=== PATIENT | male | born 1945 | race Caucasian/White ===

== ENCOUNTER → 2024-02-25 11:29 | Outpatient (REF) | payer OTHER, SELFPAY | LOC: DHCBC/DCA 11:29 | PROVIDERS: ATTENDING PHYSICIAN Internal Medicine Cardiovascular Disease; FAMILY PHYSICIAN Family Medicine | DX: I48.0 Paroxysmal atrial fibrillation (principal) | CPT/HCPCS: 78452; 93017; A9500; J2785 ==

== ENCOUNTER → 2024-03-04 09:07 | Outpatient (REF) | payer OTHER, SELFPAY | LOC: RCS 09:07 | PROVIDERS: ATTENDING PHYSICIAN Internal Medicine Cardiovascular Disease; FAMILY PHYSICIAN Family Medicine | DX: I35.0 Nonrheumatic aortic (valve) stenosis (principal) | CPT/HCPCS: 93306 ==

== ENCOUNTER 2024-07-23 23:31 | Inpatient (IN) | payer OTHER, SELFPAY ==
[2024-07-23 21:43] VITALS: BMI 28.4
[2024-07-23 21:45] VITALS: BP 172/121
[2024-07-23 21:48] VITALS: BP 156/108
[2024-07-23 21:57] LABS: % Basophils 1.1 % (0-2); % Eosinophils 2.9 % (0-6); % Immature Granulocytes 0.5 % (0-0.5); % Lymphocytes 21.9 % (20.5-51.1); % Monocytes 8.1 % (1.7-9.3); % Neutrophils 65.5 % (42.2-75.2); Absolute Basophils 0.1 10^3/uL (0-0.2); Absolute Eosinophils 0.2 10^3/uL (0-0.7); Absolute Lymphocytes 1.2 10^3/uL (1.2-3.4); Absolute Monocytes 0.5 10^3/uL (0.1-0.6); Absolute Neutrophils 3.7 10^3/uL (1.4-6.5); Hematocrit 41.9 % (39.0-52.0); Hemoglobin 14.7 g/dL (13.0-18.0); Mean Corp Hgb Conc. 35.1 g/dL (33.0-37.0); Mean Corpuscular Volume 94.2 fL (80.0-94.0); Mean Platelet Volume 10.4 fL (7.4-10.4); Nucleated Red Blood Cells % 0 % (-); Platelet Count 170 10^3/uL (130-400); Red Blood Cell Count 4.45 10^6/uL (4.70-6.10); Red Cell Dist. Width 13.6 % (11.5-14.5); White Blood Cell Count 5.6 10^3/uL (4.8-10.8)
[2024-07-23 22:09] LABS: APTT 28.8 Sec (23.4-35.0)
--- NOTE | 2024-07-23 22:13 | ED.GENMED ---
History of Present Illness
General
Chief Complaint: Chest Problem
Source: patient and ambulance crew
Exam Limitations: none
Time Seen by Provider: 07/23/24 21:54
Nursing documentation reviewed up to this point in time: agreed with
History of Present Illness
History of Present Illness:
Late entry seen immediately upon presentation I was in verbal contact with EMS and interventional cardiology prior to the patient's arrival, despite the patient being a dose and previously had no knowledge of his history and specific allergies as I
did not have his name/date of , and when asked if he had any allergies he was not sure of the names
79-year-old male history of CAD status post stenting followed by Dr. Kat had 1 visit after a stent placed a few years ago been compliant with Eliquis and aspirin, last night was a little short of breath and feels great just prior to calling EMS
he had pain in his chest into his arm reminiscent of his prior [place], EMS transmitted his EKG which showed tachycardic rhythm with ST elevation inferiorly with concordant ST depressions laterally interventional cardiology was notified, they received a
call from EMS, confirming his history STEMI alert was called admitted here upon presentation by myself and interventional cardiology had received aspirin by EMS
Past History
Past History
ED Past Medical History: Arrthythmia and CAD
ED Past Surgical History: Cardiac
PSI?: No
Social History
Tobacco: Non-smoker
Alcohol: Occasional
Drug: None
Personal:
Living: with family
Employment: Employed
Family History
Family History: CAD
Review of Systems
Review of Systems
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
All Other Systems: Not applicable
Constitutional: Denies fever or fatigue
Respiratory: Reports trouble breathing
Cardiac: Reports chest pain and palpitations; Denies syncope
: Reports no symptoms
Musculoskeletal: Reports no symptoms
Phy Exam
Physical Exam
Physical Exam:
Physical Exam
General: no apparent distress, not acutely ill
Neck: No jaundice
Heart: Tachycardic
Lungs: Bibasilar crackles
Abdomen: Nontender
Neuro: alert and oriented. no focal neurological deficits
Skin: no rash
Psychiatric: well kept. interactive and cooperative
Extremities: no edema. no calf tenderness.
Course
Orders/Labs/Results
Orders:
Orders
07/23/24 21:43
Electrocardiogram (*1) Urgent
Reason for Study: Chest Pain
Cardiac Monitoring- Treatment ONCE
EKG- Treatment ONCE
IV Insert/Care/Rem.- Treatment PRN
O2 Therapy [RESP] Urgent
Titrate/Wean O2 to maintain O2 sat greater than (%): 90
Special Instructions: Maintain sats >/=90%
Pulse Ox/spot Check [RESP] Urgent
Quantity: 1
Special Instructions: ON ROOM AIR
07/23/24 21:51
BNP [NT-proBNP] Urgent
Complete Blood Count/With Diff Urgent
Comprehensive Metabolic Panel Urgent
PTT Urgent
Troponin I Urgent
07/23/24 22:06
Metoprolol [Lopressor] 5 mg .ROUTE .STK-MED ONE
Ticagrelor [Brilinta] 180 mg .ROUTE .STK-MED ONE
Abnormal Lab Results
07/23/24
21:51
RBC 4.45 L 10^6/uL
(4.70-6.10)
MCV 94.2 H fL
(80.0-94.0)
MCH 33.0 H pg
(27.0-31.0)
07/23/24 21:51
Vital Signs
Initial and Last Documented VS:
Initial Vital Signs
Pulse Resp BP Pulse Ox
145 25 172/121 91
07/23/24 21:45 07/23/24 21:45 07/23/24 21:45 07/23/24 21:45
Last Documented Vital Signs
Pulse Resp BP Pulse Ox
153 18 156/108 91
07/23/24 21:48 07/23/24 21:48 07/23/24 21:48 07/23/24 21:45
MDM/Problems Addressed
Differential Diagnosis Includes:
STEMI, ACS stent occlusion, arrhythmia, dissection, less likely PE
MDM/Problems Addressed:
Chest pain tachycardia
Chronic conditions affecting care: CAD and Arrhythmia
Acute Exacerbation and/or Progression of Chronic Illness: CAD
*Pulse Oximetry
Patient hypoxic: yes
*EKG
Interpreted by ED Provider?: Yes
Comparison EKG: no comparison EKG present
Heart Rate: 145
Rate: bradycardiac
Rhythm: sinus
Ischemia: ST elevation
*Canvas Cutter Hand Interpretation
Rate: tachycardiac
Interpretation: abnormal
Heart Rate: 140
Rhythm: sinus
*Critical Care Note
Total Time (30-74mins, 75-104mins- exclusive of procedures): 30
comment:
CRITICAL CARE STATEMENT: A total of 30 minutes of critical care time was provided for this patient. This includes management of unstable vital signs, evaluation of the patient at bedside, reviewing the patient's pertinent medical records discussion
with EMS providers and patient's family in addition to discussion with consultants, review of old EKGs and review of pertinent medical records. This time with separate from time utilized to perform the aforementioned documented procedures
Patient treated with nitroglycerin Brilinta Lopressor, patient initially stated he did not have any drug allergies, upon review of the medical record states he gets short of breath from Brilinta, this was not apparent on his presentation
ED Attending Note
-
Portions of this chart may have been created with voice recognition software.� Occasional wrong word or��sound alike� substitutions may have occurred due to the inherent limitations of voice recognition software.
Discharge Plan
Departure
Patient Disposition: Admit
Date of Disposition: 07/23/24
Time of Disposition: 22:12
Admit to: brine room laborer
Presentation/result/management discussed w/ accepting MD/DO: Abby cardiology for CBC
Patient with high blood pressure during this ER visit?: Yes
Condition: Serious
Covid-19: Not Applicable
Discharge Problem:
ST elevation (STEMI) myocardial infarction
Interventions
Interventions:
*Risk Screen - Suicide Last Done: 07/23/24 22:10
*General Assessment Last Done: 07/23/24 22:10
*Neglect/Abuse Screening Last Done: 07/23/24 22:10
ED- Fall Risk Assessment Last Done: 07/23/24 22:12
*ED COVID-19 Vaccine History Last Done: 07/23/24 22:10
*Nursing Disposition Last Done: 07/23/24 22:12
ED- Cardiac Assessment Last Done: 07/23/24 22:07
ED- Pulmonary Assessment Last Done: 07/23/24 22:07
[2024-07-23 22:18] LABS: ALT (SGPT) 27 U/L (0-50); AST (SGOT) 33 U/L (17-59); Albumin 4.3 g/dl (3.5-5.0); Alkaline Phosphatase 53 U/L (38-126); Blood Urea Nitrogen 15 mg/dl (9-20); Calcium 9.1 mg/dl (8.4-10.2); Carbon Dioxide 24 mmol/L (22-30); Chloride 106 mmol/L (98-107); Estimated Creatinine Clearance 41 ml/min; Glucose 132 mg/dl (70-99); Potassium 4.4 mmol/L (3.5-5.1); Sodium 139 mmol/L (135-145); Total Bilirubin 0.7 mg/dl (0.2-1.3); Total Protein 6.8 g/dl (6.3-8.2); eGFR 50.49
[2024-07-23 22:23] LABS: NT-proBNP 1580 pg/ml
[2024-07-23 22:29] LABS: ACT-LR - POC 221 Seconds (116-155)
[2024-07-23 22:29] LABS: ACT-LR - POC 137 Seconds (116-155)
[2024-07-23 22:34] LABS: ACT-LR - POC 316 Seconds (116-155)
[2024-07-23 22:57] LABS: ACT-LR - POC 236 Seconds (116-155)
--- NOTE | 2024-07-23 23:11 | ITS.CL.CATH ---
Chief Ultrasound Technologist - Catheterization
Cardiac Catheterization
Procedure Report:
LEFT HEART CATHETERIZATION AND CORONARY INTERVENTION
Date of Procedure: July 23, 2024
Referring: [facility] emergency department
PROCEDURES:
1. Left heart catheterization, coronary angiogram.
2. Ultrasound-guided access.
3. Successful percutaneous coronary artery intervention of a hazy 90% proximal RCA in-stent restenosis, treated with one 3.0 x 18 mm Medtronic [place] frontier drug-eluting stent, postdilated with a 3.5 x 8 mm NC balloon at 20 erasto with an excellent
angiographic result
4. Intravascular ultrasound (IVUS)
INDICATION: Roverto is a 79-year-old gentleman with past medical history of hypertension, hyperlipidemia, coronary artery disease status post STEMI in 2018 with ostial to proximal 3.0 x 38 mm Xience drug-eluting stent, paroxysmal atrial fibrillation
status post prior cardioversions and ablation on chronic Eliquis chronic Eliquis and sotalol therapy along with diltiazem, who presents with acute onset of substernal chest discomfort starting this evening after dinnertime radiating to bilateral
arms found to have a barrier ST elevation NE for which heart catheterization lab was activated emergently and patient was brought to the heart catheterization lab after informed consent discussing risk and benefits in detail. Patient received 225
mg of aspirin by EMS, 4000 units of heparin IV in the emergency department along with Brilinta 180 mg loading dose. He noted afterwards that he has potential allergies to Plavix which caused a rash previously and Brilinta which caused shortness of
breath previously.
ACCESS: Right radial artery, 6 Latvian sheath, under ultrasound guidance
HEMODYNAMICS : (mmHg)
AO (s/d) : 135/104
LV (s/d) : 133/13
LVEDP : 21
CORONARY FINDINGS
DOMINANCE: Right
LEFT MAIN: The left main artery is a large-caliber vessel which gives rise to the left anterior descending artery and the left circumflex artery. There is mild diffuse atherosclerotic plaque.
LEFT ANTERIOR DESCENDING: The left coronary artery is a medium to large caliber vessel which gives rise to 2 small to medium caliber diagonal branches as it courses to the anterior interventricular groove and wraps around the apex. There is diffuse
up to 70% stenosis in the proximal LAD which is moderately calcified.
CIRCUMFLEX: The left circumflex artery is a medium caliber vessel which gives rise to 2 major obtuse marginal branch and a small to medium caliber left posterolateral branch. OM1 has 40% proximal stenosis which is tubular and smooth in appearance.
OM 2 has diffuse proximal 20 to 30% stenosis. Otherwise there is mild diffuse atherosclerotic plaque.
RIGHT CORONARY ARTERY: The right coronary artery is a medium caliber, dominant vessel which gives rise to the right posterior descending artery and the right posterolateral system. There is a hazy 90% proximal RCA in-stent restenosis which is the
culprit for presenting ACS and was treated with details below.
CORONARY INTERVENTION:
SEDATION: 54 minutes of procedural sedation was utilized. An independent certified medical asst was present to assist with and help manage the patient's level of consciousness and physiologic status.
RADIATION SUMMARY: Fluoro Time (min): 11.8, Dose (mGy): 1042.9, DAP (Gy.cm2) : 75.8
Closure Device: Vascular band over right radial artery, 15 cc of air
CONCLUSIONS
1. Successful IVUS guided percutaneous coronary artery intervention of a hazy 90% proximal RCA in-stent restenosis, treated with one 3.0 x 18 mm Medtronic [place] frontier drug-eluting stent, postdilated with a 3.5 x 8 mm NC balloon at 20 erasto with an
excellent angiographic result.
2. There is diffuse up to 70% stenosis in the proximal LAD which is moderately calcified.
3. OM1 has 40% proximal stenosis which is tubular and smooth in appearance. OM 2 has diffuse proximal 20 to 30% stenosis.
4. Elevated LVEDP at 21 mmHg
RECOMMENDATIONS
1. Plan for daily baby aspirin along with Brilinta for now. Clarify allergies to antiplatelet agents as noted in records given patient does not recall them. As long as right radial site is stable can resume Eliquis tomorrow. Would recommend
triple therapy for 1 week then Eliquis along with 1 antiplatelet agent subsequently. High intensity statin and beta-thomas as tolerated.
2. Aggressive management of cardiovascular risk factors.
3. Wean radial band per protocol.
4. Echocardiogram to assess biventricular function and rule out any significant valvular abnormalities.
5. Eventual referral for outpatient cardiac rehab.
6. Consider IFR guided intervention to proximal LAD for complete revascularization in the near future.
Copy to: Demario Ramírez MD
Enedelia Thomas MD, FAC, [facility]
[2024-07-23 23:19] VITALS: BP 121/82
--- NOTE | 2024-07-23 23:20 | HPS.HSE ---
Family Physician
-
Family Physician: Wolfgang Juan
Chief Complaint
-
Chest pain
History of Present Illness
Roverto is a 79-year-old gentleman with past medical history of hypertension, hyperlipidemia, coronary artery disease status post STEMI in 2018 with ostial to proximal 3.0 x 38 mm Xience drug-eluting stent, paroxysmal atrial fibrillation status
post prior cardioversions and ablation on chronic Eliquis chronic Eliquis and sotalol therapy along with diltiazem, who presents with acute onset of substernal chest discomfort starting this evening after dinnertime radiating to bilateral arms found
to have a barrier ST elevation TN for which heart catheterization lab was activated emergently and patient was brought to the heart catheterization lab after informed consent discussing risk and benefits in detail. Patient received 225 mg of
aspirin by EMS, 4000 units of heparin IV in the emergency department along with Brilinta 180 mg loading dose. He noted afterwards that he has potential allergies to Plavix which caused a rash previously and Brilinta which caused shortness of breath
previously, however this was based on documentation and patient himself could not truly recall his reactions in which medications. Family also tells us later on after the heart catheterization that patient has been missing doses of his medications,
unsure of which medication exactly as he has been playing around trying to find if any of his medications were causing a rash that he recently saw dermatology for however biopsy per family showed that the rash may have been autoimmune in nature. He
tells me his last dose of Eliquis was at 5 PM evening of presentation. He also notes that he has been having dyspnea on exertion for the last few months with any degree of activity however he has not seen anyone for this. He quit smoking more than
30 years ago. He otherwise reports compliance with his medications and did not tell us about missing doses recently.
Medical History
Past Medical History
Past Medical History: Reports Arrhythmia, CAD, HTN, Hypercholesterolemia and Renal Failure
Additional Past Medical History:
Atrial fibrillation/flutter status post ablation previously
Past Surgical History: Reports Cardiac
Additional Past Surgical History:
Stent in ostial to proximal RCA
Social History
Tobacco: Former Smoker
Alcohol: Occasional
Drug: None
Personal: Partner
Living: With Family
Employment: Employed
Family History
Family History: CAD
Allergies / Home Medications
Allergies reflects when Allergies were last updated in [employer].
Home Medications with original date entered in [employer]
Patient is unclear of his current medications and family will provide the most active list. Of note patient has been recently missing doses of his medications.
Allergy/Medication List:
No known drug allergy
Review of Systems
-
A 12 point ROS was completed and negative except as noted: Yes
Physical Exam
Vital Signs
Vital Signs
Pulse Resp BP Pulse Ox
153 18 156/108 91
07/23/24 21:48 07/23/24 21:48 07/23/24 21:48 07/23/24 21:45
Physical Exam
General: Well Developed, Well Nourished and No Apparent Distress
HEENT: Moist mucous membranes and PERRLA
Respiratory: Rales and Non Labored Respirations; No Wheezes or Rhonchi
Cardiac: S1/S2, Tachycardia, JVD and Carotid Pulses; No Rub, Peripheral Edema or Carotid Bruits
GI: Soft, Non Tender and Normal Bowel Sounds
Genito-urinary: Deferred by me
Musculoskeletal: No Clubbing, No Cyanosis and No Edema
Skin: Warm and Dry
Neuro: Awake, Oriented and AO x 3
Psych: Calm
Laboratory Results
-
07/23/24 21:51
07/23/24 21:51
Laboratory Results
APTT 28.8 Sec (23.4-35.0) 07/23/24 21:51
Total Bilirubin 0.7 mg/dl (0.2-1.3) 07/23/24 21:51
AST 33 U/L (17-59) 07/23/24 21:51
ALT 27 U/L (0-50) 07/23/24 21:51
Alkaline Phosphatase 53 U/L (38-126) 07/23/24 21:51
Troponin I 0.180 ng/ml H* 07/23/24 21:51
Data Reviewed
-
Diagnostic Radiology: Report Reviewed by me
Medical Tests (Nuc Med, Echo, EKG etc): Image Personally Visualized and interpreted
Lab Data: Labs Reviewed by me
Old Records: Reviewed
Impression/Plan
-
IMPRESSION: Roverto is a 79-year-old gentleman with past medical history of hypertension, hyperlipidemia, coronary artery disease status post STEMI in 2018 with ostial to proximal 3.0 x 38 mm Xience drug-eluting stent, paroxysmal atrial
fibrillation status post prior cardioversions and ablation on chronic Eliquis chronic Eliquis and sotalol therapy along with diltiazem, who presents with acute onset of substernal chest discomfort starting this evening after dinnertime radiating to
bilateral arms found to have a barrier ST elevation TN for which heart catheterization lab was activated emergently and patient was brought to the heart catheterization lab after informed consent discussing risk and benefits in detail. Patient
received 225 mg of aspirin by EMS, 4000 units of heparin IV in the emergency department along with Brilinta 180 mg loading dose. He noted afterwards that he has potential allergies to Plavix which caused a rash previously and Brilinta which caused
shortness of breath previously, however this was based on documentation and patient himself could not truly recall his reactions in which medications. Family also tells us later on after the heart catheterization that patient has been missing doses
of his medications, unsure of which medication exactly as he has been playing around trying to find if any of his medications were causing a rash that he recently saw dermatology for however biopsy per family showed that the rash may have been
autoimmune in nature. He tells me his last dose of Eliquis was at 5 PM evening of presentation. He also notes that he has been having dyspnea on exertion for the last few months with any degree of activity however he has not seen anyone for this.
He quit smoking more than 30 years ago. He otherwise reports compliance with his medications and did not tell us about missing doses recently.
PLAN:
1. Plan for urgent heart catheterization after discussion of risk and benefits and informed consent.
2. ACS management with daily aspirin, hold Eliquis for now, IV heparin drip, high intensity statin and beta-thomas as tolerated.
3. Echocardiogram to assess biventricular function and rule out any significant valvular issues.
4. Further details based on the heart catheterization report.
5. Family to bring in list of active medications and clarify what he has been missing recently.
6. Eventual referral for outpatient cardiac rehab.
Enedelia Thomas MD, FACC, [facility]
[2024-07-23 23:53] VITALS: BP 132/94
[2024-07-24] VITALS (19 sets, daily range): BP systolic 110–180; BP diastolic 66–117; BMI 28.4; BMI 25.5
[2024-07-24 00:13] LABS: Troponin I 0.295 ng/ml
[2024-07-24] MEDS: LIPITOR 80 MG PO ×2 (00:14→17:35)
[2024-07-24] MEDS: LOPRESSOR 25 MG PO (00:14)
[2024-07-24] MEDS: LOPRESSOR 5 MG IV (00:55)
--- NOTE | 2024-07-24 02:29 | PTCARENOTE ---
Received pt from mobile home laborer into 2244. TR band in place c/d/i palpable radial pulse continuous pulse ox on right index finger 95% A flutter on the monitor 130's. BP stable denies chest pain. EKG done on arrival. Call house within reach. Pt aware of arm
restriction and bed rest.
--- NOTE | 2024-07-24 02:41 | PTCARENOTE ---
0100 Pt HR 130-140 Lionel Motley notified and ordered 5 mg Lopressor IVP.
[2024-07-24 05:32] LABS: Hemoglobin 13.5 g/dL (13.0-18.0); Mean Corp Hgb Conc. 35.5 g/dL (33.0-37.0); Mean Corpuscular Hgb 33.4 pg (27.0-31.0); Mean Corpuscular Volume 94.1 fL (80.0-94.0); Mean Platelet Volume 10.5 fL (7.4-10.4); Platelet Count 154 10^3/uL (130-400); Red Blood Cell Count 4.04 10^6/uL (4.70-6.10); Red Cell Dist. Width 13.7 % (11.5-14.5); White Blood Cell Count 5.4 10^3/uL (4.8-10.8)
[2024-07-24 05:55] LABS: Blood Urea Nitrogen 15 mg/dl (9-20); Calcium 8.8 mg/dl (8.4-10.2); Carbon Dioxide 23 mmol/L (22-30); Chloride 106 mmol/L (98-107); Estimated Creatinine Clearance 64 ml/min; Glucose 102 mg/dl (70-99); HDL Cholesterol 43 mg/dl; LDL Cholesterol, Calculated 54 mg/dl; Potassium 3.8 mmol/L (3.5-5.1); Sodium 139 mmol/L (135-145); Total Cholesterol 145 mg/dl (50-199); Triglyceride 241 mg/dl (10-149); Very Low Density Lipoprotein 48 mg/dl (0-30); eGFR > 60.00
[2024-07-24 05:57] LABS: Troponin I 0.961 ng/ml
[2024-07-24] MEDS: BRILINTA 90 MG PO ×2 (08:27→19:55)
[2024-07-24] MEDS: LASIX 40 MG IV ×2 (08:28→16:20)
[2024-07-24] MEDS: BETAPACE 80 MG PO ×2 (08:28→19:55)
[2024-07-24] MEDS: CARDIZEM 30 MG PO (08:28)
[2024-07-24] MEDS: PROTONIX 40 MG PO (08:28)
[2024-07-24] MEDS: LOW STRENGTH ASPIRIN 81 MG PO (08:28)
[2024-07-24] MEDS: LOPRESSOR PO (08:29)
--- NOTE | 2024-07-24 09:00 | PTCARENOTE ---
On pt handoff w/ nightshift RN, pt complained of abdominal pain described as cramping and feeling 'gassy.' Pt noted to be pursed lip breathing. Pt states 'i feel like i can not get enough air.' POX 93% RA. 2L O2 NC applied for comfort. BP 180/109.
Chivo SAVAGE notified. EKG obtained. Pt noted to be in afib 130s. Chivo at bedside. IV lasix ordered and administered. AM meds administered as ordered. See MAR. Repeat BP 150/102. Pt states some relief. Call harsh w/in reach.
[2024-07-24] MEDS: ELIQUIS 5 MG PO ×2 (09:20→19:54)
--- NOTE | 2024-07-24 09:30 | PTCARENOTE ---
Repeat EKG obtained and reads junctional rhythm w/ long QT. HR 50-80s. Chivo notified and magnesium ordered and drawn.
--- NOTE | 2024-07-24 10:00 | PTCARENOTE ---
On pt handoff w/ nightshift RN, pt complained of abdominal pain described as cramping and feeling 'gassy.' Pt noted to be pursed lip breathing. Pt states 'i feel like i can not get enough air.' POX 93% RA. 2L O2 NC applied for comfort. BP 180/109.
Chivo SAVAGE notified. EKG obtained. Pt noted to be in afib 130s. Chivo at bedside. IV lasix ordered and administered. AM meds administered as ordered. See MAR. Repeat troponin and mag ordered and drawn. Repeat BP 150/102. Pt states some relief.
Call house w/in reach.
[2024-07-24 11:30] LABS: Magnesium 1.8 mg/dl (1.6-2.3)
--- NOTE | 2024-07-24 11:33 | W.PN.CD ---
Today's Communication / Plan
-
IV lasix bid today
PRN lasix starting tomorrow
Aspirin Ticag and Eliquis for 1 week, then ticagrelor and ELiquis for at least 1 year
Echo pending
Impression / Plan
-
S: 79-year-old with past medical history of paroxysmal AF on sotalol and Eliquis, PVI in 2022, CAD, mild to moderate aortic valve stenosis, hypertension, GERD, who is here for STEMI now s/p RCA stenosis.
STEMI status post RCA stenting for ISR causing STEMI
-Triple therapy for 1 week and then ticagrelor Eliquis for at least 1 year
-Continue statin
-LAD stenosis to be evaluated as outpatient
-Echocardiogram pending
Acute HF unknown EF LVEDP 21 mmHg on cath
- Echo pending
- IV lasix BID today
- resume PRN lasix tomorrow
Paroxysmal A-fib
-Continue sotalol and diltiazem
-Continue Eliquis
Hypertension
-Continue meds
Dyslipidemia
-Continue statin
AV stensosi
-mild to moderate on previous echo
Subjective: Feels better today no new complaints
Physical Exam
Vital Signs/Labs
Vital Signs
Temp Pulse Resp BP Pulse Ox
97.8 F 73 20 149/116 97
07/24/24 11:19 07/24/24 10:30 07/24/24 11:19 07/24/24 08:10 07/24/24 11:19
07/23/24 07/24/24 07/25/24
06:59 06:59 06:59
Actual Weight 192 lb 0.362 oz 177 lb 11.081 oz
07/24/24 05:13
07/24/24 05:13
APTT 28.8 Sec (23.4-35.0) 07/23/24 21:51
Magnesium 1.8 mg/dl (1.6-2.3) 07/24/24 10:11
Triglycerides 241 mg/dl (10-149) H 07/24/24 05:13
LDL Cholesterol, Calc 54 mg/dl 07/24/24 05:13
VLDL Cholesterol, Calc 48 mg/dl (0-30) H 07/24/24 05:13
HDL Cholesterol 43 mg/dl 07/24/24 05:13
07/23/24
21:51
Nki-C-Kjjykdsidbr Pept 1580
LAB Results
07/23/24 07/23/24 07/24/24
21:51 23:38 05:13
Troponin I 0.180 H* 0.295 H* D 0.961 H* D
07/24/24
10:11
Troponin I 1.140 H*
Physical Exam
Constitutional: No acute distress
EENT: Anicteric
Cardiovascular: Rhythm & rate is regular and Pedal edema is absent
Respiratory: Respiratory effort normal, Lungs clear to auscul. and Other (poor air movement)
GI: Soft
Neuro/Psych: AO x 3
Data Reviewed
-
Date of Service: July 24, 2024
Medical Decision Making: Reviewed Test Results
EKG: Tracing Personally Visualized and interpreted (sr)
Echo: Report Reviewed by me
Labs: Labs Reviewed by me
--- NOTE | 2024-07-24 11:43 | CM ---
Chart reviewed. Patient is independent of ADLS, lives with his girlfriend in a [address], 1 [address], 0 DME. Plan is for the patient to return home. CM to follow
[2024-07-24] MEDS: MAGNESIUM SULFATE 100 IV (12:11)
--- NOTE | 2024-07-24 12:17 | PTCARENOTE ---
mag 1.8. Chivo notifed and mag gtt ordered and administered. Pt currently has no complaints. Call harsh w/in reach.
[2024-07-24] MEDS: KCL 40 MEQ PO (12:45)
[2024-07-24] MEDS: KCL PO (12:46)
[2024-07-24] MEDS: CARDIZEM PO (15:42)
--- NOTE | 2024-07-24 15:44 | PTCARENOTE ---
Tele- SR w/ PVCs. HR 50-60s. PO cardizem 30mg casper. Crispin Velarde SO[employer]ER notified and ordered to hold dose.
--- NOTE | 2024-07-24 16:01 | CM ---
Pricing on Brilinta is $112 through the patient's prescription plan. Patient is agreeable to cost. Patient does not have the Brilinta in stock at his pharmacy. It is in stock at the [facility] on [address]. Patient is agreeable to go there.
RAFAEL Sheppard, to send Brilinta script over. Patient has a free 30 day coupon in his red discharge folder.
[2024-07-24 17:05] LABS: Troponin I 0.852 ng/ml
--- NOTE | 2024-07-24 21:29 | PTCARENOTE ---
Pt rec'd at shift change awake,alert family at bedside. Pt mildly dyspneic with talking denies distress. Lungs diminished throughout. o2 at 2 lit n/c maintained. Right radial site with DDI. HR 60's irregular with pvc's noted
[2024-07-25] VITALS (7 sets, daily range): BP systolic 105–136; BP diastolic 69–86; BMI 24.8
--- NOTE | 2024-07-25 05:33 | PTCARENOTE ---
Pt reports having no complaints this am. ecg showed junctional with pac's and pvc's in 70's. right radial site remains intact.
--- NOTE | 2024-07-25 08:01 | PTCARENOTE ---
Received patient this morning resting in bed, dressing right wrist is dry and intact. Patient denies any complaints other than needing to sleep.
[2024-07-25] MEDS: ELIQUIS 5 MG PO ×2 (09:07→20:39)
[2024-07-25] MEDS: BRILINTA 90 MG PO ×2 (09:07→20:39)
[2024-07-25] MEDS: LASIX 40 MG IV (09:07)
[2024-07-25] MEDS: LOW STRENGTH ASPIRIN 81 MG PO (09:07)
[2024-07-25] MEDS: BETAPACE 80 MG PO (09:07)
[2024-07-25] MEDS: PROTONIX 40 MG PO (09:08)
[2024-07-25] MEDS: FLUSH (NSS) 1 FLUSH IV (09:08)
[2024-07-25] MEDS: TYLENOL 650 MG PO (09:23)
--- NOTE | 2024-07-25 11:58 | W.PN.CD ---
Addendum entered and electronically signed by Willian Junior MD 07/25/24 12:31:
Patient seen and examined in collaboration with MONOTYPER; agree with below.
-Echocardiogram yesterday revealed an LVEF of 40-45% with basal to mid inferior akinesis.
-Will need to optimize medications for GDMT.
-Will discontinue sotalol and Cardizem.
-Will start Toprol-XL 25 mg twice daily for now.
-Will start Farxiga 10 mg daily.
-Will decrease Lasix to 40 mg IV twice daily to once daily.
-Continue triple therapy for 1 week.
-Continue clinical research monitor over the weekend as Toprol-XL will likely need to be uptitrated as patient was both on sotalol and Cardizem.
-Likely discharge to home on Saturday.
Original Note:
Today's Communication / Plan
-
continue IV lasix once daily- requires intensive monitoring
stop sotalol and follow telemetry
stop diltiazem and start metoprolol
AP and AC plan as noted in detail
Add SGLT2 and consult CM for pricing
Impression / Plan
-
S: 79-year-old with past medical history of paroxysmal AF on sotalol and Eliquis, PVI in 2022, CAD, mild to moderate aortic valve stenosis, hypertension, GERD, who is here for STEMI now s/p RCA stenosis.
STEMI status post RCA stenting for ISR causing STEMI:
-Triple therapy for 1 week and then ticagrelor Eliquis for at least 1 year
-Continue statin
-LAD stenosis to be evaluated as outpatient
-echo 07/24/23: LV ejection fraction is approximately 40-45%. Basal to mid inferior akinesis. Moderately dilated atria. Mild mitral stenosis; peak/mean gradients 6/3 mmHg. Mild to moderate aortic stenosis; peak/mean gradients are 26/12 mmHg,
calculated BRIGITTE 1.4 cm2 via planimetry. Mild aortic regurgitation. Mild tricuspid regurgitation. Estimated pulmonary artery pressure of 35-40 mmHg. Dilated aortic root. Sinus of Valsalva measures 4.1 cm.
Acute HFmEF:
-IV Lasix once daily- likely PO transition Saturday
-stop diltiazem for ICM, add BB and SGLT2 to start- other GDMT as tolerated in future
Paroxysmal A-fib
-stop sotalol with ICM and prolonged QTC, and follow telemetry- add BB
-Continue Eliquis
Hypertension
-monitor with med adjustments
Dyslipidemia
-Continue statin
AV stenosis
-echo as above
Subjective:
-has TODD and abdominal bloating
Physical Exam
Vital Signs/Labs
Vital Signs
Temp Pulse Resp BP Pulse Ox
97.7 F 58 18 105/69 93
07/25/24 04:19 07/25/24 11:45 07/25/24 04:19 07/25/24 11:21 07/25/24 09:20
07/24/24 07/25/24 07/26/24
06:59 06:59 06:59
Actual Weight 87.1 kg 78.4 kg
07/24/24 05:13
07/24/24 05:13
APTT 28.8 Sec (23.4-35.0) 07/23/24 21:51
Magnesium 1.8 mg/dl (1.6-2.3) 07/24/24 10:11
Triglycerides 241 mg/dl (10-149) H 07/24/24 05:13
LDL Cholesterol, Calc 54 mg/dl 07/24/24 05:13
VLDL Cholesterol, Calc 48 mg/dl (0-30) H 07/24/24 05:13
HDL Cholesterol 43 mg/dl 07/24/24 05:13
07/23/24
21:51
Ddm-H-Qmsojeaiwnz Pept 1580
LAB Results
07/23/24 07/23/24 07/24/24
21:51 23:38 05:13
Troponin I 0.180 H* 0.295 H* D 0.961 H* D
07/24/24 07/24/24
10:11 16:30
Troponin I 1.140 H* 0.852 H* D
Physical Exam
Constitutional: No acute distress
EENT: Anicteric
Cardiovascular: Rhythm & rate is regular and Pedal edema is absent
Respiratory: Respiratory effort normal and Lungs clear to auscul.
Neuro/Psych: AO x 3
Other: Cath Site (right radial cath site stable)
Data Reviewed
-
Date of Service: July 25, 2024
EKG: Tracing Personally Visualized and interpreted (ectopic atrial rhythm)
Medical Tests (PFT, Pathology etc): Report Reviewed by me (ecoh as noted)
Labs: Labs Reviewed by me
[2024-07-25] MEDS: LIPITOR 80 MG PO (17:13)
[2024-07-25] MEDS: TOPROL XL 25 MG PO (20:40)
[2024-07-26] VITALS (12 sets, daily range): BP systolic 101–144; BP diastolic 66–115; BMI 24.8
[2024-07-26 04:38] LABS: Blood Urea Nitrogen 18 mg/dl (9-20); Carbon Dioxide 24 mmol/L (22-30); Chloride 102 mmol/L (98-107); Estimated Creatinine Clearance 85 ml/min; Glucose 107 mg/dl (70-99); Potassium 3.9 mmol/L (3.5-5.1); Sodium 137 mmol/L (135-145); eGFR > 60.00
--- NOTE | 2024-07-26 06:17 | PTCARENOTE ---
Assumed care of pt at change of shift. NSR with PACs and PVCs on tele with HR 60s-70s. 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 Pt denies CP. Plan of care discussed and pt verbalizes understanding. Ambulating independently without difficulty. Call
house within reach.
[2024-07-26] MEDS: ELIQUIS 5 MG PO ×2 (09:18→20:12)
[2024-07-26] MEDS: FARXIGA 10 MG PO (09:19)
[2024-07-26] MEDS: TOPROL XL 25 MG PO (09:20)
[2024-07-26] MEDS: LASIX 40 MG IV (09:20)
[2024-07-26] MEDS: PROTONIX 40 MG PO (09:20)
[2024-07-26] MEDS: LOW STRENGTH ASPIRIN 81 MG PO (09:20)
[2024-07-26] MEDS: BRILINTA 90 MG PO ×2 (09:21→20:12)
[2024-07-26] MEDS: FLUSH (NSS) 1 FLUSH IV (09:21)
--- NOTE | 2024-07-26 10:00 | W.PN.CD ---
Today's Communication / Plan
-
-Triple therapy for 1 week, and then ticagrelor and Eliquis for at least 1 year.
-Occasional PVCs on telemetry.
-Continue Toprol-XL 25 mg twice daily and Farxiga for GDMT.
-Will start low-dose lisinopril 2.5 mg daily for GDMT.
-Discharge to home tomorrow morning.
Impression / Plan
-
S: 79-year-old with past medical history of paroxysmal AF on sotalol and Eliquis, PVI in 2022, CAD, mild to moderate aortic valve stenosis, hypertension, GERD, who is here for STEMI now s/p RCA stenosis.
STEMI status post RCA stenting for ISR causing STEMI:
-Triple therapy for 1 week, and then ticagrelor and Eliquis for at least 1 year.
-Continue statin
-LAD stenosis to be evaluated as outpatient
-echo 07/24/23: LV ejection fraction is approximately 40-45%. Basal to mid inferior akinesis. Moderately dilated atria. Mild mitral stenosis; peak/mean gradients 6/3 mmHg. Mild to moderate aortic stenosis; peak/mean gradients are 26/12 mmHg,
calculated BRIGITTE 1.4 cm2 via planimetry. Mild aortic regurgitation. Mild tricuspid regurgitation. Estimated pulmonary artery pressure of 35-40 mmHg. Dilated aortic root. Sinus of Valsalva measures 4.1 cm.
-Occasional PVCs on telemetry.
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
-Will transition to Lasix 20 mg PO daily starting tomorrow.
-Diltiazem discontinued.
-Continue Toprol-XL 25 mg twice daily and Farxiga for GDMT.
-Will start low-dose lisinopril 2.5 mg daily for GDMT.
Paroxysmal A-fib
-Sotalol discontinued with ICM and prolonged QTC; changed to Toprol-XL.
-Continue Eliquis.
Hypertension
-Stable/controlled; adding lisinopril as above.
Dyslipidemia
-Continue atorvastatin 80 mg daily.
AV stenosis
-Stable.
Subjective:
No major events overnight. Dyspnea improved.
Physical Exam
Vital Signs/Labs
Vital Signs
Temp Pulse Resp BP Pulse Ox
97.8 F 85 20 136/86 94
07/26/24 06:53 07/26/24 08:00 07/26/24 06:53 07/26/24 06:55 07/26/24 06:53
07/25/24 07/26/24 07/27/24
06:59 06:59 06:59
Actual Weight 78.4 kg 78.5 kg
07/24/24 05:13
07/26/24 04:04
APTT 28.8 Sec (23.4-35.0) 07/23/24 21:51
Magnesium 1.8 mg/dl (1.6-2.3) 07/24/24 10:11
Triglycerides 241 mg/dl (10-149) H 07/24/24 05:13
LDL Cholesterol, Calc 54 mg/dl 07/24/24 05:13
VLDL Cholesterol, Calc 48 mg/dl (0-30) H 07/24/24 05:13
HDL Cholesterol 43 mg/dl 07/24/24 05:13
07/23/24
21:51
Nnw-B-Cicxmtkhcsg Pept 1580
LAB Results
07/23/24 07/23/24 07/24/24
21:51 23:38 05:13
Troponin I 0.180 H* 0.295 H* D 0.961 H* D
07/24/24 07/24/24
10:11 16:30
Troponin I 1.140 H* 0.852 H* D
Physical Exam
Constitutional: No acute distress and Comfortable
EENT: Anicteric
Cardiovascular: Rhythm & rate is regular, Pedal edema is absent, Systolic murmur present (1/6) and S1S2 is normal
Respiratory: Respiratory effort normal and Lungs clear to auscul.
GI: Soft and Non tender
Neuro/Psych: AO x 3
Other: Skin (Warm, dry, intact)
Data Reviewed
-
Date of Service: July 26, 2024
EKG: Report Reviewed by me (Telemetry: Sinus rhythm, occasional PVCs)
Echo: Tracing Personally Visualized and interpreted (EF 40-45%, inferior akinesis)
Medical Tests (PFT, Pathology etc): Discussed with Nurse, Discussed with Patient and Discussed with Family (Son at bedside)
Labs: Labs Reviewed by me
[2024-07-26] MEDS: ZESTRIL 2.5 MG PO (12:24)
--- NOTE | 2024-07-26 12:39 | PTCARENOTE ---
Patient seen by cardiology this morning, given IV lasix, will switch to PO tomorrow. Patient given HF education, reviewed with the patient and his S.O. Patient asking if he can shower later this afternoon, ok with Dr. Junior.
--- NOTE | 2024-07-26 13:59 | PTCARENOTE ---
Telemetry alarmed with narrow complex tachycardia with rate of 170. Patient lying in bed, S.O. at the bedside. Patient reports having a flushed sensation from his upper abdomen to his head which subsided when rate broke to the low 100's, BP 128/72.
EKG done which confirmed AF. Notified Dr. Junior via tt, no changes at this time. Patient informed that he should hold off on showering today.
[2024-07-26] MEDS: LOPRESSOR 2.5 MG IV ×2 (16:10→18:37)
--- NOTE | 2024-07-26 16:15 | PTCARENOTE ---
Patient oob in the bathroom, telemetry alarming with HR 180's. Patient was urinating, feeling flushed. Returned to bed, BP 144/115. Dr. Junior notified of patient's HR, patient trying to cough/bear down, HR slightly improved but still in the
150's, BP now 122/92. Patient given lopressor 2.5mg IV as ordered.
[2024-07-26] MEDS: TYLENOL 650 MG PO (16:19)
[2024-07-26] MEDS: LIPITOR 80 MG PO (17:41)
--- NOTE | 2024-07-26 18:23 | PTCARENOTE ---
Patient is resting in bed, remains in AF with HR 130-140's, BP 110/78, patient asymptomatic. Notified Dr. Junior of patient's HR, will give additional dose of IV lopressor as ordered and PM dose of increased toprol XL now.
[2024-07-26] MEDS: TOPROL XL 50 MG PO (18:40)
--- NOTE | 2024-07-26 21:15 | PTCARENOTE ---
Pt rec'd at change of shift awake,alert afib with ht rates in low 100's. b/p 115/86. Mild dyspnea with exertion, lungs diminished but clear.
family at bedside.
--- NOTE | 2024-07-26 23:21 | PTCARENOTE ---
Pt resting in bed. afib on telemetry with rates 118-140's. b/p 101/66
[2024-07-27] VITALS (43 sets, daily range): BP systolic 90–135; BP diastolic 62–106; BMI 24.4
--- NOTE | 2024-07-27 06:14 | PTCARENOTE ---
Pt's ht rate low 100-140's afib. b/p this am
[2024-07-27 06:35] LABS: Blood Urea Nitrogen 20 mg/dl (9-20); Calcium 8.8 mg/dl (8.4-10.2); Carbon Dioxide 27 mmol/L (22-30); Chloride 101 mmol/L (98-107); Estimated Creatinine Clearance 66 ml/min; Glucose 116 mg/dl (70-99); Potassium 3.7 mmol/L (3.5-5.1); Sodium 139 mmol/L (135-145); eGFR > 60.00
--- NOTE | 2024-07-27 08:39 | W.PN.CD ---
Today's Communication / Plan
-
IV amio bolus and drip, followed by oral load; possible DCCV if doesn't convert
cont. current GDMT
triple therapy while inpatient then narrow to ticag/Eliquis
Impression / Plan
-
S: 79-year-old with past medical history of paroxysmal AF on sotalol and Eliquis, PVI in 2022, CAD, mild to moderate aortic valve stenosis, hypertension, GERD, who is here for STEMI now s/p RCA stenosis. Course complicated by atrial tachycardia in
setting of discontinuation of sotolol and dilt after diagnosis of HFrEF.
STEMI status post RCA stenting for ISR causing STEMI:
-Triple therapy until discharge, and then ticagrelor and Eliquis for 1 year.
-Continue statin, eventual goal LDL<55
-LAD stenosis to be evaluated as outpatient
-echo 07/24/23: LV ejection fraction is approximately 40-45%. Basal to mid inferior akinesis. Moderately dilated atria. Mild mitral stenosis; peak/mean gradients 6/3 mmHg. Mild to moderate aortic stenosis; peak/mean gradients are 26/12 mmHg,
calculated BRIGITTE 1.4 cm2 via planimetry. Mild aortic regurgitation. Mild tricuspid regurgitation. Estimated pulmonary artery pressure of 35-40 mmHg. Dilated aortic root. Sinus of Valsalva measures 4.1 cm.
-Occasional PVCs on telemetry.
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
-examines euvolemic
-cont. Lasix 20 mg PO daily starting tomorrow.
-Diltiazem/sotolol discontinued in setting of reduced EF
-Continue Toprol-XL 50 mg twice daily and Farxiga for GDMT.
-cont. lisinopril 2.5 mg daily for GDMT.
-further GDMT titration pending resolution of atrial tachycardia
Paroxysmal A-fib
Atrial tachycardia
-went into persistent atrial tachycardia yesterday 07/26 with rate about 140, appears regular, getting EKG now
-Sotalol discontinued with ICM and prolonged QTC; changed to Toprol-XL.
-Continue Eliquis.
-ECG this AM with regular atrial tachycardia at 140 bpm, consistent with AT/Aflutter, will give amio bolus and drip followed by conversion to oral amio for additional load up to 5g total, plan for DCCV if does not convert pharmacologically
Hypertension
-Stable/controlled; adding lisinopril as above.
Dyslipidemia
-Continue atorvastatin 80 mg daily.
-eventual goal <55
AV stenosis
-Stable.
Subjective:
atrial tachycardia through night
hasn't been up but feels mild dyspnea
Physical Exam
Vital Signs/Labs
Vital Signs
Temp Pulse Resp BP Pulse Ox
36.3 C 139 16 123/84 94
07/27/24 07:14 07/27/24 07:09 07/27/24 07:14 07/27/24 07:09 07/27/24 07:14
07/26/24 07/27/24 07/28/24
06:59 06:59 06:59
Actual Weight 78.5 kg 77 kg
07/24/24 05:13
07/27/24 05:58
APTT 28.8 Sec (23.4-35.0) 07/23/24 21:51
Magnesium 1.8 mg/dl (1.6-2.3) 07/24/24 10:11
Triglycerides 241 mg/dl (10-149) H 07/24/24 05:13
LDL Cholesterol, Calc 54 mg/dl 07/24/24 05:13
VLDL Cholesterol, Calc 48 mg/dl (0-30) H 07/24/24 05:13
HDL Cholesterol 43 mg/dl 07/24/24 05:13
07/23/24
21:51
Eey-D-Qeczbxarlen Pept 1580
LAB Results
07/24/24 07/24/24
10:11 16:30
Troponin I 1.140 H* 0.852 H* D
Physical Exam
Constitutional: No acute distress
Cardiovascular: Rhythm & rate is regular
Respiratory: Respiratory effort normal
Neuro/Psych: AO x 3
Data Reviewed
-
Date of Service: July 27, 2024
Medical Decision Making: Reviewed Test Results
EKG: Tracing Personally Visualized and interpreted and Report Reviewed by me
Echo: Tracing Personally Visualized and interpreted and Report Reviewed by me
Labs: Labs Reviewed by me
[2024-07-27] MEDS: BRILINTA 90 MG PO ×2 (09:40→20:03)
[2024-07-27] MEDS: FARXIGA 10 MG PO (09:41)
[2024-07-27] MEDS: ELIQUIS 5 MG PO ×2 (09:41→20:03)
[2024-07-27] MEDS: LASIX 20 MG PO (09:41)
[2024-07-27] MEDS: PROTONIX 40 MG PO (09:41)
[2024-07-27] MEDS: ZESTRIL 2.5 MG PO (09:41)
[2024-07-27] MEDS: LOW STRENGTH ASPIRIN 81 MG PO (09:41)
[2024-07-27] MEDS: TOPROL XL 50 MG PO ×2 (09:41→20:03)
[2024-07-27] MEDS: FLUSH (NSS) 1 FLUSH IV (09:42)
[2024-07-27] MEDS: CORDARONE 103 MG IV (09:56)
[2024-07-27] MEDS: CORDARONE 518 MG IV (10:07)
--- NOTE | 2024-07-27 10:18 | PTCARENOTE ---
Patient remains in [facility], patient seen by Dr. Schultz, EKG done and patient ordered IV amio bolus and drip. S.O. at the bedside, #22 inserted RFA and patient given bolus and gtt started as ordered. Monitoring VS, 107/92-HR in the 120-130's at rest.
Call house in reach.
--- NOTE | 2024-07-27 16:27 | CM ---
priced meds with pts perscript plan/[facility]
farxiga is $144/month, jardiance is $151/month
--- NOTE | 2024-07-27 16:57 | PTCARENOTE ---
IV amio decreased to 0.5mg/hr, will start PO dose tonight. NPO after midnight for CV. Patient remains in AF with rates in the 120's, BP stable. Patient resting most of the day.
[2024-07-27] MEDS: LIPITOR 80 MG PO (18:17)
[2024-07-27] MEDS: PACERONE 400 MG PO (20:02)
--- NOTE | 2024-07-27 23:49 | PTCARENOTE ---
Pt rec'd at beginning of shift in bed with family at bedside. Afib with rates 102-140 on Amio gtt at 16.7 ml/hr. iv site checked freq with no redness or swelling noted. Pt aware to call nursing should iv site become uncomfortable. Pt aware of npo
status after mn for CV in am
[2024-07-28] VITALS (7 sets, daily range): BP systolic 118–134; BP diastolic 69–94; BMI 24.4
[2024-07-28 06:37] LABS: Blood Urea Nitrogen 22 mg/dl (9-20); Calcium 8.7 mg/dl (8.4-10.2); Carbon Dioxide 25 mmol/L (22-30); Chloride 101 mmol/L (98-107); Estimated Creatinine Clearance 66 ml/min; Glucose 114 mg/dl (70-99); Potassium 3.7 mmol/L (3.5-5.1); Sodium 138 mmol/L (135-145); eGFR > 60.00
[2024-07-28] MEDS: ELIQUIS 5 MG PO ×2 (08:55→20:18)
[2024-07-28] MEDS: BRILINTA 90 MG PO ×2 (08:55→20:18)
[2024-07-28] MEDS: LOW STRENGTH ASPIRIN 81 MG PO (08:55)
[2024-07-28] MEDS: PROTONIX 40 MG PO (08:56)
[2024-07-28] MEDS: ZESTRIL 2.5 MG PO (08:56)
[2024-07-28] MEDS: TOPROL XL PO (08:57)
[2024-07-28] MEDS: PACERONE PO (08:58)
[2024-07-28] MEDS: LASIX PO (08:58)
[2024-07-28] MEDS: FARXIGA PO (08:59)
--- NOTE | 2024-07-28 09:28 | W.PN.CD ---
Today's Communication / Plan
-
Cardioversion today
- May need to adjust dose of BB/Amio based on sinus rates
Likely plan to STOP AMIO in 6-24 weeks and if AF/AFL recur then later repeat ablation or consider dofetilide vs exterminator helper termite AMIO
Stop ASA at discharge.
Plan is Eliquis with Ticagrelor (ISR with STEMI)
- Continue PPI
- Dr. Schultz might later consider moving to Plavix
Advance GDTMT over time
Elective return for additional PCI at future date (likely at least 28 days from cardioversion)
Cardiac Rehab
Total time my time caring for patient exceeded 50 min, time including discussing with Dr Schultz (interventional plans), Dr. Ramirez (who will be performing cardioversion), pt's nurse on med timing/dosing, Pt and his , time reviewing tele and
labs/cath reports
Impression / Plan
-
79-year-old with past medical history of paroxysmal AF on sotalol and Eliquis, PVI in 2022, CAD, mild to moderate aortic valve stenosis, hypertension, GERD, who is here for STEMI now s/p RCA stenosis. Course complicated by AF, AT, AFlutter in
setting of discontinuation of sotolol and dilt after diagnosis of HFrEF.
STEMI status post RCA stenting for ISR causing STEMI:
-Triple therapy until discharge, and then ticagrelor and Eliquis for 1 yr
-Continue statin, goal LDL<55
-LAD stenosis to be evaluated as outpatient
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
-examines euvolemic
-Diltiazem/sotalol discontinued in setting of reduced EF
-Continue Toprol-XL 50 mg twice daily, lisinopril, and Farxiga for GDMT.
-Later add MRA and up-titrate GDMT
PAT/PAF/PAFL (typical flutte)
-Now on IV AMIO (off dilt/sotalol). Likely plan to STOP AMIO in 6-24 weeks and if AF/AFL recur then later repeat ablation or consider dofetilide vs long-term AMIO
-Plan cardioversion today 07/28/2023
Hypertension
Dyslipidemia, LDL at goal of < 55
Valve disease: mild-mod , mild MT/MS/TR
Subjective:
No CP, breathing better.
Data:
Echo 07/24/23: LVEF 40-45%. Basal to mid inf apz, mod JEROME, mild/mod (mean 12 mmHg, BRIGITTE 1.4 cm2), mild MT/MS/TR, est [id number] mmHg. SOV 4.1 cm
Cath/PCI 07/23/2023:
1. Successful IVUS guided percutaneous coronary artery intervention of a hazy 90% proximal RCA in-stent restenosis, treated with one 3.0 x 18 mm Medtronic [place] frontier drug-eluting stent, postdilated with a 3.5 x 8 mm NC balloon at 20 erasto with an
excellent angiographic result.
2. There is diffuse up to 70% stenosis in the proximal LAD which is moderately calcified.
3. OM1 has 40% proximal stenosis which is tubular and smooth in appearance. OM 2 has diffuse proximal 20 to 30% stenosis.
4. Elevated LVEDP at 21 mmHg
Physical Exam
Vital Signs/Labs
Vital Signs
Temp Pulse Resp BP Pulse Ox
97.4 F 109 16 132/74 96
07/28/24 07:02 07/27/24 23:00 07/28/24 07:02 07/28/24 08:56 07/28/24 07:02
07/27/24 07/28/24 07/29/24
06:59 06:59 06:59
Actual Weight 77.2 kg
07/24/24 05:13
07/28/24 05:57
APTT 28.8 Sec (23.4-35.0) 07/23/24 21:51
Magnesium 1.8 mg/dl (1.6-2.3) 07/24/24 10:11
Triglycerides 241 mg/dl (10-149) H 07/24/24 05:13
LDL Cholesterol, Calc 54 mg/dl 07/24/24 05:13
VLDL Cholesterol, Calc 48 mg/dl (0-30) H 07/24/24 05:13
HDL Cholesterol 43 mg/dl 07/24/24 05:13
07/23/24
21:51
Qpu-L-Waxeiixxncx Pept 1580
Physical Exam
Constitutional: No acute distress
EENT: Anicteric
Cardiovascular: Rhythm & rate is regular and Pedal edema is absent
Respiratory: Respiratory effort normal and Lungs clear to auscul.
GI: Soft and Distention absent
Neuro/Psych: AO x 3
Data Reviewed
-
Date of Service: July 28, 2024
EKG: Other (Tele shows Flutter cycle length is Long (rate slow) and mostly 2:1 but can go 1:1 in 130s)
[2024-07-28] MEDS: PACERONE 200 MG PO (17:08)
[2024-07-28] MEDS: LIPITOR 80 MG PO (17:08)
--- NOTE | 2024-07-29 01:04 | PTCARENOTE ---
Rec'd pt at change of shift. Pt AAO*3, VSS, and on tele monitor in Afib with HR in the 80's. Pt denies any pain or discomfort. Pt updated and agreeable to plan of care. Pt resting with call house in reach. Plan of care ongoing.
[2024-07-29 05:24] VITALS: BP 134/79
[2024-07-29 05:57] VITALS: BMI 24.4
[2024-07-29 06:02] LABS: Blood Urea Nitrogen 18 mg/dl (9-20); Carbon Dioxide 23 mmol/L (22-30); Chloride 103 mmol/L (98-107); Estimated Creatinine Clearance 85 ml/min; Glucose 112 mg/dl (70-99); Magnesium 2.1 mg/dl (1.6-2.3); Potassium 3.5 mmol/L (3.5-5.1); Sodium 137 mmol/L (135-145); eGFR > 60.00
[2024-07-29] MEDS: KCL 40 MEQ PO (06:28)
[2024-07-29 07:07] VITALS: BP 135/98
[2024-07-29] MEDS: FARXIGA 10 MG PO (07:58)
[2024-07-29] MEDS: PROTONIX 40 MG PO (07:58)
[2024-07-29] MEDS: LOW STRENGTH ASPIRIN 81 MG PO (07:59)
[2024-07-29] MEDS: LASIX 20 MG PO (07:59)
[2024-07-29] MEDS: PACERONE 200 MG PO (07:59)
[2024-07-29] MEDS: ZESTRIL 2.5 MG PO (07:59)
[2024-07-29] MEDS: BRILINTA 90 MG PO (09:15)
[2024-07-29] MEDS: ELIQUIS 5 MG PO (09:15)
--- NOTE | 2024-07-29 09:38 | PTCARENOTE ---
Assumed care of pt from night RN. Pt received awake and alert, Ox3. VSs, CM shows AF with PVC's, POX 97% on RA. Right wrist HIWOT, with normal CMS. He denies any pain or discomfort.
--- NOTE | 2024-07-29 11:47 | CM ---
CM following for DC planning needs.
Reviewed initial assessment. Pt. resides w/ sig. other in a private 1 story home w/ 1 MICHEL.
Pt. is functionally indep. at baseline w/ ADLs, mobility without the use of any assisted device.
Antic. DC to home without needs once medically stsable.
Of note, CM priced Farxiga + Brilinta. Farxiga estimated to be $144/ mo; Brilinta estimated to be $112/ mo.
Can provide free 30 d coupon but patient would not qualify for further monthly coupons.
Will follow.
[2024-07-29 12:17] VITALS: BP 136/75
[2024-07-29 15:05] VITALS: BP 150/80
--- NOTE | 2024-07-29 15:16 | W.PN.CD ---
Addendum entered and electronically signed by Tian Rodriguez MD 07/29/24 15:39:
I saw and examined the patient.
The STERILE SUPPLY TECHNICIAN's note was reviewed and I agree with the note.
Comment: Tele OK for discharge, full Amio effect will take time. He has plans with Dr. Schultz with date to return for elective PCI. Later add MRA and up-titrate GDMT. 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
strategy more appropriate. Reviewed reasonable fluid/Na+/activity restrictions as he recovers from PR and the importance of taking his OAT and antiplatelet therapy.
Original Note:
Today's Communication / Plan
-
Continue Brilinta and Eliquis at d/c, without aspirin
I refilled nitro, but we reviewed not to use it within 48 hours of cialis
metoprolol 25 mg daily at d/c
amiodarone 200 mg PO BID x 1 month, then decrease to once daily
BMP one week- send electronically
staged PCI October 02, 2024 (originally was sooner, but now s/p CV)
Impression / Plan
-
79-year-old with past medical history of paroxysmal AF on sotalol and Eliquis, PVI in 2022, CAD, mild to moderate aortic valve stenosis, hypertension, GERD, who is here for STEMI now s/p RCA stenosis. Course complicated by AF, AT, AFlutter in
setting of discontinuation of sotolol and dilt after diagnosis of HFrEF.
STEMI status post RCA stenting for ISR causing STEMI:
-Triple therapy until discharge, and then ticagrelor and Eliquis for 1 yr- ASA stopped
-Continue statin, goal LDL<55
-LAD stenosis to be addressed October 02, 2024
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
-examines euvolemic
-Diltiazem/sotalol discontinued in setting of reduced EF
-Continue metoprolol XL 25 mg daily, lisinopril, and Farxiga for GDMT.
-Later add MRA and up-titrate GDMT
PAT/PAF/PAFL (typical flutte)
-now off sotalol and on amiodarone. Plan for amiodarone 200 mg PO BID x 1 month, then once daily. 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
-s/p cardioversion 07/28/23
Hypertension
Dyslipidemia, LDL at goal of < 55
Valve disease: mild-mod , mild MT/MS/TR
Data:
Echo 07/24/23: LVEF 40-45%. Basal to mid inf paz, mod JEROME, mild/mod (mean 12 mmHg, BRIGITTE 1.4 cm2), mild MT/MS/TR, est [id number] mmHg. SOV 4.1 cm
Cath/PCI 07/23/2023:
1. Successful IVUS guided percutaneous coronary artery intervention of a hazy 90% proximal RCA in-stent restenosis, treated with one 3.0 x 18 mm Medtronic [place] frontier drug-eluting stent, postdilated with a 3.5 x 8 mm NC balloon at 20 erasto with an
excellent angiographic result.
2. There is diffuse up to 70% stenosis in the proximal LAD which is moderately calcified.
3. OM1 has 40% proximal stenosis which is tubular and smooth in appearance. OM 2 has diffuse proximal 20 to 30% stenosis.
4. Elevated LVEDP at 21 mmHg
Physical Exam
Vital Signs/Labs
Vital Signs
Temp Pulse Resp BP Pulse Ox
97.6 F 93 20 150/80 94
07/29/24 15:03 07/29/24 15:05 07/29/24 15:03 07/29/24 15:05 07/29/24 15:03
07/28/24 07/29/24 07/30/24
06:59 06:59 06:59
Actual Weight 77.2 kg 77.1 kg
07/24/24 05:13
07/29/24 05:31
APTT 28.8 Sec (23.4-35.0) 07/23/24 21:51
Magnesium 2.1 mg/dl (1.6-2.3) 07/29/24 05:31
Triglycerides 241 mg/dl (10-149) H 07/24/24 05:13
LDL Cholesterol, Calc 54 mg/dl 07/24/24 05:13
VLDL Cholesterol, Calc 48 mg/dl (0-30) H 07/24/24 05:13
HDL Cholesterol 43 mg/dl 07/24/24 05:13
07/23/24
21:51
Iqt-E-Zevtphejtji Pept 1580
Physical Exam
Constitutional: No acute distress
EENT: Anicteric
Cardiovascular: Rhythm & rate is regular
Respiratory: Respiratory effort normal and Lungs clear to auscul.
Neuro/Psych: AO x 3
Other: Cath Site (right wrist stable)
Data Reviewed
-
Date of Service: July 29, 2024
--- NOTE | 2024-07-29 17:00 | PTCARENOTE ---
All D/C inforeviewed with pt and spouse, all questions answered. Pt d/C'd home with spouse.
--- NOTE | 2024-07-30 09:45 | W.DS.TRANS ---
DC Summary - Front Desk Specialist
-
Discharge Instructions:
Sleep Apnea Risk Intermediate
Discharge Diagnosis/Procedures STEMI
Procedure 07/23/2024: IVUS guided percutaneous
coronary artery intervention of 90% pRCA in-
stent restenosis
Congestive Heart Failure
Atrial fibrillation
Cardioversion
Diet 2 Gram Sodium,Low Cholesterol,Restrict fluids to
48 oz
Activity No strenuous activity,As tolerated
Additional Activity See attached instructions. Okay to be active as
discussed, but avoid very strenuous activity.
Driving Restrictions As prior to admission
Bathing Restrictions OK to Shower
Blood Work BMP in one week- sent electronically
Other Services Cardiac Rehab
Specialty Instructions Weigh Daily
Instructions:
Stand-Alone Forms: DC Instructions- Cath/EP Lab
Changes to Home Medications: Yes
Discharge Medications:
DC Medications w/original date entered in [employer]
apixaban 5 mg tablet (Eliquis) 5 mg PO BID #60 tabs 02/17/20
ticagrelor 90 mg tablet (Brilinta) 90 mg PO BID #60 tabs 07/24/24
atorvastatin 80 mg tablet 80 mg PO QPM #90 tabs 07/27/24
dapagliflozin propanediol 10 mg tablet 10 mg PO DAILY #30 tabs 07/27/24
furosemide 20 mg tablet 20 mg PO DAILY #30 tabs 07/27/24
lisinopril 2.5 mg tablet 2.5 mg PO DAILY #30 tabs 07/27/24
pantoprazole 40 mg tablet,delayed release 40 mg PO DAILY #30 tabs 07/27/24
amiodarone 200 mg tablet 200 mg PO BID #60 tabs 07/29/24
metoprolol succinate 25 mg tablet,extended release 24 hr (Toprol XL) 25 mg PO DAILY #30 tabs 07/29/24
nitroglycerin 0.4 mg sublingual tablet 0.4 mg sublingual [id number] PRN chest pain #25 tabs 07/29/24
tadalafil 5 mg tablet 5 mg PO DAILY Erectile dysfunction #0 tabs 07/29/24 PRN
Home Medication Changes
Brilinta, atorvastatin, dapagliflozin, furosemide, lisinopril, pantoprazole, amiodarone, metoprolol new
Sotalol, diltiazem, omeprazole stopped
Pending Results: No
== END 2024-07-29 17:01 | disposition home or self-care (01) | DRG 321 ==
LOC: IVU 23:31
PROVIDERS: Internal Medicine Cardiovascular Disease; Internal Medicine Interventional Cardiology; Nurse Practitioner; ADMITTING PHYSICIAN Internal Medicine Cardiovascular Disease; ATTENDING PHYSICIAN Internal Medicine; EMERGENCY PHYSICIAN Emergency Medicine; FAMILY PHYSICIAN Family Medicine
PROC: 4A023N7 Measurement of Cardiac Sampling and Pressure, Left Heart, Percutaneous Approach (ICD-10-PCS; 2024-07-23)
PROC: 027034Z Dilation of Coronary Artery, One Artery with Drug-eluting Intraluminal Device, Percutaneous Approach (ICD-10-PCS; 2024-07-23)
PROC: B211YZZ Fluoroscopy of Multiple Coronary Arteries using Other Contrast (ICD-10-PCS; 2024-07-23)
PROC: B240ZZ3 Ultrasonography of Single Coronary Artery, Intravascular (ICD-10-PCS; 2024-07-23)
PROC: 5A2204Z Restoration of Cardiac Rhythm, Single (ICD-10-PCS; 2024-07-28)
DX: T82.855A Stenosis of coronary artery stent, initial encounter (principal); I21.11 ST elevation (STEMI) myocardial infarction involving right coronary artery; I50.21 Acute systolic (congestive) heart failure; I42.9 Cardiomyopathy, unspecified; I48.3 Typical atrial flutter; I47.19 Other supraventricular tachycardia; I11.0 Hypertensive heart disease with heart failure; I25.10 Atherosclerotic heart disease of native coronary artery without angina pectoris; I48.0 Paroxysmal atrial fibrillation; I35.0 Nonrheumatic aortic (valve) stenosis; E78.00 Pure hypercholesterolemia, unspecified; I25.2 Old myocardial infarction; Z79.01 Long term (current) use of anticoagulants; Z87.891 Personal history of nicotine dependence; Z88.8 Allergy status to other drugs, medicaments and biological substances; Z79.82 Long term (current) use of aspirin; Y83.1 Surgical operation with implant of artificial internal device as the cause of abnormal reaction of the patient, or of later complication, without mention of misadventure at the time of the procedure; Y71.2 Prosthetic and other implants, materials and accessory cardiovascular devices associated with adverse incidents
CPT/HCPCS: 80048; 80053; 80061; 83036; 83735; 83880; 84484; 85025; 85027; 85347; 85730; 92960; 92978; 93005; 93306; 93458; 99152; 99153; 99291; C1725; C1753; C1874; C1887; C1894; C9600; Q9967

== ENCOUNTER 2024-09-15 17:17 | Inpatient (IN) | payer OTHER, SELFPAY ==
[2024-09-15] VITALS (21 sets, daily range): BP systolic 98–143; BP diastolic 65–97; BMI 24.8
[2024-09-15 12:13] LABS: % Basophils 0.6 % (0-2); % Eosinophils 0.8 % (0-6); % Immature Granulocytes 0.6 % (0-0.5); % Lymphocytes 12.5 % (20.5-51.1); % Monocytes 6.4 % (1.7-9.3); % Neutrophils 79.1 % (42.2-75.2); Absolute Eosinophils 0.1 10^3/uL (0-0.7); Absolute Lymphocytes 0.9 10^3/uL (1.2-3.4); Absolute Monocytes 0.5 10^3/uL (0.1-0.6); Absolute Neutrophils 5.7 10^3/uL (1.4-6.5); Hematocrit 47.8 % (39.0-52.0); Hemoglobin 16.1 g/dL (13.0-18.0); Mean Corp Hgb Conc. 33.7 g/dL (33.0-37.0); Mean Corpuscular Hgb 32.6 pg (27.0-31.0); Mean Corpuscular Volume 96.8 fL (80.0-94.0); Mean Platelet Volume 10.6 fL (7.4-10.4); Nucleated Red Blood Cells % 0 % (-); Platelet Count 197 10^3/uL (130-400); Red Blood Cell Count 4.94 10^6/uL (4.70-6.10); Red Cell Dist. Width 14.1 % (11.5-14.5); White Blood Cell Count 7.2 10^3/uL (4.8-10.8)
--- NOTE | 2024-09-15 12:18 | ED.GENMED ---
History of Present Illness
<ROSEY Boone - Last Filed: 09/15/24 16:02>
General
Chief Complaint: Dizziness
Source: patient
Exam Limitations: none
Time Seen by Provider: 09/15/24 12:17
Nursing documentation reviewed up to this point in time: agreed with
History of Present Illness
History of Present Illness:
Patient is a 79-year-old male with past medical history of A-fib, on Eliquis CAD aortic valve stenosis CHF presented to the ER for evaluation. Patient was recently admitted July [address] segment elevation [place] and had a stenting of the proximal
right RCA. Patient presents to the ER for evaluation of palpitations. He felt little short of breath last night and felt like he could not get comfortable sleeping and then today had palpitations. He had no associated chest pain.
Past History
<ROSEY Boone - Last Filed: 09/15/24 16:02>
Past History
ED Past Medical History: Arrthythmia and CAD
ED Past Surgical History: Cardiac
PSI?: No
Social History
Tobacco: Non-smoker
Alcohol: Occasional
Drug: None
Personal:
Living: with family
Employment: Employed
Family History
Family History: CAD
Review of Systems
<ROSEY Boone - Last Filed: 09/15/24 16:02>
Review of Systems
Allergies reviewed?: Yes
All Other Systems: ROS reviewed and negative except as documented in HPI and ROS
Constitutional: Reports no symptoms; Denies fever, fatigue or chills
EENT: Reports no symptoms
Respiratory: Reports trouble breathing
Cardiac: Reports palpitations; Denies chest pain or syncope
ABD/GI: Reports no symptoms
: Reports no symptoms
Musculoskeletal: Reports no symptoms
Skin: Reports no symptoms
Neurological: Reports no symptoms
Psychiatric: Reports no symptoms
Phy Exam
<ROSEY Boone - Last Filed: 09/15/24 16:02>
General Physical Exam
General Presentation: no apparent distress
General age: appears stated age
General Skin: warm and dry
General Habitus: elderly
General Mental: alert
General Hydration: dry mucous membranes
Cardiovascular Exam
Cardiovascular Exam: tachycardia
Pulmonary Exam
Pulmonary Exam: lungs clear
Course
<ROSEY Boone - Last Filed: 09/15/24 16:02>
Orders/Labs/Results
Orders:
Orders
09/15/24
Electrocardiogram (*1) Stat
Comment: DONE EMR
09/15/24 11:35
Electrocardiogram (*1) Urgent
Reason for Study: Vertigo / Dizzy
EKG- Treatment ONCE
09/15/24 12:01
CMP [Comprehensive Metabolic Panel] Urgent
Complete Blood Count/With Diff Urgent
NT-proBNP Urgent
Comment: ADD ON
PT/INR [Prothrombin Time] Urgent
PTT Urgent
Troponin I Urgent
09/15/24 12:19
Adenosine [Adenocard] 18 mg .ROUTE .STK-MED ONE
09/15/24 12:28
Diltiazem 125 mg/125 ml Nss [Cardizem] 125 mg in 125 ml IV NOW
Initial dose in mg/hr, then titrate:: 5
Titrate to keep:: Heart rate 80-100 bpm
Titrate by mg/hr:: 5 mg/hr
Frequency of titrations (minutes):: 15
Maximum dose in mg/hr:: 15
Diltiazem HCl [Cardizem] 10 mg IV NOW STA
09/15/24 12:29
Diltiazem 125 mg/125 ml Nss [Cardizem] 125 mg in 125 ml .ROUTE .STK-MED
Diltiazem HCl [Cardizem] 25 mg .ROUTE .STK-MED ONE
09/15/24 13:00
0.9% Sodium Chloride 250 ml [Nss] 250 ml IV BOLUS
09/15/24 13:47
Add On- LAB Urgent
Tests Added?: cardiac BNP
Chest [CR Chest - 2 Views ] Urgent
Comment:
Reason For Exam: sob
09/15/24 13:55
EKG [Electrocardiogram (*1)] Urgent
Reason for Study: Palpitations
09/15/24 13:56
EKG- Treatment ONCE
09/15/24 14:44
Acetaminophen [Tylenol] 650 mg PO NOW STA
09/15/24 17:02
Admit/Transfer Patient As Directed
Co-Sign Provider:
Level of Care: Inpatient admission
Assign to:: IVU
Physician / Group: CBC
Diagnosis: Atrial fibrillation with RVR
Reason for Hospitalization: Atrial fibrillation with RVR needing rate control
Expected length of stay greater than two midnights?: Yes
ELOS- Estimated Length of Stay in days: 3
I certify the patient meets the requirements for IP care: Yes
09/15/24 17:03
PRN Pain Medication Management As Directed
May give lesser potent ordered pain med per pt: Yes
preference::
Protocol:: Medication orders for pain may be administered in a
manner that supports deferring to patient preference
when the pt is:
- Requesting an ordered lesser potent pain medication.
Least to most potent pain medications are defined
as: acetaminophen < NSAID < tramadol < opioids
(morphine, oxycodone, hydromorphone).
- Requesting a lesser dose of the same medication IF
ORDERED.
- Requesting a less intrusive route of administration
if both routes are prescribed by the provider (PO <
IV).
09/15/24 17:04
Code Status As Directed
Resuscitation Status: Full Code
Abnormal Lab Results
09/15/24
12:01
MCV 96.8 H fL
(80.0-94.0)
MCH 32.6 H pg
(27.0-31.0)
MPV 10.6 H fL
(7.4-10.4)
Absolute Lymphs (auto) 0.9 L 10^3/uL
(1.2-3.4)
Immature Gran % 0.6 H %
(0-0.5)
Neutrophils % 79.1 H %
(42.2-75.2)
Lymphocytes % 12.5 L %
(20.5-51.1)
PT 17.3 H Sec
(11.4-14.6)
Glucose 113 H mg/dl
(70-99)
Total Bilirubin 1.5 H mg/dl
(0.2-1.3)
09/15/24 12:01
09/15/24 12:01
Vital Signs
Initial and Last Documented VS:
Initial Vital Signs
Temp Pulse Resp BP Pulse Ox
97.7 F 140 22 143/97 96
09/15/24 11:41 09/15/24 11:41 09/15/24 11:41 09/15/24 11:41 09/15/24 11:41
Last Documented Vital Signs
Temp Pulse Resp BP Pulse Ox
97.7 F 92 22 131/90 93
09/15/24 11:41 09/15/24 16:30 09/15/24 11:41 09/15/24 16:00 09/15/24 16:30
<Ramirez Tamez Jr., PA-C - Last Filed: 09/15/24 17:32>
Orders/Labs/Results
Orders:
Orders
09/15/24
Electrocardiogram (*1) Stat
Comment: DONE EMR
09/15/24 11:35
Electrocardiogram (*1) Urgent
Reason for Study: Vertigo / Dizzy
EKG- Treatment ONCE
09/15/24 12:01
CMP [Comprehensive Metabolic Panel] Urgent
Complete Blood Count/With Diff Urgent
NT-proBNP Urgent
Comment: ADD ON
PT/INR [Prothrombin Time] Urgent
PTT Urgent
Troponin I Urgent
09/15/24 12:19
Adenosine [Adenocard] 18 mg .ROUTE .STK-MED ONE
09/15/24 12:28
Diltiazem 125 mg/125 ml Nss [Cardizem] 125 mg in 125 ml IV NOW
Initial dose in mg/hr, then titrate:: 5
Titrate to keep:: Heart rate 80-100 bpm
Titrate by mg/hr:: 5 mg/hr
Frequency of titrations (minutes):: 15
Maximum dose in mg/hr:: 15
Diltiazem HCl [Cardizem] 10 mg IV NOW STA
09/15/24 12:29
Diltiazem 125 mg/125 ml Nss [Cardizem] 125 mg in 125 ml .ROUTE .STK-MED
Diltiazem HCl [Cardizem] 25 mg .ROUTE .STK-MED ONE
09/15/24 13:00
0.9% Sodium Chloride 250 ml [Nss] 250 ml IV BOLUS
09/15/24 13:47
Add On- LAB Urgent
Tests Added?: cardiac BNP
Chest [CR Chest - 2 Views ] Urgent
Comment:
Reason For Exam: sob
09/15/24 13:55
EKG [Electrocardiogram (*1)] Urgent
Reason for Study: Palpitations
09/15/24 13:56
EKG- Treatment ONCE
09/15/24 14:44
Acetaminophen [Tylenol] 650 mg PO NOW STA
09/15/24 17:02
Admit/Transfer Patient As Directed
Co-Sign Provider:
Level of Care: Inpatient admission
Assign to:: IVU
Physician / Group: CBC
Diagnosis: Atrial fibrillation with RVR
Reason for Hospitalization: Atrial fibrillation with RVR needing rate control
Expected length of stay greater than two midnights?: Yes
ELOS- Estimated Length of Stay in days: 3
I certify the patient meets the requirements for IP care: Yes
09/15/24 17:03
PRN Pain Medication Management As Directed
May give lesser potent ordered pain med per pt: Yes
preference::
Protocol:: Medication orders for pain may be administered in a
manner that supports deferring to patient preference
when the pt is:
- Requesting an ordered lesser potent pain medication.
Least to most potent pain medications are defined
as: acetaminophen < NSAID < tramadol < opioids
(morphine, oxycodone, hydromorphone).
- Requesting a lesser dose of the same medication IF
ORDERED.
- Requesting a less intrusive route of administration
if both routes are prescribed by the provider (PO <
IV).
09/15/24 17:04
Code Status As Directed
Resuscitation Status: Full Code
Abnormal Lab Results
09/15/24
12:01
MCV 96.8 H fL
(80.0-94.0)
MCH 32.6 H pg
(27.0-31.0)
MPV 10.6 H fL
(7.4-10.4)
Absolute Lymphs (auto) 0.9 L 10^3/uL
(1.2-3.4)
Immature Gran % 0.6 H %
(0-0.5)
Neutrophils % 79.1 H %
(42.2-75.2)
Lymphocytes % 12.5 L %
(20.5-51.1)
PT 17.3 H Sec
(11.4-14.6)
Glucose 113 H mg/dl
(70-99)
Total Bilirubin 1.5 H mg/dl
(0.2-1.3)
09/15/24 12:01
09/15/24 12:01
Vital Signs
Initial and Last Documented VS:
Initial Vital Signs
Temp Pulse Resp BP Pulse Ox
97.7 F 140 22 143/97 96
09/15/24 11:41 09/15/24 11:41 09/15/24 11:41 09/15/24 11:41 09/15/24 11:41
Last Documented Vital Signs
Temp Pulse Resp BP Pulse Ox
97.7 F 92 22 131/90 93
09/15/24 11:41 09/15/24 16:30 09/15/24 11:41 09/15/24 16:00 09/15/24 16:30
<ROSEY Boone - Last Filed: 09/15/24 16:02>
MDM/Problems Addressed
MDM/Problems Addressed:
Patient is an 79-year-old male with past medical history of recent [place] in July stent history of A-fib on Eliquis and Brilinta on amiodarone presents to the ER for evaluation of palpitation shortness of breath. Patient was short of breath last
night and had palpitations today. Patient presented tachycardic with a heart rate of 140s. It was unclear if it was SVT versus a flutter. Case reviewed with ED physician IV Cardizem bolus and drip ordered. Patient now in a stable controlled
A-fib. Case discussed with cardiology. He did see Dr. Junior last week. Cardiology will evaluate patient.
He is in no acute distress afebrile with normal white count stable hemoglobin, normal chemistries and negative chest x-ray. Case reviewed with cardiology on-call Dr. Rodríguez. will see pt
Care of patient this time transferred to Ed PAC. Dashawn [address]
<Ramirez Tamez Jr., PA-C - Last Filed: 09/15/24 17:32>
*Critical Care Note
Total Time (30-74mins, 75-104mins- exclusive of procedures): Not Applicable
<Ramirez Tamez Jr., PA-C - Last Filed: 09/15/24 17:32>
Update Note
Update Note:
1730: Patient assessed by cardiology will go to cardiology service overnight stable here
ED Attending Note
<ROSEY Boone - Last Filed: 09/15/24 16:02>
-
Portions of this chart may have been created with voice recognition software.� Occasional wrong word or��sound alike� substitutions may have occurred due to the inherent limitations of voice recognition software.
Discharge Plan
Departure
Patient Disposition: Admit
Date of Disposition: 09/15/24
Time of Disposition: 17:31
Admit to: Telemetry
Admit to doctor: Anne
Presentation/result/management discussed w/ accepting MD/DO: Cardiology
Patient with high blood pressure during this ER visit?: No
Condition: Fair
Covid-19: Not Applicable
Discharge Problem:
Atrial fibrillation
Interventions
Interventions:
*Risk Screen - Suicide Last Done: 09/15/24 11:41
*General Assessment Last Done: 09/15/24 11:56
*Neglect/Abuse Screening Last Done: 09/15/24 11:41
ED- Fall Risk Assessment Last Done: 09/15/24 11:56
*ED COVID-19 Vaccine History Last Done: 09/15/24 11:41
ED- Neurological Assessment Last Done: 09/15/24 11:56
ED- Cardiac Assessment Last Done: 09/15/24 11:56
[2024-09-15 12:25] LABS: APTT 30.3 Sec (23.4-35.0); INR 1.38; PT 17.3 Sec (11.4-14.6)
[2024-09-15 12:31] LABS: ALT (SGPT) 35 U/L (0-50); AST (SGOT) 37 U/L (17-59); Albumin 4.3 g/dl (3.5-5.0); Alkaline Phosphatase 57 U/L (38-126); Blood Urea Nitrogen 20 mg/dl (9-20); Calcium 9.1 mg/dl (8.4-10.2); Carbon Dioxide 25 mmol/L (22-30); Chloride 104 mmol/L (98-107); Estimated Creatinine Clearance 66 ml/min; Glucose 113 mg/dl (70-99); Potassium 3.9 mmol/L (3.5-5.1); Sodium 140 mmol/L (135-145); Total Bilirubin 1.5 mg/dl (0.2-1.3); eGFR > 60.00
[2024-09-15] MEDS: CARDIZEM 10 MG IV (12:32)
[2024-09-15] MEDS: CARDIZEM 125 IV (12:32)
[2024-09-15 12:42] LABS: Troponin I 0.013 ng/ml
[2024-09-15] MEDS: NSS 250 IV (13:05)
[2024-09-15 14:19] LABS: NT-proBNP 1290 pg/ml
[2024-09-15] MEDS: TYLENOL 650 MG PO (14:48)
--- NOTE | 2024-09-15 15:48 | CON.CAR ---
Addendum entered and electronically signed by ROSEY Oleary 09/15/24 17:02:
THIS IS THE H&P
Addendum entered and electronically signed by Joce Rodríguez MD 09/15/24 16:56:
I saw and examined the patient.
The [employer]'s note was reviewed and I agree with the note.
Comment:
79-year-old male (known to Dr. Junior) with paroxysmal atrial fibrillation (status post PVI 2022, DCCV 07/28/2024), CAD, dyslipidemia, hypertension, CAD (STEMI 07/23/24 s/p DIAMOND�90% proximal RCA in-stent restenosis; 70% stenosis in the proximal LAD
and OM1 with 40% proximal stenosis and OM 2 with diffuse proximal 20-30% stenosis),�ICM (EF 40-45%), and former smoker who presents to the ER with elevated HR and SOB for past 36 hours. Patient is not usually symptomatic with A-fib but on Saturday
night into Saturday morning felt short of breath with elevated heart rates. Had more alcoholic drinks than normal on Saturday/Saturday. Symptoms persisted through Saturday and he finally came to the ER this morning where he was found to have heart rate
in the 140s. He was started on IV Cardizem with improvement in heart rates to 90s�100s. He reports missing a few doses of his medications including Eliquis in the past several weeks. He is currently planned to have a staged PCI to his LAD on
10/02/2024. On exam he is well-appearing, cardiovascular exam with regular rate and irregular rhythm, no murmurs, lungs are clear to auscultation bilaterally, and he has no lower extremity edema. Labs notable for hemoglobin 16.1, creatinine 0.9,
troponin 0.013, BNP 1290. Last echo on 07/24/2024 showed LVEF 40-45% with inferior akinesis, mild/mod , mild TR, PASP 35-40 mmHg. This episode of rapid A-fib may have been triggered by recent alcohol intake. We will plan to rate control his
atrial fibrillation with beta thomas (start short acting metoprolol and uptitrate) and get him to his planned PCI on 10/02/2024. He is not a good candidate for CCB given mildly reduced EF. Hold Amiodarone since he has missed doses of AC and we do
not want chemical cardioversion. Continue Eliquis and ticagrelor given recent stent. For his ischemic cardiomyopathy, he is on dapagliflozin, lisinopril and metoprolol which we will continue.
Original Note:
Consultation
Consultation Request
Date/Time Consultation Requested: 09/15/2024 15:00
Date/Time Consultation Performed: 09/15/2024 15:30
Requesting Provider: ROSEY Bhat
Performing Provider: ROSEY Young for Dr. Rodríguez
Reason for Consultation: Atrial fibrillation with RVR
Medical History
-
Chief Complaint: Elevated heart rate
History of Present Illness:
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
in-stent restenosis; 70% stenosis in the proximal LAD and OM1 with 40% proximal stenosis and OM 2 with diffuse proximal 20-30% stenosis),�ICM (EF 40-45%), and former smoker who presents to the ER with elevated HR. He presented in atrial fibrillation
with RVR. He believes this has been ongoing since early Saturday morning. He endorses shortness of breath with activity which persists until he sits and his HR improves. He has missed his medications at least twice since discharge from the hospital.
He is not having any chest pain.
After this consultation, his pulled me into the hallway to have a private discussion. She reports he had a couple beers on Saturday. He then had at least 2 bourbons cocktails on both Saturday and Saturday.
Past Medical History
Past Medical History: Arrhythmias (paroxysmal atrial fibrillation [on apixaban]), CAD, CHF, HTN and Valvular Disease (Mild/Mod , Mild MS)
Social History
Tobacco: Former Smoker
Alcohol: Occasional
Personal:
Living: With Family
Employment: Employed
Family History
Family History: Reviewed & Not Pertinent
Allergies / Home Medications
Allergy/AdvReac Type Severity Reaction Status Date / Time
clopidogrel [From Plavix] Allergy Rash Verified 07/23/24 23:32
ticagrelor [From Brilinta] Allergy Shortness Verified 07/23/24 23:32
of Breath
�Medication �Instructions �Recorded �Confirmed �Type
apixaban 5 mg tablet (Eliquis) 5 mg PO BID #60 tabs 02/17/20 07/24/24 Rx
ticagrelor 90 mg tablet (Brilinta) 90 mg PO BID #60 tabs 07/24/24 Rx
atorvastatin 80 mg tablet 80 mg PO QPM #90 tabs 07/27/24 Rx
dapagliflozin propanediol 10 mg 10 mg PO DAILY #30 tabs 07/27/24 Rx
tablet
furosemide 20 mg tablet 20 mg PO DAILY #30 tabs 07/27/24 Rx
lisinopril 2.5 mg tablet 2.5 mg PO DAILY #30 tabs 07/27/24 Rx
pantoprazole 40 mg tablet,delayed 40 mg PO DAILY #30 tabs 07/27/24 Rx
release
amiodarone 200 mg tablet 200 mg PO BID #60 tabs 07/29/24 Rx
metoprolol succinate 25 mg 25 mg PO DAILY #30 tabs 07/29/24 Rx
tablet,extended release 24 hr
(Toprol XL)
nitroglycerin 0.4 mg sublingual 0.4 mg sublingual [id number] PRN 07/29/24 Rx
tablet chest pain #25 tabs
tadalafil 5 mg tablet 5 mg PO DAILY Erectile dysfunction 07/29/24 07/24/24 Rx
#0 tabs
Review of Systems
-
History Source: Patient
All other systems: Negative unless noted
Constitutional: Fatigue
EENT: No Symptoms
Respiratory: No Symptoms
Cardiac: No Symptoms
Abdomen/GI: No Symptoms
: No Symptoms
Musculoskeletal: No Symptoms
Skin: No Symptoms
Neurological: No Symptoms
Endocrine: No Symptoms
Hematologic/Lymphatic: No Symptoms
Physical Exam
Vital Signs
Temp Pulse Resp BP Pulse Ox
97.7 F 94 22 134/70 93
09/15/24 11:41 09/15/24 15:30 09/15/24 11:41 09/15/24 15:20 09/15/24 15:30
Lab Results
09/15/24 12:01
09/15/24 12:01
Troponin I 0.013 ng/ml 09/15/24 12:01
Ilc-P-Yvgdcckkswl Pept 1290 pg/ml 09/15/24 12:01
Physical Exam
General: Well Developed, Well Nourished, No Apparent Distress and Comfortable
HEENT: Normocephalic, Anicteric and Moist Mucous Membranes
Respiratory: Clear and Non Labored Respirations
Cardiac: S1/S2 and Irregular Rhythm
Breast: Deferred by me
GI: Soft, Non Tender, Non Distended and Normal Bowel Sounds
Rectal: Deferred by Provider
Genito-urinary: No Costovertebral Tender
Musculoskeletal: No Clubbing, No Cyanosis and No Edema
Skin: Warm and Dry
Neuro: AO x 3
Hematologic/Lymphatic: No Lymphadenopathy
Psych: Calm
Impression / Plan
-
Atrial fibrillation with RVR
Paroxysmal atrial flutter (typical)
-May have been prompted by EtOH this weekend
-Rate controlled on diltiazem gtt, not ideal for ICM
-Will pursue short term rate control given upcoming PCI
-Oral Anticoagulation: Eliquis 5mg BID, he has missed at least two doses since DCCV
-[id number]: score at least 4 (Heart failure, age 75 or more, Vascular disease)
-Diltiazem and sotalol were discontinued last month due to reduced EF, continue amiodarone
CAD
-Stable without chest pain
-ISR causing STEMI last month, LAD stenosis to be addressed 10/02/2024
-Continue ticagrelor and apixaban for 1 year
ICM
-BP did not tolerate Entresto
-Continue GDMT with metoprolol succinate and Farxiga
-Continue daily weight and sodium restriction at home
Dyslipidemia, LDL goal <55
Former smoker, continued cessation recommended
Data Reviewed
-
EKG: Report Reviewed by me
Medical Tests (Nuc Med, Echo etc): Report Reviewed by me
Labs: Labs Reviewed by me
Old Records: Reviewed
[2024-09-15] MEDS: LOPRESSOR 25 MG PO (18:04)
[2024-09-15] MEDS: ELIQUIS 5 MG PO (19:59)
[2024-09-15] MEDS: BRILINTA 90 MG PO (19:59)
[2024-09-15] MEDS: LIPITOR 80 MG PO (21:18)
--- NOTE | 2024-09-15 22:43 | PTCARENOTE ---
Received patient from ED. Afib on the monitor, HR in the 50s. Alert and oriented. Pt reports no chest pain or palpitations. Oriented patient to room and discussed plan of care, pt verbalizes understanding. No complaints from pt at this time, call
house within reach.
[2024-09-15] MEDS: LOPRESSOR PO (23:26)
[2024-09-16 03:07] VITALS: BP 154/76
[2024-09-16 03:30] VITALS: BMI 24.5
[2024-09-16 04:39] LABS: Blood Urea Nitrogen 17 mg/dl (9-20); Calcium 8.8 mg/dl (8.4-10.2); Carbon Dioxide 24 mmol/L (22-30); Chloride 107 mmol/L (98-107); Estimated Creatinine Clearance 85 ml/min; Glucose 89 mg/dl (70-99); Potassium 3.8 mmol/L (3.5-5.1); Sodium 139 mmol/L (135-145); eGFR > 60.00
[2024-09-16] MEDS: LOPRESSOR PO (06:23)
[2024-09-16 06:52] VITALS: BP 132/79
--- NOTE | 2024-09-16 08:00 | PTCARENOTE ---
Assumed care of pt from prev nsg shift; pt AAOX3 w/no c/o Cp or SOB. Pt's VSS w/HR in the 50's-60's & BP 132/79 this AM. Pt is Afib on telemetry monitoring. Pt w/call house within reach & plan of care ongoing.
--- NOTE | 2024-09-16 09:36 | W.PN.CD ---
Today's Communication / Plan
-
discussed med compliance
Toprol XL now at 50mg bid
discharge planning
Impression / Plan
-
Atrial fibrillation with RVR
Paroxysmal atrial flutter (typical)
-May have been prompted by EtOH this weekend
-he is now back in sinus
-Oral Anticoagulation: Eliquis 5mg BID, he has missed at least two doses since DCCV
-[id number]: score at least 4 (Heart failure, age 75 or more, Vascular disease)
-resume amiodarone 200mg daily
-Toprol XL is now at 50mg bid
CAD
-Stable without chest pain
-ISR causing STEMI last month, LAD stenosis to be addressed 10/02/2024
-Continue ticagrelor and apixaban for 1 year
ICM EF 40-45%, chronic HFmEF
-BP did not tolerate Entresto
-Continue GDMT with metoprolol succinate and Farxiga
-continue PO lasix
-Continue daily weight and sodium restriction at home
Dyslipidemia, LDL goal <55: atorvastatin 80mg daily
Former smoker, continued cessation recommended
Physical Exam
Vital Signs/Labs
Vital Signs
Temp Pulse Resp BP Pulse Ox
98.3 F 59 18 132/79 95
09/16/24 06:54 09/16/24 07:30 09/16/24 06:54 09/16/24 06:52 09/16/24 06:54
09/15/24 09/16/24 09/17/24
06:59 06:59 06:59
Actual Weight 77.5 kg
09/15/24 12:01
09/16/24 03:24
PT 17.3 Sec (11.4-14.6) H 09/15/24 12:01
INR 1.38 09/15/24 12:01
APTT 30.3 Sec (23.4-35.0) 09/15/24 12:01
09/15/24
12:01
Cno-G-Uppxekexplg Pept 1290
LAB Results
09/15/24
12:01
Troponin I 0.013
Physical Exam
Constitutional: No acute distress and Comfortable
EENT: Moist mucous membranes
Cardiovascular: Rhythm & rate is regular, Pedal edema is absent, JVD pressure is normal and Systolic murmur absent
Respiratory: Respiratory effort normal and Lungs clear to auscul.
Neuro/Psych: AO x 3
Data Reviewed
-
Date of Service: September 16, 2024
EKG: Other (Tele: SB 50s)
Labs: Labs Reviewed by me
[2024-09-16] MEDS: LASIX 20 MG PO (09:51)
[2024-09-16] MEDS: ELIQUIS 5 MG PO (09:51)
[2024-09-16] MEDS: FARXIGA 10 MG PO (09:51)
[2024-09-16] MEDS: PROTONIX 40 MG PO (09:51)
[2024-09-16] MEDS: BRILINTA 90 MG PO (09:52)
[2024-09-16] MEDS: TOPROL XL 50 MG PO (09:52)
[2024-09-16] MEDS: PACERONE 200 MG PO (09:52)
--- NOTE | 2024-09-16 10:05 | W.DS.TRANS ---
DC Summary - Padded Box Sewer
-
Discharge Instructions:
Sleep Apnea Risk Intermediate
Discharge Diagnosis/Procedures atrial fibrillation, atrial flutter, coronary
artery disease, ischemic cardiomyopathy
Diet Low Fat,Low Cholesterol,2 Gram Sodium,Restrict
fluids to 64 oz,Restrict fluids to 48 oz
Activity No strenuous activity
Additional Activity okay to be active, but avoid very strenuous
activity as previously discussed
Driving Restrictions As prior to admission
Bathing Restrictions None
Specialty Instructions Weigh Daily
Instructions:
Stand-Alone Forms:
Changes to Home Medications: Yes
Discharge Medications:
DC Medications w/original date entered in [employer]
apixaban 5 mg tablet (Eliquis) 5 mg PO BID #60 tabs 02/17/20
ticagrelor 90 mg tablet (Brilinta) 90 mg PO BID #60 tabs 07/24/24
dapagliflozin propanediol 10 mg tablet 10 mg PO DAILY #30 tabs 07/27/24
furosemide 20 mg tablet 20 mg PO DAILY #30 tabs 07/27/24
pantoprazole 40 mg tablet,delayed release 40 mg PO DAILY #30 tabs 07/27/24
nitroglycerin 0.4 mg sublingual tablet 0.4 mg sublingual [id number] PRN chest pain #25 tabs 07/29/24
amiodarone 200 mg tablet 200 mg PO DAILY Heart Disease/Condition 09/15/24
atorvastatin 80 mg tablet 80 mg PO HS High Cholesterol 09/15/24
ergocalciferol (vitamin D2) 1,250 mcg (50,000 unit) capsule (Vitamin D2) 1,250 mcg PO MOTH Supplement 09/15/24
potassium 99 mg tablet 99 mg PO DAILY Supplement 09/15/24
tadalafil 5 mg tablet 5 mg PO DAILYPRN PRN ed 09/15/24
triamcinolone acetonide 0.1 % topical cream 1 applic topical DAILY eczema 09/15/24
metoprolol succinate 50 mg tablet,extended release 24 hr 50 mg PO BID #60 tabs 09/16/24
Home Medication Changes
Metoprolol increased
Pending Results: No
[2024-09-16 11:34] VITALS: BP 124/74
--- NOTE | 2024-09-16 12:25 | PTCARENOTE ---
Pt's IV line & cardiac monitor D/C'd. D/C instructions discussed w/pt & pt's significant other. Pt left via WC w/significant other driving pt home.
--- NOTE | 2024-09-16 12:26 | CM ---
CM following for DC planning needs.
Met w/ patient at bedside to complete initial assessment. Sig. other also present.
Pt. resides in a private, 1 story home w/ 1 MICHEL w/ sig. other. He is functionally indep. at baseline w/ ADLs, mobility without the use of any assisted device.
Pt. has RX plan.
DC plan is for home, without needs.
== END 2024-09-16 12:31 | disposition home or self-care (01) | DRG 309 ==
LOC: IVU 17:17
PROVIDERS: Nurse Practitioner Gerontology; ADMITTING PHYSICIAN Student in an Organized Health Care Education/Training Program; EMERGENCY PHYSICIAN Student in an Organized Health Care Education/Training Program; FAMILY PHYSICIAN Family Medicine
DX: I48.91 Unspecified atrial fibrillation (principal); I50.22 Chronic systolic (congestive) heart failure; I48.3 Typical atrial flutter; I25.5 Ischemic cardiomyopathy; E78.5 Hyperlipidemia, unspecified; I25.10 Atherosclerotic heart disease of native coronary artery without angina pectoris; I11.0 Hypertensive heart disease with heart failure; I08.0 Rheumatic disorders of both mitral and aortic valves; T45.516A Underdosing of anticoagulants, initial encounter; Z95.5 Presence of coronary angioplasty implant and graft; I25.2 Old myocardial infarction; Z87.891 Personal history of nicotine dependence; Z88.8 Allergy status to other drugs, medicaments and biological substances; Z79.01 Long term (current) use of anticoagulants; Z79.899 Other long term (current) drug therapy; Z91.138 Patient's unintentional underdosing of medication regimen for other reason
CPT/HCPCS: 71046; 80048; 80053; 83880; 84484; 85025; 85610; 85730; 93005; 96361; 96374; 96376; 99285; J0153

== ENCOUNTER 2024-10-02 06:09 | Day surgery (SDC) | payer OTHER, SELFPAY ==
[2024-10-02] VITALS (24 sets, daily range): BP systolic 114–206; BP diastolic 49–89; BMI 24.4
[2024-10-02] MEDS: NSS 231 ML IV (07:44)
[2024-10-02 08:30] LABS: ACT-LR - POC 345 Seconds (116-155)
[2024-10-02 08:58] LABS: ACT-LR - POC 271 Seconds (116-155)
[2024-10-02 09:29] LABS: ACT-LR - POC 321 Seconds (116-155)
[2024-10-02 09:56] LABS: ACT-LR - POC 266 Seconds (116-155)
--- NOTE | 2024-10-02 11:00 | ITS.CL.PN ---
[facility] [employer] - Procedure Note
Procedure
Procedure Note:
CARDIAC CATHETERIZATION REPORT
Date of Procedure: 10/02/2024
Referring: Dr. Willian Junior MD
Indication: Complete revascularization post STEMI
PROCEDURE(S)
1. left heart catheterization
2. coronary angiography
3. balloon angioplasty of RCA
4. shockwave lithotripsy of RCA
5. IVUS of RCA
6. PCI with DIAMOND to LAD
7. IVUS of LAD
ACCESS: 6F right radial artery (closure: radial band)
CATHETERS
1. 6F AL 0.75 guide
2. 6F EBU 3.75 guide
MODERATE SEDATION: 90 minutes of moderate sedation was utilized. An independent medical sales representative was present to assist with and help manage the patient's level of consciousness and physiologic status.
ULTRASOUND GUIDED VASCULAR ACCESS (right radial artery): Ultrasound was utilized for vascular access. The vessel was visualized under ultrasound and noted to be patent. An image of the vessel was stored permanently in the patient's medical record.
Under direct ultrasound guidance, vascular access was obtained using a modified Seldinger technique and a 6 Lebanese sheath was placed.
HEMODYNAMIC DATA
LV 213/21 (EDP 25) mmHg
AO 201/95 (mean 126) mmHg
CORONARY ANGIOGRAPHY
Dominance: right
LM: large, normal
LAD: large vessel giving rise to a small D1, small D2, and medium caliber D3. There is diffuse moderate up to 70% disease in the proximal to mid LAD spanning the diagonals. The mid to distal LAD is minimally diseased.
LCx: large vessel giving rise to two moderate to large caliber marginal branches. There is a tubular 40% stenosis in the body of OM1 and otherwise mild nonobstructive disease.
RCA: large vessel giving rise to a moderate caliber RPDA and two small RPL branches. There is focal underexpansion in the proximal RCA at the site of prior ST elevation NC. The underexpansion is due to dense calcium.
Shockwave lithotripsy and balloon angioplasty of RCA focal stent underexpansion with IVUS guidance
Given concern for stent failure in the setting of stent underexpansion with MLA 3.0 mm� at the site of prior inferior STEMI, decision was made to pursue shockwave lithotripsy and balloon angioplasty of the focal under expanded segment. Heparin was
given to achieve ACT greater than 300. The RCA was engaged with an AL 0.75 guide catheter and a Runthrough wire placed in the distal RCA. A 3.5 x 12 mm Shockwave lithotripsy balloon was delivered and inflated with a total of 120 pulses delivered.
There was improvement in balloon expansion throughout the treatment. A 3.5 x 12 mm noncompliant balloon was delivered inflated to 22 erasto for 30 seconds twice. There was improvement in expansion compared to initial angiography. IVUS was performed
and demonstrated an MLA of 5.0 mm2 (improved from 3.0 mm2 prior). We then turned our attention to the LAD.
PCI with DIAMOND to LAD with IVUS guidance
The left main was engaged with an EBU 3.75 guide catheter and a Runthrough wire placed in the distal LAD. Initial lesion preparation was performed with a 2.0x12 millimeter semicompliant balloon. There was mild underexpansion at the site of dense
calcification which eventually expanded at 16 erasto. Subsequent angiography showed mild dissection at the site just distal to this severely calcified segment. A 3.5 x 12 mm NC balloon was delivered to this area and expanded fully in orthogonal
projections, suggesting that further calcium modification was not needed. A 3.5 x 28 mm Xience Skypoint stent was deployed from the proximal/ostial LAD to a spot of minimal disease just before the D2. Angiography showed an excellent initial result
but after treatment of the proximal disease, it became apparent that the segment of moderate disease distal to the stent edge also was angiographically significant and should be treated. As this would span the moderate caliber D3, this vessel is
protected with a second Runthrough coronary wire. An overlapping 3.5 x 22 mm Gully Resolute stent was deployed at nominal pressure with full expansion. There was TIMI3 flow in the D2 so the protection wire was removed. IVUS was performed and
demonstrated no distal edge dissection and appropriate distal sizing. The remainder of the stent was mildly undersized and had mild focal underexpansion at sites of calcification. The decision was made to proceed with post dilation of the entire
stent with a 3.5x12 mm NC balloon to high-pressure. After this, final angiographic result was excellent. The wire and guide were removed and a TR band placed. The patient was maintained on ticagrelor with plan for 1 week of triple therapy.
RADIATION: dose 1943 mGy; DAP 108 Gy*cm2; fluoroscopy time 41.9 min
CONCLUSIONS
1. Successful IVUS guided and shockwave lithotripsy facilitated balloon angioplasty of the RCA (3.5 shockwave balloon, 3.5 noncompliant balloon to high-pressure)
2. Successful IVUS guided PCI with overlapping DIAMOND x 2 to the ostial to mid LAD (3.5 x 28 mm Xience Skypoint proximally, 3.5 x 22 mm Phillip Resolute distally, post dilated throughout except for the distal edge with a 3.5 mm noncompliant balloon to
high pressure)
RECOMMENDATIONS
1. aggressive secondary prevention of coronary artery disease
2. triple therapy with aspirin, ticagrelor, and Eliquis for 1 week, followed by dual therapy with ticagrelor and Eliquis through July 2025.
Copy to: Dr. Willian Junior MD (assistive technology trainer); Dr. Wolfgang Juan MD (PCP)
Signed: Vivek Schultz MD, PhD
[2024-10-02] MEDS: NITROLINGUAL SPRAY 1 BOTTLE SL (12:27)
--- NOTE | 2024-10-02 12:27 | PTCARENOTE ---
Patient c/o 7/10 chest discomfort and shortness of breath. EKG done. 1 spray nitro SL given. desulfurizer hand at bedside and aware. Chest pain relieved with repositioning in bed and spreay. @ 1240 PAIN IS COMPLETELY GONE 0/10.
--- NOTE | 2024-10-02 15:54 | W.DS.TRANS ---
DC Summary - Cab Supervisor
-
Discharge Instructions:
Sleep Apnea Risk High
Discharge Diagnosis/Procedures CAD, Lithotripsy with balloon angioplasty to RCA
, Angioplasty with stent to LAD
Diet Low Cholesterol,Low Sodium
Driving Restrictions No driving for 24 hours
Other Services Cardiac Rehab
Specialty Instructions Weigh Daily
Instructions:
Stand-Alone Forms: DC Inst - Same Day PCI
Changes to Home Medications: Yes
Discharge Medications:
DC Medications w/original date entered in [employer]
apixaban 5 mg tablet (Eliquis) 5 mg PO BID #60 tabs 02/17/20
ticagrelor 90 mg tablet (Brilinta) 90 mg PO BID #60 tabs 07/24/24
dapagliflozin propanediol 10 mg tablet 10 mg PO DAILY #30 tabs 07/27/24
furosemide 20 mg tablet 20 mg PO DAILY #30 tabs 07/27/24
pantoprazole 40 mg tablet,delayed release 40 mg PO DAILY #30 tabs 07/27/24
nitroglycerin 0.4 mg sublingual tablet 0.4 mg sublingual [id number] PRN chest pain #25 tabs 07/29/24
amiodarone 200 mg tablet 200 mg PO DAILY Heart Disease/Condition 09/15/24
atorvastatin 80 mg tablet 80 mg PO HS High Cholesterol 09/15/24
ergocalciferol (vitamin D2) 1,250 mcg (50,000 unit) capsule (Vitamin D2) 1,250 mcg PO MOTH Supplement 09/15/24
tadalafil 5 mg tablet 5 mg PO DAILYPRN PRN ed 09/15/24
triamcinolone acetonide 0.1 % topical cream 1 applic topical DAILY eczema 09/15/24
Potassium-99 1 tab PO DAILY 09/16/24
aspirin 81 mg chewable tablet 81 mg PO DAILY #1 tab 10/02/24
metoprolol succinate 25 mg tablet,extended release 24 hr 25 mg PO BID #180 tabs 10/02/24
nemolizumab-ilto 30 mg subcutaneous pen injector (Nemluvio) 30 mg SC Q4W 10/02/24
upadacitinib 15 mg tablet,extended release 24 hr (Rinvoq) 15 mg PO DAILY 10/02/24
Home Medication Changes
DOSE DECREASE: metoprolol
Pending Results: No
--- NOTE | 2024-10-02 16:12 | CM ---
CM following for DC planning needs.
Met w/ patient at bedside to complete initial assessment.
Pt. known to me from prior admits.
Pt. resides w/ sig. other in a private, st home w/ MICHEL.
Functionally, patient is indep. w/ ADLs, mobility without the use of any assisted device.
No other DME in the home.
Plan is for home once stable, without needs.
Will follow.
--- NOTE | 2024-10-02 16:59 | PTCARENOTE ---
Rec'd pt from geophysical laboratory chief. R wrist w/ hemostasis band on. Ecchymosis noted but no signs bleeding/hematoma. Activity restrictions reviewed w/ pt. Verbalizes understanding. Pt has no complaints at this time. Assessment completed as documented. See
worklist. Oriented pt to room. at bedside. Plan of care reviewed w/ pt. Verbalizes understanding. Currently in bed eating dinner; call house w/in reach.
[2024-10-02] MEDS: ELIQUIS 5 MG PO (20:28)
[2024-10-02] MEDS: BRILINTA 90 MG PO (20:29)
[2024-10-02] MEDS: LIPITOR 80 MG PO (20:29)
--- NOTE | 2024-10-02 20:36 | PTCARENOTE ---
Pt received at beginning of shift resting in bed family at bedside. VSS. Afebrile. SB/PQT on CM rate 40-50's. POX 95% RA. Right radial + pulse, ecchymotic, dressing c/d/i. Rest of assessment as documented. Turns self in bed. Call house remains
within reach. Will continue to monitor.
[2024-10-03 04:00] VITALS: BP 157/89; BMI 24.6
[2024-10-03 04:47] LABS: Hematocrit 40.1 % (39.0-52.0); Hemoglobin 13.9 g/dL (13.0-18.0); Mean Corp Hgb Conc. 34.7 g/dL (33.0-37.0); Mean Corpuscular Hgb 32.9 pg (27.0-31.0); Mean Corpuscular Volume 94.8 fL (80.0-94.0); Mean Platelet Volume 10.7 fL (7.4-10.4); Platelet Count 147 10^3/uL (130-400); Red Blood Cell Count 4.23 10^6/uL (4.70-6.10); Red Cell Dist. Width 13.5 % (11.5-14.5)
[2024-10-03 05:13] LABS: Blood Urea Nitrogen 8 mg/dl (9-20); Calcium 8.9 mg/dl (8.4-10.2); Carbon Dioxide 21 mmol/L (22-30); Chloride 107 mmol/L (98-107); Estimated Creatinine Clearance 100 ml/min; Glucose 101 mg/dl (70-99); HDL Cholesterol 55 mg/dl; LDL Cholesterol, Calculated 22 mg/dl; Potassium 3.9 mmol/L (3.5-5.1); Sodium 136 mmol/L (135-145); Total Cholesterol 98 mg/dl (50-199); Triglyceride 109 mg/dl (10-149); Very Low Density Lipoprotein 21 mg/dl (0-30); eGFR > 60.00
--- NOTE | 2024-10-03 07:16 | PTCARENOTE ---
Pt received from outgoing RN, pt aaox4, in bed, ra, vss, sb, independent assist, plan for potential dc to home later today, pending reassessment by rounding doctor.
[2024-10-03 07:20] VITALS: BP 153/71
--- NOTE | 2024-10-03 07:43 | W.PN.CD ---
Addendum entered and electronically signed by Roverto Ramirez MD 10/03/24 08:49:
I saw and examined the patient.
The STREET SUPERINTENDENT's note was reviewed and I agree with the note.
Patient feels fine. Cath site with ecchymoses but otherwise appears fine. No chest discomfort overnight. ECG appears to show sinus bradycardia versus ectopic atrial rhythm.
On telemetry difficult to tell if there is possible competing junctional and heart rate of 50. Beta-blockers were reduced as directed by Dr. Lo. Will reduce further to Toprol 25 mg. Patient received dose this morning. Will assess rates. If
remains stable then will consider discharge later today.
Addendum entered and electronically signed by ROSEY Alves 10/03/24 07:53:
Subjective:
Patient feels 'great'. No CP, SOB, dizziness. Eating and ambulating without difficulty.
Original Note:
Today's Communication / Plan
-
-likely home today on triple therapy x 1 week, then stop aspirin and continue brilinta and Eliquis
-now on reduced metoprolol
-BP's elevated here, but have been fine on daily checks at home- continue to monitor at home and bring in log to follow-up OV
-follow-up arranged
Impression / Plan
-
CAD:
-ISR causing STEMI July s/p RCA stenting
-now s/p planned PCI 10/02/24: Successful IVUS guided and shockwave lithotripsy facilitated balloon angioplasty of the RCA. Successful IVUS guided PCI with overlapping DIAMOND x 2 to the ostial to mid LAD.
-plan is aggressive secondary prevention of coronary artery disease
-triple therapy with aspirin, ticagrelor, and Eliquis for 1 week, followed by dual therapy with ticagrelor and Eliquis through July 2025
PAF:
-remains in SR. Metoprolol decreased for bradycardia. No dizziness.
-continue Eliquis
-remains on amiodarone
ICM EF 40-45%, chronic HFmEF
-BP did not tolerate Entresto in past. BP running high here, but lower at home. He will bring log to follow-up OV.
-Continue GDMT with metoprolol succinate (adjustment as above) and Farxiga
-continue lasix, does not appear volume overloaded
Dyslipidemia:
-stable
-continue statin
Physical Exam
Vital Signs/Labs
Vital Signs
Temp Pulse Resp BP Pulse Ox
98.6 F 54 20 157/89 96
10/03/24 03:57 10/03/24 04:00 10/03/24 04:00 10/03/24 04:00 10/03/24 04:00
10/02/24 10/03/24 10/04/24
06:59 06:59 06:59
Actual Weight 77.9 kg
10/03/24 04:24
10/03/24 04:24
Triglycerides 109 mg/dl (10-149) 10/03/24 04:24
LDL Cholesterol, Calc 22 mg/dl 10/03/24 04:24
VLDL Cholesterol, Calc 21 mg/dl (0-30) 10/03/24 04:24
HDL Cholesterol 55 mg/dl 10/03/24 04:24
Physical Exam
Constitutional: No acute distress
EENT: Anicteric
Cardiovascular: Rhythm & rate is regular (SB/SR)
Respiratory: Respiratory effort normal and Lungs clear to auscul.
Neuro/Psych: AO x 3
Other: Cath Site (ecchymosis, no hematoma)
Data Reviewed
-
Date of Service: October 03, 2024
EKG: Tracing Personally Visualized and interpreted (SB at 51 BPM) and Other (SB)
Labs: Labs Reviewed by me
[2024-10-03] MEDS: PACERONE 200 MG PO (08:20)
[2024-10-03] MEDS: BRILINTA 90 MG PO (08:20)
[2024-10-03] MEDS: TOPROL XL 25 MG PO (08:20)
[2024-10-03] MEDS: PROTONIX 40 MG PO (08:21)
[2024-10-03] MEDS: FARXIGA 10 MG PO (08:21)
[2024-10-03] MEDS: LASIX 20 MG PO (08:21)
[2024-10-03] MEDS: ELIQUIS 5 MG PO (08:21)
--- NOTE | 2024-10-03 11:17 | PTCARENOTE ---
Pt reassessment unchanged from previous, vss, ra, SB rates 50's, no c/o cp. plan for dc later today, pending reevaluation by cardiology this afternoon.
[2024-10-03 11:22] VITALS: BP 119/68
--- NOTE | 2024-10-03 12:20 | W.DS.TRANS ---
DC Summary - Ad Clerk
-
Discharge Instructions:
Sleep Apnea Risk High
Discharge Diagnosis/Procedures CAD, Lithotripsy with balloon angioplasty to RCA
, Angioplasty with stent to LAD
Diet Low Cholesterol,Low Sodium,Restrict fluids to 64
oz,2 Gram Sodium
Driving Restrictions No driving for 24 hours
Bathing Restrictions OK to Shower
Other Services Cardiac Rehab
Specialty Instructions Weigh Daily
Instructions:
Stand-Alone Forms: DC Inst - Same Day PCI
Changes to Home Medications: Yes
Discharge Medications:
DC Medications w/original date entered in [employer]
apixaban 5 mg tablet (Eliquis) 5 mg PO BID #60 tabs 02/17/20
ticagrelor 90 mg tablet (Brilinta) 90 mg PO BID #60 tabs 07/24/24
dapagliflozin propanediol 10 mg tablet 10 mg PO DAILY #30 tabs 07/27/24
furosemide 20 mg tablet 20 mg PO DAILY #30 tabs 07/27/24
pantoprazole 40 mg tablet,delayed release 40 mg PO DAILY #30 tabs 07/27/24
nitroglycerin 0.4 mg sublingual tablet 0.4 mg sublingual [id number] PRN chest pain #25 tabs 07/29/24
amiodarone 200 mg tablet 200 mg PO DAILY Heart Disease/Condition 09/15/24
atorvastatin 80 mg tablet 80 mg PO HS High Cholesterol 09/15/24
ergocalciferol (vitamin D2) 1,250 mcg (50,000 unit) capsule (Vitamin D2) 1,250 mcg PO MOTH Supplement 09/15/24
tadalafil 5 mg tablet 5 mg PO DAILYPRN PRN ed 09/15/24
triamcinolone acetonide 0.1 % topical cream 1 applic topical DAILY eczema 09/15/24
Potassium-99 1 tab PO DAILY 09/16/24
aspirin 81 mg chewable tablet 81 mg PO DAILY #1 tab 10/02/24
nemolizumab-ilto 30 mg subcutaneous pen injector (Nemluvio) 30 mg SC Q4W 10/02/24
upadacitinib 15 mg tablet,extended release 24 hr (Rinvoq) 15 mg PO DAILY 10/02/24
metoprolol succinate 25 mg tablet,extended release 24 hr (Toprol XL) 25 mg PO DAILY #30 tabs 10/03/24
Home Medication Changes
metoprolol decreased
aspirin x 1 week
Pending Results: No
--- NOTE | 2024-10-03 14:45 | PTCARENOTE ---
Pt discharged home. Discharged Instructions and medications reviewed with pt and spouse at the bedside. All question and concerns address at the time of discussion. Iv and tele pack removed from pt, all belongings from the room return to the pt. Pt
was escorted by RN via wheelchair.
== END 2024-10-03 14:54 | disposition home or self-care (01) ==
LOC: CATH 06:09
PROVIDERS: Nurse Practitioner Adult Health; ATTENDING PHYSICIAN Student in an Organized Health Care Education/Training Program; FAMILY PHYSICIAN Family Medicine; OTHER PHYSICIAN Internal Medicine
DX: I25.10 Atherosclerotic heart disease of native coronary artery without angina pectoris (principal); I25.2 Old myocardial infarction; I25.5 Ischemic cardiomyopathy; I11.0 Hypertensive heart disease with heart failure; I50.22 Chronic systolic (congestive) heart failure; Z95.5 Presence of coronary angioplasty implant and graft; E78.5 Hyperlipidemia, unspecified; Z79.01 Long term (current) use of anticoagulants; I48.0 Paroxysmal atrial fibrillation; K21.9 Gastro-esophageal reflux disease without esophagitis; Z79.82 Long term (current) use of aspirin; Z79.899 Other long term (current) drug therapy; Z79.02 Long term (current) use of antithrombotics/antiplatelets; J98.4 Other disorders of lung
CPT/HCPCS: 92972; 92978; 92979; 99152; 99153; C1761; 76937; 80048; 80061; 85027; 85347; 92920; 93005; 93458; C1725; C1753; C1874; C1887; C1894; C9600; Q9967

== ENCOUNTER 2024-10-04 14:48 | Inpatient (IN) | payer OTHER, SELFPAY ==
[2024-10-04] VITALS (7 sets, daily range): BP systolic 97–139; BP diastolic 69–83; BMI 24.4
[2024-10-04 13:17] LABS: % Basophils 0.6 % (0-2); % Eosinophils 1.4 % (0-6); % Immature Granulocytes 0.8 % (0-0.5); % Lymphocytes 14.3 % (20.5-51.1); % Monocytes 8.6 % (1.7-9.3); % Neutrophils 74.3 % (42.2-75.2); Absolute Eosinophils 0.1 10^3/uL (0-0.7); Absolute Immature Granulocytes 0.1 10^3/uL (0-0.05); Absolute Monocytes 0.6 10^3/uL (0.1-0.6); Hematocrit 44.6 % (39.0-52.0); Hemoglobin 15.4 g/dL (13.0-18.0); Mean Corp Hgb Conc. 34.5 g/dL (33.0-37.0); Mean Corpuscular Hgb 32.5 pg (27.0-31.0); Mean Corpuscular Volume 94.1 fL (80.0-94.0); Mean Platelet Volume 10.7 fL (7.4-10.4); Nucleated Red Blood Cells % 0 % (-); Platelet Count 184 10^3/uL (130-400); Red Blood Cell Count 4.74 10^6/uL (4.70-6.10); Red Cell Dist. Width 13.6 % (11.5-14.5); White Blood Cell Count 6.7 10^3/uL (4.8-10.8)
[2024-10-04 13:32] LABS: ALT (SGPT) 34 U/L (0-50); AST (SGOT) 34 U/L (17-59); Albumin 4.7 g/dl (3.5-5.0); Alkaline Phosphatase 57 U/L (38-126); Blood Urea Nitrogen 12 mg/dl (9-20); Calcium 8.8 mg/dl (8.4-10.2); Carbon Dioxide 26 mmol/L (22-30); Chloride 103 mmol/L (98-107); Glucose 104 mg/dl (70-99); Potassium 3.6 mmol/L (3.5-5.1); Sodium 142 mmol/L (135-145); Total Bilirubin 1.6 mg/dl (0.2-1.3); Total Protein 6.9 g/dl (6.3-8.2); eGFR > 60.00
--- NOTE | 2024-10-04 13:52 | CON.CAR ---
Consultation
Consultation Request
Date/Time Consultation Requested: 10/04/2024
Date/Time Consultation Performed: 10/04/2024
Performing Provider: Dr. Ramirez
Reason for Consultation: Atrial flutter
Medical History
-
History of Present Illness:
79-year-old male discharged from the hospital yesterday who presents today with tachycardia lightheadedness and atrial flutter
79-year-old male with ST elevation [place] and RCA stenting in July 2024. He underwent stenting of the LAD 10/02/2024 and shockwave with angioplasty of in-stent stenosis(underexpansion secondary to calcium )of the RCA.
Patient was feeling fine on the day of discharge catheterization site was fine he had been noted to have some sinus bradycardia so his metoprolol dosing was decreased to Toprol 25 mg a day he was maintained on his usual dose of amiodarone.
Patient's called because at home he had an episode of feeling flushed and lightheaded also noted variable rates of heart rates which were times in the 130s. Was directed to go back to the hospital. No complaints of chest pain.Atrial
fibrillation nonspecific ST and T wave abnormality nonspecific T wave abnormalityDr. MascoloDr. Ramirez atrial flutter. Patient states he felt fine when he went home from the hospital felt fine this morning and then while seated he felt flushed and
very dizzy he said he felt he would have been able to stand up. Symptoms lasted for about a minute and then resolved.. They recorded heart rates at home that were elevated as noted. No complaints of chest pain has been compliant with his
medications no other symptoms.
Noted plans post cath were to continue triple therapy for 1 week and then continue with Eliquis and Brilinta
Note that allergy list has Plavix rash and Brilinta shortness of breath but patient has been tolerating Brilinta since July
Past medical history
Stenting of LAD and shockwave/angioplasty of RCA in-stent stenosis 10/02/[address] [place] and RCA stenting July 2024
Ischemic cardiomyopathy with ejection fraction 40 to 45%
Hypertension
Hyperlipidemia
PAF prior pulmonary vein isolation 2022. Ablation of A-fib and atypical flutter at that time
Chronic anticoagulation with Eliquis
Chronically elevated LFTs
GERD
Cardiac catheterization 10/02/2024
CONCLUSIONS
1. Successful IVUS guided and shockwave lithotripsy facilitated balloon angioplasty of the RCA (3.5 shockwave balloon, 3.5 noncompliant balloon to high-pressure)
2. Successful IVUS guided PCI with overlapping DIAMOND x 2 to the ostial to mid LAD (3.5 x 28 mm Xience Skypoint proximally, 3.5 x 22 mm Phillip Resolute distally, post dilated throughout except for the distal edge with a 3.5 mm noncompliant balloon to
high pressure)
Echocardiogram 07/24/2024
-LV ejection fraction is approximately 40-45%. Basal to mid inferior akinesis.
-Normal right ventricular size and function.
-Moderately dilated left atrium. Moderately dilated right atrium.
-Mild mitral stenosis; peak/mean gradients 6/3 mmHg.
-Mild to moderate aortic stenosis; peak/mean gradients are 26/12 mmHg,
calculated BRIGITTE 1.4 cm2 via planimetry. Mild aortic regurgitation.
-Mild tricuspid regurgitation. Estimated pulmonary artery pressure of 35-40
mmHg.
-Dilated aortic root. Sinus of Valsalva measures 4.1 cm.
ECG 10/04/2024 atrial flutter heart rate 100
Social History
Tobacco: Former Smoker
Family History
Family History: CAD
Allergies / Home Medications
Allergy/AdvReac Type Severity Reaction Status Date / Time
clopidogrel [From Plavix] Allergy Rash Verified 10/02/24 07:10
ticagrelor [From Brilinta] Allergy Shortness Verified 10/02/24 07:10
of Breath
�Medication �Instructions �Recorded �Confirmed �Type
apixaban 5 mg tablet (Eliquis) 5 mg PO BID #60 tabs 02/17/20 10/02/24 Rx
ticagrelor 90 mg tablet (Brilinta) 90 mg PO BID #60 tabs 07/24/24 10/02/24 Rx
dapagliflozin propanediol 10 mg 10 mg PO DAILY #30 tabs 07/27/24 10/02/24 Rx
tablet
furosemide 20 mg tablet 20 mg PO DAILY #30 tabs 07/27/24 10/02/24 Rx
pantoprazole 40 mg tablet,delayed 40 mg PO DAILY #30 tabs 07/27/24 10/02/24 Rx
release
nitroglycerin 0.4 mg sublingual 0.4 mg sublingual [id number] PRN 07/29/24 10/02/24 Rx
tablet chest pain #25 tabs
amiodarone 200 mg tablet 200 mg PO DAILY Heart 09/15/24 10/02/24 History
Disease/Condition
atorvastatin 80 mg tablet 80 mg PO HS High Cholesterol 09/15/24 10/02/24 History
ergocalciferol (vitamin D2) 1,250 1,250 mcg PO MOTH Supplement 09/15/24 10/02/24 History
mcg (50,000 unit) capsule (Vitamin
D2)
tadalafil 5 mg tablet 5 mg PO DAILYPRN PRN ed 09/15/24 10/02/24 History
triamcinolone acetonide 0.1 % 1 applic topical DAILY eczema 09/15/24 10/02/24 History
topical cream
Potassium-99 1 tab PO DAILY 09/16/24 10/02/24 History
aspirin 81 mg chewable tablet 81 mg PO DAILY #1 tab 10/02/24 Rx
nemolizumab-ilto 30 mg 30 mg SC Q4W 10/02/24 10/02/24 History
subcutaneous pen injector
(Nemluvio)
upadacitinib 15 mg tablet,extended 15 mg PO DAILY 10/02/24 10/02/24 History
release 24 hr (Rinvoq)
metoprolol succinate 25 mg 25 mg PO DAILY #30 tabs 10/03/24 Rx
tablet,extended release 24 hr
(Toprol XL)
Review of Systems
-
All other systems: Negative unless noted
Physical Exam
Vital Signs
Temp Pulse Resp BP Pulse Ox
97.5 F 100 16 131/76 92
10/04/24 13:01 10/04/24 13:01 10/04/24 13:01 10/04/24 13:01 10/04/24 13:01
Lab Results
10/04/24 13:12
10/04/24 13:12
Physical Exam
General: Well Developed
HEENT: Normocephalic
Respiratory: Other (No wheezes rales or rhonchi)
Cardiac: Irregular Rhythm
GI: Soft, Non Tender, Non Distended, Normal Bowel Sounds and Other (No organomegaly)
Musculoskeletal: Other (Radial cath site with ecchymosis but otherwise fine)
Skin: Warm, Dry and Other
Neuro: Awake, Alert and Oriented
Psych: Calm
Impression / Plan
-
Dizziness. Episode of feeling flushed and dizzy today and then noted elevation in heart rates. Now in atrial flutter heart rates 90-100 at rest. Possible he could have some symptoms due to the onset of atrial flutter if he had accelerated rates.
Patient previously noted to have sinus bradycardia. Possibility of tachybradycardia, symptomatic bradycardia and potentially conversion pauses need to be considered.
-Admit for further observation and monitor on telemetry
PAF: Patient with previous history of PAF. Had A-fib and atypical flutter ablation 2022. Now presents with atypical flutter
-Maintained on Eliquis
-Maintained on amiodarone 200 mg a day and metoprolol 25 mg a day
-Additional increases in metoprolol limited by baseline heart rate
-Continue current therapy. May eventually benefit from ablation but will need to assess timing patient with recent PCI as noted and is currently on 1 week of triple therapy. EP consult in a.m.
CAD: Recent coronary intervention 10/02/2024 as noted below
-STMI July 2024 with RCA stenting
-LAD stent 10/02/2024 and lithotripsy and angioplasty of RCA stent stenosis/underexpansion 10/02/2024
-Patient to complete 7 days of triple therapy which would be completed on 10/09/2024 and then will transition to Eliquis and Brilinta
ICM EF 40-45%, chronic HFmEF
-BP did not tolerate Entresto in past. .
-Continue GDMT with metoprolol succinate (adjustment as above) and Farxiga
-continue lasix,
Dyslipidemia:
-stable
-continue statin
Data Reviewed
-
EKG: Report Reviewed by me
Medical Tests (Nuc Med, Echo etc): Report Reviewed by me
Labs: Discussed with Physician
--- NOTE | 2024-10-04 14:22 | W.PN.UPDATE ---
Update Note
Progress Note Update
Patient is being admitted. Initially note placed in consult this consult section but should be used as the admission H&P
--- NOTE | 2024-10-04 14:24 | ED.GENMED ---
History of Present Illness
General
Chief Complaint: Heart Rate Problem
Time Seen by Provider: 10/04/24 13:01
History of Present Illness
History of Present Illness:
79-year-old male presents the emergency department for evaluation of heart palpitations and lightheadedness. Patient was discharged from this hospital yesterday after a staged coronary intervention for a prior STEMI, had 3 cardiac stents placed
earlier this week. He has been compliant with his home medications. Does have a history of A-fib and is currently on triple therapy for blood thinning including Eliquis, Brilinta, and aspirin. He denies any chest pain or syncope at this time.
Past History
Past History
ED Past Medical History: Arrthythmia and CAD
ED Past Surgical History: Cardiac
PSI?: No
Social History
Tobacco: Non-smoker
Alcohol: Occasional
Drug: None
Personal:
Living: with family
Employment: Employed
Family History
Family History: CAD
Review of Systems
Review of Systems
Allergies reviewed?: Yes
All Other Systems: ROS reviewed and negative except as documented in HPI and ROS
Phy Exam
Physical Exam
Physical Exam:
GEN: Well appearing, NAD, WDWN
HEENT: Oral mucosa moist, no scleral icterus
Cardiac: Irregular but controlled, no murmur
Lung: No respiratory distress, no tachypnea, lungs clear to auscultation bilaterally
MSK: No gross deformity or injuries
Skin: Good color, no pallor or jaundice, no rashes
Neuro: AO x3, moves all extremities freely
Psych: Calm, cooperative
Course
Orders/Labs/Results
Orders:
Orders
10/04/24 13:07
Electrocardiogram (*1) Urgent
Reason for Study: Atrial Fibrillation
10/04/24 13:12
CMP [Comprehensive Metabolic Panel] Urgent
Complete Blood Count/With Diff Urgent
10/04/24 13:55
Electrocardiogram (*1) Urgent
Reason for Study: Abnormal EKG
10/04/24 14:23
Admit/Transfer Patient As Directed
Co-Sign Provider:
Level of Care: Inpatient admission
Assign to:: IVU
Physician / Group: juana
Diagnosis: arial flutter, near syncope, CAD
Reason for Hospitalization: atirial flutter , near syncope , cad
Expected length of stay greater than two midnights?: Yes
ELOS- Estimated Length of Stay in days: 2
I certify the patient meets the requirements for IP care: Yes
10/04/24 14:24
PRN Pain Medication Management As Directed
May give lesser potent ordered pain med per pt: Yes
preference::
Protocol:: Medication orders for pain may be administered in a
manner that supports deferring to patient preference
when the pt is:
-Requesting an ordered lesser potent pain medication.
Least to most potent pain medications are defined as:
acetaminophen < NSAID < tramadol < opioids (morphine,
oxycodone, hydromorphone).
- Requesting a lesser dose of the same medication IF
ORDERED.
- Requesting a less intrusive route of administration
if both routes are prescribed by the provider (PO <
IV).
10/04/24 14:32
Resume Diet As Directed
Comment: heartheathy diet
Abnormal Lab Results
10/04/24
13:12
MCV 94.1 H fL
(80.0-94.0)
MCH 32.5 H pg
(27.0-31.0)
MPV 10.7 H fL
(7.4-10.4)
Abs Immat Gran (auto) 0.1 H 10^3/uL
(0-0.05)
Absolute Lymphs (auto) 1.0 L 10^3/uL
(1.2-3.4)
Immature Gran % 0.8 H %
(0-0.5)
Lymphocytes % 14.3 L %
(20.5-51.1)
Glucose 104 H mg/dl
(70-99)
Total Bilirubin 1.6 H mg/dl
(0.2-1.3)
10/04/24 13:12
10/04/24 13:12
Vital Signs
Initial and Last Documented VS:
Initial Vital Signs
Temp Pulse Resp BP Pulse Ox
97.5 F 100 16 131/76 92
10/04/24 13:01 10/04/24 13:01 10/04/24 13:01 10/04/24 13:01 10/04/24 13:01
Last Documented Vital Signs
Temp Pulse Resp BP Pulse Ox
97.5 F 122 20 107/78 94
10/04/24 13:01 10/04/24 16:45 10/04/24 16:45 10/04/24 16:00 10/04/24 16:45
MDM/Problems Addressed
MDM/Problems Addressed:
Case was reviewed with cardiology on-call who saw the patient at bedside. Concern at this time for tachybradycardia syndrome given the near syncopal event preceded his visit. Will be admitted to the cardiology service for further monitoring and
management
*Critical Care Note
Total Time (30-74mins, 75-104mins- exclusive of procedures): Not Applicable
ED Attending Note
-
Portions of this chart may have been created with voice recognition software.� Occasional wrong word or��sound alike� substitutions may have occurred due to the inherent limitations of voice recognition software.
Discharge Plan
Departure
Patient Disposition: Admit
Date of Disposition: 10/04/24
Time of Disposition: 14:24
Admit to: IVU
Presentation/result/management discussed w/ accepting MD/DO: Cardiology-Mascolo
Discharge Problem:
Atrial flutter
Interventions
Interventions:
*Risk Screen - Suicide Last Done: 10/04/24 16:47
*General Assessment Last Done: 10/04/24 16:47
*Neglect/Abuse Screening Last Done: 10/04/24 16:47
*ED- Fall Risk Assessment Last Done: 10/04/24 16:47
*ED COVID-19 Vaccine History Last Done: 10/04/24 16:47
ED- Cardiac Assessment Last Done: 10/04/24 16:50
ED- Pulmonary Assessment Last Done: 10/04/24 16:50
--- NOTE | 2024-10-04 17:49 | PTCARENOTE ---
patient arrived for ER, placed on monitor Afib, HR 70 to 140's when up to BR. 77.1 kg and 5'10. patient doesn't feel his heart racing. right radial from previous cath is ecchymotic, good pulse. lung diego diminished, o2 sat on RA is 93%. no edema
noted in bilat. LE, patient able to void. patient is already oriented to room and surroundings, was just discharged yesterday. significant other at bedside ordering him something to eat. patient is aware that he will be NPO after MN.
[2024-10-04] MEDS: ELIQUIS 5 MG PO (20:10)
[2024-10-04] MEDS: BRILINTA 90 MG PO (20:10)
[2024-10-04] MEDS: FLUSH (NSS) 1 FLUSH IV (20:11)
--- NOTE | 2024-10-04 20:40 | PTCARENOTE ---
Rec'd pt at change of shift. Pt AAO*3, VSS, and pt afib on TELE monitor with HR in the 90's. Pt denies any pain or discomfort. Pt agreed to NPO status at midnight and verbalizes understanding of care plan. Pt resting with call house in reach and
plan of care ongoing. See MAR/flowchart for full pt care and assessment.
[2024-10-04] MEDS: LIPITOR 80 MG PO (23:10)
[2024-10-05] VITALS (8 sets, daily range): BP systolic 100–146; BP diastolic 73–104; BMI 24.4
--- NOTE | 2024-10-05 07:32 | W.PN.CD ---
Today's Communication / Plan
-
- Increase Amiodarone to 200 mg BID
- ECHO today
- Likely discharge home and EP evaluation for ablation in next month.
Impression / Plan
-
Atrial flutter
-s/p AF and roof line flutter ablation on 05/13/23
-atypical atrial flutter noted following PCI - Symptomatic with palpitations, dizziness and TODD.
-Previously on Sotalol but had recurrent atrial flutter/Fib in setting of myocardal ischemia and was switched to Amiodarone in Jul 2024.
-With Amiodarone on board, pt is not a candidate for Tikosyn loading just yet.
-QTc is falsely reported long due to flutter waves.
- Continue Amiodarone for now.
- Will increase AMio to 200 mg BID with plan for atypical atrial flutter ablation in next few weeks - Triple therapy for complex PCI on 10/02/24.
- Outpatient consult for ablation.
PAF: Patient with previous history of PerAF. Had A-fib and atypical flutter ablation 2022. Now presents with atypical flutter
-Maintained on Eliquis
-Maintained on amiodarone 200 mg a day and metoprolol 25 mg a day
-Additional increases in metoprolol limited by baseline heart rate
-Continue current therapy. May eventually benefit from ablation but will need to assess timing patient with recent PCI as noted and is currently on 1 week of triple therapy. EP consult in a.m.
CAD: Recent coronary intervention 10/02/2024 as noted below
-STMI July 2024 with RCA stenting
-LAD stent 10/02/2024 and lithotripsy and angioplasty of RCA stent stenosis/underexpansion 10/02/2024
-Patient to complete 7 days of triple therapy which would be completed on 10/09/2024 and then will transition to Eliquis and Brilinta
ICM EF 40-45%, chronic HFmEF
-BP did not tolerate Entresto in past. .
-Continue GDMT with metoprolol succinate (adjustment as above) and Farxiga
-continue lasix,
-Repeat ECHO (last ECHo was 07/24/24 - dropped EF from 60% to 40%) now s/p PCIs and sinus rhythm.
Dyslipidemia:
-stable
-continue statin
Physical Exam
Vital Signs/Labs
Vital Signs
Temp Pulse Resp BP Pulse Ox
97.7 F 94 18 143/96 93
10/05/24 03:43 10/05/24 04:00 10/05/24 03:43 10/05/24 03:41 10/05/24 03:43
10/04/24 10/05/24 10/06/24
06:59 06:59 06:59
Actual Weight 77.1 kg
10/04/24 13:12
10/04/24 13:12
Physical Exam
Constitutional: No acute distress and Comfortable
EENT: Anicteric and Moist mucous membranes
Cardiovascular: Rhythm & rate is regular, Pedal edema is absent and JVD pressure is normal
Respiratory: Respiratory effort normal, Lungs clear to auscul. and Wheeze Absent
GI: Soft, Non tender and Normal bowel sounds
Neuro/Psych: Alert, Oriented, AO x 3 and Motor deficits absent
Other: Skin
Data Reviewed
-
Date of Service: October 05, 2024
Medical Decision Making: Independent Historian Assessment, Test Interpretation and Review of Case with other Provider
EKG: Tracing Personally Visualized and interpreted (Telemetry showed frequent episodes of AF/FL. Now in sinus. )
Echo: Tracing Personally Visualized and interpreted and Report Reviewed by me
Medical Tests (PFT, Pathology etc): Image Personally Visualized and interpreted
Labs: Labs Reviewed by me
Old Records: Reviewed
[2024-10-05] MEDS: PROTONIX 40 MG PO (09:00)
[2024-10-05] MEDS: LASIX 20 MG PO (09:00)
[2024-10-05] MEDS: LOW STRENGTH ASPIRIN 81 MG PO (09:00)
[2024-10-05] MEDS: BRILINTA 90 MG PO ×2 (09:03→19:31)
[2024-10-05] MEDS: ELIQUIS 5 MG PO ×2 (09:04→19:31)
[2024-10-05] MEDS: FARXIGA 10 MG PO (09:05)
[2024-10-05] MEDS: TOPROL XL 25 MG PO ×2 (09:05→19:31)
[2024-10-05] MEDS: PACERONE 200 MG PO ×2 (09:06→19:32)
[2024-10-05] MEDS: FLUSH (NSS) 1 FLUSH IV (09:22)
[2024-10-05] MEDS: DRISDOL (VITAMIN D2) 50000 UNITS PO (09:43)
[2024-10-05] MEDS: KCL 20 MEQ PO (10:19)
--- NOTE | 2024-10-05 12:07 | CM ---
Chart reviewed. Patient is independent of ADLS, lives with his SO in a 1 STH, 2 MICHEL, 0 DME. Plan is for the patient to return home. CM to follow
[2024-10-05] MEDS: CORDARONE 103 MG IV (15:27)
[2024-10-05] MEDS: TYLENOL 650 MG PO (15:54)
[2024-10-05] MEDS: KCL 40 MEQ PO (15:54)
--- NOTE | 2024-10-05 17:40 | PTCARENOTE ---
pt continues be afib on the monitor, hr in [id number], vss. notified dr. jose jaimes bolus and potassium given as ordered, see MAR. Pt c/o of knee pain, Tylenol given as ordered. notified Valarie foster, romao patch ordered. Given as ordered, see
documentation. pt educated on plan of care and pt verbalized understanding. call house within reach.
[2024-10-05] MEDS: LIDOCAINE 4% PATCH 1 PATCH TOPICAL (18:14)
--- NOTE | 2024-10-05 20:30 | PTCARENOTE ---
Rec'd pt at change of shift. Pt AAO*3, VSS, and Afib on TELE monitor with HR in the 110's. Pt denies having any pain or discomfort and updated on plan of care. Pt resting with call house in reach. See MAR and flowchart for full pt care and
assessment.
[2024-10-05] MEDS: LIPITOR 80 MG PO (22:41)
[2024-10-06] VITALS (7 sets, daily range): BP systolic 106–140; BP diastolic 59–98; BMI 24.5
[2024-10-06] MEDS: ELIQUIS 5 MG PO ×2 (09:11→20:34)
[2024-10-06] MEDS: BRILINTA 90 MG PO ×2 (09:11→20:34)
[2024-10-06] MEDS: LASIX 20 MG PO (09:12)
[2024-10-06] MEDS: LOW STRENGTH ASPIRIN 81 MG PO (09:12)
[2024-10-06] MEDS: PROTONIX 40 MG PO (09:12)
[2024-10-06] MEDS: PACERONE 200 MG PO (09:13)
[2024-10-06] MEDS: FARXIGA 10 MG PO (09:13)
[2024-10-06] MEDS: TOPROL XL 25 MG PO (09:13)
[2024-10-06] MEDS: LIDOCAINE 4% PATCH TOPICAL (09:14)
--- NOTE | 2024-10-06 09:26 | W.PN.CD ---
Today's Communication / Plan
-
- Decrease Amiodarone
- Add Digoxin for rate control
- Observe on telemetry with addition of Digoxin with Amiodarone.
Impression / Plan
-
Atrial flutter
-s/p AF and roof line flutter ablation on 05/13/23
-atypical atrial flutter noted following PCI - Symptomatic with palpitations, dizziness and TODD.
-Previously on Sotalol but had recurrent atrial flutter/Fib in setting of myocardal ischemia and was switched to Amiodarone in Jul 2024.
-With Amiodarone on board, pt is not a candidate for Tikosyn loading just yet.
-QTc is falsely reported long due to flutter waves.
- Going in and out of AFL and did not respond to Amiodarone. Will decrease Amiodarone to 200 mg QD. Will add Digoxin for now. (BP is borderline to increase BB furtherr)
- Plan for atypical atrial flutter ablation in next few weeks - Triple therapy for complex PCI on 10/02/24.
- Outpatient consult for ablation.
PAF: Patient with previous history of PerAF. Had A-fib and atypical flutter ablation 2022. Now presents with atypical flutter
-Maintained on Eliquis
-Maintained on amiodarone 200 mg a day and metoprolol 25 mg BID and added Digoxin 125 mcg QD.
-Additional increases in metoprolol limited by baseline heart rate
-Continue current therapy. May eventually benefit from ablation but will need to assess timing patient with recent PCI as noted and is currently on 1 week of triple therapy.
CAD: Recent coronary intervention 10/02/2024 as noted below
-STMI July 2024 with RCA stenting
-LAD stent 10/02/2024 and lithotripsy and angioplasty of RCA stent stenosis/underexpansion 10/02/2024
-Patient to complete 7 days of triple therapy which would be completed on 10/09/2024 and then will transition to Eliquis and Brilinta
ICM EF 40-45%, chronic HFmEF
-BP did not tolerate Entresto in past. .
-Continue GDMT with metoprolol succinate (adjustment as above) and Farxiga
-continue lasix,
-Repeat ECHO 10/05/24 - LVEf 45% but had already gone into AFl .(last ECHo was 07/24/24 - dropped EF from 60% to 40%).
Hypokalemia
-Replace benji with start of Digoxin.
-Keep K > 4.0
Dyslipidemia:
-stable
-continue statin
Physical Exam
Vital Signs/Labs
Vital Signs
Temp Pulse Resp BP Pulse Ox
97.8 F 121 20 115/98 93
10/06/24 08:10 10/06/24 06:00 10/06/24 08:10 10/06/24 03:11 10/06/24 08:10
10/05/24 10/06/24 10/07/24
06:59 06:59 06:59
Actual Weight 77.1 kg 77.4 kg
10/04/24 13:12
10/04/24 13:12
Physical Exam
Constitutional: No acute distress and Comfortable
EENT: Anicteric and Moist mucous membranes
Cardiovascular: Rhythm & rate is regular (regular but tachycardia to 120s. ), Pedal edema is absent and JVD pressure is normal
Respiratory: Respiratory effort normal, Lungs clear to auscul. and Wheeze Absent
GI: Soft, Non tender and Normal bowel sounds
Neuro/Psych: Alert, Oriented and AO x 3
Data Reviewed
-
Date of Service: October 06, 2024
Medical Decision Making: Reviewed Test Results, Test Interpretation and Review of Case with other Provider
EKG: Tracing Personally Visualized and interpreted
Echo: Report Reviewed by me
Medical Tests (PFT, Pathology etc): Image Personally Visualized and interpreted
Labs: Labs Reviewed by me
Old Records: Reviewed
[2024-10-06] MEDS: KCL 40 MEQ PO (11:20)
--- NOTE | 2024-10-06 14:16 | PTCARENOTE ---
PT HR 120's this morning in A-fib. IV dig ordered by Dr Meade, but then not given because Pt's Hr as low as 49 but the rates were changing but no longer staying up above 100. Dr Meade aware. Noon dose of Po Digoxin then also not given because
now HR is remaining in upper 40's - 50's. Demetria Palmer aware.
--- NOTE | 2024-10-06 14:36 | CM ---
Reviewed chart. Met with and Mrs. Monterroso to review discharge plans. He states he is feeling well and maybe able to go home soon. He states prior to admission he resiides with his significant other in a one story home with two steps to enter.
He states prior to admission he was independent with ambulation and adls. He states he does not have any DME in the home. He state he has a prescription plan. Medical work-up in progress. The discharge plan is to return home with his significant
other when medically stable.
[2024-10-06] MEDS: LIPITOR 80 MG PO (20:34)
[2024-10-06] MEDS: TOPROL XL PO (21:23)
--- NOTE | 2024-10-07 04:44 | DOWNTIME ---
There was a Real Time Content Client Inter Com Installer Downtime on 10/07/2024 from 0100 to 10/08/2023 at 0420 . Downtime documentation of patient's care, including medication administrations, has been reconciled in the electronic record per guidelines. Refer to the
patient's paper chart under the miscellaneous tab to see printed paper medication records and downtime forms.
[2024-10-07 04:56] VITALS: BP 124/78
[2024-10-07 05:00] VITALS: BMI 24.5
[2024-10-07 07:07] VITALS: BP 145/85
[2024-10-07] MEDS: LIDOCAINE 4% PATCH TOPICAL (08:42)
[2024-10-07] MEDS: PROTONIX 40 MG PO (08:43)
[2024-10-07] MEDS: ELIQUIS 5 MG PO (08:43)
[2024-10-07] MEDS: PACERONE 200 MG PO (08:43)
[2024-10-07] MEDS: LOW STRENGTH ASPIRIN 81 MG PO (08:43)
[2024-10-07] MEDS: FARXIGA 10 MG PO (08:43)
[2024-10-07] MEDS: LASIX 20 MG PO (08:43)
[2024-10-07] MEDS: BRILINTA 90 MG PO (08:43)
[2024-10-07] MEDS: TOPROL XL 25 MG PO (08:44)
[2024-10-07] MEDS: KCL 40 MEQ PO (08:44)
--- NOTE | 2024-10-07 09:59 | W.PN.CD ---
Today's Communication / Plan
-
Home today
Plans as per Dr. Meade/Ashley
Impression / Plan
-
PAF/Flutter (atypical but some ekgs suggest a slow typical flutter)
- Back to sinus yesterday
- No digoxin given SB prior to dig
- Continue current BB and prior Amio
- Dr. Meade planning eval for consideration of repeat ablation
SB in 50s yesterday w/o symptoms
- Wont increase meds
CAD: Recent coronary intervention 10/02/2024 as noted below
-STMI July 2024 with RCA stenting
-LAD stent 10/02/2024 and lithotripsy and angioplasty of RCA stent stenosis/underexpansion 10/02/2024
-Patient to complete 7 days of triple therapy which would be completed on 10/09/2024 and then will transition to Eliquis and Brilinta
ICM EF 40-45%, chronic HFmEF
-BP did not tolerate Entresto in past. .
-Continue GDMT with metoprolol succinate (adjustment as above) and Farxiga
-continue lasix,
-Repeat ECHO 10/05/24 - LVEf 45% but had already gone into AFl .(last ECHo was 07/24/24 - dropped EF from 60% to 40%).
Dyslipidemia stable on statin
Subjection: No CP or dyspnea
Physical Exam
Vital Signs/Labs
Vital Signs
Temp Pulse Resp BP Pulse Ox
98.4 F 54 20 145/85 95
10/07/24 07:08 10/07/24 08:44 10/07/24 07:08 10/07/24 07:07 10/07/24 08:37
10/06/24 10/07/24 10/08/24
06:59 06:59 06:59
Actual Weight 77.4 kg 77.4 kg
10/04/24 13:12
10/04/24 13:12
Physical Exam
Constitutional: No acute distress
Cardiovascular: Rhythm & rate is regular and Pedal edema is absent
Respiratory: Respiratory effort normal and Lungs clear to auscul.
GI: Soft and Distention absent
Neuro/Psych: AO x 3
Data Reviewed
-
Date of Service: October 07, 2024
--- NOTE | 2024-10-07 11:21 | W.DS.TRANS ---
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
-
Discharge Instructions:
Sleep Apnea Risk Low
Discharge Diagnosis/Procedures Atrial flutter, coronary artery disease,
cardiomyopathy
Diet Low Cholesterol,Low Sodium,Restrict fluids to 48
oz
Activity Other activity
Additional Activity Follow post procedure instructions from prior
admission
Driving Restrictions As prior to admission
Bathing Restrictions OK to Shower
Other Services Cardiac Rehab
Specialty Instructions Weigh Daily
Instructions:
Stand-Alone Forms: DC Instructions- Cath/EP Lab
Changes to Home Medications: No
Discharge Medications:
DC Medications w/original date entered in [facility]
apixaban 5 mg tablet (Eliquis) 5 mg PO BID #60 tabs 02/17/20
ticagrelor 90 mg tablet (Brilinta) 90 mg PO BID #60 tabs 07/24/24
dapagliflozin propanediol 10 mg tablet 10 mg PO DAILY #30 tabs 07/27/24
furosemide 20 mg tablet 20 mg PO DAILY #30 tabs 07/27/24
pantoprazole 40 mg tablet,delayed release 40 mg PO DAILY #30 tabs 07/27/24
nitroglycerin 0.4 mg sublingual tablet 0.4 mg sublingual [id number] PRN chest pain #25 tabs 07/29/24
amiodarone 200 mg tablet 200 mg PO DAILY Heart Disease/Condition 09/15/24
atorvastatin 80 mg tablet 80 mg PO HS High Cholesterol 09/15/24
ergocalciferol (vitamin D2) 1,250 mcg (50,000 unit) capsule (Vitamin D2) 1,250 mcg PO MOTH Supplement 09/15/24
tadalafil 5 mg tablet 5 mg PO DAILYPRN PRN ed 09/15/24
triamcinolone acetonide 0.1 % topical cream 1 applic topical DAILYPRN PRN eczema 09/15/24
potassium 99 mg tablet 99 mg PO DAILY ##0 09/16/24
nemolizumab-ilto 30 mg subcutaneous pen injector (Nemluvio) 30 mg SC Q4W 10/02/24
upadacitinib 15 mg tablet,extended release 24 hr (Rinvoq) 15 mg PO DAILY 10/02/24
metoprolol succinate 25 mg tablet,extended release 24 hr (Toprol XL) 25 mg PO DAILY #30 tabs 10/03/24
aspirin 81 mg chewable tablet 81 mg PO DAILY #1 tab 10/07/24
Home Medication Changes
Pending Results: No
[2024-10-07 11:45] VITALS: BP 124/68
--- NOTE | 2024-10-07 12:45 | PTCARENOTE ---
Pt seen by . telemetry and IV device removed. Discharge instructions reviewed with pt and his SO regarding CHF guidelines, medications and their possible side effects, reporting cares and concerns and follow up appt's. Very good
understanding verbalized. Pt escorted out via wheelchair and discharged to home.
== END 2024-10-07 12:40 | disposition home or self-care (01) | DRG 309 ==
LOC: IVU 14:48
PROVIDERS: Physician Assistant; ADMITTING PHYSICIAN Internal Medicine Cardiovascular Disease; EMERGENCY PHYSICIAN Emergency Medicine; FAMILY PHYSICIAN Family Medicine
DX: I48.4 Atypical atrial flutter (principal); I50.22 Chronic systolic (congestive) heart failure; I25.10 Atherosclerotic heart disease of native coronary artery without angina pectoris; Z87.891 Personal history of nicotine dependence; Z79.01 Long term (current) use of anticoagulants; Z79.02 Long term (current) use of antithrombotics/antiplatelets; Z79.899 Other long term (current) drug therapy; Z79.82 Long term (current) use of aspirin; E78.00 Pure hypercholesterolemia, unspecified; K21.9 Gastro-esophageal reflux disease without esophagitis; I48.0 Paroxysmal atrial fibrillation; I11.0 Hypertensive heart disease with heart failure; I25.5 Ischemic cardiomyopathy; I25.2 Old myocardial infarction
CPT/HCPCS: 80053; 85025; 93005; 93306; 99285; Q9957

== ENCOUNTER → 2025-01-13 08:42 | Outpatient (REF) | payer OTHER, SELFPAY | LOC: RAD 08:42 | PROVIDERS: ATTENDING PHYSICIAN Internal Medicine; FAMILY PHYSICIAN Family Medicine | DX: M79.604 Pain in right leg (principal); M79.605 Pain in left leg | CPT/HCPCS: 93922; 93925 ==

== ENCOUNTER → 2025-01-27 06:51 | Outpatient (REF) | payer OTHER, SELFPAY | LOC: RAD 06:51 | PROVIDERS: ATTENDING PHYSICIAN Surgery Vascular Surgery; FAMILY PHYSICIAN Family Medicine | DX: I73.9 Peripheral vascular disease, unspecified (principal); I72.4 Aneurysm of artery of lower extremity | CPT/HCPCS: 75635; 93970; Q9967 ==

== ENCOUNTER 2025-02-08 20:45 | Inpatient (IN) | payer OTHER, SELFPAY ==
[2025-02-08 16:19] VITALS: BP 158/114
[2025-02-08 16:55] LABS: Hematocrit 45.0 % (39.0-52.0); Hemoglobin 15.3 g/dL (13.0-18.0); Mean Corp Hgb Conc. 34.0 g/dL (33.0-37.0); Mean Corpuscular Volume 92.4 fL (80.0-94.0); Nucleated Red Blood Cells % 0 % (-); Platelet Count 183 10^3/uL (130-400); Red Cell Dist. Width 14.5 % (11.5-14.5)
[2025-02-08 17:04] LABS: ALT (SGPT) 48 U/L (0-50); AST (SGOT) 38 U/L (17-59); Albumin 4.4 g/dl (3.5-5.0); Alkaline Phosphatase 59 U/L (38-126); Blood Urea Nitrogen 16 mg/dl (9-20); Calcium 9.2 mg/dl (8.4-10.2); Carbon Dioxide 28 mmol/L (22-30); Chloride 107 mmol/L (98-107); Glucose 103 mg/dl (70-99); Potassium 3.8 mmol/L (3.5-5.1); Sodium 142 mmol/L (135-145); Total Protein 7.0 g/dl (6.3-8.2); eGFR > 60.00
[2025-02-08] MEDS: ADENOCARD 6 MG IV (17:12)
--- NOTE | 2025-02-08 17:20 | ED.GENMED ---
History of Present Illness
General
Chief Complaint: Heart Rate Problem
Source: patient and records
Exam Limitations: none
Time Seen by Provider: 02/08/25 16:47
Nursing documentation reviewed up to this point in time: agreed with
History of Present Illness
History of Present Illness:
79-year-old male referred from by vascular surgery where he was undergoing evaluation in the office found to be tachycardic has a history of CAD status post stenting A-fib status post ablation apparently was back in A-fib on a recent visit failed
cardioversion meds were adjusted there is talk of a second ablation, he is a drinker not currently a smoker believes he went into A-fib yesterday, his girlfriend takes his vital signs every morning heart rate was fast yesterday
Past History
Past History
ED Past Medical History: Arrthythmia, CAD and COPD; Negative CHF
ED Past Surgical History: Cardiac
PSI?: No
Social History
Tobacco: Non-smoker
Alcohol: Occasional
Drug: None
Personal:
Living: with family
Employment: Employed
Family History
Family History: CAD
Review of Systems
Review of Systems
All Other Systems: Not applicable
Constitutional: Reports fatigue; Denies fever
Respiratory: Reports trouble breathing; Denies hemoptysis
Cardiac: Reports palpitations; Denies chest pain or diaphoresis
Phy Exam
Physical Exam
Physical Exam:
Physical Exam
General: no apparent distress, not acutely ill
Neck: No jaundice
Heart: Tachycardic
Lungs: no acute respiratory distress. clear bilaterally
Abdomen: Nontender
Neuro: alert and oriented. no focal neurological deficits
Skin: no rash
Psychiatric: well kept. interactive and cooperative
Extremities: no edema. no calf tenderness.
Course
Orders/Labs/Results
Orders:
Orders
02/08/25 16:15
EKG [Electrocardiogram (*1)] Urgent
Reason for Study: Bradycardia / Tachycardia
EKG- Treatment ONCE
02/08/25 16:36
CMP [Comprehensive Metabolic Panel] Urgent
Complete Blood Count/With Diff Urgent
Magnesium Urgent
Comment: ADD ON
02/08/25 16:55
Adenosine [Adenocard] 6 mg .ROUTE .STK-MED ONE
02/08/25 17:09
Add On- LAB Urgent
Tests Added?: magnesium
02/08/25 17:12
Adenosine [Adenocard] 6 mg IV NOW STA
02/08/25 17:16
Amiodarone [Cordarone] 150 mg Dextrose 5%/Water 100 ml [D5w] 100 ml IV NOW
02/08/25 17:30
Amiodarone [Cordarone] 900 mg DEXTROSE 5% PVC-free BAG [D5W PVC-free BAG] 500 ml IV PER PROTOCOL
Initial Dose in mg/min:: 1
Duration of initial dose (hours):: 6
Subsequent dose in mg/min:: 0.5
Duration of subsequent dose (hours):: 18
Maximum dose in mg/min:: 1
Hold and notify provider if:: Heart rate < 60 BPM or SBP < 90 mmHg or MAP < 60 mmHg
02/08/25 17:39
Add On- LAB Urgent
Tests Added?: pBNP
02/08/25 17:48
NT-proBNP Urgent
Comment: ADD ON
Troponin I Urgent
02/08/25 18:23
CR Chest - 2 Views Urgent
Comment:
Reason For Exam: sob
Abnormal Lab Results
02/08/25
16:36
MCH 31.4 H pg
(27.0-31.0)
MPV 11.2 H fL
(7.4-10.4)
Immature Gran % 0.6 H %
(0-0.5)
Lymphocytes % 18.9 L %
(20.5-51.1)
Glucose 103 H mg/dl
(70-99)
02/08/25 16:36
02/08/25 16:36
Vital Signs
Initial and Last Documented VS:
Initial Vital Signs
Temp Pulse Resp BP Pulse Ox
97.7 F 139 18 158/114 95
02/08/25 16:19 02/08/25 16:19 02/08/25 16:19 02/08/25 16:19 02/08/25 16:19
Last Documented Vital Signs
Temp Pulse Resp BP Pulse Ox
97.7 F 114 22 158/114 94
02/08/25 16:19 02/08/25 17:45 02/08/25 17:45 02/08/25 16:19 02/08/25 17:45
MDM/Problems Addressed
Differential Diagnosis Includes:
SVT A-fib a flutter atrial tach
MDM/Problems Addressed:
Tachycardia
Chronic conditions affecting care: CAD, Arrhythmia and COPD
Acute Exacerbation and/or Progression of Chronic Illness: CAD, Arrhythmia and COPD
*Pulse Oximetry
SaO2: 95
Oxygen Mode of Delivery: Room air
Patient hypoxic: no
*EKG
Interpreted by ED Provider?: Yes
Interpretation: abnormal
Comparison EKG: no comparison EKG present
Rate: tachycardiac
Rhythm: a-fib and atrial flutter
Ischemia: non-specific ST changes
*Film Masker Interpretation
Rate: tachycardiac
Interpretation: abnormal
Heart Rate: 136
Rhythm: a-fib
*Critical Care Note
Total Time (30-74mins, 75-104mins- exclusive of procedures): 32
Update Note
Update Note:
6:15 PM patient appears to have converted on amiodarone will review his labs, chest x-ray
6:45 PM troponin proBNP noted
Heart rate back up, chest x-ray noted
This point to be prudent to admit him to the hospital medically complex,
ED Attending Note
-
Portions of this chart may have been created with voice recognition software.� Occasional wrong word or��sound alike� substitutions may have occurred due to the inherent limitations of voice recognition software.
Discharge Plan
Departure
Patient Disposition: Admit
Date of Disposition: 02/08/25
Time of Disposition: 19:47
Admit to: Telemetry
Presentation/result/management discussed w/ accepting MD/DO: Hospitalist
Patient with high blood pressure during this ER visit?: Yes
Condition: Fair
Discharge Problem:
Paroxysmal A-fib, Systolic CHF, Ischemic cardiomyopathy, Atypical atrial flutter, HTN (hypertension)
Prescriptions:
No Action
Eliquis 5 MG tablet
5 mg PO BID Qty: 60 0RF
Brilinta 90 mg Tablet
90 mg PO BID Qty: 60 11RF
pantoprazole 40 mg Tablet,Delayed Release (Dr/Ec)
40 mg PO DAILY Qty: 30 0RF
furosemide 20 mg Tablet
20 mg PO DAILY Qty: 30 0RF
dapagliflozin propanediol 10 mg Tablet
10 mg PO DAILY Qty: 30 2RF
nitroglycerin 0.4 MG tablet, sublingual
0.4 mg sublingual [id number] PRN (Reason: chest pain) Qty: 25 1RF
Rx Instructions:
Do not take nitro within 48 hours of tadalafil
potassium 99 mg Tablet
99 mg PO DAILY Qty: 0
Rinvoq 15 mg Tablet Extended Release 24 Hr
15 mg PO DAILY
Nemluvio 30 mg Pen Injector
30 mg SC Q4W
metoprolol succinate [Toprol XL] 25 mg tablet extended release 24 hr
25 mg PO DAILY Qty: 30 3RF
triamcinolone acetonide 0.1 % Cream
1 applic TOPICAL DAILYPRN PRN (Reason: eczema)
ergocalciferol (vitamin D2) [Vitamin D2] 1,250 mcg (50,000 unit) Capsule
1,250 mcg PO MOTH
atorvastatin 80 mg tablet
80 mg PO HS
amiodarone 200 mg tablet
200 mg PO DAILY
tadalafil 5 mg tablet
5 mg PO DAILYPRN PRN (Reason: ed)
aspirin 81 mg tablet,chewable
81 mg PO DAILY Qty: 1 0RF
Rx Instructions:
Take through 10/09/24, then stop
Referrals:
Wolfgang Juan MD [Family Provider, Family Practice]
Interventions
Interventions:
*Risk Screen - Suicide Last Done: 02/08/25 16:19
*General Assessment Last Done: 02/08/25 16:19
*Neglect/Abuse Screening Last Done: 02/08/25 16:19
*ED COVID-19 Vaccine History Last Done: 02/08/25 16:19
ED- Cardiac Assessment Last Done: 02/08/25 16:56
ED- Pulmonary Assessment Last Done: 02/08/25 16:56
Discharge Date and Time
Print Language: [place]
[2025-02-08 17:25] LABS: Magnesium 2.2 mg/dl (1.6-2.3)
[2025-02-08] MEDS: CORDARONE 103 MG IV (17:36)
[2025-02-08] MEDS: CORDARONE 518 MG IV (17:47)
[2025-02-08 18:00] VITALS: BP 125/92
[2025-02-08 18:19] LABS: Troponin I < 0.012 ng/ml
[2025-02-08 19:00] VITALS: BP 167/121
--- NOTE | 2025-02-08 19:47 | HPS.HSE ---
Family Physician
-
Family Physician: Wolfgang Juan
Chief Complaint
-
tachycardia
History of Present Illness
79-year-old male with past medical history for coronary artery disease, COPD,atrial fib, PAD, NC referred from by vascular surgery where he was undergoing evaluation in the office for left LE emboli, found to be tachycardic. patient stated sob.
denied Palpitation. denied, MAGA[place], dizzy or syncope. denied fever, chills, chest pain,. denied abdominal pain,n,v,d. denied dysuria or hematuria.
Upon arrival he was noted in A-fib with RVR. Initiated on amiodarone drip. admitting for further management.
Medical History
Past Medical History
Past Medical History: Reports Other
Additional Past Medical History:
A-fib
NC
Rectal cancer
Pulmonary emphysema
Colon cancer
Hyperlipidemia
GERD
Hypertension
Coronary artery disease
COPD
Past Surgical History: Reports None
Social History
Tobacco: Non-smoker
Alcohol: Occasional
Drug: None
Personal: Partner
Family History
Family History: Not pertinent
Allergies / Home Medications
Allergies reflects when Allergies were last updated in [facility].
Home Medications with original date entered in [facility]
Allergy/Medication List:
Allergies
Allergy/AdvReac Type Severity Reaction Status Date / Time
clopidogrel (From Plavix) Allergy Rash Verified 10/02/24 07:10
ticagrelor (From Brilinta) Allergy Shortness Verified 10/02/24 07:10
of Breath
Home Medications
apixaban 5 mg tablet (Eliquis) 5 mg PO BID #60 tabs 02/17/20
ticagrelor 90 mg tablet (Brilinta) 90 mg PO BID #60 tabs 07/24/24
dapagliflozin propanediol 10 mg tablet 10 mg PO DAILY #30 tabs 07/27/24
furosemide 20 mg tablet 20 mg PO DAILY #30 tabs 07/27/24
pantoprazole 40 mg tablet,delayed release 40 mg PO DAILY #30 tabs 07/27/24
nitroglycerin 0.4 mg sublingual tablet 0.4 mg sublingual [id number] PRN chest pain #25 tabs 07/29/24
amiodarone 200 mg tablet 200 mg PO DAILY Heart Disease/Condition 09/15/24
atorvastatin 80 mg tablet 80 mg PO HS High Cholesterol 09/15/24
ergocalciferol (vitamin D2) 1,250 mcg (50,000 unit) capsule (Vitamin D2) 1,250 mcg PO MOTH Supplement 09/15/24
tadalafil 5 mg tablet 5 mg PO DAILYPRN PRN ed 09/15/24
triamcinolone acetonide 0.1 % topical cream 1 applic topical DAILYPRN PRN eczema 09/15/24
potassium 99 mg tablet 99 mg PO DAILY ##0 09/16/24
nemolizumab-ilto 30 mg subcutaneous pen injector (Nemluvio) 30 mg SC Q4W 10/02/24
upadacitinib 15 mg tablet,extended release 24 hr (Rinvoq) 15 mg PO DAILY 10/02/24
metoprolol succinate 25 mg tablet,extended release 24 hr (Toprol XL) 25 mg PO DAILY #30 tabs 10/03/24
aspirin 81 mg chewable tablet 81 mg PO DAILY #1 tab 10/07/24
Review of Systems
-
Constitutional: Reports No Symptoms
EENT: Reports No Symptoms
Respiratory: Reports Trouble Breathing
Cardiac: Reports No Symptoms
Abdomen/GI: Reports No Symptoms
: Reports No Symptoms
Musculoskeletal: Reports No Symptoms
Skin: Reports No Symptoms
Neurological: Reports No Symptoms
Endocrine: Reports No Symptoms
Hematologic/Lymphatic: Reports No Symptoms
Psych: Reports No Symptoms
Physical Exam
Vital Signs
Vital Signs
Temp Pulse Resp BP Pulse Ox
97.7 F 114 22 158/114 94
02/08/25 16:19 02/08/25 17:45 02/08/25 17:45 02/08/25 16:19 02/08/25 17:45
Physical Exam
General: Well Developed, Well Nourished and No Apparent Distress
HEENT: NormoCephalic, Moist mucous membranes and Atraumatic
Respiratory: Clear
Cardiac: S1/S2 and Regular Rhythm; No Murmur or Rub
GI: Soft, Non Tender, Non Distended and Normal Bowel Sounds; No Organomegaly
Rectal: Deferred by Provider
Musculoskeletal: No Clubbing, No Cyanosis and No Edema
Skin: No Rash
Neuro: AO x 3 and Nonfocal/grossly intact
Psych: Calm
Laboratory Results
-
02/08/25 16:36
02/08/25 16:36
Laboratory Results
Total Bilirubin 1.2 mg/dl (0.2-1.3) 02/08/25 16:36
AST 38 U/L (17-59) 02/08/25 16:36
ALT 48 U/L (0-50) 02/08/25 16:36
Alkaline Phosphatase 59 U/L (38-126) 02/08/25 16:36
Troponin I < 0.012 ng/ml 02/08/25 17:48
Data Reviewed
-
Lab Data: Labs Reviewed by me
Impression/Plan
-
# Atrial for with RVR
# History for cardiac ablation and failed DCCV
- EKG with sinus tachycardia. Atrial tachycardia or slow atrial flutter with 1:1conduction
-Amiodarone drip continued
-eliquis,metoprolol continued
#right eye redness
-CTm
#CAD
STMI with stents
-on asa
#LE emboli
#CHF
-farxiga, lasix continued
#HLD
-statin continued
#GERD
-PPI continued
#DVT prophylaxis
-eliquis
#CODE status
-full code
--- NOTE | 2025-02-08 20:09 | W.PN.UPDATE ---
Update Note
Progress Note Update
This note serves as an addendum to the H&P by fitness floor attendant CLAUDETTE Yris OCHOA
HPI
79M Smoker , daily ETOH use, HX HTN, HLD, CAD, HX STEMI in 2018, HX DE stent, Prx AF, prior CV and ablation, chronic Eliquis prior HX Sotalol along with diltiazem, currently Amiodarone _ Metoprolol seen at ER:
- referred from by vascular surgery where he was undergoing evaluation in the office
- found to be tachycardic apparently was back in A-fib
- on a recent visit failed cardioversion
- Meds were adjusted there is talk of a second ablation
- believes he went into A-fib yesterday, his girlfriend takes his vital signs every morning heart rate was fast yesterday
Vital Signs
Temp Pulse Resp BP Pulse Ox
97.7 F 117 12 167/121 90
02/08/25 16:19 02/08/25 19:45 02/08/25 19:45 02/08/25 19:00 02/08/25 19:45
PE
Gen: NAD
HEENT:anicteric
Neck: supple
Lungs: CTA
Cor: tachycardic
Abdomen: soft and benign
WEBSPHERE PROCESS SERVER DEVELOPER: NFND
MS: no edema
Psych:nl mood and affect
Abnormal Lab Results
02/08/25
16:36
MCH 31.4 H
MPV 11.2 H
Immature Gran % 0.6 H
Lymphocytes % 18.9 L
Glucose 103 H
Unremarkable CBC and CMP
NEG first TPNIU
proBNP 1310 in usual range
EKG
SUPRAVENTRICULAR TACHYCARDIA
ATRIAL TACHYCARDIA or a slow ATRIAL FLUTTER with 1:1 conduction
LEFT AXIS DEVIATION
INFERIOR INFARCT (CITED ON OR BEFORE 11-NOV-2017)
ABNORMAL ECG
WHEN COMPARED WITH ECG OF 04-OCT-2024 13:59,1:1 conduction HAS REPLACED ATRIAL FLUTTER WITH 2 TO 1 BLOCK
Pending final report of CXR
10/05/24 TTE
LVEF 45-50
Basal to mid inferior akinesis.
Normal RV size and function.
Moderate biatrial enlargement.
Mild to moderate (peak/mean 23/14 mmHg).
Mild TR .
PASP 27 mmHg.
Mildly dilated aortic root (4.0 cm)
No significant change compared to prior echocardiogram on 07/24/2024.
Last admission to [facility] Card : 10/04/2024 - 10/07/2024
ASSESSMENT & PLAN
Pending Rx reconciliation
SVT ( AT vs slow A Flutter with 1 to 1 conduction
HX PAF/Flutter
- IV loading Amiodarone then infusion protocol
- cont. current Metoprolol XL 25 mg daily
- Ni Dig due to HX SB
- [facility] card consulted: Dr. Meade planning eval for consideration of repeat ablation
CAD
- Recent coronary intervention 10/02/2024
- STEMI July 2024 with RCA stenting
- LAD stent 10/02/2024 and lithotripsy + angioplasty of RCA stent stenosis/underexpansion 10/02/2024
- on CHEMISTRY SPECIALIST Eliquis and Brilinta
ICM EF 40-45%, chronic HFmEF HX
- Prior HX BP intolerance to Entresto in past. .
- on GDMT with metoprolol succinate and Farxiga
- c/w CHEMISTRY SPECIALIST Frusemide 20 mg daily
-
Dyslipidemia
- stable on statin
DVT Px: Eliquis
Full code
IVU
[2025-02-08 20:38] LABS: GGTP 27 U/L (15-73)
[2025-02-08 20:45] VITALS: BP 159/98
[2025-02-08 23:14] VITALS: BMI 25.4
[2025-02-08 23:15] VITALS: BP 157/75
[2025-02-08 23:27] VITALS: BMI 25.4
[2025-02-09] MEDS: LIPITOR 80 MG PO (00:04)
[2025-02-09] MEDS: BRILINTA 90 MG PO ×2 (00:04→09:32)
[2025-02-09] MEDS: ELIQUIS 5 MG PO ×2 (00:04→09:31)
[2025-02-09] MEDS: REFRESH EYE DROPS (PF) 1 DROPS OPHTH (00:05)
--- NOTE | 2025-02-09 00:55 | PTCARENOTE ---
Pt. rec'd into room 2257 from ED AAOx3; VSS, NSR-SB (rate 50's) on the monitor. No complaints of pain discomfort. Independent and ambulatory with steady gait. Pt. oriented to room and plan of care discussed, understanding verbalized. Pt. resting
quietly.
[2025-02-09 04:42] VITALS: BP 162/86
[2025-02-09 04:54] VITALS: BMI 24.9
[2025-02-09 05:04] LABS: Hematocrit 38.7 % (39.0-52.0); Hemoglobin 13.1 g/dL (13.0-18.0); Mean Corp Hgb Conc. 33.9 g/dL (33.0-37.0); Mean Corpuscular Volume 91.7 fL (80.0-94.0); Platelet Count 149 10^3/uL (130-400); Red Cell Dist. Width 14.4 % (11.5-14.5)
[2025-02-09 05:30] LABS: Blood Urea Nitrogen 11 mg/dl (9-20); Calcium 8.4 mg/dl (8.4-10.2); Carbon Dioxide 27 mmol/L (22-30); Chloride 107 mmol/L (98-107); Estimated Creatinine Clearance 83 ml/min; Glucose 93 mg/dl (70-99); Magnesium 2.0 mg/dl (1.6-2.3); Potassium 3.4 mmol/L (3.5-5.1); Sodium 138 mmol/L (135-145); eGFR > 60.00
--- NOTE | 2025-02-09 05:39 | DOWNTIME ---
There was a [employer] Client Electronic Drafter Downtime on 02/09/2025 from 0100 to 02/09/2025 at 0220. Downtime documentation of patient's care, including medication administrations, has been reconciled in the electronic record per guidelines. Refer to the
patient's paper chart under the miscellaneous tab to see printed paper medication records and downtime forms.
--- NOTE | 2025-02-09 09:09 | CON.CAR ---
Addendum entered and electronically signed by Joce Rodríguez MD 02/09/25 10:57:
I saw and examined the patient.
The CREPE MAKER's note was reviewed and I agree with the note.
Comment:
79-year-old man with persistent atrial fibrillation status post PVI 2002 and DCCV July 2024, coronary artery disease (RCA STEMI July 2024 complicated by in-stent restenosis), ischemic cardiomyopathy (EF 40-45%) who is here for a
supraventricular tachycardia with rapid rates. Yesterday he presented to a vascular surgery appointment and was found to have an elevated heart rate. He was completely asymptomatic. He was sent to the ER where he was given an amiodarone bolus and
drip. He converted back to sinus rhythm. ECG consistent with atrial tachycardia versus atrial flutter. He remains asymptomatic.
Physical exam with regular rate and rhythm, no murmurs, clear lungs, and no lower extremity edema.
SVT. Differential diagnosis includes atrial tachycardia versus atrial flutter. Fortunately he is back in sinus rhythm, and even when he was in SVT he was asymptomatic. We will continue his home amiodarone 200 mg daily and metoprolol succinate 25
mg daily. Up titration of his beta-thomas is limited by HR in the 50s when he is in sinus. He already has scheduled follow-up with Dr. Meade in February for SVT management. He will continue anticoagulation with Eliquis.
Original Note:
Consultation
Consultation Request
Date/Time Consultation Requested: 02/08/2025 19:45
Date/Time Consultation Performed: 02/09/2025 09:00
Requesting Provider: Dr. Barajas
Performing Provider: ROSEY Young for Dr. Rodríguez
Reason for Consultation: Atrial flutter
Medical History
-
Chief Complaint: Elevated heart rate
History of Present Illness:
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 uJnior, his primary senior clinical data manager), with persistent atrial fibrillation (status post PVI 2002, DCCV 07/28/2024), CAD, dyslipidemia, hypertension, CAD (STEMI 1/2/25 s/p DIAMOND�90% proximal RCA
in-stent restenosis; 70% stenosis in the proximal LAD and OM1 with 40% proximal stenosis and OM 2 with diffuse proximal 20-30% stenosis),�ICM (EF 40-45%), and former smoker who presented for an outpatient vascular surgery appointment with Dr. Abad
and was found to have an elevated HR. He was referred to the ER for evaluation. He was given an amiodarone bolus and drip. He converted back to sinus rhythm. He is feeling well without chest pain and shortness of breath.
Past Medical History
Past Medical History: Arrhythmias (persistent atrial fibrillation [on apixaban], atrial flutter), CAD, CHF (ICM), HTN and Valvular Disease (Mild/Mod , Mild MS)
Social History
Tobacco: Former Smoker
Alcohol: Occasional
Personal:
Living: With Family
Employment: Employed
Family History
Family History: Reviewed & Not Pertinent
Allergies / Home Medications
Allergy/AdvReac Type Severity Reaction Status Date / Time
clopidogrel (From Plavix) Allergy Rash Verified 10/02/24 07:10
ticagrelor (From Brilinta) Allergy Shortness Verified 10/02/24 07:10
of Breath
�Medication �Instructions �Recorded �Confirmed �Type
apixaban 5 mg tablet (Eliquis) 5 mg PO BID #60 tabs 02/17/20 02/08/25 Rx
ticagrelor 90 mg tablet (Brilinta) 90 mg PO BID #60 tabs 07/24/24 02/08/25 Rx
furosemide 20 mg tablet 20 mg PO DAILY #30 tabs 07/27/24 02/08/25 Rx
pantoprazole 40 mg tablet,delayed 40 mg PO DAILY #30 tabs 07/27/24 02/08/25 Rx
release
amiodarone 200 mg tablet 200 mg PO DAILY Heart 09/15/24 02/08/25 History
Disease/Condition
atorvastatin 80 mg tablet 80 mg PO HS High Cholesterol 09/15/24 02/08/25 History
ergocalciferol (vitamin D2) 1,250 1,250 mcg PO MOTH Supplement 09/15/24 02/08/25 History
mcg (50,000 unit) capsule (Vitamin
D2)
potassium 99 mg tablet 99 mg PO DAILY ##0 09/16/24 02/08/25 History
metoprolol succinate 25 mg 25 mg PO DAILY #30 tabs 10/03/24 02/08/25 Rx
tablet,extended release 24 hr
(Toprol XL)
Unknown Eye Injection 1 dose intraocular .SEE BELOW 02/08/25 02/08/25 History
carboxymethylcellulose sodium 1 % 1 drp BOTH EYES BIDPRN PRN dry eyes 02/08/25 02/08/25 History
eye liquid gel drops
dapagliflozin propanediol 10 mg 10 mg PO DAILY 02/08/25 02/08/25 History
tablet (Farxiga)
vitamin B complex 1 tab PO DAILY 02/08/25 02/08/25 History
vitamin E 1,000 unit tablet 1 tab PO DAILY 02/08/25 02/08/25 History
Review of Systems
-
History Source: Patient
All other systems: Negative unless noted
Constitutional: No Symptoms
EENT: No Symptoms
Respiratory: No Symptoms
Cardiac: No Symptoms
Abdomen/GI: No Symptoms
: No Symptoms
Musculoskeletal: No Symptoms
Skin: No Symptoms
Neurological: No Symptoms
Endocrine: No Symptoms
Hematologic/Lymphatic: No Symptoms
Physical Exam
Vital Signs
Temp Pulse Resp BP Pulse Ox
97.9 F 52 16 162/86 96
02/09/25 04:42 02/09/25 05:00 02/09/25 04:42 02/09/25 04:42 02/09/25 04:42
Lab Results
02/09/25 04:49
02/09/25 04:49
Troponin I < 0.012 ng/ml 02/08/25 17:48
Pio-O-Kjxwvradokx Pept 1310 pg/ml 02/08/25 17:48
Physical Exam
General: Well Developed, Well Nourished, No Apparent Distress and Comfortable
HEENT: Normocephalic and Moist Mucous Membranes
Respiratory: Clear and Non Labored Respirations
Cardiac: S1/S2 and Regular Rhythm
Breast: Deferred by me
GI: Soft, Non Tender, Non Distended and Normal Bowel Sounds
Rectal: Deferred by Provider
Genito-urinary: No Costovertebral Tender
Musculoskeletal: No Clubbing and No Cyanosis
Skin: Warm and Dry
Neuro: AO x 3
Hematologic/Lymphatic: No Lymphadenopathy
Psych: Calm
Impression / Plan
-
I/P: 79M with persistent atrial fibrillation (status post PVI 2002, DCCV 07/28/2024), CAD, dyslipidemia, hypertension, CAD (STEMI 07/23/24 s/p DIAMOND�90% proximal RCA in-stent restenosis; 70% stenosis in the proximal LAD and OM1 with 40% proximal
stenosis and OM 2 with diffuse proximal 20-30% stenosis),�ICM (EF 40-45%), and former smoker who presented with elevated HR at Vascular Surgery
Primary Instrumental Teacher: Dr. Junior
Persistent atrial fibrillation
Atrial flutter, atypical
-Plan was for rhythm mgmt with amiodarone
-No plans to increase metoprolol with prior bradycardia (see 10/03/2024 EKGs)
-EKG with atrial tachycardia versus 1:1 flutter
-Back in sinus rhythm
-EP eval arranged for next month, he would like to discuss ablation
ICM (EF 45-50%), chronic
-Stable without shortness of breath
-Continue current dose of furosemide
-GDMT as tolerated
-JNENIFER/ARB/ARNI: Did not tolerate Entresto
-Beta thomas: Metoprolol succinate 25mg daily
-SGLT2: Farxiga 10mg daily
-MRA: Can consider in the outpatient setting
-HF education
-Follow up echocardiogram today
-Continue daily weight, sodium restriction
CAD
- RCA STEMI 07/2024, most recent intervention 09/2024, on apixaban and ticagrelor
- Stable without chest pain
- Continue medical mgmt
Aortic stenosis, mild to moderate (23/14 mmHg)
PAD with claudication, follows with vascular surgery
Data Reviewed
-
EKG: Report Reviewed by me
Medical Tests (Nuc Med, Echo etc): Report Reviewed by me
Labs: Labs Reviewed by me
Old Records: Reviewed
[2025-02-09 09:16] VITALS: BP 145/75
[2025-02-09] MEDS: FARXIGA 10 MG PO (09:31)
[2025-02-09] MEDS: PROTONIX 40 MG PO (09:31)
[2025-02-09] MEDS: LASIX 20 MG PO (09:32)
[2025-02-09] MEDS: PACERONE 200 MG PO (09:32)
[2025-02-09] MEDS: TOPROL XL 25 MG PO (09:32)
[2025-02-09 10:56] VITALS: BP 182/93
[2025-02-09 10:59] VITALS: BP 161/89
--- NOTE | 2025-02-09 12:11 | CM ---
Reviewed chart. Met with Mr. Monterroso to review discharge plans. He states prior to admission he resides with his significant other in a one story home with one step to enter. He states prior to admission he was independent with ambulation and
adls. He states he price not have any DME in the home. He states he has a prescription plan and uses [facility]. Medical work-up in progress. The discharge plan is to return home with his significant other when medically stable.
[2025-02-09] MEDS: KCL 40 MEQ PO (12:36)
--- NOTE | 2025-02-09 13:17 | W.PN.HOSP.TC ---
Today's Communication/Plan
-
Patient currently asymptomatic and in NSR. Continue to monitor clinical status.
Cardiology planning on outpatient follow-up next month for further evaluation.
Plan to discharge to home later today.
Assessment / Plan
Assessment / Plan
Mr. Monterroso is an 79-year-old male with past medical history of CAD s/p stenting, COPD, persistent atrial fibrillation s/p ablation, hypertension, PAD, [place], hyperlipidemia who presented to the [facility] emergency department after being
found to be tachycardic while undergoing outpatient evaluation by vascular surgery for lower extremity emboli. On presentation, an EKG showed the patient to have supraventricular tachycardia (atrial tachycardia versus atrial flutter), which
prompted initiation of an amiodarone drip. The patient subsequently converted back to sinus rhythm.
#Supraventricular tachycardia
Patient remains AFVSS and asymptomatic, including palpitations, lightheadedness, chest pain, and shortness of breath
Amiodarone drip initiated in the ED, which converted the patient back to sinus rhythm
Amiodarone drip discontinued, patient continued on home regimen of amiodarone 200 mg p.o. daily
Continue home regimens of metoprolol, apixaban
Monitor clinically
#Hypokalemia
Potassium 3.4 this morning
Replete potassium
Monitor BMP
#PAD
#Left lower extremity emboli
No pain at rest, extremities well-perfused, TPs palpable bilaterally
Continue to follow with vascular surgery in the outpatient setting
#CAD s/p stents
Continue home medications of aspirin, ticagrelor, atorvastatin
Troponins less than 0.01 to
#CHF
No signs or symptoms of fluid overload
Chest x-ray: Per radiology, mild diffuse interstitial prominence may reflect pulmonary interstitial edema and/or pneumonitis
proBNP 1310 (indeterminate for age)
Continue dapagliflozin, furosemide, metoprolol
#Hyperlipidemia
Continue atorvastatin
#GERD
Continue home regimen of PPI
DVT PPx: Apixaban
CODE STATUS: Full
Anticipated Discharge: Today
Subjective/Interval History
-
Date of Service: February 09, 2025
Patient is seen at the bedside on hospital day #2. Nursing reports NAEO. Patient states he feels okay. No current complaints.
Objective Data
-
Labs:
Laboratory Results
02/09/25
04:49
WBC 4.5 L
Hgb 13.1
Hct 38.7 L
Plt Count 149
Sodium 138
Potassium 3.4 L
Chloride 107
Carbon Dioxide 27
BUN 11
Creatinine 0.7
Glucose 93
Calcium 8.4
Vital Signs:
Vital Signs
Temp Pulse Resp BP Pulse Ox
97.7 F 65 18 161/89 91
02/09/25 09:16 02/09/25 11:00 02/09/25 09:16 02/09/25 10:59 02/09/25 10:56
I&O
02/08/25 02/09/25 02/10/25
06:59 06:59 06:59
Intake Total 240 / 240
Balance 240 / 240
Review of Systems
-
History Source: Patient
Constitutional: Denies Fever, Fatigue, Chills or Weakness
EENT: Reports No Symptoms Reported
Respiratory: Reports Cough (Chronic, no recent changes); Denies Trouble Breathing or Wheezing
Cardiac: Denies Chest Pain, Diaphoresis, Palpitations or Syncope
Abdomen/GI: Denies Abdominal Pain, Nausea, Vomiting or Diarrhea
Musculoskeletal: Denies Edema
Neuro: Denies Dizzy, Headache, Weakness, Numbness or Lightheadedness
Physical Exam
-
General: Well Developed, Well Nourished, No Apparent Distress, Comfortable and Conversant; Negative Fever, Chills or Sweats
HEENT: Normocephalic and Atraumatic
Cardiac: Regular Rhythm, S1/S2 and Bradycardic (Heart rate in the 50s at the bedside); Negative Murmur, Rub or Gallop
GI: Soft, Nontender and Normal Bowel Sounds
Musculoskeletal: No Cyanosis and No Edema
Skin: Warm and Dry
Neuro: Awake and AO x 3
Psych: Calm
--- NOTE | 2025-02-09 13:36 | W.PN.UPDATE ---
Update Note
Progress Note Update
Seen and examined by me independently in collaboration with the medical transcriptionist.
Lab data and imaging data reviewed.
Addendum as below :
Patient currently in sinus rhythm. Hemodynamically stable. No signs of heart failure.
Discussed with cardiology Dr. Rodríguez by this morning-stable for discharge home on current dose of amiodarone and beta-thomas and anticoagulation. He is got an appointment with EP in February with regards to SVT management.
Tolerable discharge 32 minutes
--- NOTE | 2025-02-09 18:53 | W.DCSUMMARY ---
Discharge Summary
Discharge Data
Date of Admission: 02/08/25
Date of Discharge: 02/09/25
-
Pending Results: No
Hospital Course
Discharging Physician : Wolfgang Redd MD; Gunnar Noble MD
Disposition : Home
Primary care physician : Wolfgang Juan
Principal Discharge diagnosis : Supraventricular tachycardia paroxysmal - atrial tachycardia vs atrial flutter; hypokalemia
Chronic Discharge diagnosis : CAD s/p stenting; COPD; persistent atrial fibrillation s/p ablation; hypertension; PAD; MT; hyperlipidemia; CHF; GERD
Hospital Course : Mr. Monterroso is an 79-year-old male with past medical history of CAD s/p stenting, COPD, persistent atrial fibrillation s/p ablation, hypertension, PAD, MT, hyperlipidemia who presented to the [facility] emergency
department after being found to be tachycardic while undergoing outpatient evaluation by vascular surgery for lower extremity emboli. On presentation, an EKG showed the patient to have supraventricular tachycardia (atrial tachycardia versus atrial
flutter), which prompted initiation of an amiodarone drip. The patient subsequently converted back to sinus rhythm. The patient was eventually transitioned from the amiodarone drip to his home regimen of oral amiodarone, while also continuing his
home regimens of metoprolol and apixaban. The patient was monitored overnight, with no acute events reported. The patient was found to have a potassium of 3.4, which was repleted with potassium chloride. Patient remained afebrile with stable vital
signs for the duration of his hospital course. Patient denied any symptoms, including palpitations, lightheadedness, chest pain, and shortness of breath. The patient was medically cleared and discharged to home, with instructions to continue his
home medications and follow-up with cardiology in February, as well as his PCP in 1 week.
Unless otherwise detailed above, no progression was noted in any of the patient's chronic medical conditions.
Important imaging findings :
Chest x-ray (02/08/2025)�IMPRESSION:
Mild diffuse interstitial prominence may reflect pulmonary interstitial edema and/or pneumonitis. Cannot rule out underlying chronic interstitial lung disease.
Procedure findings : N/A
Discharge Plan
-
Patient Disposition: Home (Routine Discharge)
Discharge Diagnosis/Procedures: Supraventricular tachycardia paroxysmal -atrial tachycardia vs atrial flutter
Condition: Good
Diet: As tolerated
Activity: As tolerated
Driving Restrictions: As prior to admission
Bathing Restrictions: None
Activity Restrictions/Additional Instructions:
Follow-up with primary care physician (Wolfgang Juan MD) in 1 week
Follow-up with cardiology (Michael Meade MD) on 03/10/2025
Referrals:
Wolfgang Juan MD [Family Provider, Family Practice]
Michael Meade MD [Active, Cardiology] - 03/10/25 4:20 pm
Prescriptions:
Continued
Eliquis 5 MG tablet
5 mg PO BID Qty: 60 0RF
ticagrelor [Brilinta] 90 mg Tablet
90 mg PO BID Qty: 60 11RF
pantoprazole 40 mg Tablet,Delayed Release (Dr/Ec)
40 mg PO DAILY Qty: 30 0RF
furosemide 20 mg Tablet
20 mg PO DAILY Qty: 30 0RF
potassium 99 mg Tablet
99 mg PO DAILY Qty: 0
metoprolol succinate [Toprol XL] 25 mg tablet extended release 24 hr
25 mg PO DAILY Qty: 30 3RF
ergocalciferol (vitamin D2) [Vitamin D2] 1,250 mcg (50,000 unit) Capsule
1,250 mcg PO MOTH
atorvastatin 80 mg tablet
80 mg PO HS
amiodarone 200 mg tablet
200 mg PO DAILY
vitamin B complex Tablet
1 tab PO DAILY
carboxymethylcellulose sodium 1 % Drops, Liquid Gel
1 drp BOTH EYES BIDPRN PRN (Reason: dry eyes)
vitamin E 1,000 unit Tablet
1 tab PO DAILY
dapagliflozin propanediol [Farxiga] 10 mg Tablet
10 mg PO DAILY
Unknown Eye Injection
1 dose intraocular .SEE BELOW
Patient Comments:
02/08/2025, per significant other, pt. received an eye injection for macular degeneration but does not know the dose; pt. is due for next injection at the end of January; last dose was sometime towards the end of December.
Discharge Orders:
Discharge Patient (As Directed); Ordered 02/09/25
Ordered By: Wolfgang Redd
Care Plan Goals
Care Plan Goals:
Problem: Readiness for enhanced knowledge related to diagnosis and treatment plan
Goal: Understand your diagnosis and treatment plan needs, including medications if applicable.
Instructions: Know your diagnosis, underlying causes and treatment plan options, including medications if applicable. Consult with your health care team to learn about your diagnosis and treatment plan, including medications if applicable.
Discharge Date and Time
Discharge Date/Time: 02/09/25 15:07
Print Language: UZBEK
== END 2025-02-09 15:07 | disposition home or self-care (01) | DRG 309 ==
LOC: IVU 20:45
PROVIDERS: Emergency Medicine; Registered Nurse; ADMITTING PHYSICIAN Internal Medicine; ATTENDING PHYSICIAN Internal Medicine; EMERGENCY PHYSICIAN Emergency Medicine; FAMILY PHYSICIAN Family Medicine; OTHER PHYSICIAN Student in an Organized Health Care Education/Training Program
DX: I47.19 Other supraventricular tachycardia (principal); I50.22 Chronic systolic (congestive) heart failure; I48.4 Atypical atrial flutter; Z95.5 Presence of coronary angioplasty implant and graft; I25.10 Atherosclerotic heart disease of native coronary artery without angina pectoris; I48.19 Other persistent atrial fibrillation; Z79.01 Long term (current) use of anticoagulants; I11.0 Hypertensive heart disease with heart failure; K21.9 Gastro-esophageal reflux disease without esophagitis; E78.00 Pure hypercholesterolemia, unspecified; I25.2 Old myocardial infarction; I25.5 Ischemic cardiomyopathy; F17.200 Nicotine dependence, unspecified, uncomplicated; J43.9 Emphysema, unspecified; Z79.02 Long term (current) use of antithrombotics/antiplatelets; Z79.899 Other long term (current) drug therapy
CPT/HCPCS: 71046; 80048; 80053; 82977; 83735; 83880; 84484; 85025; 85027; 93005; 93308; 93321; 93325; 96374; 96375; 96376; 99291; J0153

== ENCOUNTER → 2025-02-18 12:40 | Outpatient (REF) | payer OTHER, SELFPAY | LOC: RSP 12:40 | PROVIDERS: ATTENDING PHYSICIAN Internal Medicine; FAMILY PHYSICIAN Family Medicine | DX: R06.09 Other forms of dyspnea (principal) | CPT/HCPCS: 88738; 94060; 94727; 94729 ==

== ENCOUNTER → 2025-03-16 10:30 | Outpatient (REF) | payer OTHER, SELFPAY | LOC: HWRAD 10:30 | PROVIDERS: ATTENDING PHYSICIAN Internal Medicine Critical Care Medicine; FAMILY PHYSICIAN Family Medicine | DX: J84.9 Interstitial pulmonary disease, unspecified (principal) | CPT/HCPCS: 71250 ==

== ENCOUNTER 2025-04-13 06:20 | Inpatient (IN) | payer OTHER, SELFPAY ==
[2025-04-06 09:43] VITALS: BMI 26.8
[2025-04-06 10:05] LABS: Hematocrit 45.2 % (39.0-52.0); Hemoglobin 15.3 g/dL (13.0-18.0); Mean Corp Hgb Conc. 33.8 g/dL (33.0-37.0); Mean Corpuscular Volume 93.2 fL (80.0-94.0); Nucleated Red Blood Cells % 0 % (-); Platelet Count 164 10^3/uL (130-400); Red Cell Dist. Width 14.7 % (11.5-14.5)
[2025-04-06 10:12] LABS: INR 1.34; PT 16.9 Sec (11.4-14.6)
[2025-04-06 10:13] LABS: APTT 30.5 Sec (23.4-35.0)
[2025-04-06 10:45] LABS: Blood Urea Nitrogen 14 mg/dl (9-20); Calcium 8.7 mg/dl (8.4-10.2); Carbon Dioxide 28 mmol/L (22-30); Chloride 105 mmol/L (98-107); Estimated Creatinine Clearance 78 ml/min; Glucose 102 mg/dl (70-99); Potassium 4.0 mmol/L (3.5-5.1); Sodium 141 mmol/L (135-145); eGFR > 60.00
[2025-04-13] VITALS (22 sets, daily range): BP systolic 0–170; BP diastolic 70–131; BMI 26.5; BMI 27.6
[2025-04-13] MEDS: PERIDEX 0.12% ORAL RINSE 15 ML PO (07:17)
[2025-04-13] MEDS: BACTROBAN NASAL 1 GRAM NASAL (07:18)
[2025-04-13] MEDS: NSS 500 IV (07:23)
--- NOTE | 2025-04-13 07:28 | W.SUR.PREOP ---
Pre-Operative Surgical Note
-
I have examined this patient prior to the performance of the scheduled procedure.
The patient's condition is unchanged from the time of the current History and
Physical and the patient is able to undergo the scheduled procedure.
[2025-04-13 10:02] LABS: ACT-LR - POC 380 Seconds (116-155)
[2025-04-13 11:09] LABS: ACT-LR - POC 290 Seconds (116-155)
--- NOTE | 2025-04-13 12:41 | W.IMMPOSTOP ---
Surgical Immed Post Op Note
-
Primary Surgeon: Maco Abad III, MD
Assisting Surgeon: Ted Del Cid MD PGY2
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
Post-op Diagnosis: Left popliteal artery aneurysm and thrombosis
Procedure Performed: Left lower extremity bypass
Anesthesia Type: General
Specimen / Cultures: None
Estimated Blood Loss: 50 cc
Complications: None
Operative Findings: Left SFA to below-knee popliteal artery bypass with GSV graft
--- NOTE | 2025-04-13 12:56 | CON.CAR ---
Addendum entered and electronically signed by Joce Rodríguez MD 04/13/25 16:17:
I saw and examined the patient.
The CLERICAL OFFICE WORKER's note was reviewed and I agree with the note.
Comment:
79-year-old man with paroxysmal atrial fibrillation, CAD with STEMI in July 2024, ischemic cardiomyopathy (LVEF 40-45%) and peripheral artery disease status post left lower extremity bypass on 04/13/[address] Abad. Cardiology is consulted
for tachycardia perioperatively. At the time of my assessment he denies palpitations, chest discomfort, or shortness of breath.
Physical exam notable for regular rate and rhythm, no murmurs, clear lungs and, no lower extremity edema, LLE with drains in place
I personally reviewed his ECG which shows sinus tachycardia with first-degree AV block
Telemetry reveals sinus rhythm with HR in the high 90s to low 100s
His tachycardia appears to be sinus by ECG and telemetry. It is likely exacerbated by blood loss during surgery and volume depletion from being NPO. Encourage volume resuscitation. We will monitor overnight on telemetry.
Continue routine postoperative care for left lower extremity bypass surgery.
Resume Eliquis when safe from a surgical standpoint for his atrial fibrillation.
Original Note:
Consultation
Consultation Request
Date/Time Consultation Requested: 04/13/2025 12:15
Date/Time Consultation Performed: 04/13/2025 13:00
Requesting Provider: ROSEY Bhakta
Performing Provider: ROSEY Young for Dr. Rodríguez
Reason for Consultation: Tachycardia
Medical History
-
Chief Complaint: Elevated heart rate
History of Present Illness:
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 Junior, his primary aspnet developer), with persistent atrial fibrillation (status post PVI 2002, DCCV 07/28/2024), CAD, dyslipidemia, hypertension, CAD (STEMI 07/23/24 s/p DIAMOND�90% proximal RCA
in-stent restenosis; 70% stenosis in the proximal LAD and OM1 with 40% proximal stenosis and OM 2 with diffuse proximal 20-30% stenosis),�ICM (EF 40-45%), and former smoker who presented for vascular surgery. Cardiology was consulted for
tachycardia. He came in preprocedure with a documented heart rate of 99. He is not having any palpitations. He denies chest pain. He appears drowsy on exam.
Past Medical History
Past Medical History: Arrhythmias (persistent atrial fibrillation [on apixaban], atrial flutter), CAD, CHF (ICM), HTN and Valvular Disease (Mild/Mod , Mild MS)
Social History
Tobacco: Former Smoker
Alcohol: Occasional
Personal:
Living: With Family
Employment: Employed
Family History
Family History: Reviewed & Not Pertinent
Allergies / Home Medications
Allergy/AdvReac Type Severity Reaction Status Date / Time
clopidogrel (From Plavix) Allergy Rash Verified 04/05/25 16:32
�Medication �Instructions �Recorded �Confirmed �Type
apixaban 5 mg tablet (Eliquis) 5 mg PO BID #60 tabs 02/17/20 04/13/25 Rx
ticagrelor 90 mg tablet (Brilinta) 90 mg PO BID #60 tabs 07/24/24 04/13/25 Rx
furosemide 20 mg tablet 20 mg PO DAILY #30 tabs 07/27/24 04/13/25 Rx
pantoprazole 40 mg tablet,delayed 40 mg PO DAILY #30 tabs 07/27/24 04/13/25 Rx
release
atorvastatin 80 mg tablet 80 mg PO HS High Cholesterol 09/15/24 04/13/25 History
carboxymethylcellulose sodium 1 % 1 drp BOTH EYES BIDPRN PRN dry eyes 02/08/25 04/13/25 History
eye liquid gel drops
dapagliflozin propanediol 10 mg 10 mg PO DAILY Heart Failure 02/08/25 04/13/25 History
tablet (Farxiga)
bevacizumab 1.25 mg/0.05 mL 1.25 mg intravitreal .Q 4 - 6 W 04/05/25 04/13/25 History
intravitreal syringe (Avastin)
budesonide 160 mcg-glycopyr 9 2 inh inhalation BID 04/05/25 04/13/25 History
mcg-formot 4.8 mcg/actuation HFA
inhaler (Breztri Aerosphere)
metoprolol succinate 50 mg 25 - 50 mg PO DAILY 04/05/25 04/13/25 History
tablet,extended release 24 hr
nitroglycerin 0.4 mg sublingual 0.4 mg sublingual Q5-15M PRN chest 04/05/25 04/05/25 History
tablet pain
potassium 99 mg PO DAILY 04/05/25 04/13/25 History
triamcinolone acetonide 0.1 % 1 applic topical PRN PRN rash 04/05/25 04/05/25 History
topical cream
vit C 250 mg-vit E 90 mg-zinc 40 1 tab PO BID 04/05/25 04/13/25 History
mg-copper 1 [id number]
capsule (PreserVision AREDS-2)
Review of Systems
-
History Source: Patient
All other systems: Negative unless noted
Constitutional: Fatigue
EENT: No Symptoms
Respiratory: No Symptoms
Cardiac: No Symptoms
Abdomen/GI: No Symptoms
: No Symptoms
Musculoskeletal: No Symptoms
Skin: No Symptoms
Neurological: No Symptoms
Endocrine: No Symptoms
Hematologic/Lymphatic: No Symptoms
Physical Exam
Vital Signs
Temp Pulse Resp BP Pulse Ox
97.3 F 100 16 146/93 93
04/13/25 06:39 04/13/25 07:17 04/13/25 07:17 04/13/25 07:17 04/13/25 07:17
Physical Exam
General: Well Developed, Well Nourished, No Apparent Distress and Comfortable
HEENT: Normocephalic, Anicteric and Moist Mucous Membranes
Respiratory: Clear and Non Labored Respirations
Cardiac: S1/S2 and Regular Rhythm
Breast: Deferred by me
GI: Soft, Non Tender, Non Distended and Normal Bowel Sounds
Rectal: Deferred by Provider
Genito-urinary: No Costovertebral Tender
Musculoskeletal: No Clubbing, No Cyanosis and No Edema
Skin: Warm and Dry
Neuro: Awake and Alert
Psych: Calm
Impression / Plan
-
I/P: 79M with persistent atrial fibrillation (status post PVI 2002, DCCV 07/28/2024), CAD, dyslipidemia, hypertension, CAD (STEMI 07/23/24 s/p DIAMOND�90% proximal RCA in-stent restenosis; 70% stenosis in the proximal LAD and OM1 with 40% proximal
stenosis and OM 2 with diffuse proximal 20-30% stenosis),�ICM (EF 40-45%), and former smoker who presented with elevated HR at Vascular Surgery
Primary Pathology Assistant: Dr. Junior
Tachycardia
- Asymptomatic without palpitations
- Appears to be sinus on telemetry, will obtain EKG to confirm
- No plans to increase metoprolol with prior bradycardia (see 10/02/2024 EKGs)
PAD
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 Abad 04/13/2025
- EBL 500 mL
Persistent atrial fibrillation
Atrial flutter, atypical
- Amiodarone stopped by EP, plans to revisit ablation in 3 months
- Oral Anticoagulation: Apixaban 5 mg twice daily (last dose 04/10/2025)
- [id number]: score at least 5 (Heart failure, HTN, age 75 or more, Vascular disease)
ICM (EF 45-50%), chronic
-Stable without shortness of breath
-Continue current dose of furosemide
-GDMT as tolerated
-JENNIFER/ARB/ARNI: Did not tolerate Entresto nor lisinopril 2.5 mg daily due to hypotension
-Beta thomas: Metoprolol succinate 25mg daily
-SGLT2: Farxiga 10mg daily
-MRA: Can consider in the outpatient setting
-HF education
-Continue daily weight, sodium restriction
CAD
- RCA STEMI 07/2024, most recent intervention 09/2024, on ticagrelor, apixaban resumption per vascular surgery
- Stable without chest pain
- Continue medical mgmt
Aortic stenosis, mild to moderate (23/14 mmHg)
Mixed hyperlipidemia, LDL less than 55, continue atorvastatin 80 mg daily
Data Reviewed
-
Medical Tests (Nuc Med, Echo etc): Report Reviewed by me
Labs: Labs Reviewed by me
Old Records: Reviewed
--- NOTE | 2025-04-13 13:01 | OR.RPT ---
Operative Report
Operative Report
Date of Operation: 04/13/2025
Pre Op Diagnosis: Thrombosed left popliteal artery aneurysm
Post Op Diagnosis: Thrombosed left popliteal artery aneurysm
Procedure:
1. Left proximal superficial femoral artery to below-knee popliteal artery with ipsilateral nonreversed great saphenous vein
2. Ligation and exclusion of popliteal artery aneurysm
3. Completion arteriogram, left lower extremity
Surgeon: Maco Abad III, MD
Inspector Subassemblies: Ted Del Cid MD PGY2
Anesthesia: General
Complications: None
Estimated Blood Loss: 500 cc
History and Indications for Procedure: 79 yo male with a chronically thrombosed popliteal artery aneurysm and limb threatening ischemia symptoms
Procedure in Detail: Roverto Monterroso was correctly identified and placed supine on the operating table. After adequate induction of anesthesia the left greater saphenous vein was imaged with ultrasound and marked. The abdomen, pelvis, left groin,
left lower extremity and left foot (circumferentially) were then positioned, prepped and draped in the usual sterile fashion. Preoperative antibiotics were administered. A timeout procedure was performed with the nursing and anesthesia staff
confirming the patients identity as well as the nature and laterality of the procedure.
An incision was made from the proximal thigh to the mid calf over the left greater saphenous vein indira. The vein was harvested along this entire course. All branches were ligated and divided between ties and clips. The vein appeared to be of
adequate caliber and quality to be used as a bypass conduit. The proximal superficial femoral artery was exposed through the same incision. The artery was calcified but a soft spot along the proximal aspect was identified. Proximal and distal
control was obtained on the proximal superficial femoral artery with Vesseloops.
The below-knee popliteal artery was chosen as the distal target and was sharply exposed through the proximal medial calf incision. Proximal and distal control was obtained with vessel loops.
A tunnel was then created between the below-knee popliteal artery exposure and the proximal SFA. The tunneling device was left in place for later use. The distal end of the vein was ligated 2 clips. The distal end of the vein was transected and then
the vein was dilated with heparinized saline. All branch points were closely inspected. The proximal vein was ligated with a 2-0 silk tie. The vein was then transected and placed in heparinized saline solution on the back table.
The patient was systemically heparinized.
The proximal and distal vessel loops on the proximal SFA were secured. An arteriotomy was made in the superficial femoral artery and extended proximally and distally with Rich scissors. The great saphenous vein was brought to the field and placed
in a non-reversed orientation. The proximal vein was inspected for valves and none were identified under direct visualization. The proximal end of the vein was spatulated and an end-to-side anastomosis was created with a running 5-0 Prolene suture.
The anastomosis was completed and the vessel loops were released. The LeMaitre self-expanding valvulotome was then passed from the distal end of the vein to the proximal anastomosis. Digital compression of the vein was performed to prevent the
valvulotome from crossing the anastomosis. The valvulotome was deployed and gently retracted through the vein graft. Three passes were made. After this there was strong and brisk pulsatile bleeding from the distal end of the vein conduit. The
proximal suture line was inspected for hemostasis and was achieved. A bulldog clamp was placed on the proximal end of the vein just off of the anastomosis.
While the vein was pressurized we brought the vein graft through the tunnel using the tunneling device, taking great care not to twist it. After tunneling, excellent pulsatile bleeding from the end of the vein was maintained. The below knee
popliteal artery proximal and distal vessel loops were secured. The vein was temporarily pressurized and shortened appropriately. An arteriotomy was made in the below knee popliteal artery and extended proximally and distally with Rich scissors.
The artery was flushed with heparinized saline. The end of the vein conduit was spatulated and an end-to-side anastomosis created with a running 6-0 Prolene. Prior to the completion of the anastomosis the proximal bulldog clamp was temporarily
released and the vein flushed. The area under the anastomosis was irrigated with heparinized saline and the anastomosis completed. The proximal bulldog and then the vessel loops on the popliteal artery were released. Immediately there was a strong
pulse in the vein conduit and the distal popliteal artery beyond the distal anastomosis. The suture lines were both inspected and hemostasis achieved.
A completion arteriogram was performed. The proximal and distal anastomoses were widely patent. The common femoral artery and external iliac artery inflow were patent. The profunda femoral artery was patent. The proximal superficial femoral
artery was calcified but no flow-limiting/significant stenosis was identified. The bypass was patent with no stenosis identified. The distal anastomosis was patent. A mild focal stenosis was identified at the distal end of the vein graft just
proximal to the anastomosis. Tibial runoff was through the posterior tibial artery and peroneal artery. The anterior tibial artery was occluded proximally but reconstituted at the ankle and continued into the foot to form the dorsalis pedis artery.
The superficial femoral artery distal to the proximal anastomosis was ligated with a heavy silk tie. The below knee popliteal artery proximal to the distal anastomosis was ligated with a heavy silk tie.
Satisfied with this result we then concluded the procedure. Protamine was administered. Hemostasis was achieved in the wound beds. Two #10 JAYESH drains were left in the saphenectomy bed. The wounds were irrigated with warm saline solution. The wounds
were closed in layers. Sterile RICKEY dressings were applied. Doppler signals were marked over the posterior tibial artery at the left ankle and the dorsalis pedis artery in the left foot.
The patient tolerated the procedure well and was taken to the PACU in stable condition.
Attestation: I was present and responsible for the entire procedure
Signed:
Maco Abad III, MD
Vascular Surgery
[facility]
[2025-04-13 13:14] LABS: Hematocrit 39.1 % (39.0-52.0); Hemoglobin 13.4 g/dL (13.0-18.0); Mean Corp Hgb Conc. 34.3 g/dL (33.0-37.0); Mean Corpuscular Volume 94.2 fL (80.0-94.0); Platelet Count 165 10^3/uL (130-400); Red Cell Dist. Width 14.7 % (11.5-14.5)
[2025-04-13 13:19] LABS: Blood Urea Nitrogen 16 mg/dl (9-20); Calcium 7.5 mg/dl (8.4-10.2); Carbon Dioxide 23 mmol/L (22-30); Chloride 107 mmol/L (98-107); Estimated Creatinine Clearance 90 ml/min; Glucose 167 mg/dl (70-99); Potassium 4.4 mmol/L (3.5-5.1); Sodium 137 mmol/L (135-145); eGFR > 60.00
[2025-04-13] MEDS: NSS 1000 IV ×2 (13:21→14:47)
[2025-04-13 13:56] LABS: Glucose - Point of Care 151 mg/dl (70-99)
--- NOTE | 2025-04-13 14:36 | PTCARENOTE ---
13:53 transfer from PACU via bed. status post left Proximal superficial femoral artery below knee popliteal artery; Ipsilateral great sephenous vein; Arterigram left LE; Left LE: RICKEY x 2 JAYESH A+B; Pedal pulses check via doppler. dendies pain.
RT A/line: BP 126/81; Normal Sinus Rhythm 97; RR 8 97% on Simple mask; change to Nasal canula 6L .
Levophed 4 mcg. Decreased to 2mcg
EKG and chest xRay done per protocol
--- NOTE | 2025-04-13 14:52 | CON.INTV ---
Consultation
Consultation Request
Date/Time Consultation Requested: 04/13/2025 - 103
Date/Time Consultation Performed: 04/13/2025 - 105
Requesting Provider: ROSEY Bhakta
Performing Provider: Dr. Humphrey
Reason for Consultation: s/p LLE bypass
Medical History
-
Chief Complaint: Elective left lower extremity bypass
History of Present Illness:
79-year-old male with a past medical history of left popliteal artery aneurysm, PVD, CAD with history of late presentation inferior wall STEMI s/p DIAMOND x2 to RCA (10/2017), also IVUS guided PCI with overlapping DIAMOND x 2 to ostial to mid LAD
(10/02/2024), colon cancer s/p chemo/XRT (2011), hyperlipidemia, GERD, transaminitis, hypertension, paroxysmal A-fib on Eliquis, moderate severity COPD on Breztri, and history of stroke who presents for elective left lower extremity bypass due to
left popliteal artery aneurysm. Patient known to vascular surgery with last visit on 04/01/[address]ad[address] Prior [address] abdominal aorta angio with runoff on 01/27/2025 showed a left above�knee thrombosed popliteal artery aneurysm measuring up to 3.8
cm in diameter with reconstitution of distal popliteal via collaterals. He continues to have ischemic rest pain in his left foot. Surgical intervention reviewed which would include a left lower extremity bypass and he has agreed to this procedure.
Today he underwent a left proximal superficial femoral artery to below�knee popliteal artery bypass with ipsilateral nonreversed great saphenous vein and ligation and exclusion of popliteal artery aneurysm. EBL was 500 cc. There were no immediate
complications and he was transferred to the ICU postoperatively for further care. Fountain Helper service is now consulted for additional management/recommendations.
When I saw the patient, he was resting in bed in no acute distress, patient's son Ozzy at bedside. Patient currently on 1 L/min nasal cannula (he is not on oxygen at home), with heart rate 84, SpO2 94%, BP via A-line 125/75 and BP via NIBP 105/79.
Currently on NS at 125 cc/h. He has been weaned off of Levophed. He says that since he has been out of the OR today that his left-sided foot pain is gone. He denies having right sided foot pain also. Currently denies chest pain, SOB, MAGAÑA, nausea,
abdominal pain, fevers or chills.
PMHx: History of colon cancer (s/p chemo/XRT � [facility] in 2011), hyperlipidemia, GERD, inferior wall STEMI s/p DIAMOND to RCA (10/2017), transaminitis, hypertension, paroxysmal A-fib on Eliquis, COPD, history of stroke, PVD, left popliteal artery aneurysm
PSHx: Colonoscopy, cataract removal (2014)
Past Medical History
Past Medical History: Other (Above as per HPI)
Past Surgical History: Other (Above as per HPI)
Social History
Tobacco: Former Smoker (Smoked 2 PPD x 20 years, quit in 1989)
Alcohol: None
Drug: None
Family History
Family History: CAD (Father, mother, sister + brother)
Allergies / Home Medications
Allergies
Allergy/AdvReac Type Severity Reaction Status Date / Time
clopidogrel (From Plavix) Allergy Rash Verified 04/05/25 16:32
Home Medications
�Medication �Instructions �Recorded �Confirmed �Last Taken �Type
apixaban 5 mg tablet (Eliquis) 5 mg PO BID #60 tabs 02/17/20 04/13/25 04/10/25 20:00 Rx
ticagrelor 90 mg tablet (Brilinta) 90 mg PO BID #60 tabs 07/24/24 04/13/25 04/13/25 04:00 Rx
furosemide 20 mg tablet 20 mg PO DAILY #30 tabs 07/27/24 04/13/25 04/13/25 04:00 Rx
pantoprazole 40 mg tablet,delayed 40 mg PO DAILY #30 tabs 07/27/24 04/13/25 04/13/25 04:00 Rx
release
atorvastatin 80 mg tablet 80 mg PO HS High Cholesterol 09/15/24 04/13/2525 20:00 History
carboxymethylcellulose sodium 1 % 1 drp BOTH EYES BIDPRN PRN dry eyes 02/08/25 04/13/25 04/13/25 04:00 History
eye liquid gel drops
dapagliflozin propanediol 10 mg 10 mg PO DAILY Heart Failure 02/08/25 04/13/25 04/09/25 08:00 History
tablet (Farxiga)
bevacizumab 1.25 mg/0.05 mL 1.25 mg intravitreal .Q 4 - 6 W 04/05/25 04/13/25 3 Weeks Ago History
intravitreal syringe (Avastin) ~03/23/25
budesonide 160 mcg-glycopyr 9 2 inh inhalation BID 04/05/25 04/13/25 04/13/25 04:00 History
mcg-formot 4.8 mcg/actuation HFA
inhaler (Breztri Aerosphere)
metoprolol succinate 50 mg 25 - 50 mg PO DAILY 04/05/25 04/13/25 04/13/25 04:00 History
tablet,extended release 24 hr
nitroglycerin 0.4 mg sublingual 0.4 mg sublingual Q5-15M PRN chest 04/05/25 04/05/25 Unknown History
tablet pain
potassium 99 mg PO DAILY 04/05/25 04/13/25 04/13/25 04:00 History
triamcinolone acetonide 0.1 % 1 applic topical PRN PRN rash 04/05/25 04/05/25 Unknown History
topical cream
vit C 250 mg-vit E 90 mg-zinc 40 1 tab PO BID 04/05/25 04/13/25 04/09/25 08:00 History
mg-copper 1 [id number]-[id number]
capsule (PreserVision AREDS-2)
Review of Systems
-
History Source: Patient
All other systems: Negative unless noted
Vitals / Labs / Diagnostic Testing
Vital Signs
Temp Pulse Resp BP Pulse Ox
97.0 F 100 16 116/87 98
04/13/25 15:53 04/13/25 17:30 04/13/25 17:30 04/13/25 17:00 04/13/25 17:30
Lab Data
04/13/25 12:55
04/13/25 12:55
Diagnostic Testing:
Physical Exam
-
HEENT: Normocephalic and Anicteric
Cardiovascular: Peripheral Edema (negative) and Other (Distant heart sounds)
Respiratory: Wheeze (negative), Rales (negative), Rhonchi (negative), Non-Labored Respirations and Other (Diminished breath sounds bilaterally)
GI: Soft, Non Distended, Non Tender and Normal Bowel Sounds
Neurology: Awake, Alert, Oriented and Tremors (negative)
Skin: Warm, Dry, Other (Multiple JAYESH drains + bandages on the left lower extremity) and Other (Left foot and right foot both are warm to touch)
General: Respiratory Distress (negative), Comfortable, Fever (negative) and Chills
Assessment
-
Assessment: 79-year-old male with a past medical history of left popliteal artery aneurysm, PVD, CAD with history of late presentation inferior wall STEMI s/p DIAMOND x2 to RCA (10/2017), also IVUS guided PCI with overlapping DIAMOND x 2 to ostial to mid
LAD (10/02/2024), colon cancer s/p chemo/XRT (2011), hyperlipidemia, GERD, transaminitis, hypertension, paroxysmal A-fib on Eliquis, moderate severity COPD on Breztri, and history of stroke who presents for elective left lower extremity bypass due to
left popliteal artery aneurysm. Patient known to vascular surgery with last visit on 04/01/[address]ad[address] Prior [address] abdominal aorta angio with runoff on 01/27/2025 showed a left above�knee thrombosed popliteal artery aneurysm measuring up to 3.8
cm in diameter with reconstitution of distal popliteal via collaterals. He continues to have ischemic rest pain in his left foot. Surgical intervention reviewed which would include a left lower extremity bypass and he has agreed to this procedure.
Today he underwent a left proximal superficial femoral artery to below�knee popliteal artery bypass with ipsilateral nonreversed great saphenous vein and ligation and exclusion of popliteal artery aneurysm. EBL was 500 cc. There were no immediate
complications and he was transferred to the ICU postoperatively for further care. Fountain Helper service is now consulted for additional management/recommendations.
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
artery aneurysm
Impression:
#Thrombosed left popliteal artery aneurysm s/p left proximal superficial femoral artery to below�knee popliteal artery with ipsilateral nonreversed great saphenous vein + ligation and exclusion of popliteal artery aneurysm (POD #0)
#Moderate COPD with hyperinflation and air trapping with very severe gas exchange capacity defect (per PFTs from 02/18/2025 done here at )
#Centrilobular emphysema (upper lobe predominant) with a 1.9 cm bleb in the posteromedial right lower lobe (seen on CT Chest - 03/16/2025)
#Multiple pulmonary nodules (all <6 mm with a 3.7 mm in the left upper lobe - seen on CT Chest 03/16/2025)
#Former tobacco smoker with [id number] history, quit in 1989
#PVD
#GERD
#CAD with history of late presentation acute inferior wall VT s/p complex thrombectomy + DIAMOND to proximal and ostial RCA (11/11/2017) complicated by RCA in-stent restenosis s/p IVUS guided PCI with DIAMOND x 1 placed on 07/23/2024 and subsequent IVUS guided
shockwave lithotripsy facilitated balloon angioplasty of RCA (10/02/2024); also successful IVUS guided PCI with overlapping DIAMOND x 2 to ostial to mid LAD (10/02/2024)
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
#Moderate aortic stenosis with peak/mean gradients 26/17 mmHg per echo on 02/09/2025
Plan:
Postoperative surgical intensive care unit monitoring
Continue supplemental oxygen to maintain SpO2 88-95% - wean down supplemental O2 as tolerated
Patient takes Breztri as an outpatient --> continue Symbicort 160 mcg + Spiriva Respimat 2.5 mcg while hospitalized, and resume Breztri upon discharge
prn nebulized bronchodilators - not currently bronchospastic
Incentive spirometry encouraged 10x per hour for at least 4 hrs a day
Aspiration precautions
Pain control
Neuro and vascular checks per protocol
Maintain MAP>65
Replete electrolytes with K>4, Mg>2
Maintain euglycemia with goal BG 140-180
Vascular surgery following-correspondence and operative notes reviewed
Transfuse blood products as needed to keep Hb>7g/dL, and plt>50k (given post-operative status)
DVT prophylaxis
Early nutrition
Early mobilization
Of note, patient follows with us in the [facility] office with Dr. Navarro. Last visit 04/05/2025. Patient was advised at that visit to follow-up in 6 months, sooner if needed.
Critical care statement: A total of 44 minutes of critical care time was provided for this patient today. This includes management of unstable vital signs, evaluation of the patient at bedside, reviewing the patient's pertinent medical records
including radiographs, microbiology, laboratory evaluations, and discussion with primary team, consultants, pharmacy, nutrition, physical therapy, case management, charge nurse, critical care nursing, and respiratory therapy.
[2025-04-13] MEDS: HEPARIN 5000 UNITS SC ×2 (18:12→22:40)
[2025-04-13] MEDS: BRILINTA 90 MG PO (20:05)
[2025-04-13] MEDS: OCUVITE SOFTGEL 1 CAP PO (20:05)
[2025-04-13] MEDS: LIPITOR 80 MG PO (20:12)
[2025-04-13] MEDS: LOPRESSOR 2.5 MG IV ×2 (22:39→23:18)
--- NOTE | 2025-04-13 22:46 | PTCARENOTE ---
1999:
received pt from [place] [facility], assessments at bedside completed with RN, pulses with doppler, no pain, no numbness or firmness noted. patient taking clear liquids with no c/o nausea.
spoke with Josi Sanchez, will stop iv fluids after bag is finished as patient is drinking with no issue, also informed him that both loree drains are blinking MD mere aware and has no concerns.
2199: patient having multiple runs of tachycardia 130-160 bpm. patient asymptomatic, no chest pain or discomfort. ESTHETIC DERMATOLOGIST aware, order received for IV lopressor.
--- NOTE | 2025-04-13 23:34 | PTCARENOTE ---
2330: patient continues with hypertension, COMPLAINT CLERK ordered another 2.5 metoprolol. patient informs me that he has not taken his bp meds at home for 2 days prior to surgery. also will address correct dose, he states he takes 50 mg daily and the chart
shows 25mg daily
[2025-04-14] VITALS (29 sets, daily range): BP systolic 97–157; BP diastolic 62–106; PULSE 89; O2SAT 96; BMI 27.7
[2025-04-14 05:15] LABS: Hematocrit 30.6 % (39.0-52.0); Hemoglobin 10.4 g/dL (13.0-18.0); Mean Corp Hgb Conc. 34.0 g/dL (33.0-37.0); Mean Corpuscular Volume 92.2 fL (80.0-94.0); Platelet Count 145 10^3/uL (130-400); Red Cell Dist. Width 14.9 % (11.5-14.5)
[2025-04-14 05:30] LABS: Blood Urea Nitrogen 10 mg/dl (9-20); Calcium 7.8 mg/dl (8.4-10.2); Carbon Dioxide 21 mmol/L (22-30); Chloride 112 mmol/L (98-107); Estimated Creatinine Clearance 90 ml/min; Glucose 111 mg/dl (70-99); Magnesium 1.9 mg/dl (1.6-2.3); Potassium 4.2 mmol/L (3.5-5.1); Sodium 136 mmol/L (135-145); eGFR > 60.00
[2025-04-14] MEDS: REFRESH EYE DROPS (PF) 1 DROPS OPHTH (05:54)
--- NOTE | 2025-04-14 06:30 | PTCARENOTE ---
pt comfortable, no c/o pain or discomfort, will do handoff with dayshift RN - pulse check together.
pt did have dry eye complaint new order for drops, given with effective results
--- NOTE | 2025-04-14 07:30 | PTCARENOTE ---
Assumed care of pt at 0715 following shift report. Pt awake and resting quietly in bed watching TV. Reports 'ache' from surgical incision but declining any offered pain med. Unable to rate. Dressing to Lt leg surgical incision intact w/ shadow
drainage as marked and unchanged per previous shift RN. JAYESH drains x2 compressed and w/ small amounts of bloody drainage. RICKEY x2 each blinking yellow (unchanged from previous shift and MD aware per previous shift RN). +CSM to Lt LE. Pt received w/
Rt radial Gladys intact- leveled and zero balanced. waveform wnl. Abad catheter patent and draining clear yellow urine. Pt noted to be in Afib on monitor w/ HR 80-120's. Pt on O2 at 1l/min via NC w/ Pox 87%. Pt denies SOB. IS use reinforced and pt
pulling 750-1000ml w/o change in POx. O2 increased to 2L w/ POx 88%. Increased to 4l/min w/ Pox improved to 95%. Physical assessment completed as documented. Pt has been tolerating CL diet- advanced to chol. lowering and pt ordered breakfast.
Comfort care provided and call harsh w/in pt reach.
--- NOTE | 2025-04-14 07:48 | W.PN.VS ---
Addendum entered and electronically signed by Melvin Aguilar MD 04/14/25 08:05:
Seen and examined with RAFAEL Peralta. Agree with findings as noted below. Left lower extremity dressings are clean dry and intact. Thigh and calf are soft. JPs serosanguineous/mildly sanguinous. Drainage relatively low, output noted. Foot warm with
palpable DP pulse. Plan/as discussed and noted below. Continue JPs.
Original Note:
Today's Communication / Plan
-
Patient seen and examined at bedside with Dr. Melvin Aguilar, below plan reviewed with attending.
Assessment/Plan
-
Assessment: 79 male POD#1 Left proximal superficial femoral artery to below-knee popliteal artery with ipsilateral nonreversed great saphenous vein
Plan:
DC IV fluids
DC arterial line
DC Abad catheter
OOB to chair with progression to ambulation as tolerated
PT eval
Appreciate cardiology input
Cotninue ICU level care today
Subjective Data
-
Date of Service: April 14, 2025
Patient seen and examined at bedside offers no complaints. Reports well managed post operative pain. Tolerating PO diet.
Objective Data
-
Vital Signs
Temp Pulse Resp BP Pulse Ox
97.4 F 56 16 141/77 93
04/14/25 07:25 04/14/25 06:30 04/14/25 06:30 04/14/25 06:00 04/14/25 06:30
Intake and Output
04/13/25 04/14/25 04/15/25
06:59 06:59 06:59
Intake Total 3195 / 3195
Output Total 2765 / 2765
Balance 430 / 430
Intake:
Oral fluids 1320 / 1320
IV fluids (Total) 1874
Normosol 1874
Output:
Drain Output (Total) 120 / 120
Left Leg Kevin-Correia A 70 / 70
Left Leg Kevin-Correia B 50 / 50
Urine, Abad 2645 / 2645
Lab Results
04/14/25 04:29
04/14/25 04:29
Calcium 7.8 mg/dl (8.4-10.2) L 04/14/25 04:29
Magnesium 1.9 mg/dl (1.6-2.3) 04/14/25 04:29
Physical Exam
-
No apparent distress, resting in bed comfortably
No tachycardia
No dyspnea on room air
ABD non tender, non distended
Left lower extremity RICKEY dressing dry and intact, left foot warm, left DP +2 palpable
Abad draining clear yellow urine
[2025-04-14] MEDS: SYMBICORT 160/4.5 MCG INHALER 2 PUFF INH ×2 (08:06→20:03)
[2025-04-14] MEDS: SPIRIVA RESPIMAT 2.5 MCG 2 PUFF INH (08:06)
[2025-04-14] MEDS: LASIX 20 MG PO (08:13)
[2025-04-14] MEDS: OCUVITE SOFTGEL 1 CAP PO ×2 (08:13→20:17)
[2025-04-14] MEDS: TOPROL XL 25 MG PO (08:13)
[2025-04-14] MEDS: BRILINTA 90 MG PO ×2 (08:13→20:17)
[2025-04-14] MEDS: PROTONIX 40 MG PO (08:13)
[2025-04-14] MEDS: HEPARIN 5000 UNITS SC ×2 (08:14→16:57)
--- NOTE | 2025-04-14 08:26 | W.PN.INTV ---
Today's Communication / Plan
Recommendations
Up OOB as tolerated
Heart rate control with goal <110
Cardiology consulted and recs appreciated
Increase metoprolol succinate to 50 mg and continue with prn IV Lopressor
Replete K>4, Mg>2
Pain control
Defer decision to downgrade to vascular surgery; for now, continue q1hr neurovascular checks
Once transferred to telemetry service then we will sign off at that time; once we sign off then please contact pulmonary service for any questions or concerns.
Assessment
-
Assessment: 79-year-old male with a past medical history of left popliteal artery aneurysm, PVD, CAD with history of late presentation inferior wall STEMI s/p DIAMOND x2 to RCA (10/2017), also IVUS guided PCI with overlapping DIAMOND x 2 to ostial to mid
LAD (10/02/2024), colon cancer s/p chemo/XRT (2011), hyperlipidemia, GERD, transaminitis, hypertension, paroxysmal A-fib on Eliquis, moderate severity COPD on Breztri, and history of stroke who presents for elective left lower extremity bypass due to
left popliteal artery aneurysm. Patient known to vascular surgery with last visit on 04/01/[address] Abad[address] Prior [address] abdominal aorta angio with runoff on 01/27/2025 showed a left above�knee thrombosed popliteal artery aneurysm measuring up to 3.8
cm in diameter with reconstitution of distal popliteal via collaterals. He continues to have ischemic rest pain in his left foot. Surgical intervention reviewed which would include a left lower extremity bypass and he has agreed to this procedure.
Today he underwent a left proximal superficial femoral artery to below�knee popliteal artery bypass with ipsilateral nonreversed great saphenous vein and ligation and exclusion of popliteal artery aneurysm. EBL was 500 cc. There were no immediate
complications and he was transferred to the ICU postoperatively for further care. Segment Block Layer service is now consulted for additional management/recommendations.
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
artery aneurysm
Impression:
#Thrombosed left popliteal artery aneurysm s/p left proximal superficial femoral artery to below�knee popliteal artery with ipsilateral nonreversed great saphenous vein + ligation and exclusion of popliteal artery aneurysm (POD #1)
#Moderate COPD with hyperinflation and air trapping with very severe gas exchange capacity defect (per PFTs from 02/18/2025 done here at )
#Centrilobular emphysema (upper lobe predominant) with a 1.9 cm bleb in the posteromedial right lower lobe (seen on CT Chest - 03/16/2025)
#Multiple pulmonary nodules (all <6 mm with a 3.7 mm in the left upper lobe - seen on CT Chest 03/16/2025)
#Former tobacco smoker with [id number] history, quit in 1989
#PVD
#GERD
#CAD with history of late presentation acute inferior wall NM s/p complex thrombectomy + DIAMOND to proximal and ostial RCA (11/11/2017) complicated by RCA in-stent restenosis s/p IVUS guided PCI with DIAMOND x 1 placed on 07/23/2024 and subsequent IVUS guided
shockwave lithotripsy facilitated balloon angioplasty of RCA (10/02/2024); also successful IVUS guided PCI with overlapping DIAMOND x 2 to ostial to mid LAD (10/02/2024)
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
#Moderate aortic stenosis with peak/mean gradients 26/17 mmHg per echo on 02/09/2025
#Atrial fibrillation on Eliquis with history of ablation x 2
Plan:
Postoperative surgical intensive care unit monitoring
Continue supplemental oxygen to maintain SpO2 88-95% - wean down supplemental O2 as tolerated
Patient takes Breztri as an outpatient --> continue Symbicort 160 mcg + Spiriva Respimat 2.5 mcg while hospitalized, and resume Breztri upon discharge
prn nebulized bronchodilators - not currently bronchospastic
Incentive spirometry encouraged 10x per hour for at least 4 hrs a day
Aspiration precautions
Pain control
Neuro and vascular checks per protocol
Maintain MAP>65
Replete electrolytes with K>4, Mg>2
Maintain euglycemia with goal BG 140-180
Increase metoprolol succinate to 50 mg once daily and continue with prn IV Lopressor to help keep HR <110
Cardiology consulted and recs appreciated
Vascular surgery following-correspondence and operative notes reviewed
Transfuse blood products as needed to keep Hb>7g/dL, and plt>50k (given post-operative status)
DVT prophylaxis: HSQ
Early nutrition
Early mobilization
Continue ICU level of care as he continues to require q1hr neurovascular checks.
Of note, patient follows with us in the [facility] office with Dr. Navarro. Last visit 04/05/2025. Patient was advised at that visit to follow-up in 6 months, sooner if needed.
Segment Block Layer services will continue to follow along while patient remains in the ICU. Once transferred to telemetry status then we will sign off at that time. Please contact pulmonary service if there are any questions or concerns.
Critical care statement: A total of 37 minutes of critical care time was provided for this patient today. This includes management of unstable vital signs, evaluation of the patient at bedside, reviewing the patient's pertinent medical records
including radiographs, microbiology, laboratory evaluations, and discussion with primary team, consultants, pharmacy, nutrition, physical therapy, case management, charge nurse, critical care nursing, and respiratory therapy.
Subjective Dataa
Subjective Data
Date of Service:
Date of Service: April 14, 2025
Chief Complaint: Segment Block Layer Follow Up
Subjective:
Patient seen and evaluated this morning. Heart rate 87, BP 112/80 and saturating 97%. Currently on 2 L/min. Spontaneously developed rapid A-fib this AM a/w chest pressure. He has otherwise no complaints, denying SOB, MAGAÑA, nausea, fevers or chills.
Review of Systems
General: Other (Negative unless mentioned above)
Objective Data
Data Reviewed
Vital Signs / I&O / Oxygen:
Vital Signs
Temp Pulse Resp BP Pulse Ox
97.4 F 91 20 136/94 94
04/14/25 07:25 04/14/25 08:13 04/14/25 08:10 04/14/25 08:13 04/14/25 08:10
Intake and Output
04/13/25 04/14/25 04/15/25
06:59 06:59 06:59
Intake Total 3195 / 3195 240 / 240
Output Total 2765 / 2765 475 / 475
Balance 430 / 430 -235 / -235
SaO2 94
Nasal Cannula flow liters per 4
minute
Physical Exam
General: Respiratory Distress (negative), Chills (negative) and Sweats (negative)
HEENT: Normocephalic and Anicteric
Cardiovascular: S1-S2, Rub (negative) and Peripheral Edema (Trace left lower extremity edema)
Respiratory: Wheeze (negative), Crackles (negative), Rhonchi (negative), Non-Labored Respirations and Stridor (negative)
GI: Soft, Non Distended, Non Tender and Normal Bowel Sounds
Neurology: Awake, Alert, Oriented and Tremors (negative)
Skin: Warm, Dry, Cyanosis (negative) and Jaundice (negative)
Labs/Micro/Reports
Lab Data
04/14/25 04:29
04/14/25 04:29
--- NOTE | 2025-04-14 08:45 | PTCARENOTE ---
Jessica d/c'ed per order and manual pressure held at site until hemostasis achieved- gauze dressing applied to site. Abad catheter removed per order and urinal provided to pt. Pt continues to rest quietly in bed. No complaints offered. Remains on O2
at 4l/min w/ POx 94%. Dr Rodriguez in room to evaluate pt- aware of HR trend 80-140's at times.
[2025-04-14] MEDS: NSS IV (09:55)
[2025-04-14] MEDS: LOPRESSOR 25 MG PO (09:56)
[2025-04-14] MEDS: LOPRESSOR 2.5 MG IV (09:56)
--- NOTE | 2025-04-14 10:00 | PTCARENOTE ---
Pt c/o chest pressure @ 0920...denies chest pain or any radiation of pain. No SOB or dizziness. HR noted to be elevated 160-170's. ECG done. Cardiology and aquatic facility manager made aware. Additional po metoprolol and IV metoprolol ordered and
provided...see MAR. HR recovered to 80-90. Relief of chest pressure obtained. Call house within reach. Safe environment confirmed. Will continue to monitor.
--- NOTE | 2025-04-14 10:35 | W.PN.CD ---
Today's Communication / Plan
-
Short term amiodarone and then consider EPS/Ablation
QTc too long for dofetilide
Impression / Plan
-
I/P: 79M with persistent atrial fibrillation (status post PVI 2002, DCCV 07/28/2024), CAD, dyslipidemia, hypertension, CAD (STEMI 07/23/24 s/p DIAMOND�90% proximal RCA in-stent restenosis; 70% stenosis in the proximal LAD and OM1 with 40% proximal
stenosis and OM 2 with diffuse proximal 20-30% stenosis),�ICM (EF 40-45%), and former smoker who presented with elevated HR at Vascular Surgery
Primary Internet Cafe Manager: Dr. Junior
SVT: Looks like atrial tachycardia but typical or atypical flutter is possible. Differing rates seems to favor an atrial tachycardia. EP study would be required to determine
- QT too long for sotalol or dofetilide
- BB not effetive enough
- Will use AMIODARONE short term. Watch for bradys.
- Later an EPS/ablation may be preferred to termite inspector Amio
- He has been on Amiodarone in the past and it was stopped. So choice is alf amio or EPS/Ablation.
Prior AFib ablation for persistent AFib
- Oral Anticoagulation: Apixaban 5 mg twice daily (last dose 04/10/2025)
- [id number]: score at least 5 (Heart failure, HTN, age 75 or more, Vascular disease)
PAD
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 Abad 04/13/2025
- EBL 500 mL
ICM (EF 45-50%), chronic
-Stable without shortness of breath
-Continue current dose of furosemide
-GDMT as tolerated
-JENNIFER/ARB/ARNI: Did not tolerate Entresto nor lisinopril 2.5 mg daily due to hypotension
-Beta thomas: Metoprolol succinate 25mg daily
-SGLT2: Farxiga 10mg daily
-MRA: Can consider in the outpatient setting
-HF education
-Continue daily weight, sodium restriction
CAD
- RCA STEMI 07/2024, most recent intervention 09/2024, on ticagrelor, apixaban resumption per vascular surgery
- Stable without chest pain
- Continue medical mgmt
Aortic stenosis, mild to moderate (23/14 mmHg)
Mixed hyperlipidemia, LDL less than 55, continue atorvastatin 80 mg daily
Physical Exam
Vital Signs/Labs
Vital Signs
Temp Pulse Resp BP Pulse Ox
97.4 F 160 20 101/83 94
04/14/25 07:25 04/14/25 09:56 04/14/25 08:10 04/14/25 09:56 04/14/25 08:10
04/13/25 04/14/25 04/15/25
06:59 06:59 06:59
Actual Weight 76.8 kg 80.1 kg
04/14/25 04:29
04/14/25 04:29
PT 16.9 Sec (11.4-14.6) H 04/06/25 09:38
INR 1.34 04/06/25 09:38
APTT 30.5 Sec (23.4-35.0) 04/06/25 09:38
Magnesium 1.9 mg/dl (1.6-2.3) 04/14/25 04:29
Physical Exam
Constitutional: No acute distress
EENT: Anicteric
Cardiovascular: Rhythm & rate is regular and Pedal edema is absent
Respiratory: Respiratory effort normal and Lungs clear to auscul.
GI: Soft and Distention absent
Neuro/Psych: AO x 3
Data Reviewed
-
Date of Service: April 14, 2025
--- NOTE | 2025-04-14 11:00 | PN.CDI ---
CDI
- -
CDI:
Physician Documentation Request
Admit Date: 04/13/25 06:20
Dear Doctor/ WOOD MOLDER ,
Please review the following and provide your response in the progress notes.
Clinical Indicators:
Pt admitted with popliteal artery aneurysm s/p Left proximal superficial femoral artery to below-knee popliteal artery with ipsilateral nonreversed great saphenous vein 04/13
Documented per cardiology consult, ' His tachycardia appears to be sinus by ECG and telemetry. It is likely exacerbated by blood loss during surgery and volume depletion from being NPO. Encourage volume resuscitation. ..'
Trended hemoglobin/Hematocrits below
Laboratory Tests
04/06/25 04/13/25 04/14/25
09:38 12:55 04:29
Hgb 15.3 13.4 10.4 L D
Hct 45.2 39.1 30.6 L
Please provide a diagnosis for the above laboratory findings:
Acute blood loss anemia
Abnormal lab value
Other ( please specify)
Use of terms such as suspected, likely, concern for, or probable (associated with a specific diagnosis that is being evaluated, monitored, or treated as if it exists) are acceptable and can be coded in the inpatient setting, when documented at the
time of discharge.
Thank you,
Domi Gresham RN
CDI Specialist
[place] Text
Please use your independent medical judgment in providing your response.
--- NOTE | 2025-04-14 11:22 | W.PN.UPDATE ---
Update Note
Progress Note Update
In response to CDI:
Pt admitted with popliteal artery aneurysm s/p Left proximal superficial femoral artery to below-knee popliteal artery with ipsilateral nonreversed great saphenous vein 04/13
Documented per cardiology consult, ' His tachycardia appears to be sinus by ECG and telemetry. It is likely exacerbated by blood loss during surgery and volume depletion from being NPO. Encourage volume resuscitation. ..'
Trended hemoglobin/Hematocrits below
Laboratory Tests
04/06/25 04/13/25 04/14/25
09:38 12:55 04:29
Hgb 15.3 13.4 10.4 L D
Hct 45.2 39.1 30.6 L
Please provide a diagnosis for the above laboratory findings:
Acute blood loss anemia
--- NOTE | 2025-04-14 11:28 | W.PN.UPDATE ---
Update Note
Progress Note Update
In response to CDI:
Pt admitted with hematoma at left thigh following bypass surgery s/p hematoma evacuation 04/08
Documented per ED, ' He is noted drainage and bleeding from the incisions in that area....Incision medially close to the knee and the surrounding area is fairly tense suggestive of underlying hematoma. There is some bloody drainage from the
incision...'
Documented per past visit 03/24 H/H was 14.6/44.9
Trended Hemoglobin/Hematocrit below
04/07/25 04/08/25 04/10/25
15:26 08:31 06:05
Hgb 9.0 L 8.4 L 8.1 L
Hct 28.5 L 26.5 L 25.4 L
Acute blood loss anemia, with likely an element of hemodilution given proper IVF administration, monitored with repeat H&H and stabilized.
Clinical Indicators:
Pt admitted with hematoma at left thigh following bypass surgery
Documented per ED, ' He is noted drainage and bleeding from the incisions in that area..... Patient requires anticoagulation for which he takes Coumadin. Patient checked his INR at home and it was 3.8....'
Progress note 04/08 , ' Continue to hold oral anticoagulation...'
Please clarify the relationship between these conditions:
Yes, suspect Hematoma is likely associated with exacerbation by Coumadin use given elevated INR at 3.8.
[2025-04-14] MEDS: PACERONE 400 MG PO ×2 (12:21→20:17)
--- NOTE | 2025-04-14 14:37 | CM ---
Initial assessment completed with patient with SO in room. Patient and SO live in a 1 story home with basement with 2 steps to enter.
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 No DME. No in-home services. No VA benefits. No psychiatric hospitalizations. PCP is Dr. Wolfgang Juan. Pharmacy is [facility] in [place]. Discharge POC: Anticipate home with no needs.
--- NOTE | 2025-04-14 20:00 | PTCARENOTE ---
Resumed care of pt sitting in chair AAOx3 with family at bedside. Hr in the 80's in NSR with PVC's on the monitor. POX 93% on RA. Lungs dec t/o. Pt encouraged to take deep breaths. + bowel, round abd. Pt ambulatory to bathroom with assist. Pt
voiding without difficulty. Left leg loree dressing in place with loree drainx2, drainage noted. Left JAYESH drain x2 draining serous sangionous drainage. Doppler pulses present. +1 B/L LE edema noted. Rt forearm int capped, left forearm int capped. Pt
denies any complaints of pain at this time. Call house in reach. Will continue to monitor.
[2025-04-14] MEDS: LIPITOR 80 MG PO (21:21)
[2025-04-15] VITALS (22 sets, daily range): BP systolic 86–149; BP diastolic 58–108; BMI 27.9
--- NOTE | 2025-04-15 | PTCARENOTE ---
Pt ambulatory to bathroom. Face washed, teeth brushed. Pt voided without difficulty. Pt assisted back to bed. Pt tachypneic, TODD. 2 LO2 NC applied HS for POX 89%. Pt reports pain at tolerable level. No other changes in assessment noted at this
time. Call house in reach. Will continue to monitor.
[2025-04-15] MEDS: HEPARIN 5000 UNITS SC (00:02)
--- NOTE | 2025-04-15 04:00 | PTCARENOTE ---
Pt sleeping comfortably t/o the night. No issues to report. Vital signs remain stable. NO changes in assessment noted at this time. Will continue to monitor.
[2025-04-15 04:54] LABS: Hematocrit 31.2 % (39.0-52.0); Hemoglobin 10.7 g/dL (13.0-18.0); Mean Corp Hgb Conc. 34.3 g/dL (33.0-37.0); Mean Corpuscular Volume 93.7 fL (80.0-94.0); Platelet Count 117 10^3/uL (130-400); Red Cell Dist. Width 14.9 % (11.5-14.5)
[2025-04-15 05:45] LABS: Blood Urea Nitrogen 13 mg/dl (9-20); Calcium 8.4 mg/dl (8.4-10.2); Carbon Dioxide 25 mmol/L (22-30); Chloride 110 mmol/L (98-107); Estimated Creatinine Clearance 90 ml/min; Glucose 108 mg/dl (70-99); Potassium 3.8 mmol/L (3.5-5.1); Sodium 140 mmol/L (135-145); eGFR > 60.00
--- NOTE | 2025-04-15 07:56 | W.PN.VS ---
Addendum entered and electronically signed by Melvin Aguilar MD 04/16/25 10:31:
Seen and examined yesterday with TARE WORKER. This is a late entry. Agree with findings/plan as discussed and noted below.
Original Note:
Today's Communication / Plan
-
Patient seen and examined at bedside with Dr. Melvin Aguilar, below plan reviewed with attending.
Assessment/Plan
-
Assessment: 79 male POD#2 Left proximal superficial femoral artery to below-knee popliteal artery with ipsilateral nonreversed great saphenous vein
Plan:
Appreciate cardiology recommendations for tachycardia, ok for downgrade to tele from a surgical standpoint, will clear with cardiology prior
Restarted home OAC Eliquis
PT
Case management for home disposition planning
Encourage ambulation as tolerated
Continue neurovascular checks
Subjective Data
-
Date of Service: April 15, 2025
Patient seen and examined at bedside, offers no complaints. Denies pain, nausea, vomiting, fever, and/or chills. Endorses tolerating ambulation.
Objective Data
-
Vital Signs
Temp Pulse Resp BP Pulse Ox
97.4 F 102 15 138/90 91
04/15/25 03:28 04/15/25 04:00 04/15/25 04:00 04/15/25 04:00 04/15/25 04:00
Intake and Output
04/14/25 04/15/25 04/16/25
06:59 06:59 06:59
Intake Total 3195 / 3195 1440 / 1440
Output Total 2765 / 2765 1155 / 1155
Balance 430 / 430 285 / 285
Intake:
Oral fluids 1320 / 1320 1440 / 1440
IV fluids (Total) 1874
Normosol 1874
Output:
Drain Output (Total) 120 / 120 80 / 80
Left Leg Kevin-Correia A 70 / 70 30 / 30
Left Leg Kevin-Correia B 50 / 50 50 / 50
Urine, Abad 2645 / 2645 475 / 475
Urine, Voided 600 / 600
Other:
How many times incontinent 1
MODERATE amount urine
Lab Results
04/15/25 04:40
04/15/25 04:40
Calcium 8.4 mg/dl (8.4-10.2) 04/15/25 04:40
Magnesium 1.9 mg/dl (1.6-2.3) 04/14/25 04:29
Physical Exam
-
No apparent distress, resting in bed comfortably
Tachycardia on monitor, low 100s
No dyspnea on room air
ABD non tender, non distended
Left lower extremity RICKEY dressing dry and intact, left foot warm, left DP +2 palpable
[2025-04-15] MEDS: SPIRIVA RESPIMAT 2.5 MCG 2 PUFF INH (08:16)
[2025-04-15] MEDS: SYMBICORT 160/4.5 MCG INHALER 2 PUFF INH ×2 (08:16→20:08)
--- NOTE | 2025-04-15 08:25 | W.PN.CD ---
Today's Communication / Plan
-
- Continue Amio 400 mg PO BID; heart rate is fairly controlled.
- Continue Toprol-XL 25 mg daily.
Impression / Plan
-
I/P: 79M with persistent atrial fibrillation (status post PVI 2002, DCCV 07/28/2024), CAD, dyslipidemia, hypertension, CAD (STEMI 07/23/24 s/p DIAMOND�90% proximal RCA in-stent restenosis; 70% stenosis in the proximal LAD and OM1 with 40% proximal
stenosis and OM 2 with diffuse proximal 20-30% stenosis),�ICM (EF 40-45%), and former smoker who presented with elevated HR at Vascular Surgery
Primary Pattern Grader Supervisor: Dr. Junior
Recurrent PAF/A-flutter:
- QT too long for sotalol or dofetilide
- BB not effective enough
- Will use AMIODARONE short term.
- Continue Amio 400 mg PO BID; heart rate is fairly controlled.
- Continue Toprol-XL 25 mg daily.
- Later an EPS/ablation may be preferred to exterminator helper termite Amio
- He has been on Amiodarone in the past and it was stopped. So choice is halfway amio or EPS/Ablation.
- Continue apixaban 5 mg twice daily.
- [id number]: score at least 5 (Heart failure, HTN, age 75 or more, Vascular disease)
PAD
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 Abad 04/13/2025
- EBL 500 mL
- Continue management as per Vascular Surgery.
ICM (EF 45-50%), chronic
-Stable without shortness of breath
-Continue current dose of furosemide
-GDMT as tolerated
-JENNIFER/ARB/ARNI: Did not tolerate Entresto nor lisinopril 2.5 mg daily due to hypotension
-Beta thomas: Metoprolol succinate 25mg daily
-SGLT2: Farxiga 10mg daily
-MRA: None secondary to blood pressure limitations.
-Continue daily weight, sodium restriction
CAD
- RCA STEMI 07/2024, most recent intervention 09/2024, on ticagrelor, apixaban resumption per vascular surgery
- Remains stable without chest pain
- Continue medical mgmt
Aortic stenosis, mild to moderate (23/14 mmHg):
- Will continue to monitor as outpatient.
Mixed hyperlipidemia, LDL less than 55:
-Continue atorvastatin 80 mg daily
Physical Exam
Vital Signs/Labs
Vital Signs
Temp Pulse Resp BP Pulse Ox
98.0 F 93 18 138/90 94
04/15/25 08:11 04/15/25 08:19 04/15/25 08:19 04/15/25 04:00 04/15/25 08:19
04/14/25 04/15/25 04/16/25
06:59 06:59 06:59
Actual Weight 80.1 kg 80.6 kg
04/15/25 04:40
04/15/25 04:40
PT 16.9 Sec (11.4-14.6) H 04/06/25 09:38
INR 1.34 04/06/25 09:38
APTT 30.5 Sec (23.4-35.0) 04/06/25 09:38
Magnesium 1.9 mg/dl (1.6-2.3) 04/14/25 04:29
Physical Exam
Constitutional: No acute distress and Comfortable
EENT: Anicteric
Cardiovascular: Systolic murmur absent, Rhythm/rate is irregular, Pedal edema present (trace) and S1S2 is normal
Respiratory: Respiratory effort normal and Lungs clear to auscul.
GI: Soft and Non tender
Neuro/Psych: AO x 3
Other: Skin (Warm)
Data Reviewed
-
Date of Service: April 15, 2025
EKG: Tracing Personally Visualized and interpreted (Telemetry: A-fib)
Echo: Report Reviewed by me (LVEF 45-50%; moderate .)
Medical Tests (PFT, Pathology etc): Discussed with Patient
Labs: Labs Reviewed by me
--- NOTE | 2025-04-15 08:30 | W.PN.INTV ---
Today's Communication / Plan
Recommendations
Up OOB as tolerated
Heart rate control with goal <110
Cardiology consulted and recs appreciated
Increase metoprolol succinate to 50 mg and continue with prn IV Lopressor
Continue PO amio
Replete K>4, Mg>2
Pain control
Continue neurovascular checks
Patient is stable for downgrade out of ICU to telemetry. No additional recommendations at this time. Core Driller Helper/Pulmonary service will now sign off. Please reconsult if there are any additional questions/concerns, or if patient's respiratory
status deteriorates.
Assessment
-
Assessment: 79-year-old male with a past medical history of left popliteal artery aneurysm, PVD, CAD with history of late presentation inferior wall STEMI s/p DIAMOND x2 to RCA (10/2017), also IVUS guided PCI with overlapping DIAMOND x 2 to ostial to mid
LAD (10/02/2024), colon cancer s/p chemo/XRT (2011), hyperlipidemia, GERD, transaminitis, hypertension, paroxysmal A-fib on Eliquis, moderate severity COPD on Breztri, and history of stroke who presents for elective left lower extremity bypass due to
left popliteal artery aneurysm. Patient known to vascular surgery with last visit on 04/01/[address] Prior [address] abdominal aorta angio with runoff on 01/27/2025 showed a left above�knee thrombosed popliteal artery aneurysm measuring up to 3.8
cm in diameter with reconstitution of distal popliteal via collaterals. He continues to have ischemic rest pain in his left foot. Surgical intervention reviewed which would include a left lower extremity bypass and he has agreed to this procedure.
Today he underwent a left proximal superficial femoral artery to below�knee popliteal artery bypass with ipsilateral nonreversed great saphenous vein and ligation and exclusion of popliteal artery aneurysm. EBL was 500 cc. There were no immediate
complications and he was transferred to the ICU postoperatively for further care. Core Driller Helper service is now consulted for additional management/recommendations.
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
artery aneurysm
Impression:
#Thrombosed left popliteal artery aneurysm s/p left proximal superficial femoral artery to below�knee popliteal artery with ipsilateral nonreversed great saphenous vein + ligation and exclusion of popliteal artery aneurysm (POD #2)
#Moderate COPD with hyperinflation and air trapping with very severe gas exchange capacity defect (per PFTs from 02/18/2025 done here at )
#Centrilobular emphysema (upper lobe predominant) with a 1.9 cm bleb in the posteromedial right lower lobe (seen on CT Chest - 03/16/2025)
#Multiple pulmonary nodules (all <6 mm with a 3.7 mm in the left upper lobe - seen on CT Chest 03/16/2025)
#Former tobacco smoker with [id number] history, quit in 1989
#PVD
#GERD
#CAD with history of late presentation acute inferior wall DC s/p complex thrombectomy + DIAMOND to proximal and ostial RCA (11/11/2017) complicated by RCA in-stent restenosis s/p IVUS guided PCI with DIAMOND x 1 placed on 07/23/2024 and subsequent IVUS guided
shockwave lithotripsy facilitated balloon angioplasty of RCA (10/02/2024); also successful IVUS guided PCI with overlapping DIAMOND x 2 to ostial to mid LAD (10/02/2024)
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
#Moderate aortic stenosis with peak/mean gradients 26/17 mmHg per echo on 02/09/2025
#Atrial fibrillation on Eliquis with history of ablation x 2
Plan:
Postoperative surgical intensive care unit monitoring
Continue supplemental oxygen to maintain SpO2 88-95% - wean down supplemental O2 as tolerated
Patient takes Breztri as an outpatient --> continue Symbicort 160 mcg + Spiriva Respimat 2.5 mcg while hospitalized, and resume Breztri upon discharge
prn nebulized bronchodilators - not currently bronchospastic
Incentive spirometry encouraged 10x per hour for at least 4 hrs a day
Aspiration precautions
Pain control
Neuro and vascular checks per protocol
Maintain MAP>65
Replete electrolytes with K>4, Mg>2
Maintain euglycemia with goal BG 140-180
Need rate control with goal HR<110
Increase metoprolol succinate to 50 mg once daily and continue with prn IV Lopressor to help keep HR <110
Cardiology consulted and recs appreciated
Defer decision about repeat ablation to cardiology/EP
Vascular surgery following-correspondence and operative notes reviewed
Transfuse blood products as needed to keep Hb>7-8g/dL, and plt>50k (given post-operative status)
DVT prophylaxis: Eliquis now resumed per surgery
Early nutrition
Early mobilization
Of note, patient follows with us in the [facility] office with Dr. Navarro. Last visit 04/05/2025. Patient was advised at that visit to follow-up in 6 months, sooner if needed.
Patient is stable for downgrade out of ICU to telemetry. No additional recommendations at this time. Core Driller Helper/Pulmonary service will now sign off. Thank you for allowing us to be involved in the care of this patient. Please reconsult if there
are any additional questions/concerns, or if patient's respiratory status deteriorates.
Total time spent today was 61 minutes for this encounter. Time includes reviewing laboratory test/imaging results, reviewing pertinent medical records, obtaining and reviewing medical history, performing an appropriate exam, ordering medications,
tests and procedures. Time also includes documentation of this encounter, coordinating patient care and communicating with other healthcare professionals. Total time does not include separately billed tests performed on this date of service.
Subjective Dataa
Subjective Data
Date of Service:
Date of Service: April 15, 2025
Chief Complaint: Core Driller Helper Follow Up
Subjective:
Patient seen and evaluated today at bedside. Amiodarone PO load started by cardiology. Heart rate 110-120, saturating 90% on 2 L/min and BP 115/78. Patient's significant other, Nettie, present at bedside and all questions were answered. Patient
overall feels well, denying MAGAÑA, chest pain, SOB, fevers or chills.
Review of Systems
General: Other (Negative unless mentioned above)
Objective Data
Data Reviewed
Vital Signs / I&O / Oxygen:
Vital Signs
Temp Pulse Resp BP Pulse Ox
98.0 F 92 13 135/76 94
04/15/25 08:11 04/15/25 09:00 04/15/25 09:00 04/15/25 09:00 04/15/25 08:19
Intake and Output
04/14/25 04/15/25 04/16/25
06:59 06:59 06:59
Intake Total 3195 / 3195 1440 / 1440 480 / 480
Output Total 2765 / 2765 1155 / 1155 900 / 900
Balance 430 / 430 285 / 285 -420 / -420
SaO2 94
Nasal Cannula flow liters per 2
minute
Physical Exam
General: Respiratory Distress (negative), Comfortable, Chills (negative) and Sweats (negative)
HEENT: Normocephalic and Anicteric
Cardiovascular: Irregular Rhythm, Rub (negative), Peripheral Edema (Trace left lower extremity edema) and Other (Tachycardic)
Respiratory: Wheeze (negative), Crackles (negative), Rhonchi (negative), Non-Labored Respirations and Stridor (negative)
GI: Soft, Non Distended, Non Tender and Normal Bowel Sounds
Neurology: Awake, Alert, Oriented and Tremors (negative)
Skin: Warm, Dry, Cyanosis (negative) and Jaundice (negative)
Labs/Micro/Reports
Lab Data
04/15/25 04:40
04/15/25 04:40
[2025-04-15] MEDS: TOPROL XL 25 MG PO ×2 (08:39→12:47)
[2025-04-15] MEDS: PACERONE 400 MG PO ×2 (08:39→19:49)
[2025-04-15] MEDS: OCUVITE SOFTGEL 1 CAP PO ×2 (08:39→19:49)
[2025-04-15] MEDS: BRILINTA 90 MG PO ×2 (08:39→19:49)
[2025-04-15] MEDS: LASIX 20 MG PO (08:39)
[2025-04-15] MEDS: ELIQUIS 5 MG PO ×2 (08:39→19:49)
[2025-04-15] MEDS: PROTONIX 40 MG PO (08:39)
--- NOTE | 2025-04-15 08:47 | PN.CDI ---
CDI
- -
CDI:
Physician Documentation Request
Admit Date: 04/13/25 06:20
Dear Doctor/EXPEDITION SUPERVISOR,
Please review the following and provide your response in the progress notes.
Clinical Indicators:
Pt admitted with popliteal artery aneurysm s/p Left proximal superficial femoral artery to below-knee popliteal artery with ipsilateral nonreversed great saphenous vein 04/13
Tobacco Stemmer Machine consult 04/13, ' Patient currently on 1 L/min nasal cannula (he is not on oxygen at home).... SpO2 94%...'
Pt care note 04/14 @07, ' Pt on O2 at 1l/min via NC w/ Pox 87%. Pt denies SOB. IS use reinforced...O2 increased to 2L w/ POx 88%. Increased to 4l/min w/ Pox improved to 95%. ....'
Pt care note 04/14 @ 1999,' POX 93% on RA. Lungs dec t/o. Pt encouraged to take deep breaths....'
Pt care note 04/15 @ 00:00,' Pt assisted back to bed. Pt tachypneic, TODD. 2 LO2 NC applied HS for POX 89%. ...'
Selected Entries
04/13/25
07:15 04/13/25
16:00 04/13/25
18:50
Resp Rate 29
Nasal Cannula flow liters per minute 6 2
04/13/25
20:00 04/14/25
01:45 04/14/25
05:00
Resp Rate 31 24
Nasal Cannula flow liters per minute 2
04/14/25
07:40 04/14/25
07:50 04/14/25
08:10
Nasal Cannula flow liters per minute 1 4 4
04/14/25
08:30 04/14/25
09:00 04/14/25
13:00
Pulse 146
SaO2 81
Nasal Cannula flow liters per minute 4
04/14/25
20:05 04/14/25
20:14 04/15/25
02:00
Pulse 106 110
Nasal Cannula flow liters per minute 2
04/15/25
04:00 04/15/25
08:19
Pulse 102
Nasal Cannula flow liters per minute 2
Clarify which of the following accurately represents the patient's respiratory status following surgery:
Acute pulmonary insufficiency (following surgery)
Hypoxia ( only)
Other
Additional information for Pulmonary Insufficiency:
Consider when patients require chcf oxygen therapy postoperatively
Weaned off oxygen initially then requiring supplemental oxygen
No other definitive diagnosis to support the need for oxygen (COPD exac, CHF etc.)
Unable to wean from vent
When criteria for respiratory failure not present
May extend stay or require additional resources; may need home O2
Additional information for Respiratory Failure:
Recognized criteria for Respiratory Failure (Source: [facility] Hospitalist Apr/May 2013)
ABGs: (1 or more) Symptoms Indicate:
1. p)2 <60 or RA SPO2 <91% on RA 1. Tachypnea, SOB, dyspnea 1. Type as:
2. pCO2 50 and pH <7.35 2. Use of accessory muscles a. Hypoxic
3. pO2 decrease of pCO2 increase by 3. Pallor or cyanosis b. Hypercapnic
10 mmHg from baseline if known 4. Anxiety or restlessness 2. If due to procedure or due to another cause
5. Unable to speak in full sentences
Use of terms such as suspected, likely, concern for, or probable (associated with a specific diagnosis that is being evaluated, monitored, or treated as if it exists) are acceptable and can be coded in the inpatient setting, when documented at the
time of discharge.
Thank you,
Domi Gresham RN
CDI Specialist
[place] [employer]
Please use your independent medical judgment in providing your response.
--- NOTE | 2025-04-15 09:12 | PTCARENOTE ---
recd 0715 handoff with previous shift, in good spirits. Seen by Dr. Junior. RICKEY dressings x 2 and JAYESH drains x 2 maintained, no new drainage. voiding clear yellow easily. OOB to chair. With activity, HR spike to 170 briefly, recovered
spontaneously. no c/o, denies CP or SOB. while eating breakfast, does not small amount chest tightness and HR again into the 140 range. Am meds given as ordered, see MAR, presently maintained on oxygen, call house in reach. notes tightness is not
new, call house in reach, eating breakfast. When sitting still in chair, VR in the 130s. Gait steady and strong moving from bed to chair.
[2025-04-15] MEDS: FARXIGA 10 MG PO (11:49)
[2025-04-15] MEDS: REFRESH EYE DROPS (PF) 1 DROPS OPHTH (12:48)
--- NOTE | 2025-04-15 14:24 | CM ---
POD #2, SVT, Eliquis restarted. Discharge POC: Awaiting therapy evaluation and recommendations. Will need [facility]OSSOM RN. Preference is [facility]OSS[facility].
--- NOTE | 2025-04-15 18:10 | PTCARENOTE ---
transferred to [id number], report to next RN, taken with all belongings via WC. Handoff in room. Pt in good spirits.
--- NOTE | 2025-04-15 18:33 | PTCARENOTE ---
Pt arrived to 2south from ICU in a wheelchair. Pt walked from wheelchair to bed w/o incident. LLE with 2 JAYESH drains with serosang drainage and 2 RICKEY dressings with small old drainage. 95% on RA. Bed locked and in lowest position. Care ongoing.
[2025-04-15] MEDS: LIPITOR 80 MG PO (21:27)
[2025-04-15] MEDS: LOPRESSOR 5 MG IV (21:28)
--- NOTE | 2025-04-15 23:00 | PTCARENOTE ---
Pt received awake alert and oriented. On monitor-NSR with PACs and PVCs and occasional episodes of afib with rates 130s. Pt then began to have sustained heart rates in 130s. Given amiodarone po as scheduled with no improvement. Discussed with house
FOOD CHECKER and pt given lopressor 5mg IV. Heart rate now 70s-90s. Rhythm alternating between sinus and afib. Will continue to monitor.
[2025-04-16] VITALS (7 sets, daily range): BP systolic 101–133; BP diastolic 57–84; PULSE 79; BMI 27.3
[2025-04-16] MEDS: LOPRESSOR 5 MG IV (01:51)
--- NOTE | 2025-04-16 02:30 | PTCARENOTE ---
Pt again had heart rates 130s sustained and then had spikes into 170s with activity. Discussed with FRAUD INVESTIGATOR and pt given additional lopressor 5mg IV. Heart rates improved to 80s-100s.
[2025-04-16 07:31] LABS: Hematocrit 29.7 % (39.0-52.0); Hemoglobin 10.1 g/dL (13.0-18.0); Mean Corp Hgb Conc. 34.0 g/dL (33.0-37.0); Mean Corpuscular Volume 94.3 fL (80.0-94.0); Platelet Count 124 10^3/uL (130-400); Red Cell Dist. Width 15.0 % (11.5-14.5)
[2025-04-16] MEDS: SPIRIVA RESPIMAT 2.5 MCG 2 PUFF INH (07:56)
[2025-04-16] MEDS: SYMBICORT 160/4.5 MCG INHALER 2 PUFF INH ×2 (07:56→20:04)
--- NOTE | 2025-04-16 08:38 | W.PN.CD ---
Today's Communication / Plan
-
- Continue Amio 400 mg PO BID load; heart rates appear to be improving although going in and out of A-flutter.
- Toprol-XL was increased from 25 mg daily to 50 mg daily yesterday; continue.
Impression / Plan
-
I/P: 79M with persistent atrial fibrillation (status post PVI 2002, DCCV 07/28/2024), CAD, dyslipidemia, hypertension, CAD (STEMI 07/23/24 s/p DIAMOND�90% proximal RCA in-stent restenosis; 70% stenosis in the proximal LAD and OM1 with 40% proximal
stenosis and OM 2 with diffuse proximal 20-30% stenosis),�ICM (EF 40-45%), and former smoker who presented with elevated HR at Vascular Surgery
Primary Medical Stenographer: Dr. Junior
Recurrent PAF/A-flutter:
- QT too long for sotalol or dofetilide
- BB not effective enough
- Will use AMIODARONE short term.
- Continue Amio 400 mg PO BID load; heart rates appear to be improving although going in and out of A-flutter.
- Toprol-XL was increased from 25 mg daily to 50 mg daily yesterday; continue.
- Later an EPS/ablation may be preferred to group home Amio; will continue to evaluate as outpatient.
- He has been on Amiodarone in the past and it was stopped. So choice is group home amio or EPS/Ablation.
- Continue apixaban 5 mg twice daily.
- [id number]: score at least 5 (Heart failure, HTN, age 75 or more, Vascular disease)
PAD
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 Abad 04/13/2025
- EBL 500 mL
- Recommendations/management as per Vascular Surgery.
ICM (EF 45-50%), chronic:
-Stable without shortness of breath
-Continue current dose of PO furosemide.
-GDMT as tolerated
-JENNIFER/ARB/ARNI: Did not tolerate Entresto nor lisinopril 2.5 mg daily due to hypotension
-Beta thomas: Metoprolol succinate 25mg daily
-SGLT2: Farxiga 10mg daily
-MRA: None secondary to blood pressure limitations.
-Continue daily weights, sodium restriction
CAD
- RCA STEMI 07/2024, most recent intervention 09/2024, on ticagrelor, apixaban resumption per vascular surgery
- Denies any anginal symptoms.
- Continue medical mgmt
Aortic stenosis, moderate:
- Stable.
- Will continue to monitor as outpatient.
Mixed hyperlipidemia, LDL less than 55:
-Continue atorvastatin 80 mg daily
Physical Exam
Vital Signs/Labs
Vital Signs
Temp Pulse Resp BP Pulse Ox
97.9 F 88 18 133/84 93
04/16/25 07:40 04/16/25 08:00 04/16/25 08:00 04/16/25 07:40 04/16/25 08:00
04/15/25 04/16/25 04/17/25
06:59 06:59 06:59
Actual Weight 80.6 kg 78.97 kg
04/16/25 06:51
04/15/25 04:40
PT 16.9 Sec (11.4-14.6) H 04/06/25 09:38
INR 1.34 04/06/25 09:38
APTT 30.5 Sec (23.4-35.0) 04/06/25 09:38
Magnesium 1.9 mg/dl (1.6-2.3) 04/14/25 04:29
Physical Exam
Constitutional: No acute distress and Comfortable
EENT: Anicteric
Cardiovascular: Rhythm & rate is regular, Systolic murmur absent, Pedal edema present (Trace left leg) and S1S2 is normal
Respiratory: Respiratory effort normal and Lungs clear to auscul.
GI: Soft
Neuro/Psych: AO x 3
Other: Skin (Warm, dry, intact)
Data Reviewed
-
Date of Service: April 16, 2025
EKG: Tracing Personally Visualized and interpreted (Telemetry: SR/Aflutter)
Echo: Report Reviewed by me (02/09/2025: LVEF 45-50%, moderate .)
Medical Tests (PFT, Pathology etc): Discussed with Patient
Labs: Labs Reviewed by me
[2025-04-16] MEDS: LASIX 20 MG PO (08:40)
[2025-04-16] MEDS: FARXIGA 10 MG PO (08:40)
[2025-04-16] MEDS: OCUVITE SOFTGEL 1 CAP PO ×2 (08:41→20:26)
[2025-04-16] MEDS: PROTONIX 40 MG PO (08:41)
[2025-04-16] MEDS: ELIQUIS 5 MG PO ×2 (08:41→20:26)
[2025-04-16] MEDS: BRILINTA 90 MG PO ×2 (08:41→20:27)
[2025-04-16] MEDS: PACERONE 400 MG PO ×2 (08:41→20:26)
[2025-04-16] MEDS: TOPROL XL 50 MG PO (08:41)
--- NOTE | 2025-04-16 09:40 | W.PN.VS ---
Addendum entered and electronically signed by Maco Abad III, MD 04/16/25 14:03:
This patient was seen and examined in collaboration with ROSEY Stapleton. I agree with the history and physical exam as well as the assessment and plan. I have the following additions:
Overall looks great
Comfortable in the chair
Palpable left dorsalis pedis artery pulse. Foot warm
Dressings clean and dry
JPs serosang
Appreciate cardiology input and ongoing heart rate management
Continue anticoagulation
Physical therapy
DC Lower JAYESH drain
Change RICKEY's today
Signed:
Maco Abad III, MD
Vascular Surgery
[facility]
Original Note:
Today's Communication / Plan
-
Patient seen and examined at bedside with Dr. Maco Abad III, below plan reviewed with attending.
Assessment/Plan
-
Assessment: 79 male POD#3 Left proximal superficial femoral artery to below-knee popliteal artery with ipsilateral nonreversed great saphenous vein
Plan:
Appreciate cardiology recommendations for tachycardia/a-flutter, will continue inpatient monitoring while medication adjustments continue for a flutter management
Continue home OAC Eliquis
PT
Case management for establishment of home care/dispo planning
Encourage ambulation as tolerated
Continue neurovascular checks
Will change RICKEY dressing today and remive one JAYESH drain
Subjective Data
-
Date of Service: April 16, 2025
Patient seen and examined at bedside, offers no complaints. Reports well managed post operative pain. Denies fever, chills, nausea, and vomiting.
Objective Data
-
Vital Signs
Temp Pulse Resp BP Pulse Ox
97.9 F 96 18 133/84 93
04/16/25 07:40 04/16/25 08:41 04/16/25 08:00 04/16/25 08:41 04/16/25 08:00
Intake and Output
04/15/25 04/16/25 04/17/25
06:59 06:59 06:59
Intake Total 1440 / 1440 840 / 840
Output Total 1155 / 1155 1970 / 1969
Balance 285 / 285 -1130 / -1130
Intake:
Oral fluids 1440 / 1440 840 / 840
Output:
Drain Output (Total) 80 / 80 70 / 70
Left Leg Kevin-Correia A 30 / 30 35 / 35
Left Leg Kevin-Correia B 50 / 50 35 / 35
Urine, Abad 475 / 475
Urine, Voided 600 / 600 1900 / 1900
Other:
How many times incontinent 1
MODERATE amount urine
Number of approximated LARGE 1
amounts of urine
Lab Results
04/16/25 06:51
04/15/25 04:40
Calcium 8.4 mg/dl (8.4-10.2) 04/15/25 04:40
Magnesium 1.9 mg/dl (1.6-2.3) 04/14/25 04:29
Physical Exam
-
No apparent distress, resting in bed comfortably
No dyspnea on room air
ABD non tender, non distended
Left lower extremity RICKEY dressing dry and intact, left foot warm, left DP +2 palpable, JPx2 with minimal serosanguineous output
--- NOTE | 2025-04-16 11:49 | W.PN.UPDATE ---
Update Note
Progress Note Update
In response to CDI:
Clinical Indicators:
Pt admitted with popliteal artery aneurysm s/p Left proximal superficial femoral artery to below-knee popliteal artery with ipsilateral nonreversed great saphenous vein 04/13
Commercial Sales Manager consult 04/13, ' Patient currently on 1 L/min nasal cannula (he is not on oxygen at home).... SpO2 94%...'
Pt care note 04/14 @0730, ' Pt on O2 at 1l/min via NC w/ Pox 87%. Pt denies SOB. IS use reinforced...O2 increased to 2L w/ POx 88%. Increased to 4l/min w/ Pox improved to 95%. ....'
Pt care note 04/14 @ 1999,' POX 93% on RA. Lungs dec t/o. Pt encouraged to take deep breaths....'
Pt care note 04/15 @ 00:00,' Pt assisted back to bed. Pt tachypneic, TODD. 2 LO2 NC applied HS for POX 89%. ...'
Selected Entries
04/13/2507:15 04/13/2516:00 04/13/2518:50
Resp Rate 29
Nasal Cannula flow liters per minute 6 2
04/13/2520:00 04/14/2501:45 04/14/2505:00
Resp Rate 31 24
Nasal Cannula flow liters per minute 2
04/14/2507:40 04/14/2507:50 04/14/2508:10
Nasal Cannula flow liters per minute 1 4 4
04/14/2508:30 04/14/2509:00 04/14/2513:00
Pulse 146
SaO2 81
Nasal Cannula flow liters per minute 4
04/14/2520:05 04/14/2520:14 04/15/2502:00
Pulse 106 110
Nasal Cannula flow liters per minute 2
04/15/2504:00 04/15/2508:19
Pulse 102
Nasal Cannula flow liters per minute 2
Clarify which of the following accurately represents the patient's respiratory status following surgery:
Other required 1-2L supplemental oxygen suspected to be related to aflutter exacerbation, stopped requiring supplemental oxygen via nasal cannula on 04/15/25
--- NOTE | 2025-04-16 15:49 | W.PN.UPDATE ---
Update Note
Progress Note Update
Lower left lower extremity calf JAYESH drain removed, without incident or difficulty. Drain site CDI, covered with new loree dressing. All postoperative staple sites well-approximated, clean, dry, and intact. New loree dressing applied. X 1 JAYESH remains
at left lower extremity upper thigh.
[2025-04-16] MEDS: TYLENOL 650 MG PO (18:07)
[2025-04-16] MEDS: LIPITOR 80 MG PO (21:19)
[2025-04-17 03:00] VITALS: BP 121/68
[2025-04-17 06:00] VITALS: BMI 26.9
[2025-04-17 07:30] VITALS: BP 117/72
[2025-04-17] MEDS: SYMBICORT 160/4.5 MCG INHALER 2 PUFF INH ×2 (07:47→19:38)
[2025-04-17] MEDS: SPIRIVA RESPIMAT 2.5 MCG 2 PUFF INH (07:47)
--- NOTE | 2025-04-17 08:29 | W.PN.VS ---
Today's Communication / Plan
-
x
Assessment/Plan
-
Assessment: 79 male POD#3 Left proximal superficial femoral artery to below-knee popliteal artery with ipsilateral nonreversed great saphenous vein
Plan:
Appreciate cardiology input. Will follow closely and await further recs
Continue Eliquis
PT/OOB
Subjective Data
-
Date of Service: April 17, 2025
Sitting up in bed watching TV
No complaints
Anxious to go home
Denies pain
Objective Data
-
Vital Signs
Temp Pulse Resp BP Pulse Ox
98 F 87 16 117/72 94
04/17/25 07:30 04/17/25 07:50 04/17/25 07:50 04/17/25 07:30 04/17/25 07:50
Intake and Output
04/16/25 04/17/25 04/18/25
06:59 06:59 06:59
Intake Total 840 / 840 1979
Output Total 1969 / 1969 1415 / 1415 325 / 325
Balance -1130 / -1130 565 / 565 -325 / -325
Intake:
Oral fluids 840 / 840 1979
Output:
Drain Output (Total) 70 / 70 60 60
Left Leg Kevin-Correia A 35 / 35 60
Left Leg Kevin-Correia B 35 / 35
Urine, Voided 1900 / 1900 1355 / 1355 325 / 325
Other:
Number of approximated LARGE 1
amounts of urine
Calcium 8.4 mg/dl (8.4-10.2) 04/15/25 04:40
Magnesium 1.9 mg/dl (1.6-2.3) 04/14/25 04:29
Physical Exam
-
NAD
Left leg soft
RICKEY's clean/dry
Left foot warm. Palp DP
JAYESH drain serosang, left thigh
[2025-04-17 09:02] LABS: Hematocrit 30.0 % (39.0-52.0); Hemoglobin 10.0 g/dL (13.0-18.0); Mean Corp Hgb Conc. 33.3 g/dL (33.0-37.0); Mean Corpuscular Volume 93.8 fL (80.0-94.0); Platelet Count 131 10^3/uL (130-400); Red Cell Dist. Width 15.0 % (11.5-14.5)
[2025-04-17 09:56] LABS: Blood Urea Nitrogen 13 mg/dl (9-20); Calcium 8.2 mg/dl (8.4-10.2); Carbon Dioxide 27 mmol/L (22-30); Chloride 106 mmol/L (98-107); Estimated Creatinine Clearance 77 ml/min; Glucose 97 mg/dl (70-99); Potassium 3.5 mmol/L (3.5-5.1); Sodium 137 mmol/L (135-145); eGFR > 60.00
[2025-04-17] MEDS: PROTONIX 40 MG PO (10:24)
[2025-04-17] MEDS: ELIQUIS 5 MG PO ×2 (10:24→20:15)
[2025-04-17] MEDS: FARXIGA 10 MG PO (10:24)
[2025-04-17] MEDS: OCUVITE SOFTGEL 1 CAP PO ×2 (10:24→20:15)
[2025-04-17] MEDS: PACERONE 400 MG PO ×2 (10:25→20:15)
[2025-04-17] MEDS: TOPROL XL 50 MG PO (10:25)
[2025-04-17] MEDS: LASIX 20 MG PO (10:25)
[2025-04-17] MEDS: BRILINTA 90 MG PO ×2 (10:26→20:15)
[2025-04-17] MEDS: REFRESH CELLUVISC GEL 1 DROPS BOTH EYES (10:38)
[2025-04-17 15:35] VITALS: BP 93/69
--- NOTE | 2025-04-17 15:39 | W.PN.CD ---
Today's Communication / Plan
-
Still going in and out of atrial flutter but HRs are lower and he is asymptomatic
Decrease metoprolol to 25 mg daily for lightheadedness. If no improvement in sx may need to also decrease Amiodarone
Impression / Plan
-
I/P: 79M with persistent atrial fibrillation (status post PVI 2002, DCCV 07/28/2024), CAD, dyslipidemia, hypertension, CAD (STEMI 07/23/24 s/p DIAMOND�90% proximal RCA in-stent restenosis; 70% stenosis in the proximal LAD and OM1 with 40% proximal
stenosis and OM 2 with diffuse proximal 20-30% stenosis),�ICM (EF 40-45%), and former smoker who presented with elevated HR at Vascular Surgery
Primary Baseboard Heating Installer: Dr. Junior
Recurrent PAF/A-flutter:
- QT too long for sotalol or dofetilide
- BB not effective enough
- Will use AMIODARONE short term.
- Continue Amio load; heart rates appear to be improving although going in and out of A-flutter.
- Toprol-XL was increased from 25 mg daily to 50 mg daily 04/15; decrease back to 25mg for lightheadedness
- Later an EPS/ablation may be preferred to fci Amio; will continue to evaluate as outpatient.
- He has been on Amiodarone in the past and it was stopped. So choice is fci amio or EPS/Ablation.
- Continue apixaban 5 mg twice daily.
- [id number]: score at least 5 (Heart failure, HTN, age 75 or more, Vascular disease)
PAD
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 Abad 04/13/2025
- EBL 500 mL
- Recommendations/management as per Vascular Surgery.
ICM (EF 45-50%), chronic:
-Stable without shortness of breath
-Continue current dose of PO furosemide.
-GDMT as tolerated
-JENNIFER/ARB/ARNI: Did not tolerate Entresto nor lisinopril 2.5 mg daily due to hypotension
-Beta thomas: Metoprolol succinate 25mg daily
-SGLT2: Farxiga 10mg daily
-MRA: None secondary to blood pressure limitations.
-Continue daily weights, sodium restriction
CAD
- RCA STEMI 07/2024, most recent intervention 09/2024, on ticagrelor, apixaban resumption per vascular surgery
- Denies any anginal symptoms.
- Continue medical mgmt
Aortic stenosis, moderate:
- Stable.
- Will continue to monitor as outpatient.
Mixed hyperlipidemia, LDL less than 55:
-Continue atorvastatin 80 mg daily
Subjective: feels like he is getting weaker. No palpitations, CP, or SOB. Did have lightheadedness with walking around his room today.
Physical Exam
Vital Signs/Labs
Vital Signs
Temp Pulse Resp BP Pulse Ox
98 F 87 16 117/72 94
04/17/25 07:30 04/17/25 07:50 04/17/25 07:50 04/17/25 07:30 04/17/25 07:50
04/16/25 04/17/25 04/18/25
06:59 06:59 06:59
Actual Weight 174 lb 1.6 oz 171 lb 12.8 oz
04/17/25 08:06
04/17/25 08:06
PT 16.9 Sec (11.4-14.6) H 04/06/25 09:38
INR 1.34 04/06/25 09:38
APTT 30.5 Sec (23.4-35.0) 04/06/25 09:38
Magnesium 1.9 mg/dl (1.6-2.3) 04/14/25 04:29
Physical Exam
Constitutional: No acute distress and Comfortable
Cardiovascular: Rhythm & rate is regular, Pedal edema present (L lower ext), S1S2 is normal and Murmur/rub/gallop absent
Respiratory: Respiratory effort normal and Lungs clear to auscul.
Neuro/Psych: AO x 3
Data Reviewed
-
Date of Service: April 17, 2025
Medical Decision Making: Reviewed Test Results, Independent Historian Assessment, Test Interpretation and Review of Case with other Provider
EKG: Tracing Personally Visualized and interpreted
Echo: Report Reviewed by me
Labs: Labs Reviewed by me
[2025-04-17] MEDS: TYLENOL 650 MG PO (17:18)
[2025-04-17 19:00] VITALS: BP 122/81
[2025-04-17 20:49] VITALS: BMI 27.0
[2025-04-17 23:00] VITALS: BP 132/71
[2025-04-17] MEDS: LIPITOR 80 MG PO (23:00)
[2025-04-18] VITALS (8 sets, daily range): BP systolic 99–139; BP diastolic 54–89; PULSE 107; O2SAT 93; BMI 26.7
[2025-04-18] MEDS: TYLENOL 650 MG PO ×3 (05:40→22:19)
[2025-04-18] MEDS: SYMBICORT 160/4.5 MCG INHALER 2 PUFF INH ×2 (07:35→20:02)
[2025-04-18] MEDS: SPIRIVA RESPIMAT 2.5 MCG 2 PUFF INH (07:35)
[2025-04-18 07:52] LABS: Hematocrit 29.1 % (39.0-52.0); Hemoglobin 9.9 g/dL (13.0-18.0); Mean Corp Hgb Conc. 34.0 g/dL (33.0-37.0); Mean Corpuscular Volume 92.4 fL (80.0-94.0); Platelet Count 139 10^3/uL (130-400); Red Cell Dist. Width 15.2 % (11.5-14.5)
--- NOTE | 2025-04-18 08:23 | W.PN.VS ---
Today's Communication / Plan
-
x
Assessment/Plan
-
Assessment: 79 male POD#5 Left proximal superficial femoral artery to below-knee popliteal artery with ipsilateral nonreversed great saphenous vein
Plan:
Cardiology medication titration/optimization ongoing
Continue Eliquis
PT/OOB
Keep JAYESH given output
Subjective Data
-
Date of Service: April 18, 2025
No complaints
Watching TV
Comfortable
Objective Data
-
Vital Signs
Temp Pulse Resp BP Pulse Ox
98.1 F 72 16 127/54 94
04/18/25 03:00 04/18/25 07:40 04/18/25 07:40 04/18/25 05:42 04/18/25 07:40
Intake and Output
04/17/25 04/18/25 04/19/25
06:59 06:59 06:59
Intake Total 1979 480 / 480
Output Total 1415 / 1415 395 / 395
Balance 565 / 565 85 / 85
Intake:
Oral fluids 1979 480 / 480
Output:
Drain Output (Total) 60 / 60 70 / 70
Left Leg Kevin-Correia A 60 / 60 70 / 70
Urine, Voided 1355 / 1355 325 / 325
Other:
Number of approximated MODERATE 2
amounts of urine
Lab Results
04/18/25 07:06
Calcium 8.2 mg/dl (8.4-10.2) L 04/17/25 08:06
Magnesium 1.9 mg/dl (1.6-2.3) 04/14/25 04:29
Physical Exam
-
NAD
Alert/oriented
Non labored breathing
Left leg RICKEY's with some serous staining of dressings
Palp left DP pulse
JAYESH serous and 70 cc/24 hrs
[2025-04-18 08:29] LABS: Blood Urea Nitrogen 14 mg/dl (9-20); Calcium 8.1 mg/dl (8.4-10.2); Carbon Dioxide 26 mmol/L (22-30); Chloride 107 mmol/L (98-107); Estimated Creatinine Clearance 77 ml/min; Glucose 99 mg/dl (70-99); Potassium 3.6 mmol/L (3.5-5.1); Sodium 137 mmol/L (135-145); eGFR > 60.00
[2025-04-18] MEDS: PROTONIX 40 MG PO (08:30)
[2025-04-18] MEDS: OCUVITE SOFTGEL 1 CAP PO ×2 (08:30→20:31)
[2025-04-18] MEDS: BRILINTA 90 MG PO ×2 (08:30→20:32)
[2025-04-18] MEDS: ELIQUIS 5 MG PO ×2 (08:31→20:31)
[2025-04-18] MEDS: FARXIGA 10 MG PO (08:31)
[2025-04-18] MEDS: LASIX 20 MG PO (08:31)
[2025-04-18] MEDS: TOPROL XL 25 MG PO ×2 (08:31→20:32)
[2025-04-18] MEDS: PACERONE 400 MG PO ×2 (08:32→20:32)
--- NOTE | 2025-04-18 13:39 | W.PN.CD ---
Today's Communication / Plan
-
HRs faster today after lowering Metoprolol -> increase to 25 BID
EP to see tomorrow
Impression / Plan
-
I/P: 79M with persistent atrial fibrillation (status post PVI 2002, DCCV 07/28/2024), CAD, dyslipidemia, hypertension, CAD (STEMI 07/23/24 s/p DIAMOND�90% proximal RCA in-stent restenosis; 70% stenosis in the proximal LAD and OM1 with 40% proximal
stenosis and OM 2 with diffuse proximal 20-30% stenosis),�ICM (EF 40-45%), and former smoker who presented with elevated HR at Vascular Surgery
Primary Crown Ceramist: Dr. Junior
Recurrent PAF/A-flutter:
- QT too long for sotalol or dofetilide
- BB not effective enough
- Will use AMIODARONE short term.
- Continue Amio load; heart rates still up to 160s at time but he is asymptomatic
- Toprol-XL was decreased to 25mg daily for lightheadedness but no improvement; increase to 25mg BID
- Later an EPS/ablation may be preferred to fdc Amio; will continue to evaluate as outpatient.
- He has been on Amiodarone in the past and it was stopped. So choice is terminal supervisor amio or EPS/Ablation.
- Continue apixaban 5 mg twice daily.
- [id number]: score at least 5 (Heart failure, HTN, age 75 or more, Vascular disease)
PAD
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 Abad 04/13/2025
- EBL 500 mL
- Recommendations/management as per Vascular Surgery.
ICM (EF 45-50%), chronic:
-Stable without shortness of breath
-Continue current dose of PO furosemide.
-GDMT as tolerated
-JENNIFER/ARB/ARNI: Did not tolerate Entresto nor lisinopril 2.5 mg daily due to hypotension
-Beta thomas: Metoprolol succinate 25mg daily
-SGLT2: Farxiga 10mg daily
-MRA: None secondary to blood pressure limitations.
-Continue daily weights, sodium restriction
CAD
- RCA STEMI 07/2024, most recent intervention 09/2024, on ticagrelor, apixaban resumption per vascular surgery
- Denies any anginal symptoms.
- Continue medical mgmt
Aortic stenosis, moderate:
- Stable.
- Will continue to monitor as outpatient.
Mixed hyperlipidemia, LDL less than 55:
-Continue atorvastatin 80 mg daily
Subjective: still intermittently lightheaded. No change from yesterday.
Telemetry: intermittent atrial flutter with HR up to 160s
Physical Exam
Vital Signs/Labs
Vital Signs
Temp Pulse Resp BP Pulse Ox
97.6 F 84 16 112/58 95
04/18/25 11:25 04/18/25 11:25 04/18/25 11:25 04/18/25 11:25 04/18/25 11:25
04/17/25 04/18/25 04/19/25
06:59 06:59 06:59
Actual Weight 171 lb 12.8 oz 170 lb 9 oz
04/18/25 07:06
04/18/25 07:06
PT 16.9 Sec (11.4-14.6) H 04/06/25 09:38
INR 1.34 04/06/25 09:38
APTT 30.5 Sec (23.4-35.0) 04/06/25 09:38
Magnesium 1.9 mg/dl (1.6-2.3) 04/14/25 04:29
Physical Exam
Constitutional: No acute distress and Comfortable
Cardiovascular: Rhythm & rate is regular, Pedal edema is absent, S1S2 is normal and Murmur/rub/gallop absent
Respiratory: Respiratory effort normal and Lungs clear to auscul.
Neuro/Psych: AO x 3
Data Reviewed
-
Date of Service: April 18, 2025
Medical Decision Making: Reviewed Test Results, Test Interpretation and Review of Case with other Provider
EKG: Tracing Personally Visualized and interpreted
Echo: Report Reviewed by me
Labs: Labs Reviewed by me
[2025-04-18] MEDS: LIPITOR 80 MG PO (22:20)
[2025-04-19 03:35] VITALS: BP 117/68
[2025-04-19 07:35] LABS: Hematocrit 30.3 % (39.0-52.0); Hemoglobin 10.1 g/dL (13.0-18.0); Mean Corp Hgb Conc. 33.3 g/dL (33.0-37.0); Mean Corpuscular Volume 93.5 fL (80.0-94.0); Platelet Count 153 10^3/uL (130-400); Red Cell Dist. Width 15.6 % (11.5-14.5)
--- NOTE | 2025-04-19 07:35 | W.PN.VS ---
Addendum entered and electronically signed by Melvin Aguilar MD 04/19/25 09:26:
Seen and examined with LABORATORY APPARATUS GLASS BLOWER. Agree with findings as noted below. Left lower extremity dressings are clean dry and intact. Foot warm with palpable DP pulse. JAYESH serosanguineous. 55 mL over 24 hours. Plan/as discussed and noted below. Continue JAYESH
for another 24 hours. If drainage decreases to less than 30 cc or so then we will remove.
Original Note:
Today's Communication / Plan
-
Seen and assessed with Dr. Aguilar
Assessment/Plan
-
Assessment: 79 male POD#6 Left proximal superficial femoral artery to below-knee popliteal artery with ipsilateral nonreversed great saphenous vein
Plan:
Cardiology medication titration/optimization ongoing
Continue Eliquis
PT/OOB
Keep JAYESH given output
DC planning-okay for DC once cleared by cardiology
Subjective Data
-
Date of Service: April 19, 2025
Patient seen at bedside same Dr. Abad. Patient offers no complaints at this time. No events overnight.
Objective Data
-
Vital Signs
Temp Pulse Resp BP Pulse Ox
98.2 F 88 16 117/68 96
04/19/25 03:35 04/19/25 03:35 04/19/25 03:35 04/19/25 03:35 04/19/25 03:35
Intake and Output
04/18/25 04/19/25 04/20/25
06:59 06:59 06:59
Intake Total 480 / 480 720 / 720
Output Total 395 / 395 480 / 480
Balance 85 / 85 240 / 240
Intake:
Oral fluids 480 / 480 720 / 720
Output:
Drain Output (Total) 70 / 70 55 / 55
Left Leg Kevin-Correia A 70 / 70 55 / 55
Urine, Voided 325 / 325 425 / 425
Other:
Number of approximated MODERATE 2 1
amounts of urine
Calcium 8.1 mg/dl (8.4-10.2) L 04/18/25 07:06
Magnesium 1.9 mg/dl (1.6-2.3) 04/14/25 04:29
Physical Exam
-
No apparent distress, resting in bed comfortably
No dyspnea on room air
ABD non tender, non distended
Left lower extremity RICKEY dressing dry and intact, some serous drainage
left foot warm, left DP +2 palpable, JAYESH with 55 cc over 24 hours
[2025-04-19 07:45] VITALS: BP 136/80
[2025-04-19 08:01] LABS: Blood Urea Nitrogen 14 mg/dl (9-20); Calcium 8.2 mg/dl (8.4-10.2); Carbon Dioxide 26 mmol/L (22-30); Chloride 108 mmol/L (98-107); Estimated Creatinine Clearance 77 ml/min; Glucose 98 mg/dl (70-99); Potassium 3.6 mmol/L (3.5-5.1); Sodium 140 mmol/L (135-145); eGFR > 60.00
[2025-04-19] MEDS: SPIRIVA RESPIMAT 2.5 MCG 2 PUFF INH (08:03)
[2025-04-19] MEDS: SYMBICORT 160/4.5 MCG INHALER 2 PUFF INH (08:03)
[2025-04-19] MEDS: ELIQUIS 5 MG PO (08:13)
[2025-04-19] MEDS: BRILINTA 90 MG PO (08:13)
[2025-04-19] MEDS: PACERONE 400 MG PO (08:13)
[2025-04-19] MEDS: OCUVITE SOFTGEL 1 CAP PO (08:13)
[2025-04-19] MEDS: TOPROL XL 25 MG PO (08:13)
[2025-04-19] MEDS: PROTONIX 40 MG PO (08:13)
[2025-04-19] MEDS: FARXIGA 10 MG PO (08:13)
[2025-04-19] MEDS: LASIX 20 MG PO (08:14)
[2025-04-19] MEDS: TYLENOL 650 MG PO (08:22)
--- NOTE | 2025-04-19 09:43 | W.PN.CD ---
Today's Communication / Plan
-
OK for home on Amio 200 BID through April, on May 22, 2025 go to 200 mg a day
See Dr. Meade to discuss repeat ablation vs Chronic Amio => if chronic amio then will need usual surveillance for toxicity
Impression / Plan
-
I/P: 79M with persistent atrial fibrillation (status post PVI 2002, DCCV 07/28/2024), CAD, dyslipidemia, hypertension, CAD (STEMI 07/23/24 s/p DIAMOND�90% proximal RCA in-stent restenosis; 70% stenosis in the proximal LAD and OM1 with 40% proximal
stenosis and OM 2 with diffuse proximal 20-30% stenosis),�ICM (EF 40-45%), and former smoker who presented with elevated HR at Vascular Surgery
Primary Burr Sander: Dr. Junior
Recurrent PAF/A-flutter:
- QT too long for sotalol or dofetilide
- BB not effective enough => AMIODARONE added back this admit
- Still with AT/Flutter, paroxysms, Cycle length about 400 ms, some 1:1 but mostly 2:1 and variable
- Toprol-XL was decreased to 25mg daily for lightheadedness but no improvement; increase to 25mg BID
- Later an EPS/ablation may be preferred to intermediate teacher Amio; will continue to evaluate as outpatient.
- He has been on Amiodarone in the past and it was stopped. So choice is intermediate teacher amio or EPS/Ablation.
- Continue apixaban 5 mg twice daily.
- [id number]: score at least 5 (Heart failure, HTN, age 75 or more, Vascular disease)
PAD
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 Aabd 04/13/2025
- EBL 500 mL
- Recommendations/management as per Vascular Surgery.
ICM (EF 45-50%), chronic:
-Stable without shortness of breath
-Continue current dose of PO furosemide.
-GDMT as tolerated
-JENNIFER/ARB/ARNI: Did not tolerate Entresto nor lisinopril 2.5 mg daily due to hypotension
-Beta thomas: Metoprolol succinate 25mg daily
-SGLT2: Farxiga 10mg daily
-MRA: None secondary to blood pressure limitations.
-Continue daily weights, sodium restriction
CAD
- RCA STEMI 07/2024, most recent intervention 09/2024, on ticagrelor, apixaban resumption per vascular surgery
- Denies any anginal symptoms.
- Continue medical mgmt
Aortic stenosis, moderate:
- Stable.
- Will continue to monitor as outpatient.
Mixed hyperlipidemia, LDL less than 55:
-Continue atorvastatin 80 mg daily
Subjective: Doing well, occasion lightheaded (not correlated with arrhytmia).
Physical Exam
Vital Signs/Labs
Vital Signs
Temp Pulse Resp BP Pulse Ox
97.8 F 99 18 136/80 95
04/19/25 07:45 04/19/25 08:14 04/19/25 08:07 04/19/25 08:14 04/19/25 08:07
04/18/25 04/19/25 04/20/25
06:59 06:59 06:59
Actual Weight 77.366 kg
04/19/25 06:57
04/19/25 06:57
PT 16.9 Sec (11.4-14.6) H 04/06/25 09:38
INR 1.34 04/06/25 09:38
APTT 30.5 Sec (23.4-35.0) 04/06/25 09:38
Magnesium 1.9 mg/dl (1.6-2.3) 04/14/25 04:29
Physical Exam
Constitutional: No acute distress
EENT: Anicteric
Cardiovascular: Rhythm/rate is irregular, S1S2 is normal and Murmur/rub/gallop absent
GI: Soft and Distention absent
Neuro/Psych: AO x 3
Data Reviewed
-
Date of Service: April 19, 2025
--- NOTE | 2025-04-19 11:06 | W.[place]-PDMP ---
[place]-PDMP
-
Checked the [place]- Prescription Drug Monitoring Program website, no red flags identified; safe to proceed with prescription.
--- NOTE | 2025-04-19 11:06 | W.DS.TRANS ---
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
-
Discharge Instructions:
Discharge Diagnosis/Procedures Left proximal superficial femoral artery to
below-knee popliteal artery with ipsilateral
nonreversed great saphenous vein
Ligation and exclusion of popliteal artery
aneurysm
Completion arteriogram, left lower extremity
Diet As tolerated
Activity No strenuous activity
Driving Restrictions No driving for 2 weeks
Bathing Restrictions OK to Shower
Wound Care Please change drain gauze around your JAYESH drain
daily or as needed if soiled. Place drain slit
4 x 4 gauze around and then secure with paper
tape. You may leave your staple sites open to
air. However, if you note scant drainage at
maura you may place 4 x 4 gauze over staple
site secured with paper tape to protect clothing
. If you place gauze over maura change daily
or as needed if soiled. If you note increase in
drainage, color change of drainage, foul odor,
redness, or warmth around staple sites please
call our office.
Instructions:
Stand-Alone Forms: Vascular Surg Discharge Instr
Changes to Home Medications: Yes
Discharge Medications:
DC Medications w/original date entered in [employer]
ticagrelor 90 mg tablet (Brilinta) 90 mg PO BID #60 tabs 07/24/24
furosemide 20 mg tablet 20 mg PO DAILY #30 tabs 07/27/24
pantoprazole 40 mg tablet,delayed release 40 mg PO DAILY #30 tabs 07/27/24
atorvastatin 80 mg tablet 80 mg PO HS High Cholesterol 09/15/24
carboxymethylcellulose sodium 1 % eye liquid gel drops 1 drp BOTH EYES BIDPRN PRN dry eyes 02/08/25
dapagliflozin propanediol 10 mg tablet (Farxiga) 10 mg PO DAILY Heart Failure 02/08/25
bevacizumab 1.25 mg/0.05 mL intravitreal syringe (Avastin) 1.25 mg intravitreal .Q 4 - 6 W 04/05/25
budesonide 160 mcg-glycopyr 9 mcg-formot 4.8 mcg/actuation HFA inhaler (Breztri Aerosphere) 2 inh inhalation BID Lung/Breathing Issues 04/05/25
nitroglycerin 0.4 mg sublingual tablet 0.4 mg sublingual Q5-15M PRN chest pain 04/05/25
potassium 99 mg PO DAILY Electrolyte Repletion 04/05/25
triamcinolone acetonide 0.1 % topical cream 1 applic topical PRN PRN rash 04/05/25
vit C 250 mg-vit E 90 mg-zinc 40 mg-copper 1 [id number] capsule (PreserVision AREDS-2) 1 tab PO BID Supplement 04/05/25
apixaban 5 mg tablet (Eliquis) 5 mg PO BID Blood Clot Prevention/Tx 04/14/25
amiodarone 200 mg tablet (Pacerone) 200 mg PO BID #90 tabs 04/19/25
metoprolol succinate 25 mg tablet,extended release 24 hr 25 mg PO BID #60 tabs 04/19/25
oxycodone 5 mg tablet 5 mg PO Q4HPRN PRN moderate pain #10 tabs 04/19/25
Home Medication Changes
Added:
oxycodone 5 mg tablet 5 mg PO Q4HPRN PRN moderate pain #10 tabs 04/19/25
amiodarone 200 mg tablet (Pacerone) 200 mg PO BID #90 tabs 04/19/25
Changed Dose:
metoprolol succinate 25 mg tablet,extended release 24 hr 25 mg PO BID #60 tabs 04/19/25
Pending Results: No
[2025-04-19] MEDS: KLOR-CON 20 MEQ PO (11:07)
[2025-04-19 11:29] VITALS: BP 136/82
--- NOTE | 2025-04-19 11:56 | CM ---
Patient will d/c home today
[facility] accepted for services
Left message w/ son
Patient agreeable to d/c today. Sig other will transport home. IMM verbally reviewed, declined copy
[facility]

Plan: Home w/ [facility]
--- NOTE | 2025-04-19 12:51 | PTCARENOTE ---
JAYESH drain teaching completed with pt and significant other, Vanesa.
pt provided with RW from PT. to lobby via WC.
--- NOTE | 2025-04-19 13:08 | VNURNOTE ---
Late entry: Met with patient and sig other at bedside prior to DC. Discussed [facility] nurse/therapy, visits, schedule and homebound status. Patient is agreeable and understands that visits at home will be 2-3 x per week to assess and teach medical
and drain management. Patient is aware that [facility] will contact them for start of care in 1-2 days after discharge from . Provided contact number for [facility].
[facility] referral accepted in [facility].
== END 2025-04-19 12:54 | disposition home health service (06) | DRG 253 ==
LOC: 2 SOUTH 06:20
PROVIDERS: Nurse Practitioner; Nurse Practitioner Acute Care; ADMITTING PHYSICIAN Surgery Vascular Surgery; CONSULT PHYSICIAN Internal Medicine Critical Care Medicine; CONSULT PHYSICIAN Student in an Organized Health Care Education/Training Program; PRIMARYCARE PHYSICIAN Family Medicine
PROC: 04L Lower Arteries, Occlusion (ICD-10-PCS; 2025-04-13)
PROC: 06BQ0ZZ Excision of Left Saphenous Vein, Open Approach (ICD-10-PCS; 2025-04-13)
PROC: 041L09L Bypass Left Femoral Artery to Popliteal Artery with Autologous Venous Tissue, Open Approach (ICD-10-PCS; 2025-04-13)
DX: I72.4 Aneurysm of artery of lower extremity (principal); D62 Acute posthemorrhagic anemia; I48.19 Other persistent atrial fibrillation; I50.22 Chronic systolic (congestive) heart failure; I48.92 Unspecified atrial flutter; I25.10 Atherosclerotic heart disease of native coronary artery without angina pectoris; I25.2 Old myocardial infarction; I11.0 Hypertensive heart disease with heart failure; Z95.5 Presence of coronary angioplasty implant and graft; Z87.891 Personal history of nicotine dependence; I73.9 Peripheral vascular disease, unspecified; K21.9 Gastro-esophageal reflux disease without esophagitis; Z85.038 Personal history of other malignant neoplasm of large intestine; Z86.73 Personal history of transient ischemic attack (TIA), and cerebral infarction without residual deficits; Z92.21 Personal history of antineoplastic chemotherapy; Z92.3 Personal history of irradiation; E78.00 Pure hypercholesterolemia, unspecified; Z82.49 Family history of ischemic heart disease and other diseases of the circulatory system; J43.2 Centrilobular emphysema; I44.0 Atrioventricular block, first degree; E86.9 Volume depletion, unspecified; I25.5 Ischemic cardiomyopathy; T78.40XA Allergy, unspecified, initial encounter; Z79.01 Long term (current) use of anticoagulants; Z79.02 Long term (current) use of antithrombotics/antiplatelets; Z79.899 Other long term (current) drug therapy
CPT/HCPCS: 35556; 36415; 71045; 71046; 80048; 82962; 83735; 85025; 85027; 85610; 85730; 86850; 86900; 86901; 93005; 94640; 97116; 97163; 97530

== ENCOUNTER → 2025-05-03 11:34 | Outpatient (REF) | payer OTHER, SELFPAY ==
[2025-05-03 13:08] LABS: Hematocrit 36.5 % (39.0-52.0); Hemoglobin 11.4 g/dL (13.0-18.0); Mean Corp Hgb Conc. 31.2 g/dL (33.0-37.0); Mean Corpuscular Volume 95.8 fL (80.0-94.0); Nucleated Red Blood Cells % 0 % (-); Platelet Count 261 10^3/uL (130-400); Red Cell Dist. Width 15.3 % (11.5-14.5)
[2025-05-03 13:44] LABS: Blood Urea Nitrogen 14 mg/dl (9-20); Calcium 8.6 mg/dl (8.4-10.2); Carbon Dioxide 27 mmol/L (22-30); Chloride 107 mmol/L (98-107); Glucose 88 mg/dl (70-99); Potassium 3.5 mmol/L (3.5-5.1); Sodium 143 mmol/L (135-145); eGFR > 60.00
== END ==
LOC: REG 11:34
PROVIDERS: ATTENDING PHYSICIAN Physician Assistant; FAMILY PHYSICIAN Family Medicine
DX: I72.4 Aneurysm of artery of lower extremity (principal); Z95.828 Presence of other vascular implants and grafts
CPT/HCPCS: 36415; 80048; 85025

== ENCOUNTER → 2025-05-25 10:52 | Outpatient (REF) | payer OTHER, SELFPAY | LOC: RAD 10:52 | PROVIDERS: ATTENDING PHYSICIAN Registered Nurse; FAMILY PHYSICIAN Family Medicine; OTHER PHYSICIAN Surgery Vascular Surgery | DX: I72.4 Aneurysm of artery of lower extremity (principal); Z95.828 Presence of other vascular implants and grafts | CPT/HCPCS: 93922; 93925 ==

== ENCOUNTER 2025-06-14 10:07 | Day surgery (SDC) | payer OTHER, SELFPAY ==
[2025-06-07 10:28] VITALS: BMI 26.9
[2025-06-07 11:03] LABS: Hematocrit 37.1 % (39.0-52.0); Hemoglobin 11.5 g/dL (13.0-18.0); Mean Corp Hgb Conc. 31.0 g/dL (33.0-37.0); Mean Corpuscular Volume 85.7 fL (80.0-94.0); Nucleated Red Blood Cells % 0 % (-); Platelet Count 206 10^3/uL (130-400); Red Cell Dist. Width 14.5 % (11.5-14.5)
[2025-06-07 12:02] LABS: ALT (SGPT) 47 U/L (0-50); AST (SGOT) 44 U/L (17-59); Albumin 4.1 g/dl (3.5-5.0); Alkaline Phosphatase 71 U/L (38-126); Blood Urea Nitrogen 9 mg/dl (9-20); Calcium 8.7 mg/dl (8.4-10.2); Carbon Dioxide 26 mmol/L (22-30); Chloride 105 mmol/L (98-107); Estimated Creatinine Clearance 76 ml/min; Glucose 90 mg/dl (70-99); Potassium 4.1 mmol/L (3.5-5.1); Sodium 136 mmol/L (135-145); Total Protein 6.7 g/dl (6.3-8.2); eGFR > 60.00
[2025-06-14] VITALS (17 sets, daily range): BP systolic 100–181; BP diastolic 59–76; BMI 26.5
[2025-06-14 13:46] LABS: ACT-LR - POC 384 Seconds (116-155)
[2025-06-14 14:07] LABS: ACT-LR - POC 302 Seconds (116-155)
[2025-06-14 14:59] LABS: ACT-LR - POC 388 Seconds (116-155)
[2025-06-14 15:13] LABS: ACT-LR - POC > 397 Seconds (116-155)
--- NOTE | 2025-06-14 16:32 | ITS.CL.ABL ---
Claims Specialist - Ablation
Ablation
Procedure Report:
AFIB / A flutter ablation:
Mr. Monterroso is a very pleasant 80 yr old gentleman with medical history significant for symptomatic persistent atrial fibrillation s/p AF ablation on 05/13/23 ([facility]) who has recurrent atypical atrial flutter and is here in the
EP lab for atrial fibrillation / flutter ablation
Date of Procedure:
06/14/2025
Indications:
Symptomatic atrial flutter and atrial tachycardia
Pre-Operative Diagnosis:
Symptomatic atrial flutter and atrial tachycardia
Post-Operative Diagnosis:
Symptomatic atrial flutter and atrial tachycardia
Procedure Performed:
Atypical atrial flutter ablation � tom mitral
Posterior wall isolation
Atypical atrial flutter ablation � atrial septal
Atypical atrial flutter ablation � Biatrial
Focal atrial tachycardia � right atrium � Ashley Terminalis
Atypical atrial flutter ablation � lateral right atrial wall
Intra Cardiac ECHOcardiography
Left atrial facing and recording
3D mapping
Performing Physician:
Michael Meade MD
Assistants:
EP staff
Anesthesia:
See anesthesia records
Detailed Description of the Procedure:
Written informed consent was obtained from the patient after a full explanation of the risks and benefits of the procedure including the risks of sedation and anesthesia.
The patient was brought to the electrophysiology laboratory in stable condition in fasting state. Continuous electrocardiographic and hemodynamic monitoring was initiated.
The initial rhythm was sinus with going in and out of different SVTs.
The procedure site was meticulously prepared with surgical scrub and allowed to dry with no pooling. Sterile draping was applied to cover the procedure site. The image intensifier was draped with sterile bag and positioned over the patient. After
infusion of local anesthetic, vascular access was obtained under ultrasound guidance and sheaths were placed over guide wire as detailed below.
The images of the ultrasound of the femoral vessels were stored in patient chart.
Sheath and Catheter Placement:
Sheaths:
Agilis sheath in right femoral vein upgraded from 9Fr in right femoral vein
10Fr in right femoral vein
7Fr in right femoral vein
Catheters:
The Affera Sphere 9 catheter -bidirectional D/F - at locations of HRA, RV, LA and LV.
ICE catheter -AccuNav - at locations of RA, SVC, and RV.
Bard Decapolar in RA and CS
Heparin was initiated after the access was obtained.
Intracardiac ECHO:
An 8-Korean AcuNav intracardiac ECHO (ICE) probe was advanced through the 10-Korean sheath in the left femoral vein into the right atrium under fluoroscopic and ICE ultrasound image guidance and a baseline ECHO study was performed. The left atrial
size was severely dilated. There was trace tricuspid regurgitation. The aortic valve was grossly normal. There was normal left ventricular size and function. There is a trace pericardial effusion. The BROOKLYNN was severely dilated and has normal
velocities. The pulmonary had good flow identified.
During the procedure, ICE was used for monitoring of complications, guidance of trans-septal puncture, monitor the catheter position and tracking ablation lesions. No change in the pericardial space noted throughout the procedure.
Trans-septal Puncture:
Heparin was initiated and infused to maintain appropriate ACT. A J-tipped guidewire was advanced through into the superior vena cava under fluoroscopic and ICE guidance. The Agilis sheath with BRK needle was advanced into the superior vena cava over
the guidewire. The apparatus was withdrawn until it was in contact with the fossa ovalis. The position was adjusted based on fluoroscopy and ultrasound images from ICE. Under fluoroscopic, hemodynamic and ICE ultrasound guidance, left atrium was
cannulated by advancing the needle. Once atrial septum was cannulated, the needle was pulled back and the guide wire was advanced through the needle into the left atrium. The guide wire was advanced into the left superior pulmonary vein. Both the
sheath and the dilator was advanced into the left atrium. The dilator with the needle was withdrawn. Blood was aspirated from the Agilis sheath and arterial blood confirmed. The sheath was flushed. Saline injection noted into the left atrium on ICE.
The waveform of the LA pressure was recorded. The mapping catheter was advanced in the Agilis sheath into the left pulmonary vein.
3D Electroanatomic Mapping:
Using the Sphere 9 Affera catheter advanced through Agilis sheath into the left atrium, an electroanatomic map (EAM) of the left atrium was created using [employer] mapping system with [employer]ure software. The map was used for localization of catheter
position and tacking of ablation lesions. The EAM of the left atrium showed a total of 4 PVs with two left and the two right sided pulmonary veins with all electrically isolated from the body the LA.
The posterior wall was also silent with prior posterior wall isolation.
The flutter was mapped in the LA and it was perimitral flutter � CL of 320ms. The flutter switched to a faster tachycardia 210 msec. It was also involving the LA and was revolving around the BROOKLYNN. The BROOKLYNN was severely dilated and was able to sustain
the tachycardia around itself.
Following the EAM, preparation were made for ablation.
Ablation:
Ablation # 1: Atrial flutter with Roof line formation:
The previous roof line was mapped and there was conduction noted through the roof line.
The decision wasm made to proceed with roof line formation. A series of pulsed field ablations were placed connecting the LSPV to the RSPV.
Ablation # 2: Posterior wall isolation:
Given hx of atrial fibrillation and now scattered scar on the posterior wall, decision was made to proceed with posterior wall isolation. A series of ablations were placed on the LA connecting the LIPV to the RIPV through the scar at the floor of
the LA.
With scar and fractionated on the posterior wall, a series of ablations were placed on the posterior wall to homogenize the scar by placing a 'Z line' connecting the LSPV lesions to the RIPV antrum.
Ablation # 3: Atypical atrial flutter / Mitral line formation:
There was multiple of flutters noted and one of the flutter was assess to be tom-mitral in nature with significnat scar on the posteiror wall and the atrial septum.
Series of ablations were placed on the mitral isthmus on the lateral wall connecting the mitral isthmus to the left inferior pulmonary vein antral lesions laterally.
Ablation #4: Atypical atrial flutter ablation � left atrial septum
The second flutter was revolving around atrial septum around the previous tssp scar. The series of ablations were placed to connect the scar to the LSPV antral lesions on the anterior wall.
There was area of signal conduction left on the anterior wall to connect to the BROOKLYNN in case the Brittany bundle is ablated to avoid BROOKLYNN isolation.
This terminated into another tachycardia which was 590ms with a wobble. The wobble in the tachycardia makes it more likely a focal arrhythmia. It was mapped and was coming from the right atrium. The catheter was moved from the left atrium to the
right atrium and was mapped.
Electroanatomic mapping of the right atrium:
Using the Sphere 9 Affera catheter advanced through Agilis sheath into the right atrium, an electroanatomic map (EAM) of the right atrium was created using the [employer] mapping system with [employer]ure software mapping system.
There was normal HV conduction noted at baseline at 55 ms.
There was extensive scarring of the right atrium with scattered signals with earliest at the CTI. There was scar both on the tricuspid annulus and and IVC area. The earliest signals were at the mid CTI.
Ablation #5: Cavo tricuspid isthmus ablation for atrial flutter:
The mid CTI signals were marked and the series of ablation using pulsed field energy was applied at the earliest signals and the CTI area was ablated, terminating the conduction through the CTI.
Ablation #6: Focal atrial tachycardia � right atrium � Ashley Terminalis
Due to the severe scarring of the right atrium and wobble, the exact location was difficult to assess but was noted to be coming from mid ashley terminalis
The area of the origin of focal A. tach was ablated with pulsed field using Affera. The tachycardia terminated into flutter at 580 ms.
Ablation #7: Atypical atrial flutter ablation � lateral right atrial wall
Patient had another tachycardia which was resolving around the right atrial lateral wall. Unlikely focal A. tach from ashley, this appeared to be if reentrant tachycardia involving around the right atrial appendage.
A series of ablation were placed at the lateral wall of the right atrial appendage and connected it to the IVC and ashley terminalis.
Series of ablations were placed to suppress any abnormal activity.
The flutter continued and was mapped and was noted to be ealiest at the atrial septum. The decision was made to go back to LA.
Ablation #8: Atypical atrial flutter ablation � Bi-atrial flutter
The new flutter was again mapped in the left atrium that showed block at the anterior left atrial wall with left atrial appendage passively activating at the last. The tachycardia was coming into the left atrium from Brittany bundle and traversing
the left atrium and going towards right atrium via septal CS activation.
The anterior arm of the Brittany bundle was ablated that terminated the tachycardia into sinus rhythm.
Further ablations were created at the fractionated signals on the left atrial septum.
EP study:
Sinus Node Function: The sinus node functions are within acceptable normal range.
Atrioventricular Jamshid Function: Post ablation HV interval was unchanged at 60 msec
Procedure End
ICE study was done again that showed no epicardial accumulation. No complications noted.
Following the completion of the EP study, catheters were removed. Protamine 40 mg was given at the end of the procedure and ACT was checked repeatedly. The sheaths were removed and hemostasis achieved with Fig of 8 and manual compression after
acceptable ACT is achieved.
Left atrial Pressure:
Pre-ablation: Mean LA pressure was 21mmHg
Post-ablation: Mean LA pressure was 24mmHg
Post-ablation: Mean LA pressure was 16mmHg
Estimated Blood loss:
<10 cc
Specimens Removed:
None.
Implants / Devices:
None
Urine output:
None
Packs / Drains/ Tubes:
None
Instrument / Sponge Count Correct:
Yes
Complications of the Procedure:
None
Condition of Patient at Time of Transfer:
Hemodynamically stable with no neurological or vascular compromise.
Summary:
Successful supraventricular tachycardia ablation with ablation of various atypical flutters including tom mitral flutter, tom left atrial septal flutter, Biatrial flutter, right atrial lateral wall flutter, focal atrial tachycardia from ashley
terminalis, cavotricuspid flutter and posterior wall isolation
Figures from the Procedure:
Figure 1: The electroanatomic mapping (EAM) of the left atrium with bipolar voltage (purple indicates normal electrical activity with red as no myocardial muscle electric activity indicating a line of block or scar.
--- NOTE | 2025-06-14 17:24 | PTCARENOTE ---
Patient received following PVI. Right groin C/D/I, surrounding area soft to palpation, pedal pulse palpable. The patient is drowsy but is oriented to self, place, and time. Denies pain. Pulse ox 90-95% on 2L NC. Sinus yosef on telemetry. Patient and
S/O oriented to room and unit. Call house within reach. Bed in lowest position, wheels locked. Care ongoing.
[2025-06-14] MEDS: SYMBICORT 160/4.5 MCG INHALER 2 PUFF INH (20:43)
[2025-06-14] MEDS: LIPITOR 80 MG PO (21:25)
[2025-06-14] MEDS: TOPROL XL 25 MG PO (21:25)
[2025-06-14] MEDS: ELIQUIS 5 MG PO (21:26)
[2025-06-14] MEDS: BRILINTA 90 MG PO (21:26)
[2025-06-15] VITALS: BP 135/66
--- NOTE | 2025-06-15 01:33 | PTCARENOTE ---
Patient received on bed rest. Sinus Leo on monitor, no edema. Lungs clear, pulse ox 97% on 3L. Abdomen round. Right groin dressing intact. #20 g in left hand flushed and patent
[2025-06-15 04:00] VITALS: BP 123/74
[2025-06-15 04:32] LABS: Hematocrit 31.4 % (39.0-52.0); Hemoglobin 9.9 g/dL (13.0-18.0); Mean Corp Hgb Conc. 31.5 g/dL (33.0-37.0); Mean Corpuscular Volume 86.5 fL (80.0-94.0); Platelet Count 149 10^3/uL (130-400); Red Cell Dist. Width 15.2 % (11.5-14.5)
[2025-06-15 04:46] LABS: Blood Urea Nitrogen 11 mg/dl (9-20); Calcium 8.6 mg/dl (8.4-10.2); Carbon Dioxide 21 mmol/L (22-30); Chloride 109 mmol/L (98-107); Estimated Creatinine Clearance 89 ml/min; Glucose 133 mg/dl (70-99); Potassium 4.0 mmol/L (3.5-5.1); Sodium 136 mmol/L (135-145); eGFR > 60.00
[2025-06-15 07:31] VITALS: BP 150/80
[2025-06-15] MEDS: SYMBICORT 160/4.5 MCG INHALER 2 PUFF INH (08:02)
[2025-06-15] MEDS: SPIRIVA RESPIMAT 2.5 MCG 2 PUFF INH (08:02)
[2025-06-15] MEDS: FARXIGA 10 MG PO (08:16)
[2025-06-15] MEDS: BRILINTA 90 MG PO (08:16)
[2025-06-15] MEDS: PROTONIX 40 MG PO (08:16)
[2025-06-15] MEDS: ELIQUIS 5 MG PO (08:16)
[2025-06-15] MEDS: TOPROL XL 25 MG PO (08:16)
--- NOTE | 2025-06-15 09:27 | W.PN.CD ---
Today's Communication / Plan
-
- Stable for discharge
Impression / Plan
-
Mr. Monterroso is a very pleasant 80 yr old gentleman with medical history significant for symptomatic persistent atrial fibrillation s/p AF ablation on 05/13/23 ([facility]) who has recurrent atypical atrial flutters s/p multiple atrial
flutters ablation on 06/14/25.
Recurrent atrial flutter
- Multiple atrial flutters noted both in the right and the left atrium and biatrial flutter. Patient was going in and out of different flutters and SVTs.
- Status post ablation on 06/14/2025
- Patient was observed overnight without any complications. Remained in sinus rhythm.
- No more recurrence of arrhythmias.
- No groin hematoma or any complications.
- Stable for discharge from cardiac standpoint.
- Follow-up in cardiology in 2 weeks.
- Continue Eliquis and metoprolol 25 mg twice daily.
Physical Exam
Vital Signs/Labs
Vital Signs
Temp Pulse Resp BP Pulse Ox
97.8 F 62 16 150/80 94
06/15/25 07:39 06/15/25 09:00 06/15/25 08:05 06/15/25 07:31 06/15/25 08:05
06/14/25 06/15/25 06/16/25
06:59 06:59 06:59
Actual Weight 76.7 kg
06/15/25 04:09
06/15/25 04:09
Physical Exam
Constitutional: No acute distress and Comfortable
EENT: Anicteric and Moist mucous membranes
Cardiovascular: Rhythm & rate is regular, Pedal edema is absent and JVD pressure is normal
Respiratory: Respiratory effort normal, Lungs clear to auscul. and Wheeze Absent
GI: Soft, Distention absent, Non tender and Normal bowel sounds
Neuro/Psych: Alert, Oriented and AO x 3
Data Reviewed
-
Date of Service: June 15, 2025
Medical Decision Making: Reviewed Test Results, Test Interpretation and Review of Case with other Provider
EKG: Tracing Personally Visualized and interpreted
Labs: Labs Reviewed by me
Old Records: Reviewed
[2025-06-15 11:12] VITALS: BP 109/58
--- NOTE | 2025-06-15 11:33 | W.DS.TRANS ---
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
-
Discharge Instructions:
Sleep Apnea Risk High
Discharge Diagnosis/Procedures AFib/AFlutter, s/p ablation
Diet Low Cholesterol
Driving Restrictions No driving for 24 hours
Instructions:
Stand-Alone Forms: DC Instructions- Cath/EP Lab
Changes to Home Medications: Yes
Discharge Medications:
DC Medications w/original date entered in [employer]
ticagrelor 90 mg tablet (Brilinta) 90 mg PO BID #60 tabs 07/24/24
pantoprazole 40 mg tablet,delayed release 40 mg PO DAILY #30 tabs 07/27/24
atorvastatin 80 mg tablet 80 mg PO HS High Cholesterol 09/15/24
dapagliflozin propanediol 10 mg tablet (Farxiga) 10 mg PO DAILY Heart Failure 02/08/25
budesonide 160 mcg-glycopyr 9 mcg-formot 4.8 mcg/actuation HFA inhaler ([employer]) 2 inh inhalation BID Lung/Breathing Issues 04/05/25
nitroglycerin 0.4 mg sublingual tablet 0.4 mg sublingual Q5-15M PRN chest pain 04/05/25
potassium 99 mg PO DAILYPRN PRN when taking lasix 04/05/25
triamcinolone acetonide 0.1 % topical cream 1 applic topical DAILYPRN PRN rash 04/05/25
vit C 250 mg-vit E 90 mg-zinc 40 mg-copper 1 za-vhkcyf-ghidro capsule (PreserVision AREDS-2) 1 tab PO BID Supplement 04/05/25
apixaban 5 mg tablet (Eliquis) 5 mg PO BID Blood Clot Prevention/Tx 04/14/25
metoprolol succinate 25 mg tablet,extended release 24 hr 25 mg PO BID #60 tabs 04/19/25
furosemide 20 mg tablet 20 mg PO DAILYPRN PRN water retention 06/14/25
polysorbate 80-glycerin 1 %-1 % eye drops in a dropperette 1 drp ophthalmic (eye) BIDPRN PRN dry eyes 06/14/25
ranibizumab 0.3 mg/0.05 mL intravitreal solution for injection (Lucentis) 0.5 mg intravitreal Q4W 06/14/25
Home Medication Changes
stopped amiodarone
Pending Results: No
--- NOTE | 2025-06-15 11:56 | CM ---
Spoke with patient in room. Previously independent at baseline. Lives with in 1 story home, 2 steps to enter, has a shower bench and walker that he does not currently use. No additional DMEs or DC needs at this time. Plan to DC to home when
medically stable.
== END 2025-06-15 12:32 | disposition home or self-care (01) ==
LOC: CATH 10:07
PROVIDERS: Nurse Practitioner; ATTENDING PHYSICIAN Internal Medicine Cardiovascular Disease; FAMILY PHYSICIAN Chiropractor; OTHER PHYSICIAN Internal Medicine
DX: I48.19 Other persistent atrial fibrillation (principal); I48.4 Atypical atrial flutter; I47.19 Other supraventricular tachycardia; Z79.02 Long term (current) use of antithrombotics/antiplatelets; Z79.01 Long term (current) use of anticoagulants; Z79.899 Other long term (current) drug therapy
CPT/HCPCS: C1730; C1766; C1892; C1759; 36415; 80048; 80053; 85025; 85027; 85347; 86850; 86900; 86901; 93005; 93655; 93656; 94640; C1733; C1769; C1894

== ENCOUNTER → 2025-06-28 11:06 | Outpatient (REF) | payer OTHER, SELFPAY ==
[2025-06-28 12:50] LABS: Blood Urea Nitrogen 14 mg/dl (9-20); Calcium 9.1 mg/dl (8.4-10.2); Carbon Dioxide 24 mmol/L (22-30); Chloride 106 mmol/L (98-107); Glucose 91 mg/dl (70-99); Potassium 3.3 mmol/L (3.5-5.1); Sodium 141 mmol/L (135-145); eGFR > 60.00
== END ==
LOC: REG 11:06
PROVIDERS: ATTENDING PHYSICIAN Internal Medicine Cardiovascular Disease; FAMILY PHYSICIAN Family Medicine
DX: R06.00 Dyspnea, unspecified (principal)
CPT/HCPCS: 36415; 80048

== ENCOUNTER → 2025-06-30 10:19 | Outpatient (REF) | payer OTHER, SELFPAY ==
[2025-06-30 12:23] LABS: Hematocrit 34.3 % (39.0-52.0); Hemoglobin 10.5 g/dL (13.0-18.0); Mean Corp Hgb Conc. 30.6 g/dL (33.0-37.0); Mean Corpuscular Volume 83.7 fL (80.0-94.0); Platelet Count 215 10^3/uL (130-400); Red Cell Dist. Width 15.5 % (11.5-14.5)
== END ==
LOC: RCS 10:19
PROVIDERS: ATTENDING PHYSICIAN Nurse Practitioner Gerontology; FAMILY PHYSICIAN Family Medicine
DX: R06.02 Shortness of breath (principal)
CPT/HCPCS: 36415; 85027; 93306

== ENCOUNTER 2025-07-09 10:10 | Inpatient (IN) | payer OTHER, SELFPAY ==
[2025-07-06 14:18] VITALS: BP 142/74
[2025-07-06 14:45] LABS: Hematocrit 38.7 % (39.0-52.0); Hemoglobin 11.9 g/dL (13.0-18.0); Mean Corp Hgb Conc. 30.7 g/dL (33.0-37.0); Mean Corpuscular Volume 80.1 fL (80.0-94.0); Nucleated Red Blood Cells % 0 % (-); Platelet Count 271 10^3/uL (130-400); Red Cell Dist. Width 15.8 % (11.5-14.5)
[2025-07-06 14:54] LABS: INR 1.81; PT 21.2 Sec (11.4-14.6)
[2025-07-06 14:59] LABS: ALT (SGPT) 60 U/L (0-50); AST (SGOT) 81 U/L (17-59); Albumin 4.5 g/dl (3.5-5.0); Alkaline Phosphatase 86 U/L (38-126); Blood Urea Nitrogen 14 mg/dl (9-20); Calcium 8.9 mg/dl (8.4-10.2); Carbon Dioxide 26 mmol/L (22-30); Chloride 100 mmol/L (98-107); Glucose 108 mg/dl (70-99); Potassium 2.8 mmol/L (3.5-5.1); Sodium 137 mmol/L (135-145); Total Protein 7.3 g/dl (6.3-8.2); eGFR > 60.00
[2025-07-06 15:05] LABS: Troponin I 0.019 ng/ml
[2025-07-06 18:13] VITALS: BP 131/88
[2025-07-06 18:15] VITALS: BMI 25.5
--- NOTE | 2025-07-06 18:51 | ED.GENMED ---
History of Present Illness
<Veronica Perez, BUILDING AND GROUNDS SUPERVISOR - Last Filed: 07/06/25 22:49>
General
Chief Complaint: Breathing Problem
Source: patient
Exam Limitations: none
Time Seen by Provider: 07/06/25 18:35
Nursing documentation reviewed up to this point in time: agreed with
History of Present Illness
History of Present Illness:
80-year-old male w h/o COPD, TIA, CHF, HTN, HLD, STEMI 07/2024, WI with stent 10/13, Fem Pop Bypass Dr. Abad 03/2025, he was in for ablation a month ago by Dr. Lantigua. here
Started with 'flu like' symptoms a couple days ago, shortness of breath on exertion, went to PCP Dr. Juan who heard 'a little rattle in my lungs,' and sent him for an outpatient chest x-ray. While he was in PCP office he was found to be in A-fib.
He had an ablation [address] Phillips so Dr. Juan called Dr. Marshall to report the A-fib.
Patient states he has been short of breath ever since right after the ablation and in the recent past 2 weeks they have been adjusting his Lasix from 20 once a day to up to 40 twice daily to get excess fluid off according to who is a nurse. He
was just put back down to Lasix 20 once a day as of yesterday because he had lost 10 pounds. Patient and state his breathing has been much better since adjusting the Lasix. Patient states he would not be here for the shortness of breath. He
states he is here at the request of Dr. Marshall due to the A-fib.
states that Dr. Anderson performed ablation x 3 on this patient and he told him the next thing to do would be to put a pacemaker in.
states patient's baseline pulse ox is 91 to 93% due to COPD.
Pt denies CP, Abd pain, fever, n/v/d/c.
Past History
<Veronica Perez, BUILDING AND GROUNDS SUPERVISOR - Last Filed: 07/06/25 22:49>
Past History
ED Past Medical History: Arrthythmia, CAD and COPD; Negative CHF
ED Past Surgical History: Cardiac
PSI?: No
Social History
Tobacco: Non-smoker
Alcohol: Occasional
Drug: None
Personal:
Living: with family
Employment: Employed
Family History
Family History: CAD
Review of Systems
<Veronica Perez, BUILDING AND GROUNDS SUPERVISOR - Last Filed: 07/06/25 22:49>
Review of Systems
Allergies reviewed?: Yes
All Other Systems: ROS reviewed and negative except as documented in HPI and ROS
Phy Exam
<Veronica Perez, BUILDING AND GROUNDS SUPERVISOR - Last Filed: 07/06/25 22:49>
Physical Exam
Physical Exam:
GENERAL: No acute distress. A&Ox3.
CONSTITUTIONAL: Afebrile.
EYES: clear, conjunctivae normal
ENMT: moist mucus membranes, Pharynx nl
RESPIRATORY: Regular respirations, nonlabored, lungs clear.
CARDIOVASCULAR: Irregular rhythm, controlled rate A-fib on monitor rate 90-110, no murmurs, no rubs.
GI: Soft, nontender, normal BS
MUSCULOSKELETAL: Moves with ease. Well perfused. No edema
SKIN: Warm, dry, pink
PSYCH: Normal mood and affect. Well kept, interactive and appropriate
NEUROLOGIC: Awake, alert and oriented. No focal neurological deficits
Scores
<Veronica Perez, BUILDING AND [employer]OUNDS SUPERVISOR - Last Filed: 07/06/25 22:49>
Heart Failure Risk
Heart Failure Risk Score: Not Applicable
Course
<Veronica Perez, BUILDING AND GROUNDS SUPERVISOR - Last Filed: 07/06/25 22:49>
Orders/Labs/Results
Orders:
Orders
07/06/25 Breakfast
Sodium, 2 Gram
At Your Request: Full Participation
07/06/25 14:09
EKG [Electrocardiogram (*1)] Urgent
Reason for Study: Shortness of Breath
EKG- Treatment ONCE
07/06/25 14:30
Complete Blood Count/With Diff Urgent
Comprehensive Metabolic Panel Urgent
Magnesium Urgent
Comment: ADDON
PT/INR [Prothrombin Time] Urgent
Pro-BNP [NT-proBNP] Urgent
Troponin I Urgent
07/06/25 18:30
COVID-19 Antigen Urgent
Source: Nasal Swab
Influenza A+B Rapid Molecular Urgent
RADHA Source: Nasal Swab
Specimen Description:
07/06/25 19:13
Add On- LAB Urgent
Tests Added?: magnesium
07/06/25 19:34
Potassium Chloride [KCl] 40 meq 0.9% Sodium Chloride 250 ml [Nss] 250 ml IV NOW
07/06/25 20:10
Admit/Transfer Patient As Directed
Co-Sign Provider:
Level of Care: Observation services
Assign to:: Telemetry
Physician / Group: Ferdinand
Diagnosis: Hypokalemia
Reason for Telemetry: Arrhythmia
Date to Stop Telemetry: 07/09/25
Time to Stop Telemetry: 11:00
07/06/25 20:11
PRN Pain Medication Management As Directed
May give lesser potent ordered pain med per pt: Yes
preference::
Protocol:: Medication orders for pain may be administered in a
manner that supports deferring to patient preference
when the pt is:
- Requesting an ordered lesser potent pain medication.
Least to most potent pain medications are defined
as: acetaminophen < NSAID < tramadol < opioids
(morphine, oxycodone, hydromorphone).
- Requesting a lesser dose of the same medication IF
ORDERED.
- Requesting a less intrusive route of administration
if both routes are prescribed by the provider (PO <
IV).
07/06/25 20:13
Code Status As Directed
Resuscitation Status: Full Code
07/06/25 20:15
Potassium Chloride 10% Elixir [KCl Elixir] 40 meq PO NOW STA
07/06/25 21:23
Acetaminophen [Tylenol] 650 mg PO Q4HPRN PRN
07/06/25 21:23
CARDIOLOGY CONSULT Routine
Consulting Provider: Willian Junior
Was physician already notified: Yes
Activity As Directed
Activity Level: Out of Bed-Early Mobility
With Assistance
Vital Signs As Directed
Frequency: Per unit guidelines
Weight As Directed
Frequency: Daily
07/06/25 22:00
Atorvastatin [Lipitor] 80 mg PO HS
07/06/25 23:50
Potassium Routine
07/07/25 06:00
Basic Metabolic Panel IN AM
07/07/25 08:00
Apixaban [Eliquis] 5 mg PO BID
Dapagliflozin [Farxiga] 10 mg PO DAILY
Metoprolol Xl [Toprol Xl] 25 mg PO BID
Pantoprazole [Protonix] 40 mg PO DAILY
Spironolactone [Aldactone] 25 mg PO DAILY
Ticagrelor [Brilinta] 90 mg PO BID
aezufpdmae-sweqzgpx-zafwqwufnf [Breztri Aerosphere] 2 inh INH BID
07/09/25 11:00
DC Protocol for Telemetry ONCE
Abnormal Lab Results
07/06/25
14:30
Hgb 11.9 L g/dL
(13.0-18.0)
Hct 38.7 L %
(39.0-52.0)
MCH 24.6 L pg
(27.0-31.0)
MCHC 30.7 L g/dL
(33.0-37.0)
RDW 15.8 H %
(11.5-14.5)
MPV 11.2 H fL
(7.4-10.4)
Absolute Neuts (auto) 7.6 H 10^3/uL
(1.4-6.5)
Absolute Lymphs (auto) 0.6 L 10^3/uL
(1.2-3.4)
Neutrophils % 87.1 H %
(42.2-75.2)
Lymphocytes % 6.5 L %
(20.5-51.1)
PT 21.2 H Sec
(11.4-14.6)
Potassium 2.8 L mmol/L
(3.5-5.1)
Glucose 108 H mg/dl
(70-99)
AST 81 H U/L
(17-59)
ALT 60 H U/L
(0-50)
07/06/25 14:30
07/06/25 14:30
Vital Signs
Initial and Last Documented VS:
Initial Vital Signs
Temp Pulse Resp BP Pulse Ox
97.4 F 77 20 142/74 95
07/06/25 14:18 07/06/25 14:18 07/06/25 14:18 07/06/25 14:18 07/06/25 14:18
Last Documented Vital Signs
Temp Pulse Resp BP Pulse Ox
97.4 F 100 21 99/67 91
07/06/25 14:18 07/06/25 20:15 07/06/25 20:15 07/06/25 20:00 07/06/25 20:15
<Gagan Duke, DO - Last Filed: 07/06/25 19:43>
Orders/Labs/Results
Orders:
Orders
07/06/25 Breakfast
Sodium, 2 Gram
At Your Request: Full Participation
07/06/25 14:09
EKG [Electrocardiogram (*1)] Urgent
Reason for Study: Shortness of Breath
EKG- Treatment ONCE
07/06/25 14:30
Complete Blood Count/With Diff Urgent
Comprehensive Metabolic Panel Urgent
Magnesium Urgent
Comment: ADDON
PT/INR [Prothrombin Time] Urgent
Pro-BNP [NT-proBNP] Urgent
Troponin I Urgent
07/06/25 18:30
COVID-19 Antigen Urgent
Source: Nasal Swab
Influenza A+B Rapid Molecular Urgent
RADHA Source: Nasal Swab
Specimen Description:
07/06/25 19:13
Add On- LAB Urgent
Tests Added?: magnesium
07/06/25 19:34
Potassium Chloride [KCl] 40 meq 0.9% Sodium Chloride 250 ml [Nss] 250 ml IV NOW
07/06/25 20:10
Admit/Transfer Patient As Directed
Co-Sign Provider:
Level of Care: Observation services
Assign to:: Telemetry
Physician / Group: Ferdinand
Diagnosis: Hypokalemia
Reason for Telemetry: Arrhythmia
Date to Stop Telemetry: 07/09/25
Time to Stop Telemetry: 11:00
07/06/25 20:11
PRN Pain Medication Management As Directed
May give lesser potent ordered pain med per pt: Yes
preference::
Protocol:: Medication orders for pain may be administered in a
manner that supports deferring to patient preference
when the pt is:
- Requesting an ordered lesser potent pain medication.
Least to most potent pain medications are defined
as: acetaminophen < NSAID < tramadol < opioids
(morphine, oxycodone, hydromorphone).
- Requesting a lesser dose of the same medication IF
ORDERED.
- Requesting a less intrusive route of administration
if both routes are prescribed by the provider (PO <
IV).
07/06/25 20:13
Code Status As Directed
Resuscitation Status: Full Code
07/06/25 20:15
Potassium Chloride 10% Elixir [KCl Elixir] 40 meq PO NOW STA
07/06/25 21:23
Acetaminophen [Tylenol] 650 mg PO Q4HPRN PRN
07/06/25 21:23
CARDIOLOGY CONSULT Routine
Consulting Provider: Willian Junior
Was physician already notified: Yes
Activity As Directed
Activity Level: Out of Bed-Early Mobility
With Assistance
Vital Signs As Directed
Frequency: Per unit guidelines
Weight As Directed
Frequency: Daily
07/06/25 22:00
Atorvastatin [Lipitor] 80 mg PO HS
07/06/25 23:50
Potassium Routine
07/07/25 06:00
Basic Metabolic Panel IN AM
07/07/25 08:00
Apixaban [Eliquis] 5 mg PO BID
Dapagliflozin [Farxiga] 10 mg PO DAILY
Metoprolol Xl [Toprol Xl] 25 mg PO BID
Pantoprazole [Protonix] 40 mg PO DAILY
Spironolactone [Aldactone] 25 mg PO DAILY
Ticagrelor [Brilinta] 90 mg PO BID
tktjtpodte-zcbnsvvw-vwzgxrjcir [Breztri Aerosphere] 2 inh INH BID
07/09/25 11:00
DC Protocol for Telemetry ONCE
Abnormal Lab Results
07/06/25
14:30
Hgb 11.9 L g/dL
(13.0-18.0)
Hct 38.7 L %
(39.0-52.0)
MCH 24.6 L pg
(27.0-31.0)
MCHC 30.7 L g/dL
(33.0-37.0)
RDW 15.8 H %
(11.5-14.5)
MPV 11.2 H fL
(7.4-10.4)
Absolute Neuts (auto) 7.6 H 10^3/uL
(1.4-6.5)
Absolute Lymphs (auto) 0.6 L 10^3/uL
(1.2-3.4)
Neutrophils % 87.1 H %
(42.2-75.2)
Lymphocytes % 6.5 L %
(20.5-51.1)
PT 21.2 H Sec
(11.4-14.6)
Potassium 2.8 L mmol/L
(3.5-5.1)
Glucose 108 H mg/dl
(70-99)
AST 81 H U/L
(17-59)
ALT 60 H U/L
(0-50)
07/06/25 14:30
07/06/25 14:30
Vital Signs
Initial and Last Documented VS:
Initial Vital Signs
Temp Pulse Resp BP Pulse Ox
97.4 F 77 20 142/74 95
07/06/25 14:18 07/06/25 14:18 07/06/25 14:18 07/06/25 14:18 07/06/25 14:18
Last Documented Vital Signs
Temp Pulse Resp BP Pulse Ox
97.4 F 100 21 99/67 91
07/06/25 14:18 07/06/25 20:15 07/06/25 20:15 07/06/25 20:00 07/06/25 20:15
Dejanlt;Veronica Perez, BUILDING AND GROUNDS SUPERVISOR - Last Filed: 07/06/25 22:49>
MDM/Problems Addressed
Differential Diagnosis Includes:
A-fib with RVR, electrolyte imbalance
MDM/Problems Addressed:
80-year-old male w h/o COPD, TIA, CHF, HTN, HLD, STEMI 07/2024, WI with stent 10/13, Fem Pop Bypass Dr. Abad 03/2025, he was in for ablation a month ago by Dr. Lantigua. here
Started with 'flu like' symptoms a couple days ago, shortness of breath on exertion, went to PCP Dr. Juan who heard 'a little rattle in my lungs,' and sent him for an outpatient chest x-ray. While he was in PCP office he was found to be in A-fib.
He had an ablation [address] Phillips so Dr. Juan called Dr. Marshall to report the A-fib.
Patient states he has been short of breath ever since right after the ablation and in the recent past 2 weeks they have been adjusting his Lasix from 20 once a day to up to 40 twice daily to get excess fluid off according to who is a nurse. He
was just put back down to Lasix 20 once a day as of yesterday because he had lost 10 pounds. Patient and state his breathing has been much better since adjusting the Lasix. Patient states he would not be here for the shortness of breath. He
states he is here at the request of Dr. Marshall due to the A-fib.
states that Dr. Anderson performed ablation x 3 on this patient and he told him the next thing to do would be to put a pacemaker in.
states patient's baseline pulse ox is 91 to 93% due to COPD.
Pt denies CP, Abd pain, fever, n/v/d/c.
Afebrile, NAD
HR on bedside monitor: Afib HR 90-110
7:20 p.m.
CBC with no clinically significant abnormality
CMP: Potassium 2.8
BNP normal 711
Troponin within normal limits 0.019
Covid neg
Flu neg
CXR from out pt: NAD
Case discussed with Dr. Duke who agrees with admission, replete potassium, check magnesium
Hospitalist notified of admission
<Veronica Perez BUILDING AND GROUNDS SUPERVISOR - Last Filed: 07/06/25 22:49>
*Pulse Oximetry
SaO2: 95
Oxygen Mode of Delivery: Room air
Patient hypoxic: no
*Critical Care Note
Total Time (30-74mins, 75-104mins- exclusive of procedures): Not Applicable
ED Attending Note
<Veronica Perez BUILDING AND GROUNDS SUPERVISOR - Last Filed: 07/06/25 22:49>
-
Portions of this chart may have been created with voice recognition software.� Occasional wrong word or��sound alike� substitutions may have occurred due to the inherent limitations of voice recognition software.
<Gagan Duke DO - Last Filed: 07/06/25 19:43>
ED Attending Note
Patient seen and examined by attending physician: Yes
ED Attending Note:
I have reviewed and agree with history treatment plan by Brynn Perez DNP. My exam revealed 80-year-old male with irregular rhythm, but rate controlled atrial fibrillation. Lungs clear. Patient with controlled atrial fibrillation hypokalemia.
Admit to replete potassium and monitor atrial fibrillation.
Discharge Plan
Departure
Patient Disposition: Admit
Date of Disposition: 07/06/25
Time of Disposition: 19:28
Admit to: Telemetry
Presentation/result/management discussed w/ accepting MD/DO: Hospitalist
Condition: Fair
Covid-19: Negative COVID-19
Discharge Problem:
Acute hypokalemia, Atrial fibrillation
Interventions
Interventions:
*General Assessment Last Done: 07/06/25 18:17
*Neglect/Abuse Screening Last Done: 07/06/25 18:17
*ED COVID-19 Vaccine History Last Done: 07/06/25 18:17
*ED Influenza Vaccine History Last Done: 07/06/25 18:17
[facility] Risk Assessment Tool Last Done: 07/06/25 18:17
*Risk Screen - Suicide (C-SSRS) Last Done: 07/06/25 18:17
ED- Cardiac Assessment Last Done: 07/06/25 18:17
ED- Pulmonary Assessment Last Done: 07/06/25 18:17
[2025-07-06 18:54] LABS: COVID-19 Antigen Negative (Negative)
[2025-07-06 19:00] VITALS: BP 130/85
[2025-07-06 19:48] LABS: Magnesium 2.2 mg/dl (1.6-2.3)
[2025-07-06 20:00] VITALS: BP 99/67
--- NOTE | 2025-07-06 20:16 | HPS.HSE ---
Addendum entered and electronically signed by Francisco Streeter DO 07/06/25 21:31:
Patient seen and examined independently. Agree with findings and plan as set forth by Shireen Vaughn PA-C.
Patient is an 80y M with PMH significant for ASCVD, COPD and A-Fib s/p ablation x 3 - most recent was 06/14/25. Patient presented to ED for evaluation of cough and SOB. He notes that he took Lasix 40mg BID x 1 week and lost about 10 lbs during
that time. His symptoms did not significantly improve despite weight loss. He presented today primarily to get an x-ray (this was unremarkable) and on labs was noted to be hypokalemic with K = 2.8.
Ass:
Hypokalemia secondary to diuretics
Persistent Atrial Fibrillation s/p Multiple Ablations
Chronic HFpEF
ASCVD (CAD / PAD)
Benign Hypertension
COPD without Acute Exacerbation
Plan:
Observe overnight for further evaluation and treatment.
Replace potassium PO and IV.
Magnesium level is adequate.
Hold further loo[p diuretic for now. Continue usual spironolactone.
Follow BP, I/Os, daily weights, etc.
Cardiology evaluation in the AM for recurrent / persistent A-Fib s/p ablation.
Continue other usual home medications.
Original Note:
Family Physician
-
Family Physician: Wolfgang Juan
Chief Complaint
-
Recurrent A-Fib
History of Present Illness
Patient is an 80 y/o male past medical history of ASCVD, COPD, and atrial fibrillation s/p ablation on Jun 14 who presents with cough and recurrent atrial fibrillation. Patient reports he has been dealing with shortness of breath since the
ablation. He was started on Lasix 40mg BID last week which he took for 5 days, and notes he lost about 10lbs. He saw his PCP today with complaint of cough and his PCP sent him for a chest x-ray. Patient's ECG in the office showed recurrent atrial
fibrillation, and cardiology referred him to the emergency department for evaluation.
Medical History
Past Medical History
Past Medical History: Reports Other
Additional Past Medical History:
Coronary Artery Disease s/p stent (September 2024)
Peripheral Arterial Disease s/p Left Fem-Pop Bypass (Mar 2025)
Paroxysmal Atrial Fibrillation
Essential Hypertension
Hyperlipidemia
Emphysema / COPD
Rectal / Colon Cancer
Past Surgical History: Reports None
Additional Past Surgical History:
Left Fem-Pop Bypass
Social History
Tobacco: Non-smoker
Alcohol: Occasional
Drug: None
Personal: Partner
Family History
Family History: Not pertinent
Allergies / Home Medications
Allergies reflects when Allergies were last updated in [employer].
Home Medications with original date entered in [employer]
Allergy/Medication List:
Allergies
Allergy/AdvReac Type Severity Reaction Status Date / Time
clopidogrel (From Plavix) Allergy Rash Verified 07/06/25 14:18
Home Medications
ticagrelor 90 mg tablet (Brilinta) 90 mg PO BID #60 tabs 07/24/24
pantoprazole 40 mg tablet,delayed release 40 mg PO DAILY #30 tabs 07/27/24
atorvastatin 80 mg tablet 80 mg PO HS High Cholesterol 09/15/24
dapagliflozin propanediol 10 mg tablet (Farxiga) 10 mg PO DAILY Heart Failure 02/08/25
budesonide 160 mcg-glycopyr 9 mcg-formot 4.8 mcg/actuation HFA inhaler (Breztri Aerosphere) 2 inh inhalation BID Lung/Breathing Issues 04/05/25
nitroglycerin 0.4 mg sublingual tablet 0.4 mg sublingual Q5-15M PRN chest pain 04/05/25
triamcinolone acetonide 0.1 % topical cream 1 applic topical DAILYPRN PRN rash 04/05/25
vit C 250 mg-vit E 90 mg-zinc 40 mg-copper 1 [id number] capsule (PreserVision AREDS-2) 1 tab PO BID Supplement 04/05/25
apixaban 5 mg tablet (Eliquis) 5 mg PO BID Blood Clot Prevention/Tx 04/14/25
metoprolol succinate 25 mg tablet,extended release 24 hr 25 mg PO BID #60 tabs 04/19/25
furosemide 20 mg tablet 20 mg PO DAILY 06/14/25
polysorbate 80-glycerin 1 %-1 % eye drops in a dropperette 1 drp ophthalmic (eye) BIDPRN PRN dry eyes 06/14/25
ranibizumab 0.3 mg/0.05 mL intravitreal solution for injection (Lucentis) 0.5 mg intravitreal Q4W 06/14/25
spironolactone 25 mg tablet 25 mg PO DAILY 07/06/25
Review of Systems
-
A 12 point ROS was completed and negative except as noted: Yes
Constitutional: Denies Fever or Chills
Respiratory: Reports Cough
Cardiac: Denies Chest Pain or Palpitations
Physical Exam
Vital Signs
Vital Signs
Temp Pulse Resp BP Pulse Ox
97.4 F 93 24 131/88 95
07/06/25 14:18 07/06/25 18:45 07/06/25 18:45 07/06/25 18:13 07/06/25 18:54
Physical Exam
General: Comfortable and Conversant
HEENT: Anicteric and Moist mucous membranes
Respiratory: Clear and Non Labored Respirations
Cardiac: S1/S2 and Irregular Rhythm; No Tachycardia
GI: Soft and Non Tender
Rectal: Deferred by Provider
Musculoskeletal: No Clubbing, No Cyanosis and No Edema
Skin: Warm and Dry
Neuro: Awake, Alert, Oriented and Nonfocal/grossly intact
Psych: Calm
Laboratory Results
-
07/06/25 14:30
07/06/25 14:30
Laboratory Results
PT 21.2 Sec (11.4-14.6) H 07/06/25 14:30
INR 1.81 07/06/25 14:30
Total Bilirubin 1.2 mg/dl (0.2-1.3) 07/06/25 14:30
AST 81 U/L (17-59) H 07/06/25 14:30
ALT 60 U/L (0-50) H 07/06/25 14:30
Alkaline Phosphatase 86 U/L (38-126) 07/06/25 14:30
Troponin I 0.019 ng/ml 07/06/25 14:30
Data Reviewed
-
Lab Data: Labs Reviewed by me
Old Records: Reviewed
Impression/Plan
-
Hypokalemia secondary to diuretics
-Potassium 40meq IV given in ED
-Give Potassium 40mEq PO now
-Recheck potassium level later this evening and in AM
Paroxysmal Atrial Fibrillation s/p Ablation on June 14
-Patient appears to be back in a-fib
-Continue metoprolol for rate control
-Continue Eliquis for anticoagulation
-Consult Cardiology
Subacute HFpEF
-Patient appears euvolemic following increased diuretics as outpatient last week
-Continue Lasix 20mg Daily
-Continue spironolactone
-Continue dapagliflozin
Coronary Artery Disease s/p stent (September 2024)
Peripheral Arterial Disease s/p Left Fem-Pop Bypass (Mar 2025)
-Continue Brilinta
Essential Hypertension
-Continue metoprolol
Hyperlipidemia
-Continue atorvastatin
Emphysema / COPD, no acute exacerbation
-Continue Breztri
DVT proph: Eliquis
Code Status: Full Code
[2025-07-06] MEDS: KCL 270 MEQ IV (20:18)
[2025-07-06] MEDS: KCL ELIXIR 40 MEQ PO (20:34)
[2025-07-06 21:00] VITALS: BP 94/79
[2025-07-06 22:00] VITALS: BP 105/89
[2025-07-06] MEDS: LIPITOR 80 MG PO (22:22)
[2025-07-07] VITALS (9 sets, daily range): BP systolic 106–151; BP diastolic 71–96; BMI 25.0; BMI 25.1
[2025-07-07 00:41] LABS: Potassium 3.9 mmol/L (3.5-5.1)
[2025-07-07 06:57] LABS: Blood Urea Nitrogen 14 mg/dl (9-20); Calcium 8.4 mg/dl (8.4-10.2); Carbon Dioxide 25 mmol/L (22-30); Chloride 105 mmol/L (98-107); Estimated Creatinine Clearance 76 ml/min; Glucose 91 mg/dl (70-99); Potassium 3.5 mmol/L (3.5-5.1); Sodium 137 mmol/L (135-145); eGFR > 60.00
[2025-07-07] MEDS: ELIQUIS 5 MG PO ×2 (08:20→20:48)
[2025-07-07] MEDS: ALDACTONE 25 MG PO (08:20)
[2025-07-07] MEDS: PROTONIX 40 MG PO (08:20)
[2025-07-07] MEDS: FARXIGA 10 MG PO (08:20)
[2025-07-07] MEDS: BRILINTA 90 MG PO ×2 (08:29→20:48)
[2025-07-07] MEDS: TOPROL XL 25 MG PO ×2 (08:29→20:48)
[2025-07-07] MEDS: SYMBICORT 160/4.5 MCG INHALER 2 PUFF INH ×2 (08:52→20:30)
[2025-07-07] MEDS: SPIRIVA RESPIMAT 2.5 MCG 2 PUFF INH (08:52)
--- NOTE | 2025-07-07 09:51 | CON.CAR ---
Addendum entered and electronically signed by Willian Junior MD 07/07/25 13:47:
Patient seen and examined in collaboration with [employer]; agree with below.
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
recent atrial flutter ablation (06/10/2025), moderate aortic stenosis, hypertension, hyperlipidemia, COPD, and PVD presenting with shortness of breath. The patient was diuresed aggressively over the past several days and had a 10 pound weight loss,
but presented to the ER yesterday with A-fib with RVR and hypokalemia.
- Exam: Irregular rate and rhythm, tachycardic; lungs clear to auscultation bilaterally.
- Plan: Patient will be scheduled to undergo SNOW/cardioversion tomorrow, as he did not receive a dose of Eliquis while in the ER last evening.
- Continue property assessment monitor; will follow.
Original Note:
Consultation
Consultation Request
Date/Time Consultation Requested: 07/06/252122
Date/Time Consultation Performed: 07/06/25951
Requesting Provider: Shireen KIM
Performing Provider: Tati CURRIE for Dr. Junior
Reason for Consultation: AFIB
Medical History
-
Chief Complaint: AFIB
History of Present Illness:
80 y/o male with CAD with hx STEMI and stenting 07/2024, HFimpEF (was 45-50%, most recently 56%), AFIB and aflutter s/p AFIB ablation 2022 and atrial flutter ablation 06/14/2025, hypertension, moderate aortic stenosis, hyperlipidemia, COPD, and PVD
with intervention by Dr. Abad 03/2025. He was seen in our office after ablation and reported SOB. Echo showed no pericardial effusion, but he was felt to be volume overloaded and Lasix was increased. He reports 10 lb weight loss with this and
improvement with SOB. He saw his PCP for a sinus issue, but was sent to ER with AFIB with RVR. Labs in ER revealed hypokalemia, which has since been replaced. He is in no distress at the time of my assessment. He was compliant with Eliquis at home,
but did miss a dose while in the ER last night. HR currently around 110 BPM in AFIB.
Past Medical History
Past Medical History: CAD, CHF, COPD, HTN, Hypercholesterolemia, Valvular Disease and Other (as above)
Family History
Family History: Reviewed & Not Pertinent
Allergies / Home Medications
Allergy/AdvReac Type Severity Reaction Status Date / Time
clopidogrel (From Plavix) Allergy Rash Verified 07/06/25 14:18
�Medication �Instructions �Recorded �Confirmed �Type
ticagrelor 90 mg tablet (Brilinta) 90 mg PO BID #60 tabs 07/24/24 07/06/25 Rx
pantoprazole 40 mg tablet,delayed 40 mg PO DAILY #30 tabs 07/27/24 07/07/25 Rx
release
atorvastatin 80 mg tablet 80 mg PO HS High Cholesterol 09/15/24 07/07/25 History
dapagliflozin propanediol 10 mg 10 mg PO DAILY Heart Failure 02/08/25 07/07/25 History
tablet (Farxiga)
budesonide 160 mcg-glycopyr 9 2 inh inhalation R BID 04/05/25 07/07/25 History
mcg-formot 4.8 mcg/actuation HFA Lung/Breathing Issues
inhaler (Breztri Aerosphere)
nitroglycerin 0.4 mg sublingual 0.4 mg sublingual [id number] PRN 04/05/25 07/07/25 History
tablet chest pain
triamcinolone acetonide 0.1 % 1 applic topical DAILYPRN PRN rash 04/05/25 07/06/25 History
topical cream
vit C 250 mg-vit E 90 mg-zinc 40 1 tab PO BID Supplement 04/05/25 07/07/25 History
mg-copper 1 hc-onsotq-oshudy
capsule (PreserVision AREDS-2)
apixaban 5 mg tablet (Eliquis) 5 mg PO BID Blood Clot 04/14/25 07/07/25 History
Prevention/Tx
metoprolol succinate 25 mg 25 mg PO BID #60 tabs 04/19/25 07/07/25 Rx
tablet,extended release 24 hr
furosemide 20 mg tablet 20 mg PO DAILY 06/14/25 07/07/25 History
spironolactone 25 mg tablet 25 mg PO DAILY 07/06/25 07/06/25 History
aflibercept-ayyh 2 mg/0.05 mL 2 mg intravitreal Q4W left eye 07/07/25 07/07/25 History
intravitreal solution (Pavblu)
peg 400-propylene glycol (PF) 0.4 1 drp BOTH EYES TIDPRN PRN dryness 07/07/25 07/07/25 History
%-0.3 % eye drops in a dropperette
Review of Systems
-
History Source: Patient
All other systems: Negative unless noted
Respiratory: Trouble Breathing (improved with lasix) and Other (sinus congestion symptoms)
Physical Exam
Vital Signs
Temp Pulse Resp BP Pulse Ox
97.6 F 110 18 131/83 94
07/07/25 07:15 07/07/25 08:57 07/07/25 08:57 07/07/25 04:00 07/07/25 06:15
Lab Results
07/06/25 14:30
07/07/25 06:19
Troponin I 0.019 ng/ml 07/06/25 14:30
Gyl-Z-Ykfriknfiem Pept 711 pg/ml 07/06/25 14:30
Physical Exam
General: Well Developed, Well Nourished and No Apparent Distress
HEENT: Normocephalic and Anicteric
Respiratory: Clear and Non Labored Respirations
Cardiac: Irregular Rhythm
Musculoskeletal: No Edema
Skin: Warm and Dry
Neuro: AO x 3
Psych: Calm
Impression / Plan
-
AFIB (persistent), aflutter (atypical):
-s/p AFIB ablation 05/13/23
-s/p ablation Dr. Meade 06/14/25: supraventricular tachycardia ablation with ablation of various atypical flutters including tom mitral flutter, tom left atrial septal flutter, Biatrial flutter, right atrial lateral wall flutter, focal atrial
tachycardia from ashley terminalis, cavotricuspid flutter and posterior wall isolation
-continue Eliquis and metoprolol
-SNOW/CV in AM (missed dose Eliquis in ER last night)
-of note, was previously on amiodarone and stopped after recent ablation
CAD with hx stenting:
-stable without CP
-continue Brilinta/Eliquis
HFimpEF: chronic
-recent echo as below
-volume status stable after recent course of increased diuretic. Continue current PO diuretics (Lasix/spironolactone). Continue Farxiga.
Hypokalemia:
-resolved s/p replacement
-monitor closely
COPD:
-stable without wheezing
Moderate :
-monitor as OP over time with echo
Data:
Echo 06/30/25: Left ventricular ejection fraction is normal with an ejection fraction of 56 % by Munoz's biplane method of discs. Basal inferior wall segments are hypokinetic. Right ventricular cavity size cavity is mildly dilated with low normal
function. Stage I diastolic dysfunction suggestive of abnormal relaxation. Moderate aortic valve stenosis. Mild aortic regurgitation. Mild to moderate tricuspid regurgitation. Estimated pulmonary artery pressure of 60 mmHg assuming a right atrial
pressure of 15 mmHg. Inferior vena cava is dilated and does not show respiratory changes. No evidence of pericardial effusion. When compared to the prior echo on 02/09/25, ejection fraction is improved from 45-50% to>55%. PASP as increased from
normal to 60mmHg with inferior vena cava dilation. Of note, RV dilation is not new.
Data Reviewed
-
EKG: Tracing Personally Visualized and interpreted (AFIB with RVR, 110 BPM)
Radiology: Report Reviewed by me (CXR: No acute cardiopulmonary process.)
Medical Tests (Nuc Med, Echo etc): Report Reviewed by me (echo as noted)
Labs: Labs Reviewed by me
[2025-07-07 12:26] LABS: Glucose - Point of Care 93 mg/dl (70-99)
[2025-07-07 12:26] LABS: Glucose - Point of Care 109 mg/dl (70-99)
--- NOTE | 2025-07-07 13:48 | W.PN.HOSP.TC ---
Today's Communication/Plan
-
Potassium improved
Cardiology recommends SNOW/CV tomorrow
Assessment / Plan
Assessment / Plan
80M with paroxysmal A-fib, CHF, CAD, HTN, who presents with hypokalemia, A-fib.
Hypokalemia
Suspect secondary to diuretics
Repleted with IV and oral potassium
Improved to 3.5
Persistent A-fib
s/p Ablation on 06/14/25
EKG again shows A-fib
-Continue metoprolol for rate control
-Continue Eliquis for anticoagulation
-Consulted Cardiology, plan is for SNOW/CVN in a.m.
Subacute HFpEF
-Patient appears euvolemic following increased diuretics as outpatient last week
-Continue Lasix 20mg Daily
-Continue spironolactone
-Continue dapagliflozin
Coronary Artery Disease
s/p stent (September 2024)
Peripheral Arterial Disease s/p Left Fem-Pop Bypass (Mar 2025)
-Continue Brilinta
-Continue atorvastatin
Essential Hypertension
BP controlled
-Continue metoprolol
Emphysema / COPD
no acute exacerbation
-Continue Breztri
DVT ppx
Eliquis
Anticipated Discharge: 24 - 48 hours
Subjective/Interval History
-
Date of Service: July 07, 2025
Patient seen in a.m. reports he feels well this morning, denies shortness of breath, chest pain, palpitation
Objective Data
-
Labs:
Laboratory Results
07/07/25
06:19
Sodium 137
Potassium 3.5
Chloride 105
Carbon Dioxide 25
BUN 14
Creatinine 0.7
Glucose 91
Calcium 8.4
Vital Signs:
Vital Signs
Temp Pulse Resp BP Pulse Ox
97.5 F 105 19 129/82 92
07/07/25 11:09 07/07/25 13:30 07/07/25 13:30 07/07/25 12:00 07/07/25 13:15
Review of Systems
-
History Source: Patient
All other systems: Reviewed and negative
Physical Exam
-
General: No Apparent Distress
HEENT: Moist Mucous Membranes, Anicteric and PERRLA
Respiratory: Clear to Auscultation; Negative Wheezes, Rales or Rhonchi
Cardiac: S1/S2 and Irregular Rhythm; Negative Murmur, Rub or Gallop
GI: Soft, Nontender, Nondistended and Normal Bowel Sounds
Musculoskeletal: No Edema
Skin: Warm and Dry; Negative Rash, Ulcers or Lesions
Neuro: Awake and AO x 3
Hematologic / Lymphatic: No Lymphadenopathy
Psych: Calm
Data Reviewed
-
Labs: Labs Reviewed by me and Discussed with Patient
--- NOTE | 2025-07-07 16:09 | EDCM ---
Reviewed chart and met with pt bedside in ED. Lives with SO in [address] [place], [address].
Pt address is [address]
Independent in ADLs, personal care and ambulation at baseline. Does not use assistive device but does have a walker at home.
PMH includes Afib, anemia, COPD, GERD, CHF, TIA, Cardiomyopathy, HTN, HLD and CAD.
Per pt he is scheduled for SNOW and Cardioversion tomorrow.
AYALA reviewed and signed.
Confirms prescription coverage.
No hx HH or SNF
PCP: Wolfgang Juan
Pharmacy: [facility]
Anticipate discharge home, no needs. CM will continue to follow for all discharge planning needs.
[2025-07-07] MEDS: LIPITOR 80 MG PO (20:50)
[2025-07-08] VITALS (8 sets, daily range): BP systolic 123–149; BP diastolic 66–100; BMI 25.0
[2025-07-08] MEDS: ELIQUIS 5 MG PO ×2 (07:16→19:53)
--- NOTE | 2025-07-08 09:01 | W.CS.TEE ---
Transesophageal Echo Report
-
Pre procedure diagnosis:�Atrial Fibrillation
Post procedure diagnosis: Atrial Fibrillation
Sedation: per anesthesia
Procedure: Transesophageal Echocardiogram.
Patient was positively identified, and procedure time was taken. Informed consent signed. Correct patient position. Relevant images and results reviewed prior to procedure. Patient history and medications reviewed. Agreement to proceed.
SNOW Performed without difficulty. O2 sat, BP and HR remained stable with the use of supplemental O2.��
A full report of the SNOW is contained within another document.
--- NOTE | 2025-07-08 09:02 | ITS.CL.CARDI ---
Addendum entered and electronically signed by Ted Chang MD 07/08/25 09:18:
Procedure: Successful synchronized biphasic cardioversion with 200 Joules to Sinus Bradycardia
Original Note:
Program Specialist - Cardioversion
Cardioversion
Procedure Report:
Sedation: per anesthesia
Procedure: Successful/Unsuccessful synchronized biphasic cardioversion with 200 Joules to Sinus Bradycardia
Patient was positively identified, and procedure time was taken. Informed consent obtained. Correct patient position. Relevant images and results reviewed prior to procedure. Patient history and medications reviewed. Agreement to proceed.
Pre-op Diagnosis: afib
Post-op Diagnosis: Same
Patient was taken to the recovery area in stable condition.
[2025-07-08 09:24] LABS: Blood Urea Nitrogen 12 mg/dl (9-20); Calcium 8.7 mg/dl (8.4-10.2); Carbon Dioxide 25 mmol/L (22-30); Chloride 105 mmol/L (98-107); Estimated Creatinine Clearance 67 ml/min; Glucose 83 mg/dl (70-99); Magnesium 2.2 mg/dl (1.6-2.3); Potassium 3.9 mmol/L (3.5-5.1); Sodium 138 mmol/L (135-145); eGFR > 60.00
[2025-07-08] MEDS: FARXIGA 10 MG PO (09:50)
[2025-07-08] MEDS: BRILINTA 90 MG PO ×2 (09:50→19:53)
[2025-07-08] MEDS: PROTONIX 40 MG PO (09:50)
[2025-07-08] MEDS: ALDACTONE 25 MG PO (09:50)
[2025-07-08] MEDS: TOPROL XL PO (09:51)
[2025-07-08 10:10] LABS: Hematocrit 37.2 % (39.0-52.0); Hemoglobin 11.3 g/dL (13.0-18.0); Mean Corp Hgb Conc. 30.4 g/dL (33.0-37.0); Mean Corpuscular Volume 82.9 fL (80.0-94.0); Nucleated Red Blood Cells % 0 % (-); Platelet Count 209 10^3/uL (130-400); Red Cell Dist. Width 15.8 % (11.5-14.5)
[2025-07-08] MEDS: SPIRIVA RESPIMAT 2.5 MCG 2 PUFF INH (10:51)
[2025-07-08] MEDS: SYMBICORT 160/4.5 MCG INHALER 2 PUFF INH ×2 (10:51→19:59)
--- NOTE | 2025-07-08 13:15 | W.PN.HOSP.TC ---
Today's Communication/Plan
-
s/p SNOW/CV
Discharge when okay with cardiology
Assessment / Plan
Assessment / Plan
80M with paroxysmal A-fib, CHF, CAD, HTN, who presents with hypokalemia, A-fib.
Hypokalemia�resolved
Suspect secondary to diuretics
Repleted with IV and oral potassium
Improved to 3.9
Persistent A-fib
s/p Ablation on 06/14/25
EKG again shows A-fib
-Continue metoprolol for rate control
-Continue Eliquis for anticoagulation
-Consulted Cardiology
s/p SNOW/CV 07/08/2025
Subacute HFpEF
-Patient appears euvolemic following increased diuretics as outpatient last week
-Continue Lasix 20mg Daily
-Continue spironolactone
-Continue dapagliflozin
Coronary Artery Disease
s/p stent (September 2024)
Peripheral Arterial Disease s/p Left Fem-Pop Bypass (Mar 2025)
-Continue Brilinta
-Continue atorvastatin
Essential Hypertension
BP controlled
-Continue metoprolol
Emphysema / COPD
no acute exacerbation
-Continue Breztri
DVT ppx
Eliquis
Anticipated Discharge: Today
Subjective/Interval History
-
Date of Service: July 08, 2025
Patient states he feels well, little sleepy from anesthesia, is back from his CV
Objective Data
-
Labs:
Laboratory Results
07/08/25
06:46
WBC 6.6
Hgb 11.3 L
Hct 37.2 L
Plt Count 209 D
Sodium 138
Potassium 3.9
Chloride 105
Carbon Dioxide 25
BUN 12
Creatinine 0.8
Glucose 83
Calcium 8.7
Vital Signs:
Vital Signs
Temp Pulse Resp BP Pulse Ox
97.5 F 65 16 127/66 96
07/08/25 11:31 07/08/25 11:31 07/08/25 11:31 07/08/25 11:31 07/08/25 11:31
I&O
07/07/25 07/08/25 07/09/25
06:59 06:59 06:59
Intake Total 120 / 120 360 / 360
Balance 120 / 120 360 / 360
Review of Systems
-
History Source: Patient
All other systems: Reviewed and negative
Physical Exam
-
General: No Apparent Distress
HEENT: Moist Mucous Membranes, Anicteric and PERRLA
Respiratory: Clear to Auscultation; Negative Wheezes, Rales or Rhonchi
Cardiac: S1/S2 and Irregular Rhythm; Negative Murmur, Rub or Gallop
GI: Soft, Nontender, Nondistended and Normal Bowel Sounds
Musculoskeletal: No Edema
Skin: Warm and Dry; Negative Rash, Ulcers or Lesions
Neuro: Awake and AO x 3
Hematologic / Lymphatic: No Lymphadenopathy
Psych: Calm
Data Reviewed
-
Labs: Labs Reviewed by me and Discussed with Patient
--- NOTE | 2025-07-08 13:51 | W.CARD.TIKOS ---
Initiate Tikosyn
-
I verify that the patient has not taken any verapamil (Isoptin/Calan), ketoconazole (Nizoral), cimetidine (Tagamet), trimethoprim (Trimpex), trimethoprim/sulfamethoxazole (Bactrim), megesterol (Megace), prochlorperazine (Compazine),
hydrochlorothiazide (HCTZ), dolutegravir (Tivicay) or any Class I or Class III anti-arrhythmic within the last three days
AND
I verify that the patient has not taken amiodarone within the last THREE months, or that the patient's amiodarone plasma concentration is <0.3 mcg/mL.
Creatinine 0.8 mg/dL (0.7-1.3) 07/08/25 06:46
Estimated Creat Clear 67 ml/min 07/08/25 06:46
Does patient have a Ventricular Conduction Abnormality: Yes
I have assessed the baseline QTc interval (using QT for heart rate less than 60 bpm) and deemed the patient is appropriate for Dofetilide therapy. I understand that Tikosyn is contraindicated if the QTc is >440msec (500msec in patients with
ventricular conduction abnormalities).
Baseline QTc (in msec): 480
QTc interval is greater than 440msec without conduction abnormality OR greater than 500msec with a conduction abnormality, but acceptable to proceed per Cardiology attending.
Reason for Administration with Prolonged QTc: Other Atrial Arrhythmia (IVCD)
Ordering Physician: Michael Meade
--- NOTE | 2025-07-08 13:55 | W.PN.CD ---
Today's Communication / Plan
-
- Start Tikosyn loading.
Impression / Plan
-
AFIB (persistent), aflutter (atypical):
-s/p AFIB ablation 05/13/23
-s/p ablation Dr. Meade 06/14/25: supraventricular tachycardia ablation with ablation of various atypical flutters including tom mitral flutter, tom left atrial septal flutter, Biatrial flutter, right atrial lateral wall flutter, focal atrial
tachycardia from ashley terminalis, cavotricuspid flutter and posterior wall isolation
-s/p DCCV on 07/08/25 - went back to AF now
-continue Eliquis and metoprolol
-Will start pt on Tikosyn - QTc was long with slower heart rate
-Will stop Metoprolol
-With QTc at borderline, will start 250 mcg q12h
-of note, was previously on amiodarone and stopped after recent ablation
CAD with hx stenting:
-stable without CP
-continue Brilinta/Eliquis
HFimpEF: chronic
-recent echo as below
-volume status stable after recent course of increased diuretic. Continue current PO diuretics (Lasix/spironolactone). Continue Farxiga.
Hypokalemia:
-resolved s/p replacement
-monitor closely
COPD:
-stable without wheezing
Moderate :
-monitor as OP over time with echo
Data:
Echo 06/30/25: Left ventricular ejection fraction is normal with an ejection fraction of 56 % by Munoz's biplane method of discs. Basal inferior wall segments are hypokinetic. Right ventricular cavity size cavity is mildly dilated with low normal
function. Stage I diastolic dysfunction suggestive of abnormal relaxation. Moderate aortic valve stenosis. Mild aortic regurgitation. Mild to moderate tricuspid regurgitation. Estimated pulmonary artery pressure of 60 mmHg assuming a right atrial
pressure of 15 mmHg. Inferior vena cava is dilated and does not show respiratory changes. No evidence of pericardial effusion. When compared to the prior echo on 02/09/25, ejection fraction is improved from 45-50% to>55%. PASP as increased from
normal to 60mmHg with inferior vena cava dilation. Of note, RV dilation is not new.
Physical Exam
Vital Signs/Labs
Vital Signs
Temp Pulse Resp BP Pulse Ox
97.5 F 65 16 127/66 96
07/08/25 11:31 07/08/25 11:31 07/08/25 11:31 07/08/25 11:31 07/08/25 11:31
07/07/25 07/08/25 07/09/25
06:59 06:59 06:59
Actual Weight 73.8 kg 72.32 kg
07/08/25 06:46
07/08/25 06:46
PT 21.2 Sec (11.4-14.6) H 07/06/25 14:30
INR 1.81 07/06/25 14:30
Magnesium 2.2 mg/dl (1.6-2.3) 07/08/25 06:46
07/06/25
14:30
Rmr-Y-Ehtnbrjylju Pept 711
LAB Results
07/06/25
14:30
Troponin I 0.019
Physical Exam
Constitutional: No acute distress and Comfortable
EENT: Anicteric and Moist mucous membranes
Cardiovascular: Pedal edema is absent, JVD pressure is normal and Rhythm/rate is irregular
Respiratory: Respiratory effort normal and Lungs clear to auscul.
GI: Soft, Non tender and Normal bowel sounds
Neuro/Psych: Alert, Oriented and AO x 3
Other: Cath Site
Data Reviewed
-
Date of Service: July 08, 2025
Medical Decision Making: Reviewed Test Results, Test Interpretation and Review of Case with other Provider
EKG: Tracing Personally Visualized and interpreted
Echo: Report Reviewed by me
Labs: Labs Reviewed by me
Old Records: Reviewed
--- NOTE | 2025-07-08 16:10 | PTCARENOTE ---
Report given to IVAlphonso Palomino RN. Pt awaiting transfer to IVU.
[2025-07-08] MEDS: TIKOSYN 250 MCG PO (18:01)
--- NOTE | 2025-07-08 18:07 | PTCARENOTE ---
Assumed care of patient at 1640. AAOx3, VSS, 97% on room air. Patient has no complaints at this time, call house within reach.
--- NOTE | 2025-07-08 18:08 | PTCARENOTE ---
Tikosyn dose #1 given at 1800, EKG ordered for 1999.
[2025-07-08] MEDS: TOPROL XL 25 MG PO (19:53)
[2025-07-08] MEDS: LIPITOR 80 MG PO (22:29)
[2025-07-09] VITALS (8 sets, daily range): BP systolic 110–147; BP diastolic 59–80; BMI 25.2
--- NOTE | 2025-07-09 01:47 | PTCARENOTE ---
Received pt at change of shift, AAOx3, Afib on the monitor, VSS. Pt is post cardioversion that was unsuccessful. Pt started on first dose of Tikosyn at 1800 and EKG obtained with QTC of 491. Pt has been flipping in and out of Afib with rate going
up to the 140's but not sustaining for long, asymptomatic, denies chest discomfort, pt laying in bed, bp 147/77. Plan of care shared with pt and pt verbalized understanding.
[2025-07-09 04:59] LABS: Hematocrit 36.1 % (39.0-52.0); Hemoglobin 11.1 g/dL (13.0-18.0); Mean Corp Hgb Conc. 30.7 g/dL (33.0-37.0); Mean Corpuscular Volume 81.1 fL (80.0-94.0); Nucleated Red Blood Cells % 0 % (-); Platelet Count 198 10^3/uL (130-400); Red Cell Dist. Width 15.7 % (11.5-14.5)
[2025-07-09 05:08] LABS: Blood Urea Nitrogen 9 mg/dl (9-20); Calcium 8.7 mg/dl (8.4-10.2); Carbon Dioxide 23 mmol/L (22-30); Chloride 108 mmol/L (98-107); Estimated Creatinine Clearance 89 ml/min; Glucose 89 mg/dl (70-99); Potassium 3.7 mmol/L (3.5-5.1); Sodium 138 mmol/L (135-145); eGFR > 60.00
[2025-07-09] MEDS: TIKOSYN 250 MCG PO ×2 (06:23→18:24)
--- NOTE | 2025-07-09 06:45 | ECGCV ---
Addendum entered by Charity Corona RN 07/09/25 06:58:
2nd ekg that was obtained is in patients paper chart
Original Note:
<Nichole Reich NP > notified of ECG critical value identified by electronic interpretation on ECG completed on <07/08/2025>, at <20:02>.
Pt had received Tikosyn at 18:00, and EKG obtained 2hrs post per protocol. Nursing staff obtained ekg, and result showed Critical test result (AV block, Sinus Tach w/ 2nd AV block w/ 2:1 AV conduction). EKG result printed at that time. EKG rhythm is
not a true critical result, which was confirmed by Michelle HALL yesterday. New ekg obtained after showed SR w/ PVCs and bigeminy.
[2025-07-09] MEDS: SPIRIVA RESPIMAT 2.5 MCG 2 PUFF INH (07:11)
[2025-07-09] MEDS: SYMBICORT 160/4.5 MCG INHALER 2 PUFF INH ×2 (07:11→19:22)
[2025-07-09] MEDS: ELIQUIS 5 MG PO ×2 (07:30→19:40)
[2025-07-09] MEDS: FARXIGA 10 MG PO (07:31)
[2025-07-09] MEDS: BRILINTA 90 MG PO ×2 (07:31→19:40)
[2025-07-09] MEDS: ALDACTONE 25 MG PO (07:31)
[2025-07-09] MEDS: FLUSH (NSS) 1 FLUSH IV (07:31)
[2025-07-09] MEDS: PROTONIX 40 MG PO (07:31)
[2025-07-09] MEDS: TOPROL XL 25 MG PO ×2 (07:32→19:40)
--- NOTE | 2025-07-09 08:39 | W.PN.CD ---
Today's Communication / Plan
-
- Continue Tikosyn loading
Impression / Plan
-
AFIB (persistent), aflutter (atypical):
-s/p AFIB ablation 05/13/23
-s/p ablation Dr. Meade 06/14/25: supraventricular tachycardia ablation with ablation of various atypical flutters including tom mitral flutter, tom left atrial septal flutter, Biatrial flutter, right atrial lateral wall flutter, focal atrial
tachycardia from ashley terminalis, cavotricuspid flutter and posterior wall isolation
-s/p DCCV on 07/08/25 - went back to AF - started on Tikosyn 07/08/25 - now in sinus
-continue Eliquis and metoprolol
-Loading on Tikosyn - QTc was long with slower heart rate - acceptable QTc
-Continue loading Tikosyn 250 mcg q12 - dose 2/5 this AM
-of note, was previously on amiodarone and stopped after recent ablation
CAD with hx stenting:
-stable without CP
-continue Brilinta/Eliquis
HFimpEF: chronic
-recent echo as below
-volume status stable after recent course of increased diuretic. Continue current PO diuretics (Lasix/spironolactone). Continue Farxiga.
Hypokalemia:
-resolved s/p replacement
-monitor closely
COPD:
-stable without wheezing
Moderate :
-monitor as OP over time with echo
Data:
Echo 06/30/25: Left ventricular ejection fraction is normal with an ejection fraction of 56 % by Munoz's biplane method of discs. Basal inferior wall segments are hypokinetic. Right ventricular cavity size cavity is mildly dilated with low normal
function. Stage I diastolic dysfunction suggestive of abnormal relaxation. Moderate aortic valve stenosis. Mild aortic regurgitation. Mild to moderate tricuspid regurgitation. Estimated pulmonary artery pressure of 60 mmHg assuming a right atrial
pressure of 15 mmHg. Inferior vena cava is dilated and does not show respiratory changes. No evidence of pericardial effusion. When compared to the prior echo on 02/09/25, ejection fraction is improved from 45-50% to>55%. PASP as increased from
normal to 60mmHg with inferior vena cava dilation. Of note, RV dilation is not new.
Physical Exam
Vital Signs/Labs
Vital Signs
Temp Pulse Resp BP Pulse Ox
97.5 F 67 20 126/80 92
07/09/25 06:52 07/09/25 07:32 07/09/25 07:23 07/09/25 06:52 07/09/25 07:23
07/08/25 07/09/25 07/10/25
06:59 06:59 06:59
Actual Weight 72.32 kg 72.8 kg
07/09/25 04:18
07/09/25 04:18
PT 21.2 Sec (11.4-14.6) H 07/06/25 14:30
INR 1.81 07/06/25 14:30
Magnesium 2.2 mg/dl (1.6-2.3) 07/08/25 06:46
07/06/25
14:30
Ozp-P-Qcvzxpyvwap Pept 711
LAB Results
07/06/25
14:30
Troponin I 0.019
Physical Exam
Constitutional: No acute distress and Comfortable
EENT: Anicteric and Moist mucous membranes
Cardiovascular: Rhythm & rate is regular, Pedal edema is absent and JVD pressure is normal
Respiratory: Respiratory effort normal, Lungs clear to auscul. and Wheeze Absent
GI: Soft, Non tender and Normal bowel sounds
Neuro/Psych: Alert, Oriented and AO x 3
Data Reviewed
-
Date of Service: July 09, 2025
Medical Decision Making: Reviewed Test Results, Test Interpretation and Review of Case with other Provider
EKG: Tracing Personally Visualized and interpreted
Echo: Report Reviewed by me
Labs: Labs Reviewed by me
Old Records: Reviewed
--- NOTE | 2025-07-09 08:42 | PTCARENOTE ---
2nd dose Tikosyn 2 hr post QTc 578. Notified Dr. Finn and Dr Meade.
--- NOTE | 2025-07-09 09:14 | PTCARENOTE ---
Repeat ECG for 2hr post 2nd dose of Tikosyn Qtc is 575. Dr Meade notified.
--- NOTE | 2025-07-09 11:31 | CM ---
Chart reviewed. Patient is independent of ADLS, lives with his girlfriend in a [address], 1 [address], 0 DME. Plan is for the patient to return home. CM to follow
--- NOTE | 2025-07-09 13:20 | CM ---
Pricing on Dofetilide 250 mcq through the patients [facility] is covered at a $0 copay. The patient met his $2000 deductible. I did give the patient a Good Rx coupon for next year. It is available at the [facility]. The patient
will need a 3 day supply to go home.
--- NOTE | 2025-07-09 13:38 | W.PN.HOSP.TC ---
Today's Communication/Plan
-
Continue Tikosyn
Assessment / Plan
Assessment / Plan
80M with paroxysmal A-fib, CHF, CAD, HTN, who presents with hypokalemia, A-fib.
Hypokalemia�resolved
Suspect secondary to diuretics
Repleted with IV and oral potassium
Improved
Persistent A-fib
s/p Ablation on 06/14/25
EKG again shows A-fib
-Continue metoprolol for rate control
-Continue Eliquis for anticoagulation
-Consulted Cardiology
s/p SNOW/CV 07/08/2025
Remained in A-fib after procedure
Was initiated on Tikosyn. Monitor closely in IVU. continue dosing per cardiology
Subacute HFpEF
-Patient appears euvolemic following increased diuretics as outpatient last week
-Continue Lasix 20mg Daily
-Continue spironolactone
-Continue dapagliflozin
Coronary Artery Disease
s/p stent (September 2024)
Peripheral Arterial Disease s/p Left Fem-Pop Bypass (Mar 2025)
-Continue Brilinta
-Continue atorvastatin
Essential Hypertension
BP controlled
-Continue metoprolol
Emphysema / COPD
no acute exacerbation
-Continue Breztri
DVT ppx
Eliquis
Anticipated Discharge: 24 - 48 hours
Subjective/Interval History
-
Date of Service: July 09, 2025
Patient denies chest pain, SOB, palpitations.
Objective Data
-
Labs:
Laboratory Results
07/09/25
04:18
WBC 6.7
Hgb 11.1 L
Hct 36.1 L
Plt Count 198
Sodium 138
Potassium 3.7
Chloride 108 H
Carbon Dioxide 23
BUN 9
Creatinine 0.6 L
Glucose 89
Calcium 8.7
Vital Signs:
Vital Signs
Temp Pulse Resp BP Pulse Ox
97.6 F 64 20 112/59 94
07/09/25 11:37 07/09/25 12:01 07/09/25 11:37 07/09/25 11:37 07/09/25 11:37
I&O
07/08/25 07/09/25 07/10/25
06:59 06:59 06:59
Intake Total 120 / 120 960 / 960
Balance 120 / 120 960 / 960
Review of Systems
-
History Source: Patient
All other systems: Reviewed and negative
Physical Exam
-
General: No Apparent Distress
HEENT: Moist Mucous Membranes, Anicteric and PERRLA
Respiratory: Clear to Auscultation; Negative Wheezes, Rales or Rhonchi
Cardiac: S1/S2 and Irregular Rhythm; Negative Murmur, Rub or Gallop
GI: Soft, Nontender, Nondistended and Normal Bowel Sounds
Musculoskeletal: No Edema
Skin: Warm and Dry; Negative Rash, Ulcers or Lesions
Neuro: Awake and AO x 3
Hematologic / Lymphatic: No Lymphadenopathy
Psych: Calm
Data Reviewed
-
Labs: Labs Reviewed by me and Discussed with Patient
--- NOTE | 2025-07-09 14:58 | PTCARENOTE ---
The patient is aaox3. His vital signs are stable. NSR with frequent PACs and bigeminy is noted on the monitor. His HR is irregular with a murmur. He has no complaints of pain or discomfort. However, he has a moist productive cough that's producing
white sputum. I educated him on Tikosyn loading, side effects, and expectations.
[2025-07-09] MEDS: ROBITUSSIN DM 10 ML PO ×2 (15:04→22:51)
[2025-07-09] MEDS: LIPITOR 80 MG PO (22:48)
--- NOTE | 2025-07-10 01:00 | PTCARENOTE ---
Received pt at change of shift resting in bed. SB-SR w/ occ. vent bigeminy on tele, HR 50's-60's. pt denies any CP or SOB at this time. EKG post Tikosyn obtained. Updated pt on plan of care. pt verbalizes understanding. Call house within reach.
[2025-07-10 03:44] VITALS: BP 122/75
[2025-07-10 06:00] VITALS: BMI 25.1
[2025-07-10] MEDS: TIKOSYN 250 MCG PO (06:13)
[2025-07-10] MEDS: SPIRIVA RESPIMAT 2.5 MCG 2 PUFF INH (07:57)
[2025-07-10] MEDS: SYMBICORT 160/4.5 MCG INHALER 2 PUFF INH (07:57)
[2025-07-10 08:46] VITALS: BP 140/80
[2025-07-10] MEDS: BRILINTA 90 MG PO (09:21)
[2025-07-10] MEDS: ALDACTONE 25 MG PO (09:21)
[2025-07-10] MEDS: TOPROL XL 25 MG PO (09:21)
[2025-07-10] MEDS: ELIQUIS 5 MG PO (09:21)
[2025-07-10] MEDS: PROTONIX 40 MG PO (09:21)
[2025-07-10] MEDS: FARXIGA 10 MG PO (09:21)
--- NOTE | 2025-07-10 10:04 | W.PN.HOSP.TC ---
Today's Communication/Plan
-
Continue Tikosyn loading
Currently in sinus bradycardia
Assessment / Plan
Assessment / Plan
80M with paroxysmal A-fib, CHF, CAD, HTN, who presents with hypokalemia, A-fib.
Hypokalemia�resolved
Suspect secondary to diuretics
Repleted with IV and oral potassium
Improved
Persistent A-fib
s/p Ablation on 06/14/25
EKG again shows A-fib
-Continue metoprolol for rate control
-Continue Eliquis for anticoagulation
-Consulted Cardiology
s/p SNOW/CV 07/08/2025
Remained in A-fib after procedure
Was initiated on Tikosyn. Monitor closely in IVU. continue dosing per cardiology
07/10 telemetry showing sinus bradycardia
Subacute HFpEF
-Patient appears euvolemic following increased diuretics as outpatient last week
-Continue Lasix 20mg Daily
-Continue spironolactone
-Continue dapagliflozin
Coronary Artery Disease
s/p stent (September 2024)
Peripheral Arterial Disease s/p Left Fem-Pop Bypass (Mar 2025)
-Continue Brilinta
-Continue atorvastatin
Essential Hypertension
BP controlled
-Continue metoprolol
Emphysema / COPD
no acute exacerbation
-Continue Breztri
DVT ppx
Eliquis
Anticipated Discharge: Within 24 hours
Subjective/Interval History
-
Date of Service: July 10, 2025
Patient denies chest pain, SOB, palpitations.
Objective Data
-
Labs:
Laboratory Results
07/09/25
04:18
WBC 6.7
Hgb 11.1 L
Hct 36.1 L
Plt Count 198
Sodium 138
Potassium 3.7
Chloride 108 H
Carbon Dioxide 23
BUN 9
Creatinine 0.6 L
Glucose 89
Calcium 8.7
Vital Signs:
Vital Signs
Temp Pulse Resp BP Pulse Ox
97.6 F 66 18 122/75 94
07/10/25 08:58 07/10/25 08:04 07/10/25 08:58 07/10/25 03:44 07/10/25 08:58
I&O
07/09/25 07/10/25 07/11/25
06:59 06:59 06:59
Intake Total 960 / 960 240 / 240
Balance 960 / 960 240 / 240
Review of Systems
-
History Source: Patient
All other systems: Reviewed and negative
Physical Exam
-
General: No Apparent Distress
HEENT: Moist Mucous Membranes, Anicteric and PERRLA
Respiratory: Clear to Auscultation; Negative Wheezes, Rales or Rhonchi
Cardiac: Regular Rhythm and S1/S2; Negative Murmur, Rub or Gallop
GI: Soft, Nontender, Nondistended and Normal Bowel Sounds
Musculoskeletal: No Edema
Skin: Warm and Dry; Negative Rash, Ulcers or Lesions
Neuro: Awake and AO x 3
Hematologic / Lymphatic: No Lymphadenopathy
Psych: Calm
[2025-07-10 12:42] VITALS: BP 136/81
--- NOTE | 2025-07-10 12:44 | W.PN.CD ---
Addendum entered and electronically signed by Willian Junior MD 07/10/25 13:25:
Patient seen and examined in collaboration with CHIEF SALES OFFICER; agree with below.
- No major events overnight.
- Exam: Regular rate and rhythm, normal S1-S2; lungs CTA bilaterally; extremities no edema.
- After further discussion with EP Cardiology today and review of EKGs and telemetry strips, it does not appear that Tikosyn will be the safest option for the patient (QT prolongation, bradycardia).
- Therefore, Tikosyn and amiodarone will be discontinued.
- The patient can begin taking maintenance dose amiodarone 200 mg daily starting tomorrow morning.
- Disposition: Stable for discharge to home today; outpatient follow-up with Cardiology.
Original Note:
Today's Communication / Plan
-
-continue dofetilide, but monitor EKG's and telemetry closely
-decrease metoprolol to once daily for bradycardia
-He is feeling well and hopes to go home tomorrow after 6th dose dofetilide
Impression / Plan
-
AFIB (persistent), aflutter (atypical):
-s/p AFIB ablation 05/13/23
-s/p ablation Dr. Meade 06/14/25: supraventricular tachycardia ablation with ablation of various atypical flutters including tom mitral flutter, tom left atrial septal flutter, Biatrial flutter, right atrial lateral wall flutter, focal atrial
tachycardia from ashley terminalis, cavotricuspid flutter and posterior wall isolation
-s/p DCCV on 07/08/25 - went back to AF - started on Tikosyn 07/08/25 - now in sinus
-continue Eliquis and metoprolol- reduce metoprolol for bradycardia
-Loading on Tikosyn - reviewed EKG/QTC with Dr. Junior- okay to continue dofetilide- monitor EKG and telemetry
-Continue loading Tikosyn 250 mcg q12 - 6th dose will be tomorrow AM- this medication requires intensive montoring
-of note, was previously on amiodarone and stopped after recent ablation
CAD with hx stenting:
-stable without CP
-continue Brilinta/Eliquis
HFimpEF: chronic
-recent echo as below
-volume status stable after recent course of increased diuretic. Continue current PO diuretics (Lasix/spironolactone). Continue Farxiga.
Hypokalemia:
-resolved s/p replacement
-monitor closely
COPD:
-stable without wheezing
Moderate :
-monitor as OP over time with echo
Data:
Echo 06/30/25: Left ventricular ejection fraction is normal with an ejection fraction of 56 % by Munoz's biplane method of discs. Basal inferior wall segments are hypokinetic. Right ventricular cavity size cavity is mildly dilated with low normal
function. Stage I diastolic dysfunction suggestive of abnormal relaxation. Moderate aortic valve stenosis. Mild aortic regurgitation. Mild to moderate tricuspid regurgitation. Estimated pulmonary artery pressure of 60 mmHg assuming a right atrial
pressure of 15 mmHg. Inferior vena cava is dilated and does not show respiratory changes. No evidence of pericardial effusion. When compared to the prior echo on 02/09/25, ejection fraction is improved from 45-50% to>55%. PASP as increased from
normal to 60mmHg with inferior vena cava dilation. Of note, RV dilation is not new.
Physical Exam
Vital Signs/Labs
Vital Signs
Temp Pulse Resp BP Pulse Ox
97.6 F 53 18 136/81 94
07/10/25 08:58 07/10/25 12:42 07/10/25 08:58 07/10/25 12:42 07/10/25 08:58
07/09/25 07/10/25 07/11/25
06:59 06:59 06:59
Actual Weight 160 lb 7.944 oz 159 lb 13.362 oz
07/09/25 04:18
07/09/25 04:18
PT 21.2 Sec (11.4-14.6) H 07/06/25 14:30
INR 1.81 07/06/25 14:30
Magnesium 2.2 mg/dl (1.6-2.3) 07/08/25 06:46
07/06/25
14:30
Jlg-[id number] Pept 711
Physical Exam
Constitutional: No acute distress
EENT: Anicteric
Cardiovascular: Rhythm & rate is regular (SB) and Systolic murmur present (II/ systolic)
Respiratory: Respiratory effort normal and Lungs clear to auscul.
Neuro/Psych: AO x 3
Other: Skin (warm and dry)
Data Reviewed
-
Date of Service: July 10, 2025
EKG: Tracing Personally Visualized and interpreted (SB- QTC reviewed with early learning teacher- okay to continue dofetilide) and Other (SB)
Labs: Labs Reviewed by me
--- NOTE | 2025-07-10 13:31 | W.DCSUMMARY ---
Discharge Summary
Discharge Data
Date of Admission: 07/09/25
Date of Discharge: 07/10/25
Total time spent discharging patient (in min): 31
-
Pending Results: No
Hospital Course
Attending physician on day of discharge:
Magda Francisco MD
Discharge diagnosis:
Hypokalemia
A-fib
Secondary diagnoses:
CAD
CHF
COPD
Moderate
Consultations:
Cardiology
Procedures:
SNOW/CV
Hospital course:
80M with A-fib s/p ablation, CHF, CAD, HTN, who presents with hypokalemia, A-fib with RVR (110 bpm). His diuretics were held and his potassium was successfully repleted. These are to be resumed as outpatient. He underwent SNOW/CV for his A-fib,
however was persistently in A-fib after the procedure. He was initiated on Tikosyn, and he reverted to sinus however was bradycardic with a prolonged QT, so this was discontinued. Patient was discharged on amiodarone with instructions to
discontinue his metoprolol.
Physical exam on discharge:
See note
Discharge disposition:
Home
Discharge Plan
-
Patient Disposition: Home (Routine Discharge)
Discharge Diagnosis/Procedures: Afib, hypokalemia
Diet: Regular
Activity: As tolerated
Referrals:
Willian Junior MD [Active, Cardiology]
Wolfgang Juan MD [Family Provider, Family Practice]
Additional Discharge Medication Instructions: Stop metoprolol. Start amiodarone tomorrow.
Prescriptions:
New
amiodarone [Pacerone] 200 mg Tablet
200 mg PO DAILY Qty: 30 0RF
Continued
ticagrelor [Brilinta] 90 mg Tablet
90 mg PO BID Qty: 60 11RF
pantoprazole 40 mg Tablet,Delayed Release (Dr/Ec)
40 mg PO DAILY Qty: 30 0RF
atorvastatin 80 mg tablet
80 mg PO HS
dapagliflozin propanediol [Farxiga] 10 mg Tablet
10 mg PO DAILY
triamcinolone acetonide 0.1 % cream
1 applic TOPICAL DAILYPRN PRN (Reason: rash)
nitroglycerin 0.4 mg Tablet, Sublingual
0.4 mg SUBLINGUAL [id number] PRN (Reason: chest pain)
PreserVision AREDS-2 250-90-40-1 mg Capsule
1 tab PO BID
Breztri Aerosphere 160-9-4.8 mcg/actuation Hfa Aerosol Inhaler
2 inh INHALATION R BID
Eliquis 5 MG tablet
5 mg PO BID
furosemide 20 mg tablet
20 mg PO DAILY
spironolactone 25 mg tablet
25 mg PO DAILY
peg 400-propylene glycol (PF) 0.4-0.3 % Dropperette
1 drp BOTH EYES TIDPRN PRN (Reason: dryness)
Pavblu 2 mg/0.05 mL Solution
2 mg INTRAVITREAL Q4W
Discontinued
metoprolol succinate 25 mg Tablet Extended Release 24 Hr
25 mg PO BID Qty: 60 0RF
Discharge Orders:
Discharge Patient (As Directed); Ordered 07/10/25
Ordered By: Magda Francisco
Care Plan Goals
Care Plan Goals:
Problem: Readiness for enhanced knowledge related to diagnosis and treatment plan
Goal: Understand your diagnosis and treatment plan needs, including medications if applicable.
Instructions: Know your diagnosis, underlying causes and treatment plan options, including medications if applicable. Consult with your health care team to learn about your diagnosis and treatment plan, including medications if applicable.
Discharge Date and Time
Print Language: SINHAL[place]
== END 2025-07-10 15:29 | disposition home or self-care (01) | DRG 641 ==
LOC: IVU 10:10
PROVIDERS: Internal Medicine Cardiovascular Disease; Physician Assistant Medical; ADMITTING PHYSICIAN Hospitalist; ATTENDING PHYSICIAN Internal Medicine; CONSULT PHYSICIAN Internal Medicine; EMERGENCY PHYSICIAN Emergency Medicine; FAMILY PHYSICIAN Family Medicine
PROC: B24BZZ4 Ultrasonography of Heart with Aorta, Transesophageal (ICD-10-PCS; 2025-07-08)
PROC: 5A2204Z Restoration of Cardiac Rhythm, Single (ICD-10-PCS; 2025-07-08)
DX: E87.6 Hypokalemia (principal); I48.19 Other persistent atrial fibrillation; I50.32 Chronic diastolic (congestive) heart failure; Q21.10 Atrial septal defect, unspecified; I48.92 Unspecified atrial flutter; J44.9 Chronic obstructive pulmonary disease, unspecified; Z11.52 Encounter for screening for COVID-19; I11.0 Hypertensive heart disease with heart failure; I25.10 Atherosclerotic heart disease of native coronary artery without angina pectoris; Z79.01 Long term (current) use of anticoagulants; Z79.02 Long term (current) use of antithrombotics/antiplatelets; I73.9 Peripheral vascular disease, unspecified; Z79.899 Other long term (current) drug therapy
CPT/HCPCS: 71046; 80048; 80053; 82962; 83735; 83880; 84132; 84484; 85025; 85610; 87502; 87811; 92960; 93005; 93312; 93320; 93325; 94640; 96361; 96374; 99284